=== PATIENT | male | born 1960 | race Caucasian/White ===

== ENCOUNTER 2020-01-05 07:21 | Outpatient (REF) | payer BC, SELFPAY | END 2020-01-05 07:22 | disposition home or self-care (01) | LOC: HO.LAB 07:21 | PROVIDERS: Visit Provider Internal Medicine Gastroenterology | DX: Z13.89 Encounter for screening for other disorder (principal) ==

== ENCOUNTER 2020-01-08 | Outpatient (REF) | payer BC, SELFPAY ==
[2020-01-09 12:36] LABS: FIT1 NEGATIVE (NEGATIVE); FIT2 NEGATIVE (NEGATIVE)
[2020-01-09 12:37] LABS: FIT Int Ctl YES
== END 2020-01-08 00:01 | disposition home or self-care (01) ==
LOC: HO.LNP
PROVIDERS: Visit Provider Internal Medicine Gastroenterology
DX: D64.9 Anemia, unspecified (principal)
CPT/HCPCS: 82274

== ENCOUNTER → 2020-01-10 08:18 | Outpatient (BNVA) | payer BC, SELFPAY | PROVIDERS: Visit Provider Dietitian, Registered | DX: Z76.89 Persons encountering health services in other specified circumstances (principal) ==

== ENCOUNTER → 2020-03-06 08:14 | Outpatient (BNVA) | payer BC, SELFPAY | PROVIDERS: Visit Provider Dietitian, Registered | DX: Z76.89 Persons encountering health services in other specified circumstances (principal) ==

== ENCOUNTER 2020-04-20 07:42 | Day surgery (SDC) | payer BC, SELFPAY ==
--- NOTE | 2020-03-22 08:23 | HO.ANESPROP2 ---
HPI - Anesthesia Eval Consult details Narrative: 60yo M for Colonoscopy [facility] Past Medical History Medical History (Updated 03/22/20 @ 14:02 by Sudha Sanchez, RN) Diabetes Elevated HDL Kidney stones Sleep apnea Surgical History Surgical History (Updated 03/22/20 @ 14:02 by Sudha Sanchez, RN) H/O ureter repair S/P gastric bypass S/P hip replacement Meds Allergies Allergy/AdvReac Type Severity Reaction Status Date / Time Iodinated Contrast Media Allergy Intermediate HIVES Unverified 11/10/19 16:44 [IV Dye, Iodine Containing] iodine Allergy Unknown Verified 07/23/18 00:00 Home Medications Medication Instructions Recorded Confirmed Type bupropion HCl 1 tab PO DAILY 03/22/20 03/22/20 History cholecalciferol (vitamin D3) 1 cap PO DAILY 03/22/20 03/22/20 History [Vitamin D3] iron,carbonyl-vitamin C [Vitron-C] 1 tab PO DAILY 03/22/20 03/22/20 History tamsulosin 1 cap PO DAILY 03/22/20 03/22/20 History Exam Exam Date and Time: March 22, 2020 0823 Pertinent Lab Results Pertinent Lab Results: Laboratory Tests 11/04/19 11/04/19 07:05 07:05 WBC 5.6 Hgb 13.0 L Hct 40.0 L Plt Count 244 Sodium 143 Potassium 4.5 Chloride 107 BUN 20 H Creatinine 1.17 Assessment and Plan Assessment Anesthesia Assessment: Chart Reviewed
[2020-03-22 13:59] VITALS: BMI 25.2
[2020-04-13 14:32] VITALS: BMI 25.7
--- NOTE | 2020-04-18 13:47 | P.CONAN_ITS ---
Documented by User: Jenifer Sherwood 04/18/20 13:49 HPI - Anesthesia Eval Consult details Narrative: 60yo M for Colonoscopy s/p gastric bypass 2017 [facility] Past Medical History Medical History ADD (attention deficit disorder) Anemia Diabetes Elevated HDL Kidney stones Sleep apnea Surgical History Surgical History H/O ureter repair Hx of colonoscopy S/P gastric bypass S/P hip replacement Social History Social History Are you a primary personal care home administrator to a significant other at home: No Do you presently have visiting nurse or other home services: No Smoking Status: Current some day smoker Use of substances other than those prescribed or required for medical reasons: No Have you been hit, kicked, punched, or otherwise hurt by someone within the past year? If so, by whom?: No Advance Directives: No Advance Directives Information Provided: No Advance Directives on File: No Recently lost weight without trying: No Meds Allergies Allergy/AdvReac Type Severity Reaction Status Date / Time Iodinated Contrast Media Allergy Intermediate HIVES Unverified 04/13/20 14:31 [IV Dye, Iodine Containing] Home Medications Medication Instructions Recorded Confirmed Last Taken Type bupropion HCl 1 tab PO DAILY 03/22/20 04/20/20 04/20/20 History 300 mg cholecalciferol (vitamin D3) 1 cap PO DAILY 03/22/20 03/22/20 Unknown History [Vitamin D3] iron,carbonyl-vitamin C [Vitron-C] 1 tab PO DAILY 03/22/20 03/22/20 Unknown History tamsulosin 1 cap PO DAILY 03/22/20 03/22/20 Unknown History Exam Exam Date and Time: April 18, 2020 1347 Height,Weight and Vital Signs: Height 5 ft 8 in Weight 76.657 kg Pertinent Lab Results Pertinent Lab Results: Laboratory Tests 11/04/19 11/04/19 07:05 07:05 WBC 5.6 Hgb 13.0 L Hct 40.0 L Plt Count 244 Sodium 143 Potassium 4.5 Chloride 107 BUN 20 H Creatinine 1.17 Assessment and Plan Assessment Anesthesia Assessment: Chart Reviewed Documented by User: Dilia Saldaña 04/20/20 08:46 [facility] Past Medical History Medical History ADD (attention deficit disorder) Anemia Diabetes Elevated HDL Kidney stones Sleep apnea Surgical History Surgical History H/O ureter repair Hx of colonoscopy S/P gastric bypass S/P hip replacement Social History Social History Are you a primary personal care home administrator to a significant other at home: No Do you presently have visiting nurse or other home services: No Smoking Status: Current some day smoker Use of substances other than those prescribed or required for medical reasons: No Have you been hit, kicked, punched, or otherwise hurt by someone within the past year? If so, by whom?: No Advance Directives: No Advance Directives Information Provided: No Advance Directives on File: No Recently lost weight without trying: No Meds Allergies Allergy/AdvReac Type Severity Reaction Status Date / Time Iodinated Contrast Media Allergy Intermediate HIVES Unverified 04/13/20 14:31 [IV Dye, Iodine Containing] Home Medications Medication Instructions Recorded Confirmed Last Taken Type bupropion HCl 1 tab PO DAILY 03/22/20 04/20/20 04/20/20 History 300 mg cholecalciferol (vitamin D3) 1 cap PO DAILY 03/22/20 03/22/20 Unknown History [Vitamin D3] iron,carbonyl-vitamin C [Vitron-C] 1 tab PO DAILY 03/22/20 03/22/20 Unknown History tamsulosin 1 cap PO DAILY 03/22/20 03/22/20 Unknown History Exam Airway Mallampati Class: II TM Dist: >3cm Neck ROM: Full Loose/Missing/Broken Teeth: No Heart: RRR Lungs: CTA Assessment and Plan Assessment Anesthesia Assessment: Anesthesia Plan Discussed and Chart Reviewed Final Anesthetic Review NPO: Yes ASA Class: II Final Preanesthetic Review: Meds/Allgs Chart Reviewed, Consent Obtained/Reviewed and Anes Risks/Benef Reviewed Patient Risk: Intermediate Procedure Risk: Low Anesthetic Plan Anesthetic Plan: MAC: Disposition: Standard PACU
[2020-04-20] MEDS: Lactated Ringers 1,000 ML 100 ML IVCONT (08:20)
[2020-04-20 08:21] VITALS: BP 133/71; PULSE 48; RESP 18; TEMP 36.4; O2SAT 97
[2020-04-20 08:38] LABS: Glucose, Whole Blood 86 mg/dL (60-115)
--- NOTE | 2020-04-20 08:44 | MHC.SHP ---
Pre-Procedural Eval Section B Chief Complaint: anemia Details of Present Illness: jin Relevant Family History (Specify if Yes): No Relevant Social History: None Present Medications: see Short Stay Collaborative assessment Medical History: No relevant PMH (had covid in feb) History of Previous Operations: No relevant previous surgery Allergies: Allergies Allergy/AdvReac Type Severity Reaction Status Date / Time Iodinated Contrast Media Allergy Intermediate HIVES Unverified 04/13/20 14:31 [IV Dye, Iodine Containing] Review of Systems Sugical H&P ROS: Negative: Constitution, Cardiovascular, Respiratory, Neurological, Psychiatric, Hem-Onc, Allergic/Immunologic, Gastrointestinal, Genitourinary, Musculoskeletal, Integumentary, Endocrine and Eyes/Ears/Nose/Throat Exam Surgical H&P Exam: Normal: HEENT, Normal: Heart, Normal: Lungs, Normal: Extremities, Normal: Abdomen, Normal: Skin and Normal: Neurological Plan Diagnosis/Plan: Unchanged I have reviewed the history and physical and performed a pertinent physical examination on my patient. No changes have occurred unless specified.
[2020-04-20 09:20] VITALS: BP 110/54; PULSE 51; RESP 18; TEMP 36.4; O2SAT 96
--- NOTE | 2020-04-20 09:21 | PM.OP ---
Brief Operative Note Date of Service: 04/20/20 Pre-op diagnosis: jin Post-op diagnosis: same Procedure: colonoscopy Surgeon: Berto Poe Anesthesia: MAC Estimated blood loss (mL): 0 Pathology: none sent Condition: stable Disposition: PACU
[2020-04-20 09:35] VITALS: BP 113/51; PULSE 48; RESP 17; TEMP 36.4; O2SAT 97
--- NOTE | 2020-04-20 18:59 | OP_ITS ---
SURGEON: Berto Poe MD INDICATIONS: Iron deficiency anemia. PREOPERATIVE DIAGNOSIS: POSTOPERATIVE DIAGNOSIS: PROCEDURE PERFORMED: Colonoscopy to the terminal ileum. ESTIMATED BLOOD LOSS: COMPLICATIONS: ANESTHESIA: ASSISTANTS: SPECIMENS: MEDICATIONS: Monitored anesthesia care. DESCRIPTION OF PROCEDURE: History and physical was performed. The risks and benefits of the procedure were explained to the patient and informed consent was obtained. The patient was placed in left lateral decubitus position. A digital rectal exam was performed and was found to be normal. The Olympus pediatric video colonoscope was introduced into the rectum and advanced to the cecum without difficulty. The cecum was identified by transillumination, palpation, and identification of ileocecal valve. Examination was performed. The scope was removed. He tolerated the procedure well and was taken to recovery area in stable condition. FINDINGS: The terminal ileum was normal. The visualized colonic mucosa was within normal limits without evidence of masses or ulcers. There was a moderate amount of liquid stool coating the mucosa. This limited the sensitivity examination for detection of small polyps. This was washed and suctioned as best possible. No polyps were identified. Retroflexed examination showed small internal hemorrhoids. IMPRESSION: Normal colonoscopy. RECOMMENDATIONS: 1. Follow up as needed. 2. Repeat colonoscopy is recommended in 10 years for average risk individuals. MD LANA Swan/ZACKL / [id number]
== END 2020-04-20 10:10 | disposition home or self-care (01) ==
PROVIDERS: Visit Provider Internal Medicine Gastroenterology
PROC: 0DJD8ZZ Inspection of Lower Intestinal Tract, Via Natural or Artificial Opening Endoscopic (ICD-10-PCS; CPT 45378; principal; 2020-04-20 08:50)
DX: D50.9 Iron deficiency anemia, unspecified (principal); Z86.010 Personal history of colon polyps; K64.8 Other hemorrhoids; E11.9 Type 2 diabetes mellitus without complications; G47.30 Sleep apnea, unspecified; F98.8 Other specified behavioral and emotional disorders with onset usually occurring in childhood and adolescence; Z98.84 Bariatric surgery status; Z79.899 Other long term (current) drug therapy; Z99.89 Dependence on other enabling machines and devices; Z91.041 Radiographic dye allergy status; Z87.891 Personal history of nicotine dependence
CPT/HCPCS: 45378; 82947

== ENCOUNTER 2020-05-29 08:26 | Outpatient (REF) | payer BC, SELFPAY ==
--- NOTE | 2020-05-29 11:24 | MHC.AU.ANO ---
Adult Audiological Evaluation Date of Visit: 05/29/20 Reason for Appointment: Audiological evaluation due to concern for decreased hearing and tinnitus. Mr. Stanley states that he has been experiencing constant tinnitus for as long as he can remember. He feels his hearing is gradually decreasing and he feels that his right ear is worse. Does patient feel they have a hearing loss?: Yes If Yes, Which Ear?: Both Ears When Was Hearing Difficulty First Noticed?: Over the past several years Has hearing been tested previously?: No Hearing Handicap Inventory: HHIE SCORE: 20 Based on HHIE score, patient has: Mild to moderate perceived hearing handicap Ear History: Family History of Hearing Loss?: Yes: Mother and father Bothersome Tinnitus/Ringing/Noises in Ears: Both Ears Blocked/Full Sensation in Ear(s): Both Ears Medical History: Medical History: Diabetes High Blood Pressure Medical History: Right kidney srugery in 1977, Left hip replacement 2010, Gastric bypass 2018 Medication List: Carafate 10 mL 2x daily, Pantoprazol 40 mg, Vitamin C, Tamsulosin, Wellbutrin 300 mg, Vitamin D, Bariatric multivitamin Otoscopy: Right Ear: Unremarkable Left Ear: Unremarkable Tympanometry: Tympanometry performed due to: Patient reports sensation that ears are blocked/plugged. Right Ear: Normal Middle Ear System (Type A) Left Ear: Normal Middle Ear System (Type A) Hearing Evaluation: Transducer(s) Used: Insert Earphones, Bone Conduction Method: Conventional Audiometry Stimuli Used: Pure Tones Right Ear: Description of Hearing: Normal hearing at 250 Hz, sloping to a mild to moderately severe sensorineural hearing loss from 500-8000 Hz. Left Ear: Description of Hearing: Normal hearing from 250-750 Hz, sloping to a mild to moderately severe sensorineural hearing loss from 5481-8227 Hz. Speech Recognition Threshold (SRT): Method Used: Monitored Live Voice Stimuli Used: Spondee Words Right Ear: 25 dBHL Left Ear: 20 dBHL Word Discrimination: Method: Recorded Lists Word Lists Used: NU-6 Right Ear: 76% at 65 dBHL, 88% at 75 dBHL Left Ear: 96% at 60 dBHL Recommendations: Audiological re-evaluation in one year. Trial with amplification is recommended. Discussed hearing aid options with patient. He will consider his options and contact us to schedule a hearing aid consultation if he decides he would like to pursue hearing aids through our clinic. Diagnosis: Primary Diagnosis: H90.3 Bilateral Sensorineural Hearing Loss Secondary Diagnosis: H93.13 Tinnitus, Bilateral Services Performed: Comprehensive Audiological Evaluation (CPT 99133) Tympanometry (CPT 57329) Signature: Provider: Esme Soto, CCC-A
== END 2020-05-29 08:27 | disposition home or self-care (01) ==
LOC: HO.SH 08:26
PROVIDERS: Visit Provider Internal Medicine
DX: H90.3 Sensorineural hearing loss, bilateral (principal); H93.13 Tinnitus, bilateral
CPT/HCPCS: 92557; 92567

== ENCOUNTER → 2020-06-05 15:40 | Outpatient (BNVA) | payer BC, SELFPAY | PROVIDERS: PCP Internal Medicine; Visit Provider Dietitian, Registered ==

== ENCOUNTER 2020-06-08 07:53 | Outpatient (REF) | payer BC, SELFPAY ==
--- NOTE | ~2020-06-08 | XR_ITS ---
EXAMINATION: XR BILATERAL HIPS AND PELVIS CLINICAL INFORMATION: Pain in the right and left hip. COMPARISON: X-ray of the pelvis and hips April 2017. TECHNIQUE: AP of the pelvis and AP and lateral views of the right and left hip respectively. FINDINGS: RIGHT HIP: There is marked joint space narrowing with marginal osteophytes and subchondral cystic change with a [id number] appearance superiorly. Findings indicative of severe osteoarthritis. This appears to have progressed slightly since the prior examination. LEFT HIP: Left total hip arthroplasty noted with components in usual position. No periprosthetic fracture or suspicious area of lucency. There is heterotopic ossification as seen previously. PELVIS: Hips as above. The remaining bone and joints in the pelvis are normal. Arterial calcification present. XR/XR hip LT min 2V IMPRESSION: Right hip: Severe osteoarthritis with degenerative changes slightly progressed compared to prior. Left hip: Left total hip arthroplasty without change or complication by x-ray. Pelvis: Hips as above. Calcific atherosclerotic disease.
--- NOTE | ~2020-06-08 | XR_ITS ---
EXAMINATION: XR BILATERAL HIPS AND PELVIS CLINICAL INFORMATION: Pain in the right and left hip. COMPARISON: X-ray of the pelvis and hips April 2017. TECHNIQUE: AP of the pelvis and AP and lateral views of the right and left hip respectively. FINDINGS: RIGHT HIP: There is marked joint space narrowing with marginal osteophytes and subchondral cystic change with a [id number] appearance superiorly. Findings indicative of severe osteoarthritis. This appears to have progressed slightly since the prior examination. LEFT HIP: Left total hip arthroplasty noted with components in usual position. No periprosthetic fracture or suspicious area of lucency. There is heterotopic ossification as seen previously. PELVIS: Hips as above. The remaining bone and joints in the pelvis are normal. Arterial calcification present. XR/XR hip RT w PEL1V IMPRESSION: Right hip: Severe osteoarthritis with degenerative changes slightly progressed compared to prior. Left hip: Left total hip arthroplasty without change or complication by x-ray. Pelvis: Hips as above. Calcific atherosclerotic disease.
== END 2020-06-08 07:54 | disposition home or self-care (01) ==
LOC: HO.HOSX 07:53
PROVIDERS: Visit Provider Orthopaedic Surgery
DX: M16.11 Unilateral primary osteoarthritis, right hip (principal); M25.552 Pain in left hip; E11.65 Type 2 diabetes mellitus with hyperglycemia
CPT/HCPCS: 73502

== ENCOUNTER 2020-06-11 14:14 | Outpatient (REF) | payer BC, SELFPAY ==
--- NOTE | ~2020-06-11 | XR_ITS ---
EXAMINATION: XR ANKLE, LEFT CLINICAL INFORMATION: Diabetes and hypercalcemia. COMPARISON: None. TECHNIQUE: AP, lateral, and mortise views of the left ankle. FINDINGS: No acute fracture or dislocation. Small tibiotalar marginal osteophytes. Degenerative spurring at the dorsal midfoot. No osseous erosion. The ankle mortise is maintained. Atherosclerotic calcifications. XR/XR ankle LT 2V IMPRESSION: Degenerative arthritis at the dorsal midfoot as well as minimal degenerative arthritis of the talonavicular joint.
== END 2020-06-11 14:15 | disposition home or self-care (01) ==
LOC: HO.XRAY 14:14
PROVIDERS: PCP Internal Medicine; Visit Provider Family Medicine
DX: E11.65 Type 2 diabetes mellitus with hyperglycemia (principal); E11.40 Type 2 diabetes mellitus with diabetic neuropathy, unspecified; L03.116 Cellulitis of left lower limb; L02.416 Cutaneous abscess of left lower limb
CPT/HCPCS: 73600; 87071; 87077; 87186; 87205

== ENCOUNTER 2020-06-14 06:17 | Outpatient (REF) | payer BC, SELFPAY ==
[2020-06-14 07:17] LABS: MANUAL DIFF FLAG NO
--- NOTE | 2020-06-14 07:20 | ECG_ITS ---
Test Reason : PREOP Blood Pressure : / mmHG Vent. Rate : 057 BPM Atrial Rate : 053 BPM P-R Int : 000 ms QRS Dur : 088 ms QT Int : 482 ms P-R-T Axes : 000 -31 039 degrees QTc Int : 469 ms sinus brdayvardia with Premature supraventricular complexes Left axis deviation Abnormal ECG When compared with ECG of 21-JUL-2017 12:08, QT has lengthened Referred By: Cornelius Abdul Electronically Signed By:Jett Faust
[2020-06-14 07:30] LABS: Basophils Percent Auto 0.6 % (0-2); Eosinophils Absolute Auto 0.2 X10*3/uL (0.0-0.4); Eosinophils Percent Auto 2.9 % (0-4); Hematocrit 39.2 % (42-52); Hemoglobin 12.8 g/dl (14.0-18.0); Imm Gran Abs Auto 0.01 X10*3/uL (0.00-0.03); Imm Gran Pct Auto 0.2 % (0.0-0.4); Immature Retic Fraction 13.3 % (2.3-13.4); Lymphocytes Absolute Auto 1.5 X10*3/uL (1.2-4.9); Lymphocytes Percent Auto 27.6 % (20-40); Mean Corpuscular HGB Conc 32.7 g/dl (31.0-36.0); Mean Corpuscular Hemoglobin 30.6 pg (27.0-33.0); Mean Corpuscular Volume 93.8 fL (80-98); Mean Platelet Volume 9.6 fL (9.4-12.4); Monocytes Absolute Auto 0.5 X10*3/uL (0.1-1.2); Monocytes Percent Auto 9.7 % (2-11); Neutrophils Absolute Auto 3.2 X10*3/uL (2.0-8.3); Platelet Count 261 X10*3/uL (160-400); Red Blood Count 4.18 X10*6/uL (4.60-5.80); Red Cell Distribution Width 12.8 % (11.0-16.0); Retic HGB Equivalent 34.5 pg (30.0-35.0); Reticulocyte Percent 1.3 % (0.5-1.8); Reticulocytes Absolute 0.054 X10*6/uL (0.026-0.095); White Blood Count 5.4 X10*3/uL (4.8-10.8)
[2020-06-14 07:44] LABS: Alanine Aminotransferase 18 U/L (0-40); Albumin Level 3.9 g/dL (3.5-5.0); Alkaline Phosphatase 98 U/L (39-117); Anion Gap 10 (12-20); Aspartate Amino Transferase 16 U/L (5-37); Bilirubin Total 0.8 mg/dL (0.0-1.0); Blood Urea Nitrogen 18 mg/dL (9-16); Carbon Dioxide 31 mmol/L (22-29); Chloride 107 mmol/L (96-108); Cholesterol 150 mg/dL; Estimated Glomerular Filt Rate > 60; Glucose Random 105 mg/dL (60-115); HDL Cholesterol 51 mg/dL; Iron 80 mcg/dL (45-160); LDL Cholesterol Calculated 85 mg/dl; Percent Iron Saturation 25 % (15-50); Potassium 4.3 mmol/L (3.3-5.1); Sodium 144 mmol/L (135-145); Total Iron Binding Capacity 317 mcg/dL (228-428); Total Protein 6.9 g/dL (6.5-8.0); Triglycerides 70 mg/dL; Unsaturated Iron Binding 237 ug/dL
[2020-06-14 08:08] LABS: Free T4 (Free Thyroxine) 0.93 ng/dL (0.71-1.85); Prostate Specific Antigen Scr 0.27 ng/mL (<0.05-4.0); Thyroid Stimulating Hormone 1.16 uIU/mL (0.32-4.0); Vitamin D 25-OH Total 38.5 ng/mL (>30)
[2020-06-14 08:25] LABS: Folate 17.6 ng/mL (> or = 4.0); Vitamin B12 1061 pg/mL (200-900)
[2020-06-14 08:32] LABS: Creatinine Urine 164.83 mg/dL; Microalbum/Creatinine Ratio Ur 3.6 ug/mg cr
[2020-06-14 08:55] LABS: Estimated Average Glucose 108 mg/dL; Hemoglobin A1c % 5.4 %
[2020-06-18 11:16] LABS: Testosterone, Total 369 ng/dL (250-1100)
== END 2020-06-14 06:18 | disposition home or self-care (01) ==
LOC: HO.LAB 06:17
PROVIDERS: PCP Internal Medicine; Visit Provider Orthopaedic Surgery
DX: Z01.810 Encounter for preprocedural cardiovascular examination (principal); Z12.5 Encounter for screening for malignant neoplasm of prostate; N40.0 Benign prostatic hyperplasia without lower urinary tract symptoms; E78.00 Pure hypercholesterolemia, unspecified; E11.65 Type 2 diabetes mellitus with hyperglycemia
CPT/HCPCS: 36415; 80053; 80061; 82043; 82306; 82607; 82746; 83036; 83540; 84153; 84403; 84439; 84443; 85025; 85045; 93005

== ENCOUNTER → 2020-07-11 13:01 | Outpatient (BNVA) | payer BC, SELFPAY | PROVIDERS: Visit Provider Physician Assistant ==

== ENCOUNTER 2020-07-16 06:04 | Inpatient (IN) | payer BC, SELFPAY ==
--- NOTE | 2020-07-12 10:41 | P.CONAN_ITS ---
Documented by User: Jenifer Sherwood 07/13/20 09:47 HPI - Anesthesia Eval Consult details Narrative: 60yo M for Right Hip Total Replacement PCP cleared s/p gastric bypass 2017 [facility] Active Problems Active Problems: All Active Problems (Updated 07/11/20 @ 13:30 by Mary Stratton PA-C) Osteoarthritis of right hip (Acute) Preoperative clearance (Acute) Primary osteoarthritis of right hip (Acute) Abscess (Acute) Abscess or cellulitis of ankle (Acute) Erectile dysfunction (Acute) Tremor (Acute) Tinnitus (Acute) BPH (benign prostatic hyperplasia) (Acute) Sleep apnea (Acute) Peripheral neuropathy (Acute) S/P gastric bypass (Acute) ADD (attention deficit disorder) (Acute) Obesity with body mass index (BMI) of 30.0 to 39.9 (Acute) Type 2 diabetes mellitus with hyperglycemia (Acute) Past Medical History Medical History ADD (attention deficit disorder) Anemia BPH (benign prostatic hyperplasia) COVID-19 vaccine series completed Elevated HDL History of COVID-19 Kidney stones Obesity with body mass index (BMI) of 30.0 to 39.9 Peripheral neuropathy Sleep apnea Type 2 diabetes mellitus with hyperglycemia Family History Family History Father Myocardial infarct Mother CVA (cerebral vascular accident) Family history of problems with anesthesia: No Surgical History Surgical History H/O ureter repair Hx of colonoscopy S/P gastric bypass S/P hip replacement History of Problems with Anesthesia: No Social History Social History Are you a primary healthcare consultant to a significant other at home: No Do you presently have visiting nurse or other home services: No Alcohol intake: never Smoking Status: Former smoker Smoking Quit Date: 1994 Have you been hit, kicked, punched, or otherwise hurt by someone within the past year? 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 Meds Allergies Allergy/AdvReac Type Severity Reaction Status Date / Time Iodinated Contrast Media Allergy Intermediate HIVES Verified 07/11/20 13:13 [IV Dye, Iodine Containing] iodine Allergy Hives Verified 07/12/20 12:30 NSAIDS (Non-Steroidal Allergy Hx Verified 07/12/20 12:30 Anti-Inflamma Bariatric surgery Home Medications Medication Instructions Recorded Confirmed Last Taken Type Vitron-C 1 tab PO DAILY 03/22/20 07/12/20 Unknown History CPAP #1 ea 05/18/20 07/10/20 Unknown History multivitamin 1 tab PO DAILY 05/18/20 07/12/20 Unknown History sildenafil [Viagra] 100 mg PO DAILY PRN 07/12/20 07/12/20 Unknown History Exam Exam Date and Time: July 12, 2020 1041 Pertinent Lab Results Pertinent Lab Results: Laboratory Tests 06/14/20 06/14/20 06:45 06:45 WBC 5.4 Hgb 12.8 L Hct 39.2 L Plt Count 261 Sodium 144 Potassium 4.3 Chloride 107 Carbon Dioxide 31 H BUN 18 H Creatinine 1.09 Laboratory Tests 06/14/20 06:45 Hemoglobin A1c % 5.4 Lab Results 07/12/20 07/12/20 Range/Units 12:30 13:15 Nasal Screen MRSA (PCR) NEGATIVE (Negative) Nasal S. aureus Screen NEGATIVE (Negative) Nasal MRSA/S.aureus Interp SEE NOTE Blood Type O Positive Antibody Screen NEGATIVE Narrative Narrative: EKG 05/2020 Vent. Rate : 057 BPM Atrial Rate : 053 BPM P-R Int : 000 ms QRS Dur : 088 ms QT Int : 482 ms P-R-T Axes : 000 -31 039 degrees QTc Int : 469 ms sinus bradycardia with Premature supraventricular complexes Left axis deviation Abnormal ECG When compared with ECG of 21-JUL-2017 12:08, QT has lengthened Airway Mallampati Class: I TM Dist: >3cm Neck ROM: Full Loose/Missing/Broken Teeth: Yes (Left upper molar crown, Right upper molar temporary crown) Heart: RRR Lungs: CTAB Assessment and Plan Assessment Anesthesia Assessment: Anesthesia Plan Discussed and PAT Visit Documented by User: Nayely Christian 07/16/20 08:56 PMFSH Past Medical History Medical History ADD (attention deficit disorder) Anemia BPH (benign prostatic hyperplasia) COVID-19 vaccine series completed Elevated HDL History of COVID-19 Kidney stones Obesity with body mass index (BMI) of 30.0 to 39.9 Peripheral neuropathy Sleep apnea Type 2 diabetes mellitus with hyperglycemia Family History Family History Father Myocardial infarct Mother CVA (cerebral vascular accident) Surgical History Surgical History H/O ureter repair Hx of colonoscopy S/P gastric bypass S/P hip replacement Social History Social History Are you a primary healthcare consultant to a significant other at home: No Do you presently have visiting nurse or other home services: No Alcohol intake: never Smoking Status: Former smoker Smoking Quit Date: 1994 Have you been hit, kicked, punched, or otherwise hurt by someone within the past year? 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 Meds Allergies Allergy/AdvReac Type Severity Reaction Status Date / Time Iodinated Contrast Media Allergy Intermediate HIVES Verified 07/11/20 13:13 [IV Dye, Iodine Containing] iodine Allergy Hives Verified 07/12/20 12:30 NSAIDS (Non-Steroidal Allergy Hx Verified 07/12/20 12:30 Anti-Inflamma Bariatric surgery Home Medications Medication Instructions Recorded Confirmed Last Taken Type Vitron-C 1 tab PO DAILY 03/22/20 07/12/20 Unknown History CPAP #1 ea 05/18/20 07/10/20 Unknown History multivitamin 1 tab PO DAILY 05/18/20 07/12/20 Unknown History sildenafil [Viagra] 100 mg PO DAILY PRN 07/12/20 07/12/20 Unknown History Exam Height,Weight and Vital Signs: Vital Signs Temp Pulse Resp BP Pulse Ox 07/16/20 06:48 97.2 F 38 L 16 128/59 L 99 Pertinent Lab Results Pertinent Lab Results: Laboratory Results - last 24 hr 07/16/20 06:00 COVID-19 ([facility]) Negative COVID-19 Clin Com See Note 12 lead EKG 07/16/2020: Marked SB 38 Airway Mallampati Class: II TM Dist: >3cm Neck ROM: Full Loose/Missing/Broken Teeth: Yes (Temporary crown was loose and patient removed before he came in) Heart: RRR Lungs: CTAB Assessment and Plan Assessment Anesthesia Assessment: Anesthesia Plan Discussed and Chart Reviewed Final Anesthetic Review NPO: Yes ASA Class: III Final Preanesthetic Review: No Changes in Pt Med Stat, Meds/Allgs Chart Reviewed, Consent Obtained/Reviewed and Anes Risks/Benef Reviewed Patient Risk: Intermediate Procedure Risk: Intermediate Assessment/Block/Sedation in SS: Assess/Block/Sedation-SS Anesthetic Plan Anesthetic Plan: GA Disposition: Standard PACU
[2020-07-12 12:01] VITALS: BP 136/65; PULSE 49; RESP 16; O2SAT 99; BMI 27.2
[2020-07-12 15:10] LABS: MRSA Nasal PCR NEGATIVE (Negative); SA Nasal PCR NEGATIVE (Negative)
[2020-07-16] VITALS (15 sets, daily range): BP systolic 118–179; BP diastolic 45–88; PULSE 38–56; RESP 13–19; TEMP 36.1–36.8; O2SAT 95–100
--- NOTE | 2020-07-16 | ECG_ITS ---
Test Reason : PRE OP Blood Pressure : / mmHG Vent. Rate : 038 BPM Atrial Rate : 038 BPM P-R Int : 128 ms QRS Dur : 086 ms QT Int : 514 ms P-R-T Axes : 000 -27 063 degrees QTc Int : 408 ms Marked sinus bradycardia Abnormal ECG When compared with ECG of 14-JUN-2020 06:28, Rate is slower Referred By: Nayely Christian Electronically Signed By:HIRAL ROMERO
--- NOTE | ~2020-07-16 | XR_ITS ---
EXAMINATION: XR HIP, RIGHT CLINICAL INFORMATION: Postop COMPARISON: Previous x-ray May 2010 TECHNIQUE: Two views of the right hip and one view of the pelvis. FINDINGS: There is a new right hip replacement in satisfactory position. No fracture or dislocation is seen. There are postoperative changes of the soft tissues. There is a left hip replacement that appears unchanged. XR/XR hip RT w PEL1V IMPRESSION: Satisfactory position of right hip replacement.
[2020-07-16] MEDS: oxyCODONE HCl ER 10 MG TAB.ER.12H PO (06:39)
[2020-07-16] MEDS: Gabapentin 600 MG TABLET PO (06:39)
[2020-07-16 06:40] LABS: COVID-19 Test Negative (Negative); IDNOW Serial# 9DD0AD1C
[2020-07-16] MEDS: Lactated Ringers 1,000 ML 100 ML IVCONT ×2 (06:50→17:11)
--- NOTE | 2020-07-16 07:17 | MHC.SHP ---
Pre-Procedural Eval Section A The patient is an INPATIENT: No Changes since office visit: No Cold of Flu in the past 2 weeks, No New Medical Problems, No Changes in Medication and No Patient answered all questions The History & Physical has been completed within 30 days and I have reviewed it.: Yes Section B Chief Complaint: Right Hip Osteoarthritis Allergies: Allergies Allergy/AdvReac Type Severity Reaction Status Date / Time Iodinated Contrast Media Allergy Intermediate HIVES Verified 07/11/20 13:13 [IV Dye, Iodine Containing] iodine Allergy Hives Verified 07/12/20 12:30 NSAIDS (Non-Steroidal Allergy Hx Verified 07/12/20 12:30 Anti-Inflamma Bariatric surgery Plan I have reviewed the history and physical and performed a pertinent physical examination on my patient. No changes have occurred unless specified.
[2020-07-16] MEDS: fentaNYL citrate/PF 100 MCG/2 ML VIAL 25 MCG IVPUSH ×4 (10:17→10:32)
[2020-07-16] MEDS: HYDROmorphone HCl 0.5 MG/0.5 ML SYRINGE 0.25 MG IVPUSH ×2 (10:37→10:42)
[2020-07-16] MEDS: oxyCODONE HCl Immed Release 5 MG TABLET 10 MG PO ×4 (11:05→22:57)
[2020-07-16] MEDS: ceFAZolin Sodium/Dextrose,Iso 2 GM/50 ML PIGGYBACK IV (14:04)
[2020-07-16] MEDS: Ketorolac Tromethamine 15 MG/ML VIAL IVPUSH ×2 (14:05→20:15)
[2020-07-16] MEDS: Acetaminophen 325 MG TABLET 650 MG PO ×2 (14:05→20:14)
[2020-07-16] MEDS: 0.9 % Sodium Chloride Flush 3 ML SYRINGE IVFLUSH (22:57)
[2020-07-17] MEDS: Lactated Ringers 1,000 ML 100 ML IVCONT (02:10)
[2020-07-17] MEDS: Ketorolac Tromethamine 15 MG/ML VIAL IVPUSH ×2 (02:16→07:21)
[2020-07-17] MEDS: Acetaminophen 325 MG TABLET 650 MG PO ×3 (02:17→13:41)
[2020-07-17] MEDS: oxyCODONE HCl Immed Release 5 MG TABLET 10 MG PO ×4 (02:17→13:41)
[2020-07-17 03:45] VITALS: BP 139/55; PULSE 46; RESP 18; TEMP 37.2; O2SAT 98
[2020-07-17 06:45] LABS: Hematocrit 27.3 % (42-52); Hemoglobin 9.2 g/dl (14.0-18.0)
[2020-07-17] MEDS: 0.9 % Sodium Chloride Flush 3 ML SYRINGE IVFLUSH (07:22)
--- NOTE | 2020-07-17 07:36 | P.PNOP_ITS ---
Subjective Subjective Date of Service: 07/17/20 Interval history: POD 1 s/p RT MALINA No overnight events Resting in bed, has been out of bed, no concerns. Denies cp, sob, palpitations Physical Exam Vital Signs: Vital Signs: Last Vital Signs Temp 99.0 F 07/17/20 03:45 Pulse 46 L 07/17/20 03:45 Resp 18 07/17/20 03:45 BP 139/55 L 07/17/20 03:45 Pulse Ox 98 07/17/20 03:45 Body Mass Index 27.2 Const: General: cooperative, healthy appearing and no acute distress Resp: Effort & Inspection: normal respiratory effort and able to speak in complete sentences Cardio: Rate: regular rate Peripheral pulses: Peripheral pulses 2+ throughout GI: Palpation (GI): Soft to palpation Skin: General skin exam: no rashes or lesions noted Extrem: Other: Right hip bandage clean, dry and intact. No erythema, mild edema, sensation intact Progress Note: A&P Assessment and plan (1) History of total right hip replacement: Status: Acute Assessment and Plan: * Continue pain mgmnt * Begin lovenox for dvt ppx * begin PT for RT MALINA * Dispo planning-Pending PT eval, pain mgmnt Fall Risk Details Current Medications: Current Medications Generic Name Dose Route Start Last Admin Trade Name Kevinq PRN Reason Stop Dose Admin Acetaminophen 650 mg 07/16/20 14:00 07/17/20 07:22 Acetaminophen 325 Mg Tablet PO 650 mg Q6H FAUSTO Administration Aspirin 325 mg 07/17/20 22:00 Aspirin 325 Mg Tablet PO BID FAUSTO Ketorolac Tromethamine 15 mg 07/16/20 14:00 07/17/20 07:21 Ketorolac Tromethamine 15 Mg/Ml Vial IVPUSH 15 mg Q6H FAUSTO Administration Morphine Sulfate 3 mg 07/16/20 11:20 Morphine Sulfate 4 Mg/Ml Cartridge IVPUSH Q2H PRN Pain, Severe (Pain Scale 7-10) Naloxone HCl 0.2 mg 07/16/20 11:20 Naloxone Hcl 0.4 Mg/Ml Vial IVPUSH Q2M PRN Excessive sedation or RR < 8 Ondansetron HCl 4 mg 07/16/20 11:20 Ondansetron Hcl 4 Mg/2 Ml Vial IVPUSH Q8H PRN Nausea and Vomiting Oxycodone HCl 10 mg 07/16/20 14:00 07/17/20 05:56 Oxycodone Hcl Immed Release 5 Mg Tablet PO 10 mg Q4H FAUSTO Administration Sodium Chloride 3 ml 07/16/20 16:00 07/17/20 07:22 0.9 % Sodium Chloride Flush 3 Ml Syringe IVFLUSH 3 ml QSHIFT FAUSTO Administration Sodium Chloride 3 ml 07/16/20 16:00 07/17/20 07:25 0.9 % Sodium Chloride Flush 3 Ml Syringe IVFLUSH Not Given QSHIFT FAUSTO Time Spent With Patient Time: Total time spent is greater than 50% in coordination of care (as documented) at patient's floor/unit and/or counseling patient: Time with patient: 15 - 24 minutes Procedures Date of Service Date of Service: 07/17/20
[2020-07-17 08:00] VITALS: BP 118/46; PULSE 48; RESP 16; TEMP 36.8; O2SAT 99
[2020-07-17 08:33] VITALS: BP 118/46; PULSE 48; O2SAT 99
--- NOTE | 2020-07-17 10:11 | MHC.CM.PN ---
Addendum entered by Farzana Flores 07/17/20 10:15: SC LOVENOX Q 24HRS Original Note: NURSE HISTOLOGY ASSISTANT NOTE ELECTRONIC MEDICAL RECORD REVIEWED ALONG WITH CASE DISCUSSED WITH STAFF NURSE , STAFF NURSE TO PROVIDE TEACHING FOR ADMINISTRATION OF SC LOVENOX STARTED TODAY Spoke to patient about this ,( he reported to me that before his bariatric surgery he use to give himself insulin , and now no longer needs it, he also had his l-jennifer and was on loveno sc, he would appreciate reinforcement teaching by the vna ) . 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 he lives with his and two daughters. discharge plan -anticipate discharge later today pending ortho surgical re-assessment. requested copy of hcp naming his as his hcp agent. new referral to the [facility] for nursing to start tomorrow before 10 am for sc lovenox reinforcement teaching and to also start home physical thearpy.iniated referral and recived confirmation of start date transpotation family
[2020-07-17] MEDS: Enoxaparin Sodium 40 MG/0.4 ML SYRINGE SUBCUT (10:19)
--- NOTE | 2020-07-17 10:29 | PC.NURSE ---
PT SELF ADMINISTERED LOVENOX WITHOUT DIFFICULTY. STATED HE HAS TAKEN INSULIN IN THE PAST SO COMFORTABLE WITH INJECTIONS.
[2020-07-17 11:55] VITALS: BP 118/46; PULSE 48; O2SAT 99
--- NOTE | 2020-07-17 12:02 | P.DS_ITS ---
DS: Providers Provider Date of Service: 07/18/20 Date of admission: 07/16/20 06:04 Primary care physician: Marichuy Pfeiffer MD DS: Diagnosis Discharge Diagnosis (1) History of total right hip replacement: Status: Acute Problem details: Mr. Stanley is a 60 yo male who presented to the office with ongoing right hip pain. He was found to have OA of the right hip and had failed all conservative treatment. He continued to have difficulty with ambulation and daily activities; therefore he consented to move forward with Right total hip arthroplasty. DS: Medications Discharge Medications Home Medications: Home Medications Medication Instructions Recorded Confirmed Vitron-C 1 tab PO DAILY 03/22/20 07/12/20 CPAP #1 ea 05/18/20 07/10/20 multivitamin 1 tab PO DAILY 05/18/20 07/12/20 sildenafil [Viagra] 100 mg PO DAILY PRN 07/12/20 07/12/20 Previous Rx's Medication Instructions Recorded sucralfate 100 mg/mL oral 10 ml PO BID 90 Days #1800 ml 12/20/19 suspension pantoprazole 40 mg tablet,delayed 40 mg PO DAILY #90 tab 02/13/20 release cholecalciferol (vitamin D3) 50 2,000 unit PO DAILY #30 cap 04/25/20 mcg (2,000 unit) capsule tamsulosin 0.4 mg capsule 0.4 mg PO DAILY #90 cap 06/04/20 docusate sodium [Colace] 100 mg PO BEDTIME 30 Days #30 cap 07/17/20 enoxaparin 40 mg SUBCUT Q24H 42 Days #16.8 ml 07/17/20 oxycodone 5 mg PO Q4H PRN 7 Days #42 tab 07/17/20 DS: Summary Hospital Course Hospital Course: The patient underwent a successful Right total hip arthroplasty, he was transferred to PACU and then to the floor to recover. During their stay, their vitals were stable, afebrile at 98.2. Labs were unremarkable, H/H 9.2/27.3. POD 1 he was started on Lovenox 40mg subq BID for DVT ppx, they also received Physical therapy services twice a day. Prior to discharge, their dressing was changed, incision clean dry and intact, new Aquacel dressing applied and the plan was to be discharged home with VNA services. Time Spent with Patient Time attestation: Total time spent providing and/or coordinating discharge services: Discharge coordination time: Less than 30 minutes Quality: Stroke Does the patient have a stroke diagnosis?: No Physical Exam Vital Signs: Vital Signs: Last Vital Signs Temp 98.2 F 07/17/20 08:00 Pulse 48 L 07/17/20 11:55 Resp 16 07/17/20 08:00 BP 118/46 L 07/17/20 11:55 Pulse Ox 99 07/17/20 11:55 Body Mass Index 27.2 Const: General: cooperative and no acute distress Orientation/consciousness: patient oriented x3 Resp: Effort & Inspection: normal respiratory effort and able to speak in complete sentences Cardio: Peripheral pulses: Peripheral pulses 2+ throughout Skin: General skin exam: no rashes or lesions noted Neuro: General: patient oriented x3 Extrem: Other: Right hip no ecchymosis, redness, drainage, or edema. Aquacell dressing was clean, dry, and intact. Abby intact. NVI. New Aquacel dressing applied. DS: Data Data Completed and Pending Pending studies at discharge: Pending at discharge 07/16/20 09:28 Surgical [PTH] Routine Labs on day of discharge: Laboratory Results - last 24 hr 07/17/20 06:05 Hgb 9.2 L D Hct 27.3 L D Discharge Plan Discharge Patient Disposition: Home Health Service Discharge Diagnosis: right total hip arthroplasty Referrals: JULIETTE MILLERA [Other] - 1 Day ([facility] TO START 07/18/20 REQUEST NURDING FOR HOME SC LOVENOX DUE AT 10 AM AND HOME PHYSICAL THEARPY CONFIRMED TO START ON 07/18/[address] FPEIFFER PATIENT INSTRUCTED TO CALL FOR POST HOSPITAL DISCHARGE FOLLOW UP ORTHOPEDIC SURGICAL FOLLOW UP PER DISCHARGE IONSTRUCTIONS SELF RESUMPTION OF HIS SERVICES JOLANTA KENNEDY FOR HOME CPAP MACHINE) Marichuy Pfeiffer MD [Primary Care Provider] - 1 Week Discharge Medications: New enoxaparin 40 mg/0.4 mL Syringe 40 mg subcut Q24H 42 Days Qty: 16.8 RF: 0 docusate sodium [Colace] 100 mg capsule 100 mg PO BEDTIME 30 Days Qty: 30 RF: 0 oxycodone 5 mg tablet 5 mg PO Q4H PRN (Reason: pain) 7 Days Qty: 42 RF: 0 Continued sucralfate [Carafate] 100 mg/mL suspension 10 ml PO BID 90 Days Qty: 1800 RF: 1 pantoprazole 40 mg tablet,delayed release (DR/EC) 40 mg PO DAILY Qty: 90 RF: 3 cholecalciferol (vitamin D3) [Vitamin D3] 50 mcg (2,000 unit) capsule 2,000 unit PO DAILY Qty: 30 RF: 11 tamsulosin 0.4 mg capsule 0.4 mg PO DAILY Qty: 90 RF: 2 Vitron-C 65 mg iron- 125 mg tablet,delayed release (DR/EC) 1 tab PO DAILY RF: 0 sildenafil [Viagra] 100 mg tablet 100 mg PO DAILY PRN (Reason: Erectile Dysfunction) RF: 0 Adacel(Tdap Adolesn/Adult)(PF) 2 Lf-(2.5-5-3-5 mcg)-5Lf/0.5 mL syringe 0.5 ml IM ONCE Qty: 0.5 RF: 0 multivitamin Tablet 1 tab PO DAILY RF: 0 (DME) CPAP 0 .Route .MEDSUPPLY Qty: 1 RF: 0 Discharge Orders: Discharge Order (Routine); Ordered 07/17/20 Ordered By: Khloe Salas Diet: regular diet Activity on Discharge: Use cane or walker Stand Alone Forms: Patient Portal Discharge page Care Plan Goals: restore fxn of right hip Health Concerns: none Plan of Treatment: Physical Therapy for total hip arthroplasty: no precautions, gait training, ROM, strength Limit stair climbing No showering, no tub bath-keep dressing clean, dry and intact No driving x6 weeks Continue Aspirin 325mg tabs twice a day x 4 weeks Follow up with [facility] in 2 weeks Assessment: s/p right total hip arthroplasty Discharge Date/Time: 07/17/20 15:09
--- NOTE | 2020-07-17 14:17 | P.OP_ITS ---
Operative Note Operative Note Date of Service: 07/16/20 Narrative: OPERATIVE PROCEDURE SURGEON: Dr Shields(Brandy) Instrum MATERIAL HANDLER LOADER: Khloe Salas PAC PREOP DIAGNOSIS: Osteoarthritis right hip POSTOP DIAGNOSIS: Same OPERATIVE PROCEDURE: Right Total hip arthroplasty- Bristow accolade II size 7 x 127 degree femoral component, 54 mm tritanium acetabulum, 0 degree by 36 mm acetabular liner, 36 mm x 0 mm Biolox head CLINICAL NOTE: This very pleasant individual comes in today in regards to their right hip. That evidence of osteoarthritis. This failed operative management. Therefore after explaining the risks benefits and alternatives and answering all the questions it was mutually agreed upon to carry following procedure. OPERATIVE DETAILS Under a general anesthetic the patient was placed in the left lateral decubitus position. The leg was then prepped and draped in standard fashion. Surgical time-out was then performed. Patient is identified. Procedure confirmed. Site confirmed. Medical and allergy history was reviewed. Preoperative antibiotics were given. Standard DVT prophylaxis in place. Trans E make acid was given as well. All was discussed and agreed upon. Standard anterolateral approach to the hip was carried out. Hemostasis was achieved along the way at all points with electrocautery. This brought us down to the level of the fascia robbi. This was divided along the length of the incision. The abductor musculature was identified. The anterior 2/3 were divided through tendon directly onto the greater trochanter. Muscle was then elevated off the capsule down to the level of the acetabulum. At this point a capsulectomy was then performed. The hip was then dislocated. Obvious evidence of osteoarthritis. The head and neck was then resected according to preoperative templating. We then turned our attention to the acetabulum. The remainder of the capsule and acetabular look labrum was removed. The soft tissue within the fovea was excised as well. There were loose bodies removed.. The be curette was used to remove any remaining cartilage. Starting with the 52 mm Reamer the acetabulum was sequentially reamed up to a size 54 mm. The trial acetabulum was placed at this point. It demonstrated appropriate fit fill and alignment. Therefore the 55 for acetabulum was selected and brought up the table. The acetabulum was then thoroughly irrigated. The permanent component was brought up on the table. It was then Press-Fit into place with excellent fit and alignment. A trial liner for the 36 mm head was selected. It was placed and we turned our attention to the femur. Box osteotome was used to lateralize the canal. T Reamer was then used to sound the canal. The canal was then sequentially broached from a 0 to a 7. It had excellent medial lateral fit and rotational stability. A trial reduction was then performed using the 127 degree collar and the 36 mm head. The hip was reduced. It was placed through range of motion. It demonstrated excellent leg lengths. Full range of motion. Stable in all positions. And therefore the A ccolade II, size 7 x 127 degree femoral component along with the 36 mm x 0 degree acetabular liner, and the 36 mm x 0 mm head were selected and brought up to the table. The hip was redislocated. The trial components were then all removed. The acetabular was thoroughly irrigated. The permanent liner was tapped into place. Turning our attention back to the femur, it was thoroughly irrigated. The permanent component was brought up to the table. It was then tapped into place with the same fit and fill as the broach had been. The head was brought up. The Santos taper was cleaned and dried. The head tapped into place. Final reduction was then performed which again demonstrated excellent leg length is. Full range of motion. And excellent stability. Therefore proceeded closure. The wound was thoroughly irrigated. The abductor musculature was repaired with 2. Dexon. The fascia robbi was closed with 2. Quill suture. The skin was approximated using interrupted 2-0 Dexon. The skin was then closed with sandie. Sterile dressing was then applied. The patient then had the anesthesia reversed. They were transferred supine to the room bed then taken to recovery room in good condition. Intraoperatively a 2nd unit trans of mac acid was given. There was approximately 125 cc of blood loss. No intraop transfusions or complications.
--- NOTE | 2020-07-17 14:18 | HO.POSTANES ---
Post Anesthesia Evaluation Post Anesthesia Evaluation Vital Signs: Vital Signs Temp Pulse Resp BP Pulse Ox 07/17/20 11:55 48 L 118/46 L 99 07/17/20 08:33 48 L 118/46 L 99 07/17/20 08:00 98.2 F 48 L 16 118/46 L 99 07/17/20 03:45 99.0 F 46 L 18 139/55 L 98 Anesthesia: General Mental Status: Awake Pain Control: Satisfactory Nausea/Vomiting: None Hydration: Adequate Anesthesia-Related Issues: No Anes. Related Issues
== END 2020-07-17 15:09 | disposition home health service (06) | DRG 301 ==
LOC: HO.SSSA 06:07 → HO.S3 11:06
PROVIDERS: Physician Assistant; Admitting Provider Orthopaedic Surgery; PCP Internal Medicine; Visit Provider Orthopaedic Surgery
PROC: 0SR90JA Replacement of Right Hip Joint with Synthetic Substitute, Uncemented, Open Approach (ICD-10-PCS; CPT 27130; principal; 2020-07-16 07:30)
DX: M16.11 Unilateral primary osteoarthritis, right hip (principal); Z96.642 Presence of left artificial hip joint; Z20.822 Contact with and (suspected) exposure to COVID-19; Z88.6 Allergy status to analgesic agent; Z98.84 Bariatric surgery status; Z79.899 Other long term (current) drug therapy
CPT/HCPCS: 36415; 73502; 85014; 85018; 86850; 86900; 86901; 87635; 87640; 87641; 88304; 88311; 93005; 97110; 97116; 97162; 97165; C1776; J0131; J0461; J0690; J1100; J1170; J1650; J1885; J2250; J2405; J3010

== ENCOUNTER → 2020-08-01 12:34 | Outpatient (BNVA) | payer BC, SELFPAY | PROVIDERS: PCP Internal Medicine; Visit Provider Physician Assistant ==

== ENCOUNTER → 2020-08-29 08:50 | Outpatient (BNVA) | payer BC, SELFPAY | PROVIDERS: Visit Provider Orthopaedic Surgery ==

== ENCOUNTER 2020-09-11 08:00 | Outpatient (RCR) | payer BC, SELFPAY ==
--- NOTE | 2020-08-15 10:12 | MHC.PT.EP ---
[facility] [place] Office [place] Office [place] Office [address] Vj [place] [address] [phone] F: [phone] F: [phone] F: [phone] F: [phone] Physical Therapy Plan of Care Date of Evaluation: Date of Surgery: 07/16/2020 Diagnosis: R MALINA Assessment: Maninder is a 60 year old male who is 4.5 weeks s/p R MALINA. On PT examination patient presents with significant R thigh muscle wasting observed as well as R iliopsoas and rectus femoris tightness, B Decreased hip strength, decreased R hip ROM, postural abnormalities, and gait deviations. He would benefit from skilled PT for the aforementioned impairments specifically: R hip flexor tightness, R quadriceps activation/control, and B hip abductor strengthening to improve his tolerance for ADLs such as dressing, bed mobility, and self care. Frequency and Duration: The patient will be seen 2x week for 5 weeks Short Term Goals: 1. In 2 weeks patient will demonstrate decreased hip flexor tightness to improve his ability for bed mobility and self care. 2. In 3 weeks patient will present with improved Hip ROM in all planes to improve his ability for dressing and putting his shoes on. [facility] Goals: 1. In 5 weeks patient will present with hip strength improvement by 1 MMT to help him perform alternate stair negotiation. 2. In 5 weeks pt will be independent with all HEPS and return to PLOF. Treatment Plan: Modalities to reduce pain, spasms and effusion. Manual therapy to restore motion and function. Therapeutic exercise to improve strength and flexibility. Neuromuscular re-education for posture and balance. Therapeutic activities to return to functional activities of daily living. Electronically signed by: Mahsa James PT DPT Please sign and return to therapist. Thank you for your referral.
--- NOTE | 2020-09-11 08:59 | MHC.PT.DC ---
[facility] [place] Office [place] Office [place] Office [address] Vj [place] [address] [phone] F: [phone] F: [phone] F: [phone] F: [phone] Physical Therapy Discharge Report Diagnosis: R MALINA Date of Surgery: 07/16/2020 Date of Evaluation: 08/15/20 Date of Discharge: 09/11/20 Treatments to Date: 9 Cancellations to Date: No Shows to Date: Discharge Status: Achieved Goals Improved Function Discharge Summary: Maninder has returned to all functional mobility. He is independent with bed mobility, ambulation, transfers, community ambulation, and negotiating community obstacles. Today's session focused on making Maninder independent with HEP. SL exercises cuff weight was trialed and tolerated well. I issued printed HEP. I reminded Maninder the importance of compliance extermination inspector, and the time line of his condition. I discussed a modified SLR done SL due to significant psoas weakness. Pt D/c today. Electronically signed by: Radha Sanchez PT DPT Please sign and return to therapist. Thank you for your referral.
== END 2020-09-14 14:45 | disposition home or self-care (01) ==
LOC: HO.PT 08:00
PROVIDERS: PCP Internal Medicine; Visit Provider Physician Assistant
DX: Z96.641 Presence of right artificial hip joint (principal)
CPT/HCPCS: 97110; 97140; 97161; 97530

== ENCOUNTER 2020-10-02 08:29 | Outpatient (REF) | payer BC, SELFPAY ==
[2020-10-02 09:50] LABS: MANUAL DIFF FLAG NO
[2020-10-02 09:55] LABS: Basophils Absolute Auto 0.1 X10*3/uL (0.0-0.2); Basophils Percent Auto 0.9 % (0-2); Eosinophils Absolute Auto 0.1 X10*3/uL (0.0-0.4); Eosinophils Percent Auto 1.4 % (0-4); Hematocrit 38.3 % (42-52); Hemoglobin 12.4 g/dl (14.0-18.0); Imm Gran Abs Auto 0.02 X10*3/uL (0.00-0.03); Imm Gran Pct Auto 0.3 % (0.0-0.4); Immature Retic Fraction 17.6 % (2.3-13.4); Lymphocytes Absolute Auto 2.1 X10*3/uL (1.2-4.9); Lymphocytes Percent Auto 31.3 % (20-40); Mean Corpuscular HGB Conc 32.4 g/dl (31.0-36.0); Mean Corpuscular Hemoglobin 29.3 pg (27.0-33.0); Mean Corpuscular Volume 90.5 fL (80-98); Mean Platelet Volume 9.4 fL (9.4-12.4); Monocytes Absolute Auto 0.6 X10*3/uL (0.1-1.2); Monocytes Percent Auto 9.3 % (2-11); Neutrophils Absolute Auto 3.8 X10*3/uL (2.0-8.3); Neutrophils Percent Auto 56.8 % (45-73); Platelet Count 266 X10*3/uL (160-400); Red Blood Count 4.23 X10*6/uL (4.60-5.80); Red Cell Distribution Width 13.2 % (11.0-16.0); Retic HGB Equivalent 31.1 pg (30.0-35.0); Reticulocytes Absolute 0.041 X10*6/uL (0.026-0.095); White Blood Count 6.7 X10*3/uL (4.8-10.8)
[2020-10-02 10:16] LABS: Iron 77 mcg/dL (45-160); Percent Iron Saturation 20 % (15-50); Total Iron Binding Capacity 392 mcg/dL (228-428); Unsaturated Iron Binding 315 ug/dL
[2020-10-02 10:37] LABS: Ferritin 22 ng/mL (20-250)
[2020-10-02 10:50] LABS: Folate > 20.0 ng/mL (> or = 4.0); Vitamin B12 971 pg/mL (200-900)
== END 2020-10-02 08:30 | disposition home or self-care (01) ==
LOC: HO.LAB 08:29
PROVIDERS: Absent Provider Internal Medicine; PCP Internal Medicine; Referring Provider Internal Medicine; Visit Provider Physician Assistant
DX: E66.3 Overweight (principal); Z68.27 Body mass index [BMI] 27.0-27.9, adult; D64.9 Anemia, unspecified; E11.65 Type 2 diabetes mellitus with hyperglycemia; Z98.84 Bariatric surgery status; Z71.3 Dietary counseling and surveillance
CPT/HCPCS: 36415; 82607; 82728; 82746; 83540; 85025; 85045

== ENCOUNTER 2020-11-08 08:07 | Outpatient (REF) | payer BC, SELFPAY ==
--- NOTE | ~2020-11-08 | XR_ITS ---
EXAMINATION: XR PELVIS XR HIP, RIGHT CLINICAL INFORMATION: Pain COMPARISON: Right hip radiograph from 07/17/2020 TECHNIQUE: 2 views of the pelvis and 2 views of the right hip FINDINGS: Status post bilateral hip arthroplasty. Orthopedic hardware is grossly intact. No acute visible fracture or dislocation. Heterotopic ossification versus enthesopathy along the left greater trochanter. Degenerative changes along the lumbosacral junction. Pelvic phleboliths are noted. Atherosclerotic calcifications are visualized. Soft tissues are unremarkable. XR/XR pelvis 1-2V IMPRESSION: 1. Status post bilateral hip arthroplasty, orthopedic hardware grossly intact. 2. No acute visible fracture or dislocation. 3. Heterotopic ossification versus enthesopathy along the left greater trochanter.
--- NOTE | ~2020-11-08 | XR_ITS ---
EXAMINATION: XR PELVIS XR HIP, RIGHT CLINICAL INFORMATION: Pain COMPARISON: Right hip radiograph from 07/17/2020 TECHNIQUE: 2 views of the pelvis and 2 views of the right hip FINDINGS: Status post bilateral hip arthroplasty. Orthopedic hardware is grossly intact. No acute visible fracture or dislocation. Heterotopic ossification versus enthesopathy along the left greater trochanter. Degenerative changes along the lumbosacral junction. Pelvic phleboliths are noted. Atherosclerotic calcifications are visualized. Soft tissues are unremarkable. XR/XR hip RT min 2V IMPRESSION: 1. Status post bilateral hip arthroplasty, orthopedic hardware grossly intact. 2. No acute visible fracture or dislocation. 3. Heterotopic ossification versus enthesopathy along the left greater trochanter.
== END 2020-11-08 08:08 | disposition home or self-care (01) ==
LOC: HO.HOSX 08:07
PROVIDERS: Visit Provider Physician Assistant
DX: Z96.641 Presence of right artificial hip joint (principal)
CPT/HCPCS: 72170; 73502

== ENCOUNTER → 2020-12-20 09:22 | Outpatient (BNVA) | payer BC, SELFPAY | PROVIDERS: Visit Provider Orthopaedic Surgery ==

== ENCOUNTER 2021-01-05 14:13 | Outpatient (REF) | payer BC, SELFPAY | END 2021-01-05 14:14 | disposition home or self-care (01) | LOC: HO.LNP 14:13 | PROVIDERS: Visit Provider Physician Assistant | DX: E11.621 Type 2 diabetes mellitus with foot ulcer (principal); L97.509 Non-pressure chronic ulcer of other part of unspecified foot with unspecified severity | CPT/HCPCS: 87071; 87077; 87186; 87205 ==

== ENCOUNTER → 2021-01-07 08:20 | Outpatient (BNVA) | payer BC, SELFPAY | PROVIDERS: PCP Internal Medicine; Referring Provider Internal Medicine; Visit Provider Dietitian, Registered | DX: E66.3 Overweight (principal); Z68.28 Body mass index [BMI] 28.0-28.9, adult | CPT/HCPCS: 97803 ==

== ENCOUNTER 2021-01-14 07:53 | Outpatient (RCR) | payer BC, SELFPAY | END 2021-03-27 15:06 | disposition home or self-care (01) | LOC: HO.WCC 07:53 | PROVIDERS: PCP Internal Medicine; Visit Provider Physician Assistant | DX: E11.621 Type 2 diabetes mellitus with foot ulcer (principal); L89.899 Pressure ulcer of other site, unspecified stage; E11.69 Type 2 diabetes mellitus with other specified complication; M86.272 Subacute osteomyelitis, left ankle and foot; R60.9 Edema, unspecified; E11.40 Type 2 diabetes mellitus with diabetic neuropathy, unspecified; I10 Essential (primary) hypertension; M20.42 Other hammer toe(s) (acquired), left foot; M20.41 Other hammer toe(s) (acquired), right foot; Z98.84 Bariatric surgery status; Z87.891 Personal history of nicotine dependence; Z79.2 Long term (current) use of antibiotics | CPT/HCPCS: 11042; 87071; 87077; 87186; 87205; 97597; 99212; 99214 ==

== ENCOUNTER 2021-02-04 09:13 | Outpatient (REF) | payer BC, SELFPAY ==
[2021-02-04 09:30] LABS: MANUAL DIFF FLAG NO
[2021-02-04 09:56] LABS: Basophils Absolute Auto 0.1 X10*3/uL (0.0-0.2); Basophils Percent Auto 0.8 % (0-2); Eosinophils Absolute Auto 0.1 X10*3/uL (0.0-0.4); Eosinophils Percent Auto 1.2 % (0-4); Hematocrit 37.7 % (42.0-52.0); Hemoglobin 12.2 g/dl (14.0-18.0); Imm Gran Abs Auto 0.01 X10*3/uL (0.00-0.03); Imm Gran Pct Auto 0.2 % (0.0-0.4); Lymphocytes Percent Auto 33.1 % (20-40); Mean Corpuscular HGB Conc 32.4 g/dl (31.0-36.0); Mean Corpuscular Hemoglobin 30.6 pg (27.0-33.0); Mean Corpuscular Volume 94.5 fL (80.0-98.0); Mean Platelet Volume 10.1 fL (9.4-12.4); Monocytes Absolute Auto 0.5 X10*3/uL (0.1-1.2); Monocytes Percent Auto 8.8 % (2-11); Neutrophils Absolute Auto 3.4 x10*3/uL (2.0-8.3); Neutrophils Percent Auto 55.9 % (45-73); Platelet Count 235 X10*3/uL (160-400); Red Blood Count 3.99 X10*6/uL (4.60-5.80); Red Cell Distribution Width 13.6 % (11.0-16.0)
[2021-02-04 10:19] LABS: Estimated Average Glucose 117 mg/dL; Hemoglobin A1c % 5.7 %
[2021-02-04 10:29] LABS: Anion Gap 11 (12-20); Blood Urea Nitrogen 17 mg/dL (9-16); C Reactive Protein 0.16 mg/dL (< or = 0.50); Calcium 9.6 mg/dL (8.4-10.2); Carbon Dioxide 30 mmol/L (22-29); Chloride 107 mmol/L (96-108); Estimated Glomerular Filt Rate > 60; Glucose Random 107 mg/dL (60-115); Potassium 5.1 mmol/L (3.3-5.1); Sodium 143 mmol/L (135-145)
[2021-02-04 10:37] LABS: Erythrocyte Sedimentation Rate 8 MM/HR (0-15)
== END 2021-02-04 09:14 | disposition home or self-care (01) ==
LOC: HO.LAB 09:13
PROVIDERS: PCP Internal Medicine; Visit Provider Physician Assistant
DX: L98.499 Non-pressure chronic ulcer of skin of other sites with unspecified severity (principal)
CPT/HCPCS: 36415; 80048; 83036; 84134; 85025; 85652; 86140

== ENCOUNTER 2021-02-14 08:59 | Outpatient (REF) | payer BC, SELFPAY ==
--- NOTE | ~2021-02-14 | XR_ITS ---
EXAMINATION: XR HIP, RIGHT XR PELVIS CLINICAL INFORMATION: Hip pain. COMPARISON: 11/08/2020 TECHNIQUE: AP view of the pelvis and a single view of the right hip were obtained. FINDINGS: Prosthetic components of the bilateral total hip arthroplasties appear appropriately aligned without periprosthetic fracture or malalignment. Femoral components are appropriately situated at the acetabular cups. There is marked enthesopathic spurring at the left greater trochanter. Degenerative spondylosis is noted in the lower lumbar spine. Pubic symphysis and SI joints are unremarkable. Calcific atherosclerosis is present in the iliac and femoral arteries. XR/XR pelvis 1-2V IMPRESSION: Appropriate alignment of the bilateral total hip prostheses without evidence of complications. No fractures. Degenerative spondylosis in the lower lumbar spine.
--- NOTE | ~2021-02-14 | XR_ITS ---
EXAMINATION: XR HIP, RIGHT XR PELVIS CLINICAL INFORMATION: Hip pain. COMPARISON: 11/08/2020 TECHNIQUE: AP view of the pelvis and a single view of the right hip were obtained. FINDINGS: Prosthetic components of the bilateral total hip arthroplasties appear appropriately aligned without periprosthetic fracture or malalignment. Femoral components are appropriately situated at the acetabular cups. There is marked enthesopathic spurring at the left greater trochanter. Degenerative spondylosis is noted in the lower lumbar spine. Pubic symphysis and SI joints are unremarkable. Calcific atherosclerosis is present in the iliac and femoral arteries. XR/XR hip RT 1V IMPRESSION: Appropriate alignment of the bilateral total hip prostheses without evidence of complications. No fractures. Degenerative spondylosis in the lower lumbar spine.
== END 2021-02-14 09:00 | disposition home or self-care (01) ==
LOC: HO.HOSX 08:59
PROVIDERS: Visit Provider Orthopaedic Surgery
DX: Z96.641 Presence of right artificial hip joint (principal)
CPT/HCPCS: 72170; 73501

== ENCOUNTER → 2021-02-20 10:30 | Outpatient (BNVA) | payer BC, SELFPAY | PROVIDERS: Referring Provider Physician Assistant; Visit Provider Dietitian, Registered | DX: E66.9 Obesity, unspecified (principal); Z68.28 Body mass index [BMI] 28.0-28.9, adult | CPT/HCPCS: 97803 ==

== ENCOUNTER 2021-03-06 07:58 | Outpatient (REF) | payer BC, SELFPAY ==
--- NOTE | ~2021-03-06 | MR_ITS ---
EXAMINATION: MRI FOOT WITHOUT AND WITH CONTRAST, LEFT CLINICAL INFORMATION: Nonhealing left 4th toe wound. COMPARISON: None. TECHNIQUE: MRI without and with intravenous administration of 8.5 mL of Gadavist is performed on the left foot. FINDINGS: There appears to be a shallow ulcer at the dorsolateral aspect of the 4th toe near the PIP joint. Surrounding edema/enhancement is compatible with cellulitis. No abscess. There is marrow edema and enhancement with moderate loss of T1 fatty marrow signal involving the distal aspect of the proximal phalanx suggesting osteomyelitis. Similar, more subtle marrow changes of the middle phalanx may be reactive or represent very mild or early osteomyelitis as well. Severe arthritic changes of the midfoot, most prominent at the junction of the navicular and lateral cuneiform which is partially imaged. Prominent marrow edema of the middle cuneiform and proximal 2nd metatarsal may be degenerative and/or stress related. Relatively mild marrow edema of the proximal 3rd and 4th metatarsals. Ganglion versus focal tenosynovitis of the anterior tibialis tendon over a length of 3.5 cm dorsal to the navicular and medial cuneiform. Diffuse edema and fatty atrophy of the intrinsic muscles of the foot, not uncommon in diabetic patients. MR/MR foot LT wo/w con IMPRESSION: Shallow ulcer and cellulitis of the 4th toe as described. Probable osteomyelitis involving the distal aspect of the 4th proximal phalanx. Mild osteomyelitis or reactive marrow changes of the 4th middle phalanx. Arthritic changes of the visualized midfoot with degenerative or stress-related marrow changes of the proximal 2nd metatarsal as detailed in the comments.
== END 2021-03-06 07:59 | disposition home or self-care (01) ==
LOC: HO.MRI 07:58
PROVIDERS: Visit Provider Physician Assistant
DX: S91.105A Unspecified open wound of left lesser toe(s) without damage to nail, initial encounter (principal); L03.032 Cellulitis of left toe
CPT/HCPCS: 73720; A9585

== ENCOUNTER → 2021-03-07 09:25 | Outpatient (BNVA) | payer BC, SELFPAY | PROVIDERS: Visit Provider Surgery Vascular Surgery ==

== ENCOUNTER → 2021-03-12 15:56 | Outpatient (BNVA) | payer BC, SELFPAY | PROVIDERS: Referring Provider Internal Medicine; Visit Provider Physician Assistant Surgical ==

== ENCOUNTER 2021-03-21 07:02 | Outpatient (REF) | payer BC, SELFPAY ==
[2021-03-21 07:19] LABS: MANUAL DIFF FLAG NO
[2021-03-21 07:26] LABS: Basophils Percent Auto 0.8 % (0-2); Eosinophils Absolute Auto 0.1 X10*3/uL (0.0-0.4); Eosinophils Percent Auto 1.8 % (0-4); Hematocrit 40.5 % (42.0-52.0); Hemoglobin 13.2 g/dl (14.0-18.0); Imm Gran Abs Auto 0.01 X10*3/uL (0.00-0.03); Imm Gran Pct Auto 0.2 % (0.0-0.4); Lymphocytes Percent Auto 19.4 % (20-40); Mean Corpuscular HGB Conc 32.6 g/dl (31.0-36.0); Mean Corpuscular Hemoglobin 30.5 pg (27.0-33.0); Mean Corpuscular Volume 93.5 fL (80.0-98.0); Mean Platelet Volume 9.3 fL (9.4-12.4); Monocytes Absolute Auto 0.5 X10*3/uL (0.1-1.2); Monocytes Percent Auto 9.4 % (2-11); Neutrophils Absolute Auto 3.5 x10*3/uL (2.0-8.3); Neutrophils Percent Auto 68.4 % (45-73); Platelet Count 235 X10*3/uL (160-400); Red Blood Count 4.33 X10*6/uL (4.60-5.80); Red Cell Distribution Width 12.7 % (11.0-16.0); White Blood Count 5.1 X10*3/uL (4.8-10.8)
[2021-03-21 08:02] LABS: Alanine Aminotransferase 21 U/L (0-40); Aspartate Amino Transferase 22 U/L (5-37); C Reactive Protein 0.31 mg/dL (< or = 0.50); Estimated Glomerular Filt Rate 43
[2021-03-21 08:09] LABS: Erythrocyte Sedimentation Rate 13 MM/HR (0-15)
== END 2021-03-21 07:03 | disposition home or self-care (01) ==
LOC: HO.LAB 07:02
PROVIDERS: PCP Internal Medicine; Visit Provider Internal Medicine Infectious Disease
DX: M86.9 Osteomyelitis, unspecified (principal)
CPT/HCPCS: 36415; 82565; 84450; 84460; 85025; 85652; 86140

== ENCOUNTER 2021-03-27 09:53 | Outpatient (REF) | payer BC, SELFPAY ==
--- NOTE | ~2021-03-27 | US_ITS ---
EXAMINATION: NONINVASIVE ASSESSMENT OF THE ARTERIES OF BOTH LOWER EXTREMITIES WITH ANKLE PRESSURE MEASUREMENTS, ANKLE BRACHIAL INDICES, PVR MEASUREMENTS AND BILATERAL LOWER EXTREMITY DUPLEX CLINICAL INFORMATION: Peripheral vascular disease. History of diabetes. TECHNIQUE: Ankle pressure measurements, ankle brachial indices and PVR tracings were obtained of the lower extremity arterial system bilaterally. In addition, duplex Doppler techniques with wave form analysis and measurement of velocities in the common femoral, profunda femoral, superficial femoral, popliteal and tibial arteries was performed. The study was performed only at rest. COMPARISON: None FINDINGS: NONINVASIVE ASSESSMENT OF THE ARTERIES OF BOTH LOWER EXTREMITIES WITH ABIs: RIGHT LEG: Right ankle-brachial index: 1.47 PVR (ankle): Normal LEFT LEG: Ankle-brachial index: 1.43 PVR (ankle): Normal BILATERAL LOWER EXTREMITY DUPLEX ULTRASOUND: RIGHT LEG: Common femoral artery: 128 cm/s, Diastolic flow reversal: Yes Profunda femoris artery: 133 cm/s, Diastolic flow reversal: Yes Superficial femoral artery (proximal): 105 cm/s, Diastolic flow reversal: Yes Superficial femoral artery (mid): 145 cm/s, Diastolic flow reversal: Yes Superficial femoral artery (distal): 131 cm/s, Diastolic flow reversal: Yes Popliteal artery: 84.4 cm/s, Diastolic flow reversal: Yes Posterior tibial artery: 134 cm/s, Diastolic flow reversal: Yes LEFT LEG: Common femoral artery: 124 cm/s, Diastolic flow reversal: Yes Profunda femoris artery: 123 cm/s, Diastolic flow reversal: Yes Superficial femoral artery (proximal): 122 cm/s, Diastolic flow reversal: Yes Superficial femoral artery (mid): 155 cm/s, Diastolic flow reversal: Yes Superficial femoral artery (distal): 104 cm/s, Diastolic flow reversal: Yes Popliteal artery: 78 cm/s, Diastolic flow reversal: Yes Posterior tibial artery: 146 cm/s, Diastolic flow reversal: Yes Bilateral arterial wall calcifications are present. US/US arterial duplex LE BI IMPRESSION: RIGHT LEG: RIVERA 1.47. RIVERA may be artificially elevated due to vessel wall calcification. No evidence of hemodynamically significant arterial disease by duplex criteria. LEFT LEG: RIVERA 1.43 RIVERA may be artificially elevated due to vessel wall calcification. No evidence of hemodynamically significant arterial disease by duplex criteria. RIVERA Reference: - >0.97-1.25 = normal - no significant arterial disease - 0.75-0.96 = mild peripheral arterial disease - 0.5-0.74 = moderate peripheral arterial disease - <0.50 = severe peripheral arterial disease
== END 2021-03-27 09:54 | disposition home or self-care (01) ==
LOC: HO.US 09:53
PROVIDERS: PCP Internal Medicine; Visit Provider Surgery Vascular Surgery
DX: I73.9 Peripheral vascular disease, unspecified (principal)
CPT/HCPCS: 93923; 93925

== ENCOUNTER 2021-03-28 11:00 | Day surgery (SDC) | payer BC, SELFPAY ==
[2021-03-22 14:57] VITALS: BMI 27.7
--- NOTE | 2021-03-26 14:31 | HP_ITS ---
DATE OF SERVICE: 03/28/2021 DATE OF PROPOSED SURGERY: March 28, 2021. PREOPERATIVE DIAGNOSES: 1. Chronic osteomyelitis of the left 4th toe involving both the proximal phalanx head and base of the middle phalanx. 2. Nonhealing skin ulcer, left 4th toe. PLANNED PROCEDURES: 1. Incision of bone cortex, left 4th toe to remove osteomyelitis. 2. Bone biopsy, left 4th toe. 3. Excision of skin ulcer, left 4th toe. PLANNED ANESTHESIA: Local anesthesia. CHIEF COMPLAINT AND HISTORY OF PRESENT ILLNESS: Maninder Stanley is a 61-year-old male who relates history of a nonhealing ulcer present over the past few months duration. The initial injury was wearing poorly fitting athletic shoes and complicated by diabetic neuropathy. The patient has undergone since December extensive wound care performed at [facility] as well as more recently x-rays, MRI, which have confirmed the diagnosis of osteomyelitis and he is now under the care of Infectious Disease specialist, Dr. Elizabeth, who has instituted intravenous vancomycin therapy to help treat the infection of his left foot. The patient is now requesting surgical treatment of his infected bone of his left fourth toe and excision of skin ulcer. PAST MEDICAL HISTORY: Remarkable for diabetes, arthritis, hypertension. CURRENT MEDICATIONS: Vancomycin IV daily, pantoprazole 40 mg, tamsulosin, vitamins. ALLERGIES: THE PATIENT HAS NEGATIVE REACTION TO IVP DYE. FAMILY HISTORY: Significant for hypertension, heart disease. SOCIAL HISTORY: The patient denies smoking, denies use of any recreational drugs and also denies use of alcohol. The patient typically does drink 1 to 2 cups of coffee per day. The patient is . PHYSICAL EXAMINATION: VASCULAR: The patient displays +1/4 pulses DP, +2/4 pulse of the PT arteries bilateral with normal capillary refill time noted bilateral feet. DERMATOLOGIC: Reveals a nonhealing ulcer on the dorsum of the left 4th toe proximal interphalangeal joint measuring most recently on March 21, 2021, 4 mm in diameter by 2 to 3 mm in depth with exposed necrotic tendon. ORTHOPEDIC: Reveals hammertoe contracture, 2nd through 5th toes bilateral feet. NEUROLOGIC: Reveals decreased light touch, decreased vibratory, sharp dull distinguishment and decreased monofilament testing bilateral forefoot and midfoot. The patient was seen most recently in my office on March 21, 2021. The patient has also been seen preoperatively by his primary care physician, Dr. Hager, as well as consultation with Dr. Hurtado and as stated earlier [facility]. Lastly, the patient has been instituted with intravenous antibiotic therapy with Dr. Elizabeth. The patient has given consent for his planned left foot surgery for March 28, 2021 and has been instructed of all potential risks and complications and is compliant with surgical treatment. ALFREDO Whitfield/KARAN / [id number]
[2021-03-28 11:15] VITALS: BP 141/60; PULSE 47; RESP 16; TEMP 36.6; O2SAT 97
[2021-03-28 12:53] VITALS: BP 143/58; PULSE 43; RESP 16; TEMP 36.1; O2SAT 97
--- NOTE | 2021-03-28 12:59 | PM.PROC ---
Brief Operative Note Date of procedure: 03/28/21 Pre-op diagnosis: osteomyelitis left 4th toe pipj, skin ulcer left 4th toe Post-op diagnosis: same Procedure: incision of bone cortex of infected bone left 4th toe, bone biopsy and excision of ulcer 4.2cm by 1.2cm left 4th toe Anesthesia: local Surgeon: Yong Cristobal Software Engineering Supervisor: Ksenia Espinoza Estimated blood loss (mL): 5.0 Condition: stable Disposition: PACU
--- NOTE | 2021-03-28 14:11 | OP_ITS ---
SURGEON: Yong Cristobal DPM PREOPERATIVE DIAGNOSIS: POSTOPERATIVE DIAGNOSIS: PROCEDURE PERFORMED: ESTIMATED BLOOD LOSS: COMPLICATIONS: ANESTHESIA: Consisted of local administration of total of 4.0 cc of an equal mix of 2% lidocaine with epinephrine 1:100,000 and 0.5% Marcaine plain. ASSISTANTS: SPECIMENS: PREOPERATIVE DIAGNOSES: 1. Osteomyelitis of the left fourth toe, possibly phalangeal joint. 2. Skin ulcer, left fourth toe. POSTOPERATIVE DIAGNOSES: 1. Osteomyelitis of the left fourth toe, possibly phalangeal joint. 2. Skin ulcer, left fourth toe. PROCEDURES PERFORMED: 1. Incision of bone cortex, left fourth toe. 2. Excision of skin ulcer, left fourth toe measuring 4.1 cm length by 1.2 cm width. 3. Bone biopsy, left fourth toe. INTRODUCTION: The patient was brought to the operating room, placed on the operating table in the supine position. After having been suitably anesthetized with local infiltrative anesthesia, the lower left lower extremity was then prepped and draped in the usual sterile manner. EXCISION OF SKIN ULCER, LEFT FOURTH TOE. Attention was directed to the left fourth toe where the width of the ulcer was measured to be 1 cm in width. The skin margins were measured to mixture that we had good healthy skin of the margins to close, so the excisional biopsy was planned to be 4.2 cm in length by 1.2-1.3 cm in width at the highest with excising the ulcer. The incisions were deepened in same plane and the ellipse of skin including the skin ulcers were excised in toto and sent to Pathology. The skin margins were underscored and retracted. A culture was taken overlying necrotic tendon and bone of the left fourth toe PIP joint and sent to Microbiology. The necrotic tendon was excised from the wound in toto. The hypertrophic head of the proximal phalanx was delivered from the wound and bone cut was made in good healthy bone proximal to the anatomic neck excised using the proximal phalanx in toto. Diseased bone and cartilage from the head of the proximal phalanx were removed utilizing bone cutting forceps and submitted in for microbiology evaluation in the 2nd biopsy culture. Attention was now directed to the base of the middle phalanx where again bone cut was made to remove all diseased bone from the base of the middle phalanx. The wound was irrigated with copious amounts of sterile saline using the power lavage. The healthy extensor tendon was then caught to maintain utilizing 3-0 Vicryl. Skin margins were closed with combination of 4-0 and 3-0 nylon. Sterile dressings were applied utilizing Xeroform, followed Betadine-soaked gauze, 2 inch Charly, Kerlix fluffs, 4 inch Conform. The patient tolerated the surgery and anesthesia well and left the operating room via cart to the recovery room with vital signs stable. FINAL DISPOSITION: The patient is discharged home with instructions for self-care to include the followin. To keep the dressings dry, clean, and intact. 2. To keep the left leg elevated. 3. Take all medications as prescribed. 4. Limit activity to minimum. 5. Always use surgical shoe when ambulating. 6. The patient will continue with the plan for intravenous antibiotics managed by the infectious disease specialist, Dr. Brittani Elizabeth. I will talk to Dr. Elizabeth regarding surgical treatment and perhaps this may shorten the planned course for the intravenous vancomycin based on his future signs of healing during a postoperative care. SCOUT SNIPER: Dr. Espinoza. ALFREDO Whitfield/KARAN / [id number]
== END 2021-03-28 13:06 | disposition home or self-care (01) ==
PROVIDERS: PCP Internal Medicine; Visit Provider Podiatrist
PROC: (CPT 20240; principal; 2021-03-28 12:00)
DX: M86.472 Chronic osteomyelitis with draining sinus, left ankle and foot (principal); L97.522 Non-pressure chronic ulcer of other part of left foot with fat layer exposed; D64.9 Anemia, unspecified; E11.65 Type 2 diabetes mellitus with hyperglycemia; G62.9 Polyneuropathy, unspecified; G47.33 Obstructive sleep apnea (adult) (pediatric); Z99.89 Dependence on other enabling machines and devices; Z79.899 Other long term (current) drug therapy; Z91.041 Radiographic dye allergy status; Z88.8 Allergy status to other drugs, medicaments and biological substances; Z98.84 Bariatric surgery status; Z96.643 Presence of artificial hip joint, bilateral; Z86.16 Personal history of COVID-19; F17.290 Nicotine dependence, other tobacco product, uncomplicated
CPT/HCPCS: 20240; 28005; 11426; 87071; 87073; 87205; 88304; 88305; 88311; J1100

== ENCOUNTER 2021-03-28 17:48 | Outpatient (REF) | payer BC, SELFPAY ==
[2021-03-28 18:14] LABS: Vancomycin Trough 11.1 mcg/mL (10.0-20.0)
== END 2021-03-28 17:49 | disposition home or self-care (01) ==
LOC: HO.HVNA 17:48
PROVIDERS: Visit Provider Internal Medicine Infectious Disease
DX: E11.69 Type 2 diabetes mellitus with other specified complication (principal); Z79.899 Other long term (current) drug therapy
CPT/HCPCS: 36415; 80202

== ENCOUNTER → 2021-04-02 11:28 | Outpatient (BNVA) | payer BC, SELFPAY | PROVIDERS: PCP Internal Medicine; Visit Provider Surgery Vascular Surgery ==

== ENCOUNTER 2021-04-03 14:41 | Outpatient (REF) | payer BC, SELFPAY ==
[2021-04-03 14:46] LABS: MANUAL DIFF FLAG NO
[2021-04-03 14:56] LABS: Basophils Absolute Auto 0.1 X10*3/uL (0.0-0.2); Basophils Percent Auto 0.8 % (0-2); Eosinophils Absolute Auto 0.2 X10*3/uL (0.0-0.4); Eosinophils Percent Auto 2.4 % (0-4); Hematocrit 38.4 % (42.0-52.0); Hemoglobin 12.9 g/dl (14.0-18.0); Imm Gran Abs Auto 0.02 X10*3/uL (0.00-0.03); Imm Gran Pct Auto 0.3 % (0.0-0.4); Lymphocytes Absolute Auto 2.2 X10*3/uL (1.2-4.9); Lymphocytes Percent Auto 31.5 % (20-40); Mean Corpuscular HGB Conc 33.6 g/dl (31.0-36.0); Mean Corpuscular Hemoglobin 31.2 pg (27.0-33.0); Mean Corpuscular Volume 92.8 fL (80.0-98.0); Mean Platelet Volume 9.6 fL (9.4-12.4); Monocytes Absolute Auto 0.8 X10*3/uL (0.1-1.2); Monocytes Percent Auto 11.4 % (2-11); Neutrophils Absolute Auto 3.8 x10*3/uL (2.0-8.3); Neutrophils Percent Auto 53.6 % (45-73); Platelet Count 289 X10*3/uL (160-400); Red Blood Count 4.14 X10*6/uL (4.60-5.80); Red Cell Distribution Width 12.6 % (11.0-16.0); White Blood Count 7.1 X10*3/uL (4.8-10.8)
[2021-04-03 15:17] LABS: Alanine Aminotransferase 26 U/L (0-40); Albumin Level 3.9 g/dL (3.5-5.0); Alkaline Phosphatase 94 U/L (39-117); Anion Gap 12 (12-20); Aspartate Amino Transferase 23 U/L (5-37); Bilirubin Direct < 0.2 mg/dL (0.0-0.5); Bilirubin Total 0.5 mg/dL (0.0-1.0); Blood Urea Nitrogen 19 mg/dL (9-16); C Reactive Protein 0.14 mg/dL (< or = 0.50); Calcium 9.2 mg/dL (8.4-10.2); Carbon Dioxide 29 mmol/L (22-29); Chloride 105 mmol/L (96-108); Estimated Glomerular Filt Rate > 60; Glucose Random 95 mg/dL (60-115); Potassium 4.2 mmol/L (3.3-5.1); Sodium 142 mmol/L (135-145); Total Protein 7.6 g/dL (6.5-8.0)
[2021-04-03 15:34] LABS: Erythrocyte Sedimentation Rate 12 MM/HR (0-15)
== END 2021-04-03 14:42 | disposition home or self-care (01) ==
LOC: HO.HVNA 14:41
PROVIDERS: Visit Provider Internal Medicine Infectious Disease
DX: E11.69 Type 2 diabetes mellitus with other specified complication (principal)
CPT/HCPCS: 36415; 80048; 80076; 85025; 85652; 86140

== ENCOUNTER → 2021-04-29 08:26 | Outpatient (BNVA) | payer BC, SELFPAY | PROVIDERS: PCP Internal Medicine; Visit Provider Orthopaedic Surgery ==

== ENCOUNTER → 2021-07-16 08:31 | Outpatient (BNVA) | payer BC, SELFPAY | PROVIDERS: PCP Internal Medicine; Referring Provider Internal Medicine; Visit Provider Physician Assistant Surgical | DX: Z98.84 Bariatric surgery status (principal) ==

== ENCOUNTER 2021-07-31 06:46 | Outpatient (REF) | payer BC, SELFPAY ==
[2021-07-31 07:05] LABS: MANUAL DIFF FLAG NO
[2021-07-31 07:27] LABS: Basophils Percent Auto 0.6 % (0-2); Eosinophils Absolute Auto 0.2 X10*3/uL (0.0-0.4); Eosinophils Percent Auto 2.8 % (0-4); Hematocrit 38.1 % (42.0-52.0); Hemoglobin 12.6 g/dl (14.0-18.0); Imm Gran Abs Auto 0.02 X10*3/uL (0.00-0.03); Imm Gran Pct Auto 0.3 % (0.0-0.4); Immature Retic Fraction 11.2 % (2.3-13.4); Lymphocytes Absolute Auto 1.8 X10*3/uL (1.2-4.9); Lymphocytes Percent Auto 27.9 % (20-40); Mean Corpuscular HGB Conc 33.1 g/dl (31.0-36.0); Mean Corpuscular Hemoglobin 30.8 pg (27.0-33.0); Mean Corpuscular Volume 93.2 fL (80.0-98.0); Mean Platelet Volume 9.4 fL (9.4-12.4); Monocytes Absolute Auto 0.6 X10*3/uL (0.1-1.2); Monocytes Percent Auto 8.9 % (2-11); Neutrophils Absolute Auto 3.8 x10*3/uL (2.0-8.3); Neutrophils Percent Auto 59.5 % (45-73); Platelet Count 240 X10*3/uL (160-400); Red Blood Count 4.09 X10*6/uL (4.60-5.80); Red Cell Distribution Width 13.1 % (11.0-16.0); Retic HGB Equivalent 35.1 pg (30.0-35.0); Reticulocyte Percent 1.3 % (0.5-1.8); Reticulocytes Absolute 0.052 X10*6/uL (0.026-0.095); White Blood Count 6.4 X10*3/uL (4.8-10.8)
[2021-07-31 07:57] LABS: Estimated Average Glucose 120 mg/dL; Hemoglobin A1c % 5.8 %
[2021-07-31 08:04] LABS: Alanine Aminotransferase 22 U/L (0-40); Albumin Level 3.8 g/dL (3.5-5.0); Alkaline Phosphatase 92 U/L (39-117); Anion Gap 12 (12-20); Aspartate Amino Transferase 18 U/L (5-37); Bilirubin Total 0.5 mg/dL (0.0-1.0); Blood Urea Nitrogen 18 mg/dL (9-16); Calcium 8.6 mg/dL (8.4-10.2); Carbon Dioxide 24 mmol/L (22-29); Chloride 110 mmol/L (96-108); Cholesterol 177 mg/dL; Estimated Glomerular Filt Rate > 60; Glucose Random 109 mg/dL (60-115); HDL Cholesterol 48 mg/dL; Iron 66 mcg/dL (45-160); LDL Cholesterol Calculated 109 mg/dl; Percent Iron Saturation 19 % (15-50); Potassium 4.3 mmol/L (3.3-5.1); Sodium 142 mmol/L (135-145); Total Iron Binding Capacity 348 mcg/dL (228-428); Total Protein 6.9 g/dL (6.5-8.0); Triglycerides 100 mg/dL; Unsaturated Iron Binding 282 ug/dL
[2021-07-31 08:07] LABS: C Reactive Protein 0.43 mg/dL (< or = 0.50); Erythrocyte Sedimentation Rate 8 MM/HR (0-15)
[2021-07-31 08:27] LABS: Thyroid Stimulating Hormone 1.67 uIU/mL (0.32-4.0); Vitamin D 25-OH Total 32.7 ng/mL (>30)
[2021-07-31 08:28] LABS: Folate 17.7 ng/mL (> or = 4.0); Vitamin B12 584 pg/mL (200-900)
[2021-07-31 08:29] LABS: Ferritin 18 ng/mL (20-250); Free T4 (Free Thyroxine) 0.85 ng/dL (0.71-1.85)
[2021-08-06 20:06] LABS: Vitamin A 53 mcg/dL (38-98)
[2021-08-07 16:17] LABS: Vitamin B1 15 nmol/L (8-30)
== END 2021-07-31 06:47 | disposition home or self-care (01) ==
LOC: HO.LAB 06:46
PROVIDERS: Orthopaedic Surgery Sports Medicine; Absent Provider Physician Assistant Surgical; PCP Internal Medicine; Visit Provider Internal Medicine
DX: D64.9 Anemia, unspecified (principal); K21.9 Gastro-esophageal reflux disease without esophagitis; I73.9 Peripheral vascular disease, unspecified; E78.00 Pure hypercholesterolemia, unspecified; Z98.84 Bariatric surgery status; Z12.5 Encounter for screening for malignant neoplasm of prostate; Z96.642 Presence of left artificial hip joint
CPT/HCPCS: 36415; 80053; 80061; 82306; 82607; 82728; 82746; 83036; 83540; 84153; 84425; 84439; 84443; 84590; 85025; 85045; 85652; 86140

== ENCOUNTER 2021-10-17 15:46 | Outpatient (REF) | payer BC, SELFPAY ==
--- NOTE | 2021-10-17 15:50 | ECG_ITS ---
Test Reason : PREOP Blood Pressure : / mmHG Vent. Rate : 042 BPM Atrial Rate : 000 BPM P-R Int : 000 ms QRS Dur : 086 ms QT Int : 504 ms P-R-T Axes : 000 -29 047 degrees QTc Int : 420 ms Marked sinus bradycardia Abnormal ECG When compared with ECG of 16-JUL-2020 07:21, No significant change was found Referred By: Marlene Mojica Electronically Signed By:GARRET PEDERSON
[2021-10-17 16:11] LABS: MANUAL DIFF FLAG NO
[2021-10-17 16:33] LABS: Basophils Absolute Auto 0.1 X10*3/uL (0.0-0.2); Basophils Percent Auto 0.8 % (0-2); Eosinophils Absolute Auto 0.2 X10*3/uL (0.0-0.4); Eosinophils Percent Auto 2.7 % (0-4); Hematocrit 39.2 % (42.0-52.0); Hemoglobin 13.2 g/dl (14.0-18.0); Imm Gran Abs Auto 0.02 X10*3/uL (0.00-0.03); Imm Gran Pct Auto 0.3 % (0.0-0.4); Lymphocytes Percent Auto 31.6 % (20-40); Mean Corpuscular HGB Conc 33.7 g/dl (31.0-36.0); Mean Corpuscular Hemoglobin 31.2 pg (27.0-33.0); Mean Corpuscular Volume 92.7 fL (80.0-98.0); Mean Platelet Volume 9.5 fL (9.4-12.4); Monocytes Absolute Auto 0.6 X10*3/uL (0.1-1.2); Monocytes Percent Auto 9.7 % (2-11); Neutrophils Absolute Auto 3.5 x10*3/uL (2.0-8.3); Neutrophils Percent Auto 54.9 % (45-73); Platelet Count 264 X10*3/uL (160-400); Red Blood Count 4.23 X10*6/uL (4.60-5.80); Red Cell Distribution Width 12.6 % (11.0-16.0); White Blood Count 6.3 X10*3/uL (4.8-10.8)
[2021-10-17 16:39] LABS: INTERNATIONAL NORM RATIO 1.1 (0.9-1.1); Prothrombin Time 12.7 SEC (10.0-13.1)
[2021-10-17 16:40] LABS: Estimated Average Glucose 120 mg/dL; Hemoglobin A1c % 5.8 %
[2021-10-17 16:45] LABS: Anion Gap 15 (12-20); Blood Urea Nitrogen 22 mg/dL (9-16); Calcium 9.1 mg/dL (8.4-10.2); Carbon Dioxide 27 mmol/L (22-29); Chloride 105 mmol/L (96-108); Estimated Glomerular Filt Rate > 60; Glucose Random 109 mg/dL (60-115); Potassium 4.7 mmol/L (3.3-5.1); Sodium 142 mmol/L (135-145)
== END 2021-10-17 15:47 | disposition home or self-care (01) ==
LOC: HO.LAB 15:46
PROVIDERS: PCP Internal Medicine; Visit Provider Nurse Practitioner Family
DX: Z01.818 Encounter for other preprocedural examination (principal)
CPT/HCPCS: 36415; 80048; 83036; 85025; 85610; 93005

== ENCOUNTER → 2022-01-02 16:26 | Outpatient (BNVA) | payer BC, SELFPAY | PROVIDERS: PCP Internal Medicine; Visit Provider Dietitian, Registered | DX: E66.3 Overweight (principal); E11.65 Type 2 diabetes mellitus with hyperglycemia | CPT/HCPCS: 97803 ==

== ENCOUNTER 2022-04-11 10:25 | Outpatient (RCR) | payer BC, SELFPAY | END 2022-05-13 16:00 | disposition home or self-care (01) | LOC: HO.WCC 10:25 | PROVIDERS: PCP Internal Medicine; Visit Provider Physician Assistant | DX: E11.621 Type 2 diabetes mellitus with foot ulcer (principal); L97.522 Non-pressure chronic ulcer of other part of left foot with fat layer exposed; E11.40 Type 2 diabetes mellitus with diabetic neuropathy, unspecified; E11.610 Type 2 diabetes mellitus with diabetic neuropathic arthropathy; R60.0 Localized edema; F17.290 Nicotine dependence, other tobacco product, uncomplicated; Z87.891 Personal history of nicotine dependence | CPT/HCPCS: 11042; 99212 ==

== ENCOUNTER 2022-07-16 10:25 | Outpatient (REF) | payer BC, SELFPAY ==
--- NOTE | ~2022-07-16 | XR_ITS ---
EXAMINATION: XR HIP, RIGHT CLINICAL INFORMATION: M25.551 - Pain in right hip COMPARISON: Right hip radiographs 02/14/2021 and 11/08/2020. TECHNIQUE: AP view of the pelvis is performed along with AP and frog-lateral projections of the right hip. FINDINGS: There has been prior bilateral hip replacements. Visualized hardware is intact and there is no dislocation. The frog-lateral projection right hip demonstrates a hairline radiolucency lateral side proximal femur suspicious for nondisplaced fracture. Finding is new from prior frog-lateral projection. Recommend orthopedic consult. There are no other fractures. The SI joints and pubis show no diastases. There are degenerative changes lumbosacral spine. Results results and recommendation are called to lead adult parole officer (Eugenio) for Dr. Hager at 1700 hours on 07/28/2022. It was ascertained that the content and urgency of the report was understood at the time of direct communication. XR/XR hip RT w PEL1V IMPRESSION: - Hairline radiolucency lateral side proximal right femur suspicious for nondisplaced fracture. Recommend orthopedic consult.
== END 2022-07-16 10:26 | disposition home or self-care (01) ==
LOC: HO.XRAY 10:25
PROVIDERS: PCP Internal Medicine; Visit Provider Internal Medicine
DX: M25.551 Pain in right hip (principal)
CPT/HCPCS: 73502

== ENCOUNTER 2022-09-01 06:49 | Outpatient (REF) | payer BC, SELFPAY ==
[2022-09-01 08:10] LABS: Alanine Aminotransferase 19 U/L (0-40); Albumin Level 3.9 g/dL (3.5-5.0); Alkaline Phosphatase 106 U/L (39-117); Anion Gap 11 (12-20); Aspartate Amino Transferase 16 U/L (5-37); Bilirubin Total 0.8 mg/dL (0.0-1.0); Blood Urea Nitrogen 17 mg/dL (9-16); Calcium 9.5 mg/dL (8.4-10.2); Carbon Dioxide 29 mmol/L (22-29); Chloride 107 mmol/L (96-108); Cholesterol 226 mg/dL; Estimated Glomerular Filt Rate > 60; Glucose Random 135 mg/dL (60-115); HDL Cholesterol 49 mg/dL; Iron 98 mcg/dL (45-160); LDL Cholesterol Calculated 147 mg/dl; Percent Iron Saturation 34 % (15-50); Potassium 4.8 mmol/L (3.3-5.1); Sodium 142 mmol/L (135-145); Total Iron Binding Capacity 287 mcg/dL (228-428); Total Protein 7.5 g/dL (6.5-8.0); Triglycerides 151 mg/dL; Unsaturated Iron Binding 189 ug/dL
[2022-09-01 08:29] LABS: Ferritin 42 ng/mL (20-250); Free T4 (Free Thyroxine) 0.86 ng/dL (0.71-1.85); Thyroid Stimulating Hormone 1.71 uIU/mL (0.32-4.0)
== END 2022-09-01 06:50 | disposition home or self-care (01) ==
LOC: HO.LAB 06:49
PROVIDERS: PCP Internal Medicine; Visit Provider Internal Medicine
DX: E11.65 Type 2 diabetes mellitus with hyperglycemia (principal); E78.00 Pure hypercholesterolemia, unspecified; Z12.5 Encounter for screening for malignant neoplasm of prostate
CPT/HCPCS: 36415; 80053; 80061; 82043; 82607; 82728; 82746; 83540; 84153; 84439; 84443; 85025; 85045

== ENCOUNTER 2022-11-21 10:24 | Outpatient (REF) | payer BC, SELFPAY ==
[2022-11-21 11:28] LABS: Estimated Average Glucose 131 mg/dL; Hemoglobin A1C 134.3972 umol/L; Hemoglobin A1c % 6.2 % (<6.0)
[2022-11-26 11:04] LABS: Testosterone, Total 355 ng/dL (250-1100)
== END 2022-11-21 10:25 | disposition home or self-care (01) ==
LOC: HO.LAB 10:24
PROVIDERS: PCP Internal Medicine; Visit Provider Internal Medicine
DX: K40.90 Unilateral inguinal hernia, without obstruction or gangrene, not specified as recurrent (principal); N52.9 Male erectile dysfunction, unspecified; E11.65 Type 2 diabetes mellitus with hyperglycemia
CPT/HCPCS: 36415; 83036; 84403

== ENCOUNTER 2022-11-21 10:49 | Outpatient (AMB) | payer BC, SELFPAY ==
--- NOTE | 2022-11-21 10:53 | MHC.OFFVIS ---
Intake Vital Signs 11/21/22 11:02 Height 5 ft 8.5 in Weight 2114 lb BMI 316.7 Respiration 18 Intake Visit Reasons: possible hernia Intake Note: Patient is seen in office for evaluation and treatment of hernia. Patient c/o: possible right inguinal hernia, pass hip surgery in 2010, discomfort with certain movements, denies nausea, vomit, diarrhea, constipation, had prior imaging done CT scan Small Boat Engineer Required: No Accompanied by: Self / Same As Patient Allergies Iodinated Contrast Media [IV Dye, Iodine Containing] Allergy (Intermediate, Verified 11/21/22 11:00) HIVES iodine Allergy (Verified 11/21/22 11:00) Hives NSAIDS (Non-Steroidal Anti-Inflamma Allergy (Verified 11/21/22 11:00) Hx Bariatric surgery Medication List - Last Reconciled 11/21/22 by Sebastien Guzman MD calcium carbonate 600 mg PO DAILY [Celebrate MVI PO] cetirizine (Zyrtec) 10 mg PO DAILY PRN cholecalciferol (vitamin D3) (Vitamin D3) 50 mcg PO DAILY [CPAP ] iron,carbonyl-vitamin C 65 mg iron- 125 mg (Vitron-C) 1 tab PO DAILY omeprazole 20 mg PO DAILY sildenafil (Viagra) 100 mg PO DAILY PRN tamsulosin 0.4 mg PO DAILY HPI HPI Comments History of Present Illness Details 62-year-old male patient presenting for evaluation of a right inguinal hernia. He reports persistent pain the past 2 to 3 years in the right groin extending down the right medial thigh. He has had a previous right hip surgery in 2020 as well as previous left hip surgery approximately 10 years prior. He reports more pain following the right hip repair than the left hip repair. The pain seems to increase when walking up stairs or while when raising his leg following the supine position. He denies any pain while riding a bike. He recently underwent evaluation with a CT of the hip. Review of this image does seemed indicate a fat containing right inguinal hernia on several of the images. He is unaware of any palpable mass in the right groin. He denies nausea, vomiting, fever, chills, diarrhea or constipation. He has previously undergone bariatric surgery. [facility] Medical History Toe pain Overweight (BMI 25.0-29.9) COVID-19 vaccine series completed History of COVID-19 BPH (benign prostatic hyperplasia) Peripheral neuropathy Type 2 diabetes mellitus with hyperglycemia Anemia ADD (attention deficit disorder) Kidney stones Sleep apnea Surgical History Hx of foot surgery Hx of colonoscopy H/O ureter repair S/P gastric bypass S/P hip replacement Family History Father Myocardial infarct Mother CVA (cerebral vascular accident) Brother Hx of CABG Social History Household Members: Family Housing: House Are you a primary dialysis patient care technician to a significant other at home: No Do you presently have visiting nurse or other home services: No Alcohol intake: never Patient Tobacco Use Status: Former Tobacco user Quit Date: 1995 Tobacco use type: Cigarette and Cigar Years Smoked: 1994 but does cigar 3 cigars last year e-Cigarette/Vaping Use: Never Used Second Hand Smoke Exposure: Yes service: No Current occupational status: employed Current occupation: [employer] Cognitive needs: No Hearing needs: No Vision needs: No Review of Systems Const All systems reviewed & are unremarkable except as noted in HPI and below GI Reports no additional complaints Musc Reports as per HPI Physical Exam Vital Signs: Last Vital Signs Resp 18 11/21/22 11:02 BMI result Body Mass Index 316.7 Const General: healthy appearing Nutritional Appearance: well nourished Orientation/consciousness: patient oriented x3 Limitations: no limitations HEENT Head: Yes normocephalic and Yes atraumatic Ears: hearing grossly normal bilaterally Resp Effort & Inspection: normal respiratory effort, no audible wheezes, no cough and no respiratory distress GI Other: Examination in the standing position with Valsalva maneuvers reveals a palpable right inguinal hernia which is tender to palpation. The hernia does reduce with light pressure. No hernias noted on the left side. Inspection: Yes normal to inspection Palpation (GI): Soft to palpation, nontender, no guarding and not rigid Neuro General: patient oriented x3 Extrem General: Yes no clubbing, cyanosis or edema Assessment & Plan Assessment & Plan (1) Reducible right inguinal hernia: Code(s): K40.90 - Unilateral inguinal hernia, without obstruction or gangrene, not specified as recurrent Plan 62-year-old male patient presenting for evaluation of right groin pain and possible right inguinal hernia. The pain extends down the right thigh especially with ascending stairs or performing leg raises. On examination the patient is indeed noted to have a reducible right inguinal hernia which is tender to palpation. It is difficult to say if repairing this right inguinal hernia will relieve his other leg symptoms but after discussion of the procedure, risks, and alternatives, he wishes to proceed with a repair of the right inguinal hernia with mesh. He gives his consent surgery and he will be scheduled at his earliest convenience. He understands that he will need to avoid lifting greater than 10 lb for approximately 1 month following the surgery. Coding Level of Care Code New Pt Level 4 (25889) Diagnoses Reducible right inguinal hernia K40.90
[2022-11-21 11:02] VITALS: RESP 18; BMI 316.7
== END 2022-11-21 11:26 | disposition home or self-care (01) ==
PROVIDERS: PCP Internal Medicine; Referring Provider Internal Medicine; Visit Provider Surgery
DX: K40.90 Unilateral inguinal hernia, without obstruction or gangrene, not specified as recurrent (principal)
CPT/HCPCS: 99204

== ENCOUNTER 2022-12-03 07:21 | Day surgery (SDC) | payer BC, SELFPAY ==
[2022-12-03] VITALS (7 sets, daily range): BP systolic 99–161; BP diastolic 48–55; PULSE 40–47; RESP 14–16; TEMP 36.2–36.6; O2SAT 94–99; BMI 31.2
--- NOTE | 2022-12-03 09:03 | MHC.SHP ---
Pre-Procedural Eval Section A Date of Service: 12/03/22 The patient is an INPATIENT: No Changes since office visit: Yes Patient answered all questions; No Cold of Flu in the past 2 weeks, No New Medical Problems and No Changes in Medication The History & Physical has been completed within 30 days and I have reviewed it.: Yes Section B Chief Complaint: Unilateral inguinal hernia, without obstruction or Allergies: Allergies Allergy/AdvReac Type Severity Reaction Status Date / Time Iodinated Contrast Media Allergy Intermediate HIVES Verified 11/21/22 11:00 [IV Dye, Iodine Containing] iodine Allergy Hives Verified 11/21/22 11:00 NSAIDS (Non-Steroidal Allergy Hx Verified 11/21/22 11:00 Anti-Inflamma Bariatric surgery Plan Diagnosis/Plan: Unchanged I have reviewed the history and physical and performed a pertinent physical examination on my patient. No changes have occurred unless specified. Time Spent With Patient Time: Total time managing care of this patient today ____ minutes.
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
--- NOTE | 2022-12-03 10:30 | W.PM.OPN ---
Operative Note Operative Note Date of Service: 12/03/22 Narrative: Preoperative diagnosis: Right inguinal hernia Postoperative diagnosis: Same Procedure: Repair of right inguinal hernia Surgeon: Sebastien Guzman MD Plumber Gasfitter: Aminata Rose PA-C Anesthesia: General LMA Indications for procedure: 62-year-old male patient presenting with complaints of right hip pain extending down the leg with a previous history of a right hip replacement approximately 2 years ago. Workup with a right hip CT revealed a right inguinal hernia and on examination the patient was found a palpable right inguinal hernia. Operative findings:. Large indirect right inguinal hernia containing fat, cyst in the right spermatic cord Specimen: lipoma of the cord, cyst in the right spermatic cord Estimated blood loss: 5 mL Complications: non Procedure details: Patient was brought to the OR and placed in a supine position. After administering general anesthesia the patient's abdomen was prepped with ChloraPrep and draped in a sterile fashion. A surgical time-out was called the consent confirmed. Patient received preoperative antibiotics and Venodyne boots were in place. Local anesthesia consisting of 0.5% Sensorcaine was infiltrated over the right inguinal ligament. Incision was then made in oblique fashion over the inguinal ligament. This carried out through subcutaneous tissue past Valentina's fashion up to the external oblique aponeurosis. Additional local was infiltrated below the external oblique aponeurosis. This was then incised with a scalpel wide with the Metzenbaum scissors. Spermatic cord was then dissected free from the surrounding inguinal canal and retracted using a [place] drain. The floor of the inguinal canal was examined and no direct hernia was identified. Fibers of the cremasteric muscle were then and an indirect sac was identified. This was dissected down to the internal ring. The sac was then opened and the contents reduced. The sac was [] The sac was then divided above this. This was sent to the specimen. The sac was then reduced into the abdominal cavity and plicated to the internal oblique aponeurosis using the same suture with a free needle. Attention was then directed to the direct space which was divided between Allis clamps. The preperitoneal space was then created. This was opened further using an open Ray-Ella sponge. A large PHS mesh was then obtained. The circular underlay was placed into the preperitoneal space and deployed. The overlay was then secured to the pubic tubercle conjoined tendon shelving edge of the inguinal ligament using interrupted 0 Polysorb sutures. A slit was made in the mesh and the mesh were wrapped around the spermatic cord at the internal ring. This was then secured to the shelving edge of the inguinal ligament using the 0 Polysorb suture. This was felt to be loose enough to allow the tip of an index finger to pass. Wounds were checked for hemostasis. Wounds were irrigated with saline solution and suctioned dry. External oblique aponeurosis was then closed using a running 2 0 Polysorb suture. Valentina's fascia and dermis reapproximated using interrupted 3-0 Polysorb sutures. Skin was then closed using a running subcuticular 4-0 Polysorb suture. Steri-Strips 2 x 2 gauze and Tegaderm were then applied. The patient tolerated the procedure well. Sponge, instrument, needle counts reported as correct. Patient was transferred to PACU in stable condition.
== END 2022-12-03 12:16 | disposition home or self-care (01) ==
PROVIDERS: PCP Internal Medicine; Visit Provider Surgery
PROC: (CPT 49505; principal; 2022-12-03 09:10)
DX: K40.90 Unilateral inguinal hernia, without obstruction or gangrene, not specified as recurrent (principal); N50.89 Other specified disorders of the male genital organs; D17.6 Benign lipomatous neoplasm of spermatic cord; M25.551 Pain in right hip; Z96.641 Presence of right artificial hip joint; N40.0 Benign prostatic hyperplasia without lower urinary tract symptoms; E11.65 Type 2 diabetes mellitus with hyperglycemia; G47.30 Sleep apnea, unspecified; D64.9 Anemia, unspecified; F98.8 Other specified behavioral and emotional disorders with onset usually occurring in childhood and adolescence; Z79.899 Other long term (current) drug therapy; Z99.89 Dependence on other enabling machines and devices; Z98.890 Other specified postprocedural states; Z91.041 Radiographic dye allergy status; Z88.8 Allergy status to other drugs, medicaments and biological substances; Z98.84 Bariatric surgery status; Z87.891 Personal history of nicotine dependence; Z87.442 Personal history of urinary calculi
CPT/HCPCS: 49505; 88304; C1781; C9088; J0131; J0461; J0690; J1100; J2405; J3010

== ENCOUNTER → 2022-12-03 07:21 | Outpatient (BNV) | payer BC, SELFPAY | PROVIDERS: PCP Internal Medicine; Visit Provider Surgery | DX: K40.90 Unilateral inguinal hernia, without obstruction or gangrene, not specified as recurrent (principal) | CPT/HCPCS: 49505 ==

== ENCOUNTER 2022-12-12 11:08 | Outpatient (AMB) | payer BC, SELFPAY ==
[2022-12-12 11:29] VITALS: BP 158/67; PULSE 56
--- NOTE | 2022-12-12 11:29 | MHC.OFFVIS ---
Intake Vital Signs 12/12/22 11:29 Weight 210 lb BP 158/67 H Blood Pressure Location Rt brachial Position Sitting Pulse 56 Intake Visit Reasons: post right inguinal hernia Intake Note: Patient here for s/p [facility] with Dr. Guzman. Patient reports incision healing well. Denies bleeding or oozing. Did not take rx pain meds. Direct Marketing Intern Required: No Accompanied by: Self / Same As Patient Allergies Iodinated Contrast Media [IV Dye, Iodine Containing] Allergy (Intermediate, Verified 12/12/22 11:31) HIVES iodine Allergy (Verified 12/12/22 11:31) Hives NSAIDS (Non-Steroidal Anti-Inflamma Allergy (Verified 12/12/22 11:31) Hx Bariatric surgery HPI HPI Comments History of Present Illness Details Patient status post right inguinal hernia repair. Aside from resolving incisional discomfort is doing well. He has time diet. Having normal bowel habits. He is increasing his activity level. [facility] Medical History Bradycardia Osteomyelitis Toe pain Overweight (BMI 25.0-29.9) COVID-19 vaccine series completed History of COVID-19 BPH (benign prostatic hyperplasia) Peripheral neuropathy Type 2 diabetes mellitus with hyperglycemia Anemia ADD (attention deficit disorder) Kidney stones Sleep apnea Surgical History History of right hip replacement Hx of foot surgery Hx of colonoscopy H/O ureter repair S/P gastric bypass S/P hip replacement Family History Father Myocardial infarct Mother CVA (cerebral vascular accident) Brother Hx of CABG Social History Household Members: Family Housing: House Are you a primary direct care provider to a significant other at home: No Do you presently have visiting nurse or other home services: No Alcohol intake: never Patient Tobacco Use Status: Former Tobacco user Quit Date: 1995 Tobacco use type: Cigar Years Smoked: 1994 but does cigar 3 cigars last year e-Cigarette/Vaping Use: Never Used Second Hand Smoke Exposure: Yes service: No Current occupational status: employed 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 Wound clean dry and intact healing very well. Assessment & Plan Assessment & Plan (1) H/O right inguinal hernia repair: Comment: 11/2022 Dr. Kapoor Code(s): Z98.890 - Other specified postprocedural states; Z87.19 - Personal history of other diseases of the digestive system Plan Patient has been given local wound instructions, and will follow-up p.r.n.. He works from home and does not do strenuous activities. I told him he should be semi sedentary for next 4-6 weeks but encouraged walking as much as possible. Coding Level of Care Code New Pt Level 3 (64787) Diagnoses H/O right inguinal hernia repair Z98.890; Z87.19
== END 2022-12-12 11:41 | disposition home or self-care (01) ==
PROVIDERS: PCP Internal Medicine; Visit Provider Surgery
DX: Z98.890 Other specified postprocedural states (principal); Z87.19 Personal history of other diseases of the digestive system
CPT/HCPCS: 99024

== ENCOUNTER → 2022-12-12 11:08 | Outpatient (BNVA) | payer BC, SELFPAY | PROVIDERS: PCP Internal Medicine; Visit Provider Surgery ==

== ENCOUNTER 2023-01-09 09:45 | Outpatient (AMB) | payer BC, SELFPAY ==
--- NOTE | 2023-01-09 09:46 | MHC.OFFVIS ---
Intake Vital Signs 01/09/23 09:47 Height 5 ft 8.5 in Weight 215 lb 2.738 oz BMI 32.2 BP 130/68 Blood Pressure Location Rt brachial Position Sitting Pulse 42 L Pulse Source Pulse Oximeter Pulse Oximetry (%) 97 Oxygen Delivery Method Room Air Intake Visit Reasons: one month, post RIH Intake Note: Pt presents to the office today for a one month post RIH. Pt states he is feeling better after the surgery but he is still having right leg pain like he was having before the surgery. Pt also states he does have some abdominal pain ocassionally. Allergies Iodinated Contrast Media [IV Dye, Iodine Containing] Allergy (Intermediate, Verified 01/09/23 09:49) HIVES iodine Allergy (Verified 01/09/23 09:49) Hives NSAIDS (Non-Steroidal Anti-Inflamma Allergy (Verified 01/09/23 09:49) Hx Bariatric surgery HPI HPI Comments History of Present Illness Details Patient returns 1 month following repair of a right inguinal hernia on 12/03/2022. Continues to feel muscular ache in the lateral muscles of the leg. He will be seeing Dr. Abdul. [facility] Medical History Bradycardia Osteomyelitis Toe pain Overweight (BMI 25.0-29.9) COVID-19 vaccine series completed History of COVID-19 BPH (benign prostatic hyperplasia) Peripheral neuropathy Type 2 diabetes mellitus with hyperglycemia Anemia ADD (attention deficit disorder) Kidney stones Sleep apnea Surgical History History of right hip replacement Hx of foot surgery Hx of colonoscopy H/O ureter repair S/P gastric bypass S/P hip replacement Family History Father Myocardial infarct Mother CVA (cerebral vascular accident) Brother Hx of CABG Social History Household Members: Family Housing: House Are you a primary transitions rn care coordinator to a significant other at home: No Do you presently have visiting nurse or other home services: No Alcohol intake: never Patient Tobacco Use Status: Former Tobacco user Quit Date: 1995 Tobacco use type: Cigar Years Smoked: 1994 but does cigar 3 cigars last year e-Cigarette/Vaping Use: Never Used Second Hand Smoke Exposure: Yes service: No Current occupational status: employed 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 Wound clean dry and intact healing very well. No hernia noted with Valsalva maneuvers. Neuro General: patient oriented x3 Extrem General: Yes no clubbing, cyanosis or edema Assessment & Plan Assessment & Plan (1) H/O right inguinal hernia repair: Comment: 11/2022 Dr. Kapoor Code(s): Z98.890 - Other specified postprocedural states; Z87.19 - Personal history of other diseases of the digestive system Plan Patient returns 1 month following repair of a right inguinal hernia with mesh. He may resume normal activity without restrictions. He should follow up p.r.n.. Coding Level of Care Code Global (43015) Diagnoses H/O right inguinal hernia repair Z98.890; Z87.19
[2023-01-09 09:47] VITALS: BP 130/68; PULSE 42; O2SAT 97; BMI 32.2
== END 2023-01-09 10:09 | disposition home or self-care (01) ==
PROVIDERS: PCP Internal Medicine; Visit Provider Surgery
DX: Z98.890 Other specified postprocedural states (principal); Z87.19 Personal history of other diseases of the digestive system
CPT/HCPCS: 99024

== ENCOUNTER → 2023-01-09 09:45 | Outpatient (BNVA) | payer BC, SELFPAY | PROVIDERS: PCP Internal Medicine; Visit Provider Surgery ==

== ENCOUNTER 2023-01-12 08:31 | Outpatient (AMB) | payer BC, SELFPAY ==
--- NOTE | 2023-01-12 08:33 | A.OFFVIS_ITS ---
Intake VS Expanded 01/12/23 08:38 BP 175/70 H Blood Pressure Location Rt brachial Blood Pressure Position Sitting Pulse 42 L Pulse Source Pulse Oximeter Temp 97.0 F Temperature Source Temporal Artery Scan Pulse Oximetry 97 Oxygen Delivery Method Room Air Height 5 ft 8.5 in Weight 209 lb 9.8 oz BMI 31.4 Body Fat % 24.3 Body Fat Mass 51.0 Fat Free Mass 158.8 Visceral Fat Rating 14.0 Body Water % 55.7 Body Water Mass 116.8 Muscle Mass/Score 150.8 Basal Metabolic Rate/Score 2,099 Intake Visit Reasons: (OV) PO GBP 07/21/17 Occupational Health Coordinator Required: No Allergies Iodinated Contrast Media [IV Dye, Iodine Containing] Allergy (Intermediate, Verified 01/12/23 08:36) HIVES iodine Allergy (Verified 01/12/23 08:36) Hives NSAIDS (Non-Steroidal Anti-Inflamma Allergy (Verified 01/12/23 08:36) Hx Bariatric surgery Medication List - Last Reconciled 01/12/23 by DEYSI Cardona calcium carbonate 600 mg PO DAILY [Celebrate MVI PO] cetirizine (Zyrtec) 10 mg PO DAILY PRN cholecalciferol (vitamin D3) (Vitamin D3) 50 mcg PO DAILY [CPAP ] iron,carbonyl-vitamin C 65 mg iron- 125 mg (Vitron-C) 1 tab PO DAILY omeprazole 20 mg PO DAILY sildenafil (Viagra) 100 mg PO DAILY PRN tamsulosin 0.4 mg PO DAILY HPI HPI Comments History of Present Illness Details This?a?61?yo male who is s/p GBP on?07/21/[address] Garza. Presents for 5 year, 6 month post op visit. Weight at last visit on 01/15/22 was 201.4 pounds with a BMI of 30.2. Weight today is 209.8 with a BMI of 31.4. He had right inguinal hernia surgery on 12/03/2022 due to complaints right anterior hip pain that was thought to possibly be from the hernia however after the surgery he continues with right anterior hip pain/weakness. He is able to use his bicycle both outdoor and stationary as well as elliptical machine without any pain or weakness however with any distance of walking he has discomfort. States goal is 175 pounds. meal plan: divehi yogurt w berries and granola grapes yi muffin toasted w butter or peanut butter leftovers or protein bar (ZP or built) ZP bar or built protein salad/veg (not measuring) drinking 60-80 oz water, no soda or juice exercise plan: none in 6 weeks due to recent surgery elliptical 30 min and weights, daily, 800 levi PFSH Medical History Bradycardia Osteomyelitis Toe pain Overweight (BMI 25.0-29.9) COVID-19 vaccine series completed History of COVID-19 BPH (benign prostatic hyperplasia) Peripheral neuropathy Type 2 diabetes mellitus with hyperglycemia Anemia ADD (attention deficit disorder) Kidney stones Sleep apnea Surgical History Hx of hernia repair History of right hip replacement Hx of foot surgery Hx of colonoscopy H/O ureter repair S/P gastric bypass S/P hip replacement Family History Father Myocardial infarct Mother CVA (cerebral vascular accident) Brother Hx of CABG Social History Household Members: Family Housing: House Are you a primary career technical supervisor to a significant other at home: No Do you presently have visiting nurse or other home services: No Alcohol intake: never Patient Tobacco Use Status: Former Tobacco user Quit Date: 1995 Tobacco use type: Cigar Years Smoked: 1994 but does cigar 3 cigars last year e-Cigarette/Vaping Use: Never Used Second Hand Smoke Exposure: Yes service: No Current occupational status: employed 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 Cognitive needs: No Hearing needs: No Vision needs: No Review of Systems Const All systems reviewed & are unremarkable except as noted in HPI and below Physical Exam Const General: healthy appearing and no acute distress Resp Effort & Inspection: normal respiratory effort Auscultation: clear to auscultation bilaterally Cardio Rate: regular rate Rhythm: regular rhythm GI Auscultation: normal bowel sounds Extrem General: Yes normal to inspection Assessment & Plan Assessment & Plan (1) Obesity: Code(s): E66.9 - Obesity, unspecified Plan: Discussed the need for a more structured meal plan: Estonian yogurt with berries Meal, 6 forks/6 forks Bar, either zone perfect or built/celebrate rebuild 1.5 scoops in 8 oz of almond milk Meal. Resume exercise, weight is than cardio, 20 minutes/40 minutes. Incorporate yoga 1-2 days per week. Return to clinic 6 weeks with expected 12 lb weight loss. Coding Level of Care Code Est Pt Level 3 (25494) Diagnoses Obesity E66.9
[2023-01-12 08:38] VITALS: BP 175/70; PULSE 42; TEMP 36.1; O2SAT 97; BMI 31.4
== END 2023-01-12 09:06 | disposition home or self-care (01) ==
PROVIDERS: PCP Internal Medicine; Visit Provider Physician Assistant Surgical
DX: E66.9 Obesity, unspecified (principal); Z68.31 Body mass index [BMI] 31.0-31.9, adult
CPT/HCPCS: 99213

== ENCOUNTER → 2023-01-12 08:31 | Outpatient (BNVA) | payer BC, SELFPAY | PROVIDERS: PCP Internal Medicine; Visit Provider Physician Assistant Surgical ==

== ENCOUNTER 2023-03-06 09:59 | Outpatient (AMB) | payer BC, SELFPAY ==
--- NOTE | 2023-03-06 10:04 | MHC.OFFVISWM ---
Intake VS Expanded 03/06/23 10:09 BP 157/72 H Blood Pressure Location Rt brachial Blood Pressure Position Sitting Pulse 48 L Pulse Source Pulse Oximeter Temp 97.1 F Temperature Source Temporal Artery Scan Pulse Oximetry 98 Oxygen Delivery Method Room Air Height 5 ft 8.5 in Weight 201 lb 9.6 oz BMI 30.2 Body Fat % 21.9 Body Fat Mass 44.0 Fat Free Mass 157.4 Visceral Fat Rating 6.0 Body Water % 55.4 Body Water Mass 111.6 Muscle Mass/Score 149.4 Basal Metabolic Rate/Score 2,068 Intake Visit Reasons: (OV) PO GBP 07/21/17 Allergies Iodinated Contrast Media [IV Dye, Iodine Containing] Allergy (Intermediate, Verified 03/06/23 10:06) HIVES iodine Allergy (Verified 03/06/23 10:06) Hives NSAIDS (Non-Steroidal Anti-Inflamma Allergy (Verified 03/06/23 10:06) Hx Bariatric surgery HPI HPI Comments History of Present Illness Details This?a?61?yo male who is s/p GBP on? 07/21/[address] Jaxson lisa. Presents for 5 year, 8 megan h post op visit. W eight at last visi t on 01/12/23 was 209.6 pounds with a BMI of 31.4. We ight today is 201. 6 with a BMI of 30 .2. He had right inguinal hernia yi rgery on 3 due to complaint s right anterior h ip pain that was t hought to possibly be from the herni a however after th e surgery he had d iscomfort that has now almost comple tely resolved. He has changed his r outine at the gym and using bands to assist with body weight exercises. Still some discom fort with going up stairs. He has started food jour naling and this chawla s significantly im proved his overall weight loss. S tates goal is [address] an: French yogurt w ith berries adding Kavita crunch, 1/4 c 5 gm protei n Meal, 6 forks/6 forks Bar, either zone perfect or b uilt/ or celebrate rebuild 1.5 scoop s in 8 oz of almon d milk Meal. drink ing 60-80 oz water , no soda or juice exercise plan: elliptical/treadmi ll and weights, da neo, 700-900 levi [facility] Medical History Bradycardia Osteomyelitis Toe pain Overweight (BMI 25.0-29.9) COVID-19 vaccine series completed History of COVID-19 BPH (benign prostatic hyperplasia) Peripheral neuropathy Type 2 diabetes mellitus with hyperglycemia Anemia ADD (attention deficit disorder) Kidney stones Sleep apnea Surgical History Hx of hernia repair History of right hip replacement Hx of foot surgery Hx of colonoscopy H/O ureter repair S/P gastric bypass S/P hip replacement Family History Father Myocardial infarct Mother CVA (cerebral vascular accident) Brother Hx of CABG Social History Household Members: Family Housing: House Are you a primary childcare center director to a significant other at home: No Do you presently have visiting nurse or other home services: No Alcohol intake: never Comment: medicated, see MAR Patient Tobacco Use Status: Former Tobacco user Quit Date: 1995 Tobacco use type: Cigar Years Smoked: 1994 but does cigar 3 cigars last year e-Cigarette/Vaping Use: Never Used Second Hand Smoke Exposure: Yes service: No Current occupational status: employed 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 Cognitive needs: No Hearing needs: No Vision needs: No Physical Exam Vital Signs: Last Vital Signs Temp 97.1 F 03/06/23 10:09 Pulse 48 L 03/06/23 10:09 BP 157/72 H 03/06/23 10:09 Pulse Ox 98 03/06/23 10:09 Oxygen Delivery Method Room Air 03/06/23 10:09 BMI result Body Mass Index 30.2 Const General: healthy appearing and no acute distress Resp Effort & Inspection: normal respiratory effort Auscultation: clear to auscultation bilaterally Cardio Rate: regular rate Rhythm: regular rhythm GI Auscultation: normal bowel sounds Extrem General: Yes normal to inspection Assessment & Plan Assessment & Plan (1) Obesity: Code(s): E66.9 - Obesity, unspecified Plan: Making good progress overall. Continue current meal plan with some slight changes: French yogurt with berries adding Kavita crunch, 02/26 c 5 gm protein Meal, 6 forks/6 forks Bar, either zone perfect or built/ or celebrate rebuild 1 scoops in 8 oz of almond milk Meal. +/- 1/2 bar Continue current exercise plan. Return to clinic after his upcoming vacation to [place]. Coding Level of Care Code Est Pt Level 3 (55132) Diagnoses Obesity E66.9 Time Spent (min) 25
[2023-03-06 10:09] VITALS: BP 157/72; PULSE 48; TEMP 36.2; O2SAT 98; BMI 30.2
== END 2023-03-06 10:56 | disposition home or self-care (01) ==
PROVIDERS: PCP Internal Medicine; Referring Provider Internal Medicine; Visit Provider Physician Assistant Surgical
DX: E66.9 Obesity, unspecified (principal); Z68.30 Body mass index [BMI] 30.0-30.9, adult; Z90.3 Acquired absence of stomach [part of]; Z98.84 Bariatric surgery status
CPT/HCPCS: 99212

== ENCOUNTER → 2023-03-06 09:59 | Outpatient (BNVA) | payer BC, SELFPAY | PROVIDERS: PCP Internal Medicine; Visit Provider Physician Assistant Surgical ==

== ENCOUNTER 2023-04-27 08:20 | Outpatient (AMB) | payer BC, SELFPAY ==
--- NOTE | 2023-04-27 08:25 | A.OFFVIS_ITS ---
Intake VS Expanded 04/27/23 08:30 BP 156/70 H Blood Pressure Location Rt brachial Blood Pressure Position Sitting Pulse 47 L Pulse Source Pulse Oximeter Temp 97.6 F Temperature Source Temporal Artery Scan Pulse Oximetry 97 Oxygen Delivery Method Room Air Height 5 ft 8.5 in Weight 202 lb 12.8 oz BMI 30.4 Body Fat % 21.3 Body Fat Mass 43.2 Fat Free Mass 159.4 Visceral Fat Rating 13.0 Body Water % 58.0 Body Water Mass 117.6 Muscle Mass/Score 151.4 Basal Metabolic Rate/Score 2,094 Intake Visit Reasons: (OV) PO GBP 07/21/17 Allergies Iodinated Contrast Media [IV Dye, Iodine Containing] Allergy (Intermediate, Verified 04/27/23 08:27) HIVES iodine Allergy (Verified 04/27/23 08:27) Hives NSAIDS (Non-Steroidal Anti-Inflamma Allergy (Verified 04/27/23 08:27) Hx Bariatric surgery HPI HPI Comments History of Present Illness Details This?a?61?yo male who is s/p GBP on?07/21/[address] Garza. Presents for 5 year, 9 month post op visit. Weight today is 202.8 with a BMI of 30.4. He had right inguinal hernia surgery on 12/03/2022 due to complaints right anterior hip pain that was thought to possibly be from the hernia however after the s urgery he continues with so right hip pain especially with ascendnig stairs. He is able to use his bicycle both outdoor and stationary as well as elliptical machine without any pain or weakness however with any distance of walking he has discomfort. States goal is 175 pounds. meal plan: Estonian yogurt with berries adding Kavita crunch, 1/4 c 5 gm protein Meal, 6 forks/6 forks Bar, either zone perfect or built/ or celebrate rebuild 1 scoops in 8 oz of almond milk Meal, 6 forks/6 forks +/- 1/2 bar drinking 60-80 oz water, no soda or juice exercise plan: elliptical 30 min and weights, daily, 800 levi [facility] Medical History Bradycardia Osteomyelitis Toe pain Overweight (BMI 25.0-29.9) COVID-19 vaccine series completed History of COVID-19 BPH (benign prostatic hyperplasia) Peripheral neuropathy Type 2 diabetes mellitus with hyperglycemia Anemia ADD (attention deficit disorder) Kidney stones Sleep apnea Surgical History Hx of hernia repair History of right hip replacement Hx of foot surgery Hx of colonoscopy H/O ureter repair S/P gastric bypass S/P hip replacement Family History Father Myocardial infarct Mother CVA (cerebral vascular accident) Brother Hx of CABG Social History Household Members: Family Housing: House Are you a primary career services director to a significant other at home: No Do you presently have visiting nurse or other home services: No Alcohol intake: never Comment: medicated, see MAR Patient Tobacco Use Status: Former Tobacco user Quit Date: 1995 Tobacco use type: Cigar Years Smoked: 1994 but does cigar 3 cigars last year e-Cigarette/Vaping Use: Never Used Second Hand Smoke Exposure: Yes service: No Current occupational status: employed Current occupation: [employer] Cognitive needs: No Hearing needs: No Vision needs: No Review of Systems Const All systems reviewed & are unremarkable except as noted in HPI and below Physical Exam Vital Signs: Last Vital Signs Temp 97.6 F 04/27/23 08:30 Pulse 47 L 04/27/23 08:30 BP 156/70 H 04/27/23 08:30 Pulse Ox 97 04/27/23 08:30 Oxygen Delivery Method Room Air 04/27/23 08:30 BMI result Body Mass Index 30.4 Const General: healthy appearing and no acute distress Resp Effort & Inspection: normal respiratory effort Auscultation: clear to auscultation bilaterally Cardio Rate: regular rate Rhythm: regular rhythm GI Auscultation: normal bowel sounds Extrem General: Yes normal to inspection Assessment & Plan Assessment & Plan (1) Obesity: Code(s): E66.9 - Obesity, unspecified Plan: He states that he has a pre workout smoothie with beats and other vegetables. He states that when he gets back from the gym he is starving. Recommend adding 1 scoop of rebuild to his morning smoothie before the gym. Will additionally change his workout routine to incorporate more cardio, stating that he goes to the gym for approximately 1-1/2 hours, suggesting weight training for 30-40 minutes or even 45 minutes and then cardio for 45 minutes. He will eliminate the snacking, follow-up in the office in 4-6 weeks. Coding Level of Care Code Est Pt Level 3 (92875) Diagnoses Obesity E66.9
[2023-04-27 08:30] VITALS: BP 156/70; PULSE 47; TEMP 36.4; O2SAT 97; BMI 30.4
== END 2023-04-27 09:03 | disposition home or self-care (01) ==
PROVIDERS: PCP Internal Medicine; Visit Provider Physician Assistant Surgical
DX: E66.9 Obesity, unspecified (principal); Z68.30 Body mass index [BMI] 30.0-30.9, adult; Z98.84 Bariatric surgery status
CPT/HCPCS: 99213

== ENCOUNTER → 2023-04-27 08:20 | Outpatient (BNVA) | payer BC, SELFPAY | PROVIDERS: PCP Internal Medicine; Visit Provider Physician Assistant Surgical ==

== ENCOUNTER 2023-04-29 14:52 | Outpatient (AMB) | payer BC, SELFPAY ==
--- NOTE | 2023-04-29 14:43 | A.OFFVIS_ITS ---
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 We discussed since he isn't getting enough protein or nutrition to support his exercise, this is likely causeing the snacking Exercise: is rather intense and very consistent. does about 1 hour of cardio and 45 minutes of weight training daily. Enjoys this, looking forward to getting outside to bike. Dietary counseling reduction Diagnosis Nutrition problem #1 overweight/obesity As related to (etiology) #1 excess energy intake and physical inactivity As evidenced by (sign/symptom) #1 high BMI Monitoring/Goals Nutrition problem monitoring total energy intake, level of knowledge/skill, total PRO intake, total CHO intake and weight Outcome progress progressing Learning/Education Readiness to learn excellent Stages of change action Most Recent Diabetes Results: No Data to Display [facility] Medical History Bradycardia Osteomyelitis Toe pain Overweight (BMI 25.0-29.9) COVID-19 vaccine series completed History of COVID-19 BPH (benign prostatic hyperplasia) Peripheral neuropathy Type 2 diabetes mellitus with hyperglycemia Anemia ADD (attention deficit disorder) Kidney stones Sleep apnea Surgical History Hx of hernia repair History of right hip replacement Hx of foot surgery Hx of colonoscopy H/O ureter repair S/P gastric bypass S/P hip replacement Family History Father Myocardial infarct Mother CVA (cerebral vascular accident) Brother Hx of CABG Social History Household Members: Family Housing: House Are you a primary residential child care counselor to a significant other at home: No Do you presently have visiting nurse or other home services: No Alcohol intake: never Comment: medicated, see MAR Patient Tobacco Use Status: Former Tobacco user Quit Date: 1995 Tobacco use type: Cigar Years Smoked: 1994 but does cigar 3 cigars last year e-Cigarette/Vaping Use: Never Used Second Hand Smoke Exposure: Yes service: No Current occupational status: employed 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 consider isopure infusions mid afternoon to help with protein intake. Coding Level of Care Code Nutr Indiv Subseq (49921) Diagnoses Obesity (BMI 30-39.9) E66.9 Time Spent (min) 30
== END 2023-04-29 16:12 | disposition home or self-care (01) ==
PROVIDERS: PCP Internal Medicine; Visit Provider Dietitian, Registered
DX: E66.9 Obesity, unspecified (principal)

== ENCOUNTER → 2023-04-29 14:52 | Outpatient (BNVA) | payer BC, SELFPAY | PROVIDERS: PCP Internal Medicine; Visit Provider Dietitian, Registered | DX: E66.9 Obesity, unspecified (principal); E11.9 Type 2 diabetes mellitus without complications; Z98.84 Bariatric surgery status; Z71.3 Dietary counseling and surveillance | CPT/HCPCS: 97803 ==

== ENCOUNTER 2023-06-09 08:19 | Outpatient (AMB) | payer BC, SELFPAY ==
--- NOTE | 2023-06-09 08:21 | A.OFFVIS_ITS ---
Intake VS Expanded 06/09/23 08:26 BP 143/63 H Blood Pressure Location Rt brachial Blood Pressure Position Sitting Pulse 65 Pulse Source Pulse Oximeter Temp 96.8 F Temperature Source Temporal Artery Scan Pulse Oximetry 97 Oxygen Delivery Method Room Air Height 5 ft 8.5 in Weight 207 lb 12.8 oz BMI 31.1 Body Fat % 21.0 Body Fat Mass 43.6 Fat Free Mass 164.0 Visceral Fat Rating 13.0 Body Water % 58.9 Body Water Mass 122.4 Muscle Mass/Score 155.8 Basal Metabolic Rate/Score 2,159 Intake Visit Reasons: (OV) PO GBP 07/21/17 Allergies Iodinated Contrast Media [IV Dye, Iodine Containing] Allergy (Intermediate, Verified 06/09/23 08:29) HIVES iodine Allergy (Verified 06/09/23 08:29) Hives NSAIDS (Non-Steroidal Anti-Inflamma Allergy (Verified 06/09/23 08:29) Hx Bariatric surgery HPI HPI Comments History of Present Illness Details This?a?61?yo male who is s/p GBP on?07/21/[address] Garza. Presents for 5 year, 9 month post op visit. Weight today is 207.8 with a BMI of 31.1. He had right inguinal hernia surgery on 12/03/2022 due to complaints right anterior hip pain that was thought to possibly be from the hernia however after the gómez [place]on he continues with so right hip pain especially with ascending stairs. He is able to use his bicycle both outdoor and stationary as well as elliptical machine without any pain or weakness however with any distance of walking he has discomfort. States he has had increased fatigue and is frustrated with his weight gain, but looking at the numbers has had an increase inmuscle mass. . meal plan: Samoan yogurt with berries adding Kavita crunch, 1/4 c 5 gm protein, 1 scoop rebuild. Meal, 6 forks/6 forks Bar, either zone perfect or built/ or celebrate rebuild 1 scoops in 8 oz of almond milk Meal, 6 forks/6 forks +/- 1/2 bar drinking 60-80 oz water, no soda or juice exercise plan: elliptical 30 min and weights, daily, 800 levi [facility] Medical History Bradycardia Osteomyelitis Toe pain Overweight (BMI 25.0-29.9) COVID-19 vaccine series completed History of COVID-19 BPH (benign prostatic hyperplasia) Peripheral neuropathy Type 2 diabetes mellitus with hyperglycemia Anemia ADD (attention deficit disorder) Kidney stones Sleep apnea Surgical History Hx of hernia repair History of right hip replacement Hx of foot surgery Hx of colonoscopy H/O ureter repair S/P gastric bypass S/P hip replacement Family History Father Myocardial infarct Mother CVA (cerebral vascular accident) Brother Hx of CABG Social History Household Members: Family Housing: House Are you a primary rn progressive care to a significant other at home: No Do you presently have visiting nurse or other home services: No Alcohol intake: never Comment: medicated, see MAR Patient Tobacco Use Status: Former Tobacco user Quit Date: 1995 Tobacco use type: Cigar Years Smoked: 1994 but does cigar 3 cigars last year e-Cigarette/Vaping Use: Never Used Second Hand Smoke Exposure: Yes service: No Current occupational status: employed Current occupation: [employer] Cognitive needs: No Hearing needs: No Vision needs: No Physical Exam Vital Signs: Last Vital Signs Temp 96.8 F 06/09/23 08:26 Pulse 65 06/09/23 08:26 BP 143/63 H 06/09/23 08:26 Pulse Ox 97 06/09/23 08:26 Oxygen Delivery Method Room Air 06/09/23 08:26 BMI result Body Mass Index 31.1 Const General: healthy appearing and no acute distress Resp Effort & Inspection: normal respiratory effort Auscultation: clear to auscultation bilaterally Cardio Rate: regular rate Rhythm: regular rhythm GI Auscultation: normal bowel sounds Extrem General: Yes normal to inspection Assessment & Plan Assessment & Plan (1) Obesity: Code(s): E66.9 - Obesity, unspecified Plan: Due to the fatigue and no recent lab data. Additionally, suggest starting yoga. Suggest follow-up with ortho regarding persistent limp and right hip pain. Suggested rule out leg length discrepancy, possible additional imaging. Return to clinic 6 weeks Orders: Orders Insulin Today D64.9 - Anemia, unspecified, E11.65 - Type 2 diabetes mellitus with hyperglycemia, E66.9 - Obesity, unspecified, Z98.84 - Bariatric surgery status Hemoglobin A1c Today D64.9 - Anemia, unspecified, E11.65 - Type 2 diabetes mellitus with hyperglycemia, E66.9 - Obesity, unspecified, Z98.84 - Bariatric surgery status Complete Blood Count Auto Diff Today D64.9 - Anemia, unspecified, E11.65 - Type 2 diabetes mellitus with hyperglycemia, E66.9 - Obesity, unspecified, Z98.84 - Bariatric surgery status IRON PROFILE Today D64.9 - Anemia, unspecified, E11.65 - Type 2 diabetes mellitus with hyperglycemia, E66.9 - Obesity, unspecified, Z98.84 - Bariatric surgery status Zinc Today D64.9 - Anemia, unspecified, E11.65 - Type 2 diabetes mellitus with hyperglycemia, E66.9 - Obesity, unspecified, Z98.84 - Bariatric surgery status Vitamin B1 Today D64.9 - Anemia, unspecified, E11.65 - Type 2 diabetes mellitus with hyperglycemia, E66.9 - Obesity, unspecified, Z98.84 - Bariatric surgery status Ferritin Today D64.9 - Anemia, unspecified, E11.65 - Type 2 diabetes mellitus with hyperglycemia, E66.9 - Obesity, unspecified, Z98.84 - Bariatric surgery status Vitamin D 25-OH Total Today D64.9 - Anemia, unspecified, E11.65 - Type 2 diabetes mellitus with hyperglycemia, E66.9 - Obesity, unspecified, Z98.84 - Bariatric surgery status Lipid Panel Today D64.9 - Anemia, unspecified, E11.65 - Type 2 diabetes mellitus with hyperglycemia, E66.9 - Obesity, unspecified, Z98.84 - Bariatric surgery status Vitamin B12 and Folate Today D64.9 - Anemia, unspecified, E11.65 - Type 2 diabetes mellitus with hyperglycemia, E66.9 - Obesity, unspecified, Z98.84 - Bariatric surgery status C Reactive Protein Today D64.9 - Anemia, unspecified, E11.65 - Type 2 diabetes mellitus with hyperglycemia, E66.9 - Obesity, unspecified, Z98.84 - Bariatric surgery status Vitamin A Today D64.9 - Anemia, unspecified, E11.65 - Type 2 diabetes mellitus with hyperglycemia, E66.9 - Obesity, unspecified, Z98.84 - Bariatric surgery status TSH reflex Free T4 Today D64.9 - Anemia, unspecified, E11.65 - Type 2 diabetes mellitus with hyperglycemia, E66.9 - Obesity, unspecified, Z98.84 - Bariatric surgery status Basic Metabolic Panel Today D64.9 - Anemia, unspecified, E11.65 - Type 2 diabetes mellitus with hyperglycemia, E66.9 - Obesity, unspecified, Z98.84 - Bariatric surgery status Coding Level of Care Code Est Pt Level 3 (63818) Diagnoses Obesity E66.9
[2023-06-09 08:26] VITALS: BP 143/63; PULSE 65; TEMP 36; O2SAT 97; BMI 31.1
== END 2023-06-09 09:08 | disposition home or self-care (01) ==
PROVIDERS: PCP Internal Medicine; Visit Provider Physician Assistant Surgical
DX: E66.9 Obesity, unspecified (principal); Z68.31 Body mass index [BMI] 31.0-31.9, adult
CPT/HCPCS: 99214

== ENCOUNTER → 2023-06-09 08:19 | Outpatient (BNVA) | payer BC, SELFPAY | PROVIDERS: PCP Internal Medicine; Visit Provider Physician Assistant Surgical ==

== ENCOUNTER 2023-06-17 06:22 | Outpatient (REF) | payer BC, SELFPAY ==
[2023-06-17 06:36] LABS: MANUAL DIFF FLAG NO
[2023-06-17 08:36] LABS: Basophils Absolute Auto 0.1 X10*3/uL (0.0-0.2); Basophils Percent Auto 0.9 % (0-2); Eosinophils Absolute Auto 0.2 X10*3/uL (0.0-0.4); Eosinophils Percent Auto 2.5 % (0-4); Hematocrit 41.3 % (42.0-52.0); Imm Gran Abs Auto 0.02 X10*3/uL (0.00-0.03); Imm Gran Pct Auto 0.3 % (0.0-0.4); Lymphocytes Absolute Auto 2.5 X10*3/uL (1.2-4.9); Lymphocytes Percent Auto 37.7 % (20-40); Mean Corpuscular HGB Conc 33.9 g/dl (31.0-36.0); Mean Corpuscular Hemoglobin 30.8 pg (27.0-33.0); Mean Corpuscular Volume 90.8 fL (80.0-98.0); Mean Platelet Volume 9.6 fL (9.4-12.4); Monocytes Absolute Auto 0.6 X10*3/uL (0.1-1.2); Monocytes Percent Auto 9.8 % (2-11); Neutrophils Absolute Auto 3.2 x10*3/uL (2.0-8.3); Neutrophils Percent Auto 48.8 % (45-73); Platelet Count 293 X10*3/uL (160-400); Red Blood Count 4.55 X10*6/uL (4.60-5.80); Red Cell Distribution Width 13.2 % (11.0-16.0); White Blood Count 6.5 X10*3/uL (4.8-10.8)
[2023-06-17 08:57] LABS: Estimated Average Glucose 134 mg/dL; Hemoglobin A1c % 6.3 % (<6.0)
[2023-06-17 09:13] LABS: Anion Gap 13 (12-20); Blood Urea Nitrogen 25 mg/dL (9-16); C Reactive Protein 0.26 mg/dL (< or = 0.50); Carbon Dioxide 29 mmol/L (22-29); Chloride 105 mmol/L (96-108); Cholesterol 213 mg/dL (<200); Estimated Glomerular Filt Rate 48; Glucose Random 109 mg/dL (60-115); HDL Cholesterol 54 mg/dL (>40); Iron 92 mcg/dL (45-160); LDL Cholesterol Calculated 133 mg/dL (<100); Percent Iron Saturation 30 % (15-50); Potassium 4.5 mmol/L (3.3-5.1); Sodium 142 mmol/L (135-145); Total Iron Binding Capacity 311 mcg/dL (228-428); Triglycerides 130 mg/dL (<150); Unsaturated Iron Binding 219 ug/dL
[2023-06-17 09:16] LABS: Ferritin 40 ng/mL (20-250); Insulin 8 uU/mL (2-29); TSH reflex Free T4 2.07 uIU/mL (0.32-4.0); Vitamin D 25-OH Total 39.6 ng/mL (>30)
[2023-06-17 11:45] LABS: Folate 12.3 ng/mL (> or = 4.0); Vitamin B12 698 pg/mL (200-900)
[2023-06-20 21:43] LABS: Vitamin A 59 mcg/dL (38-98)
[2023-06-21 01:39] LABS: Zinc 71 mcg/dL (60-130)
[2023-06-23 15:53] LABS: Vitamin B1 17 nmol/L (8-30)
== END 2023-06-17 06:23 | disposition home or self-care (01) ==
LOC: HO.LAB 06:22
PROVIDERS: PCP Internal Medicine; Visit Provider Physician Assistant Surgical
DX: E66.9 Obesity, unspecified (principal); D64.9 Anemia, unspecified; E11.65 Type 2 diabetes mellitus with hyperglycemia; Z98.84 Bariatric surgery status
CPT/HCPCS: 36415; 80048; 80061; 82306; 82607; 82728; 82746; 83036; 83525; 83540; 84425; 84443; 84590; 84630; 85025; 86140

== ENCOUNTER 2023-07-22 09:05 | Outpatient (AMB) | payer BC, SELFPAY ==
--- NOTE | 2023-07-22 09:07 | MHC.PC.OV ---
Vital Signs 07/22/23 09:08 07/22/23 09:57 Height 5 ft 8.5 in Weight 96.615 kg BMI 31.9 BP 160/58 H 150/70 H Blood Pressure Location Lt brachial Lt brachial Position Sitting Sitting Pulse 66 Pulse Source Pulse Oximeter Pulse Oximetry (%) 98 Oxygen Delivery Method Room Air Intake Visit Reasons: Annual Exam Intake Note: Patient is here today for a physical. [place] Operator Required: No Allergies Iodinated Contrast Media [IV Dye, Iodine Containing] Allergy (Intermediate, Verified 07/22/23 09:07) HIVES iodine Allergy (Verified 07/22/23 09:07) Hives NSAIDS (Non-Steroidal Anti-Inflamma Allergy (Verified 07/22/23 09:07) Hx Bariatric surgery Medication List - Last Reconciled 07/22/23 by Marichuy Hager MD calcium carbonate 600 mg PO DAILY [Celebrate MVI PO] cetirizine (Zyrtec) 10 mg PO DAILY PRN cholecalciferol (vitamin D3) (Vitamin D3) 50 mcg PO DAILY [CPAP ] iron,carbonyl-vitamin C 65 mg iron- 125 mg (Vitron-C) 1 tab PO DAILY omeprazole 20 mg PO DAILY sildenafil (Viagra) 100 mg PO DAILY PRN tamsulosin 0.4 mg PO DAILY Tobacco use date assessed: 07/22/23 Dental Screening Dental Screen Date: 07/22/23 Did you have a dental visit in the last 12 months?: Yes Did you have a dental problem in the last 6 months where you did not have access to dental care?: No Was dental information given to patient?: Patient has dentist HPI Annual Exam HPI Details 63-year-old obese male with diabetes mellitus history of gastric bypass attention deficit disorder obstructive sleep apnea GERD BPH coming in for follow-up. Last seen in 07/12/2022 for physical exam. Patient's colonoscopy was 04/14/2020. Patient continues to follow-up with bariatric surgeon workup was recommended. Received also note in 01/12/2023 seen the surgeon post right inguinal hernia repair received also a CT scan of the right hip status post right hip arthroplasty which was unremarkable. FORMERLY [facility], [facility] Medical History Bradycardia Osteomyelitis Toe pain Overweight (BMI 25.0-29.9) COVID-19 vaccine series completed History of COVID-19 BPH (benign prostatic hyperplasia) Peripheral neuropathy Type 2 diabetes mellitus with hyperglycemia Anemia ADD (attention deficit disorder) Kidney stones Sleep apnea Surgical History Hx of hernia repair History of right hip replacement Hx of foot surgery Hx of colonoscopy H/O ureter repair S/P gastric bypass S/P hip replacement Family History Father Myocardial infarct Mother CVA (cerebral vascular accident) Brother Hx of CABG Social History Household Members: Family Housing: House Are you a primary resident care manager rn to a significant other at home: No Do you presently have visiting nurse or other home services: No Alcohol intake: never Comment: medicated, see MAR Patient Tobacco Use Status: Former Tobacco user Quit Date: 1995 Tobacco use type: Cigar Years Smoked: 1994 but does cigar 3 cigars last year e-Cigarette/Vaping Use: Never Used Second Hand Smoke Exposure: Yes service: No Current occupational status: employed Current occupation: [employer] Cognitive needs: No Hearing needs: No Vision needs: No Questionnaire PHQ-9 Over the last 2 weeks, how often have you been bothered by any of the following problems? 1. Little interest or pleasure in doing things: not at all 2. Feeling down, depressed, or hopeless: not at all 3. Trouble falling or staying asleep, or sleeping too much: not at all 4. Feeling tired or having little energy: not at all 5. Poor appetite or overeating: not at all 6. Feeling bad about yourself - or that you are a failure or have let yourself or your family down: not at all 7. Trouble concentrating on things, such as reading the newspaper or watching television: not at all 8. Moving or speaking so slowly that other people could have noticed. Or the opposite - being so fidgety or restless that you have been moving around a lot more than usual: not at all 9. Thoughts that you would be better off or of hurting yourself in some way: not at all Total score: 0 Depression Screening Interpretation: Negative Depression Screening Done: Yes Source: Developed by Drs. Carlos Bergman, Bao Blanton and colleagues, with an educational letha from [employer]. Thrive Questionnaire Date Thrive assessed: 07/22/23 I am a: Patient What is your living situation today?: I have a steady place to live Within the past 12 months, did the food you bought not last and you didn't have the money to get more?: Never true Within the past 12 months, did you worry whether your food would run out before you got money to buy more?: Never true Do you have trouble paying for medicines?: No Do you have trouble getting transportation to medical appointments?: No Do you have trouble paying your heating and electricity bill?: No Do you have trouble taking care of your child, family member or friend?: No Do you have trouble with day-to-day activities such as bathing, preparing meals, shopping, managing finances, etc.?: No Are you currently unemployed and looking for a job?: No Are you interested in more education?: No Currently or been in a relationship where the following occur: no concerns reported THRIVE Score: 0 AUDIT C Alcohol Use Questionnaire (AUDIT-C) 1. How often do you have a drink containing alcohol?: Never 2. How many drinks containing alcohol do you have on a typical day when you are drinking?: 1 or 2 (0) 3. How often do you have six or more drinks on one occasion?: Never Total Score: 0 Score Reviewed/Action Taken: No JOE-7 AMB Questionnaire JOE-7 Date JOE - 7 assessed: 07/22/23 Feeling nervous, anxious, or on edge: 0 = Not at all Not being able to stop or control worryin = Not at all Worrying too much about different things: 0 = Not at all Trouble relaxin = Not at all Being so restless that it is hard to sit still: 0 = Not at all Becoming easily annoyed or irritable: 0 = Not at all Feeling afraid as if something awful might happen: 0 = Not at all Total JOE-7 score (0-4 normal; 5-9 mild; 10-14 moderate; 15-21 severe): 0 Source: Developed by Drs. Carlos Bergman, Bao Blanton and colleagues, with an educational letha from [employer]. JOE-7 Assessment Billing JOE-7 Assessment Tool: JOE-7 Assessment 68630 Review of Systems Const Denies poor appetite and Denies weakness Eyes Denies no additional complaints ENT Reports Normal hearing present, Denies dizziness, Denies nasal congestion, Denies tinnitus and Denies sore throat Card Denies chest pain, Denies syncope, Denies rapid heart rate and Denies dyspnea Resp Denies cough and Denies dyspnea GI Denies change in stool character, Reports constipation, Denies diarrhea, Denies nausea and Denies vomiting Denies dysuria and Denies urinary frequency Neuro Reports Normal hearing present, Denies confusion, Denies dizziness, Denies syncope and Denies weakness Psych Denies confusion Physical exam (Primary Care) Vital Signs: Last Vital Signs Pulse 66 07/22/23 09:08 BP 150/70 H 07/22/23 09:57 Pulse Ox 98 07/22/23 09:08 Oxygen Delivery Method Room Air 07/22/23 09:08 BMI result Body Mass Index 31.9 Tobacco/Smoking Status: Tobacco use Status Tobacco use date assessed 07/22/23 07/22/23 09:08 Patient Tobacco Use Status Former Tobacco user 07/22/23 09:08 Tobacco use type Cigar 07/22/23 09:08 e-Cigarette/Vaping Use Never Used 07/22/23 09:08 PHQ-9: PHQ-9 Score PHQ-9: Total score 0 07/22/23 09:55 Depression Screening Interpretation: Negative Thrive Assessment: Date of Thrive Assessment Date Thrive assessed 07/22/23 07/22/23 09:08 Currently or been in a relationship where the following occur: no concerns reported Const General: alert and awake; No confusion Orientation/consciousness: No confusion HENMT Head: Yes normocephalic Ears: external ears normal and TM's normal bilaterally Face and sinus: Yes normal facial exam Mouth: moist mucous membranes Throat: Yes tonsils normal Eyes Conjunctivae: conjunctivae normal Pupils: Equal, round and reactive pupils present and Pupil accommodation reflex normal Direct Ophthalmoscopy: normal light reflex Neck Neck: No lymphadenopathy Thyroid: Thyroid normal Chest Chest palpation & inspection: normal inspection of the chest Resp Effort & Inspection: normal respiratory effort and no audible wheezes Auscultation: clear to auscultation bilaterally, no crackles, no wheezes and lung sounds not diminished Cardio Rate: regular rate Rhythm: regular rhythm Peripheral pulses: radial pulses present and dorsalis pedis present GI Other: guaiac negative prostate enlarged Palpation (GI): no masses Auscultation: normal bowel sounds and normoactive bowel sounds Male General Exam: Yes normal external exam Skin General skin exam: no rashes or lesions noted Rashes: no rashes Neuro General: deep tendon reflexes 2+ bilaterally and No confusion Cranial nerves: Yes Equal, round and reactive pupils present, Yes Midline tongue present, Yes Normal hearing present and Yes Ability to bilaterally elevate shoulders present Cognition (Neuro): normal cognition Gait exam (Neuro): Normal gait present Motor exam (neuro): 5/5 motor strength present throughout Deep tendon reflexes (DTR's): Right brachioradialis reflex intensity grade: 2+, Left brachioradialis reflex intensity grade: 2+, Right patellar reflex intensity grade: 2+ and Left patellar reflex intensity grade: 2+ Extrem Other: R posterio ear birthmark papilar red growth. pedal pulses good , pin prick sensory deficit, L foot deformity of toes charcot- follow up with podiatry General: No edema Immunizations pneumoc 20-zbigniew conj-dip cr(PF) 0.5 mL IM syringe Performing Provider: Marichuy Hager MD Performing Location: [facility] Administered by: REGAN Cardona on 07/22/23 10:28 Dose Route Admin Location Dispensed Lot Number Expiration Date NDC [employer] 0.5 mL IM Left Deltoid 0.5 mL [id number] 06/23/24 [id number] [employer] VIS Given Date VIS Provided VIS Publication Date 07/22/23 Single Vaccine 21 Eligibility Eligibility Date Funding Source Not [facility] Eligible 07/22/23 Private Assessment and Plan Assessment & Plan (1) Annual physical exam: Code(s): Z00.00 - Encounter for general adult medical examination without abnormal findings (2) S/P gastric bypass: Comment: 06/2017, 110# wt loss Code(s): Z98.84 - Bariatric surgery status Plan: Patient continues to follow-up with bariatric (3) Sleep apnea: Comment: CPAP uses Q night > 4 hours and benefits patient Code(s): G47.30 - Sleep apnea, unspecified Plan: Continue to use the CPAP more than 4 hours a night and benefits from this. (4) Type 2 diabetes mellitus with hyperglycemia: Comment: No rx Code(s): E11.65 - Type 2 diabetes mellitus with hyperglycemia Plan: Decrease the amount of carbohydrate intake, pasta, bread, rice and potatoes are all sugar and that is aside from all the sweet stuff, remember that fruits are good but they are Sweet also. Hemoglobin A1c goal of less than 6.5. Patient on diet control (5) BPH (benign prostatic hyperplasia): Code(s): N40.0 - Benign prostatic hyperplasia without lower urinary tract symptoms Plan: Patient on tamsulosin (6) GERD (gastroesophageal reflux disease): Code(s): K21.9 - Gastro-esophageal reflux disease without esophagitis Plan: Avoid the foods that causes that usually spicy foods, tomato products, juices, coffee, soda and foods that your sensitive to. After eating do not lie down, allow 3-4 hours before in lie down. And keep the head of bed above 30 degrees to avoid the acid from going up. (7) Renal insufficiency: Code(s): N28.9 - Disorder of kidney and ureter, unspecified Plan: Discussed about renal insufficiency and will need to repeat. Keep well hydrated avoid NSAIDs (8) H/O right inguinal hernia repair: Comment: 11/2022 Dr. Kapoor Code(s): Z98.890 - Other specified postprocedural states; Z87.19 - Personal history of other diseases of the digestive system Plan: Patient follows up with the surgeon (9) Obesity: Code(s): E66.9 - Obesity, unspecified Plan: Diet and exercise (10) Charcot's joint of foot: Comment: Lft toes Code(s): M14.679 - Charcot's joint, unspecified ankle and foot Plan: seeing outsole paraffiner (11) Hypertension: Code(s): I10 - Essential (primary) hypertension (12) Hypercholesterolemia: Code(s): E78.00 - Pure hypercholesterolemia, unspecified (13) Hip pain, right: Code(s): M25.551 - Pain in right hip Orders: Orders Comprehensive Met. Panel Today N28.9 - Disorder of kidney and ureter, unspecified Lipid Panel 3 Months E78.00 - Pure hypercholesterolemia, unspecified Hemoglobin A1c 3 Months E78.00 - Pure hypercholesterolemia, unspecified Complete Blood Count Auto Diff 3 Months E78.00 - Pure hypercholesterolemia, unspecified Pneumococcal 20 Immunization Today Z23 - Encounter for immunization Referrals Physiatry Referral M25.551 - Pain in right hip, Z96.641 - Presence of right artificial hip joint Medications: New esomeprazole magnesium (Nexium) 20 mg PO DAILY 30 caps 0RF pneumoc 20-zbigniew conj-dip cr(PF) 0.5 mL IM ONCE 0.5 mL 0RF Z23 - Encounter for immunization lisinopril 5 mg PO DAILY 30 tabs 3RF I10 - Essential (primary) hypertension Discontinued omeprazole Discontinued Reason: Doctor's Order 20 mg PO DAILY 90 caps 3RF Coding Level of Care Code Est Pt Prev Care 40-64y(52139) Diagnoses Annual physical exam Z00.00 S/P gastric bypass Z98.84 Sleep apnea G47.30 Type 2 diabetes mellitus with hyperglycemia E11.65 BPH (benign prostatic hyperplasia) N40.0 GERD (gastroesophageal reflux disease) K21.9 Renal insufficiency N28.9 H/O right inguinal hernia repair Z98.890; Z87.19 Obesity E66.9 Charcot's joint of foot M14.679 Hypertension I10 Hypercholesterolemia E78.00 Hip pain, right M25.551 Additional Codes JOE-7 Assessment Billing - JOE-7 Assessment Tool: JOE-7 Assessment 90890 ([id number]) PHQ-9 - 49756 - PHQ-9 Billing: ([id number])
[2023-07-22 09:08] VITALS: BP 160/58; PULSE 66; O2SAT 98; BMI 31.9
[2023-07-22 09:57] VITALS: BP 150/70
== END 2023-07-22 10:27 | disposition home or self-care (01) ==
PROVIDERS: PCP Internal Medicine; Visit Provider Internal Medicine
DX: Z23 Encounter for immunization (principal)
CPT/HCPCS: 90471; 90677; 99396

== ENCOUNTER 2023-07-22 12:56 | Outpatient (AMB) | payer BC, SELFPAY ==
--- NOTE | 2023-07-22 13:02 | MHC.OFFVISWM ---
VS Expanded 07/22/23 13:11 BP 182/72 H Blood Pressure Location Rt brachial Blood Pressure Position Sitting Pulse 50 Pulse Source Pulse Oximeter Temp 97.0 F Temperature Source Temporal Artery Scan Pulse Oximetry 95 Oxygen Delivery Method Room Air Height 5 ft 8.5 in Weight 210 lb 9.6 oz BMI 31.6 Body Fat % 23.0 Body Fat Mass 48.6 Fat Free Mass 162.0 Visceral Fat Rating 14.0 Body Water % 57.1 Body Water Mass 120.2 Muscle Mass/Score 154.2 Basal Metabolic Rate/Score 2,139 Intake Visit Reasons: (OV) PO GBP 07/21/17 Allergies Iodinated Contrast Media [IV Dye, Iodine Containing] Allergy (Intermediate, Verified 07/22/23 13:04) HIVES iodine Allergy (Verified 07/22/23 13:04) Hives NSAIDS (Non-Steroidal Anti-Inflamma Allergy (Verified 07/22/23 13:04) Hx Bariatric surgery Medication List - Last Reconciled 07/22/23 by DEYSI Cardona calcium carbonate 600 mg PO DAILY [Celebrate MVI PO] cetirizine (Zyrtec) 10 mg PO DAILY PRN cholecalciferol (vitamin D3) (Vitamin D3) 50 mcg PO DAILY [CPAP ] esomeprazole magnesium (Nexium) 20 mg PO DAILY iron,carbonyl-vitamin C 65 mg iron- 125 mg (Vitron-C) 1 tab PO DAILY lisinopril 5 mg PO DAILY sildenafil (Viagra) 100 mg PO DAILY PRN tamsulosin 0.4 mg PO DAILY HPI Comments Details: This?a?61?yo male who is s/p GBP on?07/21/[address] Garza. Presents for 6 year post op visit. Weight today is 210.6 with a BMI of 31.6. He had right inguinal hernia surgery on 12/03/2022 due to complaints right anterior hip pain that was thought to possibly be from the hernia however after the surgery he continues with so right hip pain especially with ascending stairs. He is able to use his bicycle both outdoor and stationary as well as elliptical machine without any pain or weakness however with any distance of walking he has discomfort. States he has had inconsistency with his meal plan in addition to snacking due to boredom meal plan: essential elements w 1 scoop rebuild in water Chinese yogurt with berries adding Kavita crunch, 02/26 c 5 gm protein, Meal, 6 forks/6 forks Bar, either zone perfect or built Meal, 6 forks/6 forks +/- 1/2 bar drinking 60-80 oz water, no soda or juice exercise plan: elliptical 30 min and weights, 5-6, 800 [address]vi outdoor bike on sundays 25 miles Any post op complications: None TULIO: improved DM: resolved HTN: improved Hyperlipidemia: improved GERD:?0-5 scale ??0 = no symptoms ??1 = symptoms noticeable but not bothersome 2 =symptoms bothersome but not daily ? 3 = symptoms bothersome and daily 4 = symptoms affect daily activities 5 = symptoms are incapacitating, unable to do daily activities ? How bad is the heartburn: 0 ? Heartburn while lying down: 0 ? Heartburn when standing up: 0 ? Heartburn after meals: 0 ? Does heartburn change your diet: 0 ? Does heartburn wake you up from sleep: 0 ? Do you have difficulty swallowin ? Do you have pain with swallowin ? If you take medicine for your reflux, does this affect your daily life: 0 Satisfaction with present condition - satisfied or not satisfied: Not satisfied [facility] Medical History Bradycardia Osteomyelitis Toe pain Overweight (BMI 25.0-29.9) COVID-19 vaccine series completed History of COVID-19 BPH (benign prostatic hyperplasia) Peripheral neuropathy Type 2 diabetes mellitus with hyperglycemia Anemia ADD (attention deficit disorder) Kidney stones Sleep apnea Surgical History Hx of hernia repair History of right hip replacement Hx of foot surgery Hx of colonoscopy H/O ureter repair S/P gastric bypass S/P hip replacement Family History Father Myocardial infarct Mother CVA (cerebral vascular accident) Brother Hx of CABG Social History Household Members: Family Housing: House Are you a primary director of healthcare systems to a significant other at home: No Do you presently have visiting nurse or other home services: No Alcohol intake: never Comment: medicated, see MAR Patient Tobacco Use Status: Former Tobacco user Quit Date: 1995 Tobacco use type: Cigar Years Smoked: 1994 but does cigar 3 cigars last year e-Cigarette/Vaping Use: Never Used Second Hand Smoke Exposure: Yes service: No Current occupational status: employed 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 Cognitive needs: No Hearing needs: No Vision needs: No Physical Exam Const General: cooperative and no acute distress Orientation/consciousness: patient oriented x3 Resp Effort & Inspection: normal respiratory effort Auscultation: clear to auscultation bilaterally Cardio Rate: regular rate Rhythm: regular rhythm GI Inspection: Yes normal to inspection and Yes incision (well healed) Palpation (GI): Soft to palpation and no masses Neuro General: patient oriented x3 Assessment & Plan Assessment & Plan (1) Obesity: Code(s): E66.9 - Obesity, unspecified Category: Medical Plan: Patient will try to remain consistent with his meal plan for the next 4-5 weeks. Essential elements with 1 scoop of rebuild Chinese yogurt with berries Celebrate rebuild 2 scoop shake over 2 hours Bar Meal with 5 forks protein and 5 forks vegetables Fresh fruit (apple or pear or orange or 3/4 cut berries) if he wishes Continue exercise as he has been doing Return to clinic 4 weeks.
[2023-07-22 13:11] VITALS: BP 182/72; PULSE 50; TEMP 36.1; O2SAT 95; BMI 31.6
== END 2023-07-22 13:30 | disposition home or self-care (01) ==
PROVIDERS: PCP Internal Medicine; Visit Provider Physician Assistant Surgical
DX: E66.9 Obesity, unspecified (principal); Z68.31 Body mass index [BMI] 31.0-31.9, adult
CPT/HCPCS: 99213

== ENCOUNTER → 2023-07-22 12:56 | Outpatient (BNVA) | payer BC, SELFPAY | PROVIDERS: PCP Internal Medicine; Visit Provider Physician Assistant Surgical | DX: E66.9 Obesity, unspecified (principal); D64.9 Anemia, unspecified; E11.65 Type 2 diabetes mellitus with hyperglycemia; Z98.84 Bariatric surgery status ==

== ENCOUNTER 2023-09-09 08:09 | Outpatient (AMB) | payer BC, SELFPAY ==
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
== END 2023-09-09 09:06 | disposition home or self-care (01) ==
PROVIDERS: PCP Internal Medicine; Visit Provider Physical Medicine & Rehabilitation
DX: S76.111A Strain of right quadriceps muscle, fascia and tendon, initial encounter (principal); Z96.641 Presence of right artificial hip joint; Z98.890 Other specified postprocedural states; Z87.19 Personal history of other diseases of the digestive system
CPT/HCPCS: 99203

== ENCOUNTER → 2023-09-09 08:09 | Outpatient (BNVA) | payer BC, SELFPAY | PROVIDERS: PCP Internal Medicine; Visit Provider Physical Medicine & Rehabilitation ==

== ENCOUNTER 2023-09-23 07:43 | Outpatient (REF) | payer BC, SELFPAY ==
[2023-09-23 07:56] LABS: MANUAL DIFF FLAG NO
[2023-09-23 09:18] LABS: Basophils Absolute Auto 0.1 X10*3/uL (0.0-0.2); Eosinophils Absolute Auto 0.1 X10*3/uL (0.0-0.4); Eosinophils Percent Auto 2.2 % (0-4); Hematocrit 37.4 % (42.0-52.0); Hemoglobin 12.7 g/dl (14.0-18.0); Imm Gran Abs Auto 0.02 X10*3/uL (0.00-0.03); Imm Gran Pct Auto 0.3 % (0.0-0.4); Lymphocytes Absolute Auto 2.2 X10*3/uL (1.2-4.9); Mean Corpuscular Hemoglobin 31.8 pg (27.0-33.0); Mean Corpuscular Volume 93.5 fL (80.0-98.0); Mean Platelet Volume 9.9 fL (9.4-12.4); Monocytes Absolute Auto 0.6 X10*3/uL (0.1-1.2); Monocytes Percent Auto 9.2 % (2-11); Neutrophils Absolute Auto 3.1 x10*3/uL (2.0-8.3); Neutrophils Percent Auto 51.3 % (45-73); Platelet Count 252 X10*3/uL (160-400); Red Cell Distribution Width 12.7 % (11.0-16.0)
[2023-09-23 09:35] LABS: Estimated Average Glucose 134 mg/dL; Hemoglobin A1c % 6.3 % (<6.0)
[2023-09-23 09:45] LABS: Alanine Aminotransferase 16 U/L (0-40); Alkaline Phosphatase 93 U/L (39-117); Anion Gap 10 (12-20); Aspartate Amino Transferase 16 U/L (5-37); Bilirubin Total 0.5 mg/dL (0.0-1.0); Blood Urea Nitrogen 30 mg/dL (9-16); Calcium 9.1 mg/dL (8.4-10.2); Carbon Dioxide 26 mmol/L (22-29); Chloride 109 mmol/L (96-108); Cholesterol 197 mg/dL (<200); Estimated Glomerular Filt Rate 57; Glucose Random 126 mg/dL (60-115); HDL Cholesterol 50 mg/dL (>40); LDL Cholesterol Calculated 122 mg/dL (<100); Potassium 4.3 mmol/L (3.3-5.1); Sodium 141 mmol/L (135-145); Total Protein 7.3 g/dL (6.5-8.0); Triglycerides 127 mg/dL (<150)
== END 2023-09-23 07:44 | disposition home or self-care (01) ==
LOC: HO.LAB 07:43
PROVIDERS: PCP Internal Medicine; Visit Provider Internal Medicine
DX: N28.9 Disorder of kidney and ureter, unspecified (principal); E78.00 Pure hypercholesterolemia, unspecified; Z13.1 Encounter for screening for diabetes mellitus; M79.18 Myalgia, other site
CPT/HCPCS: 20552; 36415; 80053; 80061; 83036; 85025

== ENCOUNTER 2023-09-23 08:48 | Outpatient (AMB) | payer BC, SELFPAY ==
--- NOTE | 2023-09-23 08:54 | A.OFFVIS_ITS ---
Vital Signs 09/23/23 09:00 Height 5 ft 8.5 in Weight 210 lb BMI 31.5 Intake Visit Reasons: Inj- Right thigh trigger #1 Intake Note: Maninder is a 63 year old male who presents today for a Right quadriceps trigger point injection #1 Allergies Iodinated Contrast Media [IV Dye, Iodine Containing] Allergy (Intermediate, Verified 07/22/23 13:04) HIVES iodine Allergy (Verified 07/22/23 13:04) Hives NSAIDS (Non-Steroidal Anti-Inflamma Allergy (Verified 07/22/23 13:04) Hx Bariatric surgery PFSH Medical History (Updated 09/23/23 @ 09:51 by Jennifer Horn MD) Bradycardia Osteomyelitis Toe pain Overweight (BMI 25.0-29.9) COVID-19 vaccine series completed History of COVID-19 BPH (benign prostatic hyperplasia) Peripheral neuropathy Type 2 diabetes mellitus with hyperglycemia Anemia ADD (attention deficit disorder) Kidney stones Sleep apnea Surgical History (Updated 09/09/23 @ 09:10 by Jennifer Horn MD) Hx of hernia repair History of right hip replacement Hx of foot surgery Hx of colonoscopy H/O ureter repair S/P gastric bypass S/P hip replacement Family History Father Myocardial infarct Mother CVA (cerebral vascular accident) Brother Hx of CABG Social History Household Members: Family Housing: House Are you a primary elderly caregiver to a significant other at home: No Do you presently have visiting nurse or other home services: No Alcohol intake: never Comment: medicated, see MAR Patient Tobacco Use Status: Former Tobacco user Tobacco use type: Cigar Years Smoked: 1994 but does cigar 3 cigars last year e-Cigarette/Vaping Use: Never Used Second Hand Smoke Exposure: Yes service: No Current occupational status: employed 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 Conset obtained. Trigger points palpated on proximal right quadriceps. Using gauge 27 needle, 2 ml of 2% Lidocaine injected intramuscularly. Patient tolerated procedure well. Post-injection instructions given. 74815-Bwbzraf Point Injection 1 or 2 sites All charges added?: Procedure code (CPT) selection complete Assessment & Plan Assessment & Plan (1) Myofascial pain: Code(s): M79.18 - Myalgia, other site Category: Medical Plan Tolerated procedure well. Post injection instructions given. Assessment and plan discussed with patient, and patient was agreeable. All questions were answered thoroughly. Jennifer Horn MD, DINESH Board Certified, [place] Board [employer] and Rehabilitation (ABPMR) Board Certified, [place] Board [employer] Electrodiagnostic Medicine (ABEM) Orders: Orders AMB Trigger Point Injection Today M79.18 - Myalgia, other site Coding Level of Care Code Procedure Only Diagnoses Myofascial pain M79.18 CPT Codes Therapeutic Injection - Ther Injection 1: 64248-Xfzsvrf Point Injection 1 or 2 sites ([id number])
[2023-09-23 09:00] VITALS: BMI 31.5
== END 2023-09-23 09:11 | disposition home or self-care (01) ==
PROVIDERS: PCP Internal Medicine; Visit Provider Physical Medicine & Rehabilitation
DX: M25.551 Pain in right hip (principal); M79.18 Myalgia, other site
CPT/HCPCS: 20552

== ENCOUNTER 2023-09-29 09:31 | Outpatient (AMB) | payer BC, SELFPAY ==
--- NOTE | 2023-09-29 09:38 | MHC.OFFVIS ---
Intake Visit Reasons: Inj- Right thigh trigger #2 Intake Note: Maninder is a 63 year old male who presents to the office today for Right thigh trigger injection#2. Allergies Iodinated Contrast Media [IV Dye, Iodine Containing] Allergy (Intermediate, Verified 09/29/23 09:38) HIVES iodine Allergy (Verified 09/29/23 09:38) Hives NSAIDS (Non-Steroidal Anti-Inflamma Allergy (Verified 09/29/23 09:38) Hx Bariatric surgery HPI Comments Details: Maybe less than a day relief from 1st injection last week. No new problem. [facility] Medical History (Updated 09/23/23 @ 09:51 by Jennifer Horn MD) Bradycardia Osteomyelitis Toe pain Overweight (BMI 25.0-29.9) COVID-19 vaccine series completed History of COVID-19 BPH (benign prostatic hyperplasia) Peripheral neuropathy Type 2 diabetes mellitus with hyperglycemia Anemia ADD (attention deficit disorder) Kidney stones Sleep apnea Surgical History (Updated 09/09/23 @ 09:10 by Jennifer Horn MD) Hx of hernia repair History of right hip replacement Hx of foot surgery Hx of colonoscopy H/O ureter repair S/P gastric bypass S/P hip replacement Family History Father Myocardial infarct Mother CVA (cerebral vascular accident) Brother Hx of CABG Social History Household Members: Family Housing: House Are you a primary career based intervention coordinator to a significant other at home: No Do you presently have visiting nurse or other home services: No Alcohol intake: never Comment: medicated, see MAR Patient Tobacco Use Status: Former Tobacco user Tobacco use type: Cigar Years Smoked: 1994 but does cigar 3 cigars last year e-Cigarette/Vaping Use: Never Used Second Hand Smoke Exposure: Yes service: No Current occupational status: employed 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 Conset obtained. Three areas along right rectus, trigger points palpated. 1 ml of 2% Lidocaine injected in each site, total of 3 mL. Patient tolerated procedure well. Post-injection instructions given. 85154-Vnscxxe Point Injection 3 or more All charges added?: Procedure code (CPT) selection complete Assessment & Plan Assessment & Plan (1) Myofascial pain: Code(s): M79.18 - Myalgia, other site Category: Medical Plan Tolerated procedure well. Post injection instructions given. Assessment and plan discussed with patient, and patient was agreeable. All questions were answered thoroughly. Jennifer Horn MD, DINESH Board Certified, [place] Board [employer] and Rehabilitation (ABPMR) Board Certified, [place] Board [employer] Electrodiagnostic [employer] (ABEM) Orders: Orders AMB Trigger Point Injection Today M79.18 - Myalgia, other site Coding Level of Care Code Procedure Only Diagnoses Myofascial pain M79.18 CPT Codes Therapeutic Injection - Ther Injection 2: 68305-Bucjzaq Point Injection 3 or more ([id number])
== END 2023-09-29 09:52 | disposition home or self-care (01) ==
PROVIDERS: PCP Internal Medicine; Visit Provider Physical Medicine & Rehabilitation
DX: M25.551 Pain in right hip (principal); M79.18 Myalgia, other site
CPT/HCPCS: 20553

== ENCOUNTER → 2023-09-29 09:31 | Outpatient (BNVA) | payer BC, SELFPAY | PROVIDERS: PCP Internal Medicine; Visit Provider Physical Medicine & Rehabilitation | DX: M79.18 Myalgia, other site (principal) | CPT/HCPCS: 20553 ==

== ENCOUNTER 2023-10-27 09:15 | Outpatient (AMB) | payer BC, SELFPAY ==
--- NOTE | 2023-10-27 09:15 | A.OFFVIS_ITS ---
Intake Visit Reasons: Inj- Right thigh trigger #3 Intake Note: Maninder is a 63 year old male who presents to the office today for a Right thigh trigger injection #3. Allergies Iodinated Contrast Media [IV Dye, Iodine Containing] Allergy (Intermediate, Verified 10/27/23 09:16) HIVES iodine Allergy (Verified 10/27/23 09:16) Hives NSAIDS (Non-Steroidal Anti-Inflamma Allergy (Verified 10/27/23 09:16) Hx Bariatric surgery Medication List - Last Reconciled 10/27/23 by Jennifer Horn MD calcium carbonate 600 mg PO DAILY [Celebrate MVI PO] cetirizine (Zyrtec) 10 mg PO DAILY PRN cholecalciferol (vitamin D3) (Vitamin D3) 50 mcg PO DAILY [CPAP ] esomeprazole magnesium (Nexium) 20 mg PO DAILY iron,carbonyl-vitamin C 65 mg iron- 125 mg (Vitron-C) 1 tab PO DAILY lisinopril 5 mg PO DAILY sildenafil (Viagra) 100 mg PO DAILY PRN tamsulosin 0.4 mg PO DAILY HPI Comments Details: Still has the same right groin pain despite trigger point injections. [facility] Medical History (Updated 09/23/23 @ 09:51 by Jennifer Horn MD) Bradycardia Osteomyelitis Toe pain Overweight (BMI 25.0-29.9) COVID-19 vaccine series completed History of COVID-19 BPH (benign prostatic hyperplasia) Peripheral neuropathy Type 2 diabetes mellitus with hyperglycemia Anemia ADD (attention deficit disorder) Kidney stones Sleep apnea Surgical History (Updated 09/09/23 @ 09:10 by Jennifer Horn MD) Hx of hernia repair History of right hip replacement Hx of foot surgery Hx of colonoscopy H/O ureter repair S/P gastric bypass S/P hip replacement Family History Father Myocardial infarct Mother CVA (cerebral vascular accident) Brother Hx of CABG Social History Household Members: Family Housing: House Are you a primary health care / medical job titles to a significant other at home: No Do you presently have visiting nurse or other home services: No Alcohol intake: never Comment: medicated, see MAR Patient Tobacco Use Status: Former Tobacco user Tobacco use type: Cigar Years Smoked: 1994 but does cigar 3 cigars last year e-Cigarette/Vaping Use: Never Used Second Hand Smoke Exposure: Yes service: No Current occupational status: employed 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 Two areas injected. Conset obtained. Using gauge 27 needle, 1 ml of 2% Lidocaine injected in each site, total of 2 mL. Patient tolerated procedure well. Post-injection instructions given. 24868-Dmkhlvl Point Injection 1 or 2 sites All charges added?: Procedure code (CPT) selection complete Assessment & Plan Assessment & Plan (1) Myofascial pain: Code(s): M79.18 - Myalgia, other site Category: Medical (2) History of right hip replacement: Code(s): Z96.641 - Presence of right artificial hip joint Category: Surgical (3) Hx of hernia repair: Code(s): Z98.890 - Other specified postprocedural states; Z87.19 - Personal history of other diseases of the digestive system Category: Surgical (4) Quadriceps muscle strain: Code(s): S76.119A - Strain of unspecified quadriceps muscle, fascia and tendon, initial encounter Category: Medical Qualifiers: Encounter type: initial encounter Laterality: right Qualified Code(s): S76.111A - Strain of right quadriceps muscle, fascia and tendon, initial encounter Plan Chronic right groin pain. Etiology unknown. We have tried trigger point injections, knowing that it may or may not help as much. We will follow up in 4 weeks to re-evaluate if further imaging or workup is needed. Assessment and plan discussed with patient, and patient was agreeable. All questions were answered thoroughly. Jennifer Horn MD, DINESH Board Certified, [place] [employer] and Rehabilitation (ABPMR) Board Certified, [place] [employer] Electrodiagnostic Medicine (ABEM) Orders: Orders AMB Trigger Point Injection Today M79.18 - Myalgia, other site Coding Level of Care Code Procedure Only Diagnoses Myofascial pain M79.18 History of right hip replacement Z96.641 Hx of hernia repair Z98.890; Z87.19 Strain of right quadriceps muscle, initial encounter S76.111A Encounter type: initial encounter Laterality: right CPT Codes Therapeutic Injection - Ther Injection 1: 16406-Msbhgpw Point Injection 1 or 2 sites ([id number])
== END 2023-10-27 09:32 | disposition home or self-care (01) ==
PROVIDERS: PCP Internal Medicine; Visit Provider Physical Medicine & Rehabilitation
DX: M25.551 Pain in right hip (principal); M79.18 Myalgia, other site; Z96.641 Presence of right artificial hip joint; Z98.890 Other specified postprocedural states; Z87.19 Personal history of other diseases of the digestive system; S76.111A Strain of right quadriceps muscle, fascia and tendon, initial encounter
CPT/HCPCS: 20552

== ENCOUNTER → 2023-10-27 09:15 | Outpatient (BNVA) | payer BC, SELFPAY | PROVIDERS: PCP Internal Medicine; Visit Provider Physical Medicine & Rehabilitation | DX: M79.18 Myalgia, other site (principal); S76.111A Strain of right quadriceps muscle, fascia and tendon, initial encounter; Z96.641 Presence of right artificial hip joint | CPT/HCPCS: 20552 ==

== ENCOUNTER 2023-11-25 11:09 | Outpatient (AMB) | payer BC, SELFPAY ==
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
== END 2023-11-25 11:46 | disposition home or self-care (01) ==
PROVIDERS: PCP Internal Medicine; Visit Provider Physical Medicine & Rehabilitation
DX: S76.111A Strain of right quadriceps muscle, fascia and tendon, initial encounter (principal); Z96.641 Presence of right artificial hip joint; M79.18 Myalgia, other site; Z87.19 Personal history of other diseases of the digestive system
CPT/HCPCS: 99213

== ENCOUNTER → 2023-11-25 11:09 | Outpatient (BNVA) | payer BC, SELFPAY | PROVIDERS: PCP Internal Medicine; Visit Provider Physical Medicine & Rehabilitation ==

== ENCOUNTER 2023-12-07 13:21 | Outpatient (AMB) | payer BC, SELFPAY ==
--- NOTE | 2023-12-07 13:24 | A.OFFPC_ITS ---
Vital Signs 12/07/23 13:25 12/07/23 13:47 Height 5 ft 8.5 in Weight 215 lb BMI 32.2 BP 150/80 H 120/60 Blood Pressure Location Lt brachial Lt brachial Position Sitting Pulse 40 L Pulse Source Pulse Oximeter Pulse Oximetry (%) 97 Oxygen Delivery Method Room Air Intake Visit Reasons: DM , HTN Intake Note: Patient is here to follow up on DM, HTN. Tobacco Checkout Clerk Required: No Cable Repairer: Not Required per policy Accompanied by: Self / Same As Patient Allergies Iodinated Contrast Media [IV Dye, Iodine Containing] Allergy (Intermediate, Verified 12/07/23 13:25) HIVES iodine Allergy (Verified 12/07/23 13:25) Hives NSAIDS (Non-Steroidal Anti-Inflamma Allergy (Verified 12/07/23 13:25) Hx Bariatric surgery Tobacco use date assessed: 12/07/23 Dental Screening Dental Screen Date: 07/22/23 HPI DM , HTN HPI Details 63-year-old obese male with a history of gastric bypass having obstructive sleep apnea diabetes mellitus BPH GERD renal insufficiency hypertension hypercholesterolemia last seen in 07/13/2023. Patient's colonoscopy is up-to-date 2020. Review of the notes has been follow-up with orthopedics right thigh trigger point injections last injection October 2023. Had an x- ray done in 2020 there was a question of hairline lucency lateral side proximal right femur all suspicious for nondisplaced fracture. Chronic right groin pain patient was offered pain management. [facility] Medical History (Updated 12/07/23 @ 13:53 by Marichuy Hager MD) Bradycardia Osteomyelitis Toe pain Overweight (BMI 25.0-29.9) COVID-19 vaccine series completed History of COVID-19 BPH (benign prostatic hyperplasia) Peripheral neuropathy Type 2 diabetes mellitus with hyperglycemia Anemia ADD (attention deficit disorder) Kidney stones Sleep apnea Surgical History Hx of hernia repair History of right hip replacement Hx of foot surgery Hx of colonoscopy H/O ureter repair S/P gastric bypass S/P hip replacement Family History Father Myocardial infarct Mother CVA (cerebral vascular accident) Brother Hx of CABG Social History Household Members: Family Housing: House Are you a primary health care consultant to a significant other at home: No Do you presently have visiting nurse or other home services: No Alcohol intake: never Comment: medicated, see MAR Patient Tobacco Use Status: Former Tobacco user Tobacco use type: Cigar Years Smoked: 1994 but does cigar 3 cigars last year e-Cigarette/Vaping Use: Never Used Second Hand Smoke Exposure: Yes service: No Current occupational status: employed 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 How often do you have six or more drinks on one occasion?: Never Total Score: 0 JOE-7 AMB Questionnaire JOE-7 Date JOE - 7 assessed: 07/22/23 Source: Developed by Drs. Carlos Bergman, Yessenia Junior, Bao Domínguez and colleagues, with an educational letha from [employer] Physical exam (Primary Care) Vital Signs: Last Vital Signs Pulse 40 L 12/07/23 13:25 BP 150/80 H 12/07/23 13:25 Pulse Ox 97 12/07/23 13:25 Oxygen Delivery Method Room Air 12/07/23 13:25 BMI result Body Mass Index 32.2 Tobacco/Smoking Status: Tobacco use Status Tobacco use date assessed 12/07/23 12/07/23 13:33 Patient Tobacco Use Status Former Tobacco user 12/07/23 13:33 Tobacco use type Cigar 12/07/23 13:33 e-Cigarette/Vaping Use Never Used 12/07/23 13:33 Thrive Assessment: Date of Thrive Assessment Date Thrive assessed 07/22/23 12/07/23 13:33 Const General: alert; No acute distress Eyes Conjunctivae: conjunctivae normal Resp Auscultation: clear to auscultation bilaterally Cardio Rate: regular rate Rhythm: regular rhythm GI Inspection: Yes normal to inspection Extrem General: Yes normal to inspection and No edema Results AMB Hemoglobin A1c AMB Hemoglobin A1c 6.5 % Last Edit by REGAN Webster on 12/07/23 13:37 Results Reviewed Results Reviewed: Laboratory Last Values Hgb A1c (Clinic) 6.5 % (4.0-6.0) H 12/07/23 13:23 Coding Level of Care Code Est Pt Level 4 (26550) Complex EM visit Add On G2211 Diagnoses Type 2 diabetes mellitus with hyperglycemia E11.65 Sleep apnea G47.30 S/P gastric bypass Z98.84 GERD (gastroesophageal reflux disease) K21.9 Class 1 obesity due to excess calories with serious comorbidity and body mass index (BMI) of 32.0 to 32.9 in adult E66.811; E66.09; Z68.32 Obesity type: due to excess calories Obesity classification: adult class 1 (BMI 30 - 34.9) Serious obesity comorbidity presence: with serious comorbidity Body mass index: BMI 32.0-32.9 Primary hypertension I10 Hypertension type: primary hypertension Hypercholesterolemia E78.00 Hip pain, right M25.551 Assessment & Plan Assessment & Plan (1) Type 2 diabetes mellitus with hyperglycemia: Comment: No rx Eye - [facility] 2023 Code(s): E11.65 - Type 2 diabetes mellitus with hyperglycemia Category: Medical Plan: Decrease the amount of carbohydrate intake, pasta, bread, rice and potatoes are all sugar and that is aside from all the sweet stuff, remember that fruits are good but they are Sweet also. Hemoglobin A1c goal of less than 6.5 patient is presently diet controlled. (2) Sleep apnea: Comment: CPAP uses Q night > 4 hours and benefits patient Code(s): G47.30 - Sleep apnea, unspecified Category: Medical Plan: Continue to use the CPAP more than 4 hours a night and benefits from this. (3) S/P gastric bypass: Comment: 06/2017, 110# wt loss Code(s): Z98.84 - Bariatric surgery status Category: Surgical Plan: Continue to follow-up with bariatric surgeon. (4) GERD (gastroesophageal reflux disease): Code(s): K21.9 - Gastro-esophageal reflux disease without esophagitis Category: Medical Plan: Avoid the foods that causes that usually spicy foods, tomato products, juices, coffee, soda and foods that your sensitive to. After eating do not lie down, allow 3-4 hours before in lie down. And keep the head of bed above 30 degrees to avoid the acid from going up. (5) Obesity: Code(s): E66.9 - Obesity, unspecified Category: Medical Qualifiers: Obesity type: due to excess calories Obesity classification: adult class 1 (BMI 30 - 34.9) Serious obesity comorbidity presence: with serious comorbidity Body mass index: BMI 32.0-32.9 Qualified Code(s): E66.811 - Obesity, class 1; E66.09 - Other obesity due to excess calories; Z68.32 - Body mass index [BMI] 32.0-32.9, adult Plan: Diet and exercise (6) Hypertension: Code(s): I10 - Essential (primary) hypertension Category: Medical Qualifiers: Hypertension type: primary hypertension Qualified Code(s): I10 - Essential (primary) hypertension Plan: Continue with blood pressure medication. Decrease salt intake and exercise patient is on lisinopril 5 mg once a day (7) Hypercholesterolemia: Code(s): E78.00 - Pure hypercholesterolemia, unspecified Category: Medical Plan: Avoid fried foods, chicken skin, eggs, butter margarine, pastries and meat. Be it pork or beef they have a lot of cholesterol LDL goal of less than 100 and triglyceride of less than 150 will need repeat testing. (8) Hip pain, right: Code(s): M25.551 - Pain in right hip Category: Medical Plan: work up has been negative and has been treating with injections which has not been effective. Orders: Orders AMB Hemoglobin A1c Today E11.65 - Type 2 diabetes mellitus with hyperglycemia Comprehensive Met. Panel 3 Months E78.00 - Pure hypercholesterolemia, unspecified Lipid Panel 3 Months E78.00 - Pure hypercholesterolemia, unspecified Hemoglobin A1c 3 Months E78.00 - Pure hypercholesterolemia, unspecified Microalbumin, Random (w Creat) 3 Months E11.65 - Type 2 diabetes mellitus with hyperglycemia Creatinine Urine 3 Months E11.65 - Type 2 diabetes mellitus with hyperglycemia
[2023-12-07 13:25] VITALS: BP 150/80; PULSE 40; O2SAT 97; BMI 32.2
[2023-12-07 13:47] VITALS: BP 120/60
== END 2023-12-07 14:01 | disposition home or self-care (01) ==
PROVIDERS: PCP Internal Medicine; Visit Provider Internal Medicine
DX: E11.65 Type 2 diabetes mellitus with hyperglycemia (principal); G47.30 Sleep apnea, unspecified; Z98.84 Bariatric surgery status; K21.9 Gastro-esophageal reflux disease without esophagitis; E66.811 Obesity, class 1; E66.09 Other obesity due to excess calories; Z68.32 Body mass index [BMI] 32.0-32.9, adult; I10 Essential (primary) hypertension; E78.00 Pure hypercholesterolemia, unspecified; M25.551 Pain in right hip

== ENCOUNTER → 2023-12-07 13:21 | Outpatient (BNVA) | payer BC, SELFPAY | PROVIDERS: PCP Internal Medicine; Visit Provider Internal Medicine | DX: E11.65 Type 2 diabetes mellitus with hyperglycemia (principal); G47.30 Sleep apnea, unspecified; K21.9 Gastro-esophageal reflux disease without esophagitis; E66.811 Obesity, class 1; Z68.32 Body mass index [BMI] 32.0-32.9, adult; I10 Essential (primary) hypertension; E78.00 Pure hypercholesterolemia, unspecified; M25.551 Pain in right hip; Z98.84 Bariatric surgery status; Z99.89 Dependence on other enabling machines and devices | CPT/HCPCS: 83036 ==

== ENCOUNTER 2024-04-05 08:33 | Outpatient (AMB) | payer BC, SELFPAY ==
[2024-04-05 08:37] VITALS: BP 148/68; PULSE 52; O2SAT 97; BMI 31.8
--- NOTE | 2024-04-05 08:37 | MHC.PC.OV ---
Vital Signs 04/05/24 08:37 04/05/24 08:55 Height 5 ft 8.5 in Weight 212 lb BMI 31.8 BP 148/68 H 120/60 Blood Pressure Location Lt brachial Lt brachial Position Sitting Sitting Pulse 52 Pulse Source Pulse Oximeter Pulse Oximetry (%) 97 Oxygen Delivery Method Room Air Intake Visit Reasons: DM ,Cholesterol Allergies Iodinated Contrast Media [IV Dye, Iodine Containing] Allergy (Intermediate, Verified 04/05/24 08:38) HIVES iodine Allergy (Verified 04/05/24 08:38) Hives NSAIDS (Non-Steroidal Anti-Inflamma Allergy (Verified 04/05/24 08:38) Hx Bariatric surgery Tobacco use date assessed: 04/05/24 Dental Screening Dental Screen Date: 04/05/24 Did you have a dental visit in the last 12 months?: Yes Did you have a dental problem in the last 6 months where you did not have access to dental care?: No Was dental information given to patient?: Patient has dentist HPI DM ,Cholesterol HPI Details 64-year-old obese male with diabetes mellitus status post gastric bypass 2018 obstructive sleep apnea on the CPAP BPH hypertension hypercholesterolemia GERD coming in for follow-up. Last seen in November last year. Noted blood work last year to have an elevated cholesterol and was advised to get repeat blood work. This was not done and request has been updated. Patient was complaining about nasal congestion and wanted to be referred to ear nose and throat. Continues to use the CPAP more than 4 hours a night and benefits from this. Patient also complains of having some hand numbness does have neuropathy of the feet and discussed about certain patterns of carpal tunnel as well as peripheral neuropathy from diabetes. Patient was advised to use wrist splints/wrist brace to prevent carpal tunnel but discussed at progression will need to have testing done. [facility] Medical History (Updated 04/05/24 @ 09:11 by Marichuy Hager MD) Bradycardia Osteomyelitis Toe pain Overweight (BMI 25.0-29.9) COVID-19 vaccine series completed History of COVID-19 BPH (benign prostatic hyperplasia) Peripheral neuropathy Type 2 diabetes mellitus with hyperglycemia Anemia ADD (attention deficit disorder) Kidney stones Sleep apnea Surgical History Hx of hernia repair History of right hip replacement Hx of foot surgery Hx of colonoscopy H/O ureter repair S/P gastric bypass S/P hip replacement Family History Father Myocardial infarct Mother CVA (cerebral vascular accident) Brother Hx of CABG Social History Household Members: Family Housing: House Are you a primary neonatal intensive care nurse to a significant other at home: No Do you presently have visiting nurse or other home services: No Alcohol intake: never Comment: medicated, see MAR Patient Tobacco Use Status: Former Tobacco user Tobacco use type: Cigar Years Smoked: 1994 but does cigar 3 cigars last year e-Cigarette/Vaping Use: Never Used Second Hand Smoke Exposure: Yes service: No Current occupational status: employed 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 1. Little interest or pleasure in doing things: not at all 2. Feeling down, depressed, or hopeless: not at all 3. Trouble falling or staying asleep, or sleeping too much: not at all 4. Feeling tired or having little energy: not at all 5. Poor appetite or overeating: not at all 6. Feeling bad about yourself - or that you are a failure or have let yourself or your family down: not at all 7. Trouble concentrating on things, such as reading the newspaper or watching television: not at all 8. Moving or speaking so slowly that other people could have noticed. Or the opposite - being so fidgety or restless that you have been moving around a lot more than usual: not at all 9. Thoughts that you would be better off or of hurting yourself in some way: not at all Total score: 0 Depression Screening Interpretation: Negative Depression Screening Done: Yes Source: Developed by Drs. Carlos Bergman, Yessenia Junior, Bao Domínguez and colleagues, with an educational letha from [employer]. Thrive Questionnaire Date Thrive assessed: 04/05/24 I am a: Patient What is your living situation today?: I have a steady place to live Within the past 12 months, did the food you bought not last and you didn't have the money to get more?: Never true Within the past 12 months, did you worry whether your food would run out before you got money to buy more?: Never true Do you have trouble paying for medicines?: No Do you have trouble getting transportation to medical appointments?: No Do you have trouble paying your heating and electricity bill?: No Do you have trouble taking care of your child, family member or friend?: No Do you have trouble with day-to-day activities such as bathing, preparing meals, shopping, managing finances, etc.?: No Are you currently unemployed and looking for a job?: No Are you interested in more education?: No Currently or been in a relationship where the following occur: No concerns reported THRIVE Score: 0 AUDIT C Alcohol Use Questionnaire (AUDIT-C) 2. How many drinks containing alcohol do you have on a typical day when you are drinking?: 1 or 2 3. How often do you have six or more drinks on one occasion?: Never Total Score: 0 JOE-7 AMB Questionnaire JOE-7 Date JOE - 7 assessed: 04/05/24 Feeling nervous, anxious, or on edge: 0 = Not at all Not being able to stop or control worryin = Not at all Worrying too much about different things: 0 = Not at all Trouble relaxin = Not at all Being so restless that it is hard to sit still: 0 = Not at all Becoming easily annoyed or irritable: 0 = Not at all Feeling afraid as if something awful might happen: 0 = Not at all Total JOE-7 score (0-4 normal; 5-9 mild; 10-14 moderate; 15-21 severe): 0 Source: Developed by Drs. Carlos Bergman, Yessenia Junior, Bao Domínguez and colleagues, with an educational letha from [employer]. Physical exam (Primary Care) Vital Signs: Last Vital Signs Pulse 52 04/05/24 08:37 BP 120/60 04/05/24 08:55 Pulse Ox 97 04/05/24 08:37 Oxygen Delivery Method Room Air 04/05/24 08:37 BMI result Body Mass Index 31.8 Tobacco/Smoking Status: Tobacco use Status Tobacco use date assessed 04/05/24 04/05/24 08:39 Patient Tobacco Use Status Former Tobacco user 04/05/24 08:39 Tobacco use type Cigar 04/05/24 08:39 e-Cigarette/Vaping Use Never Used 04/05/24 08:39 PHQ-9: PHQ-9 Score PHQ-9: Total score 0 04/05/24 08:43 Depression Screening Interpretation: Negative Thrive Assessment: Date of Thrive Assessment Date Thrive assessed 04/05/24 04/05/24 08:39 Currently or been in a relationship where the following occur: No concerns reported Const General: alert; No acute distress Eyes Conjunctivae: conjunctivae normal Resp Auscultation: clear to auscultation bilaterally Cardio Rate: regular rate Rhythm: regular rhythm GI Inspection: Yes normal to inspection Extrem General: Yes normal to inspection and No edema Results AMB Hemoglobin A1c AMB Hemoglobin A1c 6.4 % Last Edit by Jina Augustine CMA on 04/05/24 09:04 Coding Level of Care Code Est Pt Level 4 (83626) Complex EM visit Add On G2211 Diagnoses Type 2 diabetes mellitus with hyperglycemia E11.65 S/P gastric bypass Z98.84 Primary hypertension I10 Hypertension type: primary hypertension Hypercholesterolemia E78.00 Obstructive sleep apnea syndrome G47.33 Sleep apnea type: obstructive Nasal congestion R09.81 Assessment & Plan Assessment & Plan (1) Type 2 diabetes mellitus with hyperglycemia: Comment: No rx Eye - [facility] 2023 Code(s): E11.65 - Type 2 diabetes mellitus with hyperglycemia Category: Medical Plan: Decrease the amount of carbohydrate intake, pasta, bread, rice and potatoes are all sugar and that is aside from all the sweet stuff, remember that fruits are good but they are Sweet also. Hemoglobin A1c goal of less than 6.5. Patient on diet control. (2) S/P gastric bypass: Comment: 06/2017, 110# wt loss Code(s): Z98.84 - Bariatric surgery status Category: Surgical Plan: Continue to be active and eat healthy. (3) Hypertension: Code(s): I10 - Essential (primary) hypertension Category: Medical Qualifiers: Hypertension type: primary hypertension Qualified Code(s): I10 - Essential (primary) hypertension Plan: Continue with blood pressure medication. Decrease salt intake and exercise on lisinopril 5 mg once a day (4) Hypercholesterolemia: Code(s): E78.00 - Pure hypercholesterolemia, unspecified Category: Medical Plan: Avoid fried foods, chicken skin, eggs, butter margarine, pastries and meat. Be it pork or beef they have a lot of cholesterol LDL goal of less than 100. (5) Sleep apnea: Comment: CPAP uses Q night > 4 hours and benefits patient Code(s): G47.30 - Sleep apnea, unspecified Category: Medical Qualifiers: Sleep apnea type: obstructive Qualified Code(s): G47.33 - Obstructive sleep apnea (adult) (pediatric) Plan: Continue to use the CPAP more than 4 hours a night and benefits from this. (6) Nasal congestion: Code(s): R09.81 - Nasal congestion Category: Medical Plan: Referral to ear nose and throat done Orders: Orders ECG 12 lead EKG Today E11.65 - Type 2 diabetes mellitus with hyperglycemia AMB Hemoglobin A1c Today Z13.9 - Encounter for screening, unspecified Referrals Ear/Nose/Throat Referral R09.81 - Nasal congestion Podiatry Referral E11.65 - Type 2 diabetes mellitus with hyperglycemia Medications: Refilled lisinopril 5 mg PO DAILY 90 tabs 1RF I10 - Essential (primary) hypertension tamsulosin 0.4 mg PO DAILY 90 caps 2RF N40.0 - Benign prostatic hyperplasia without lower urinary tract symptoms
[2024-04-05 08:55] VITALS: BP 120/60
== END 2024-04-05 09:08 | disposition home or self-care (01) ==
PROVIDERS: PCP Internal Medicine; Visit Provider Internal Medicine
DX: E11.65 Type 2 diabetes mellitus with hyperglycemia (principal); Z98.84 Bariatric surgery status; I10 Essential (primary) hypertension; E78.00 Pure hypercholesterolemia, unspecified; G47.33 Obstructive sleep apnea (adult) (pediatric); R09.81 Nasal congestion; Z13.9 Encounter for screening, unspecified

== ENCOUNTER → 2024-04-05 08:33 | Outpatient (BNVA) | payer BC, SELFPAY | PROVIDERS: PCP Internal Medicine; Visit Provider Internal Medicine | DX: E11.65 Type 2 diabetes mellitus with hyperglycemia (principal); I10 Essential (primary) hypertension; E78.00 Pure hypercholesterolemia, unspecified; G47.33 Obstructive sleep apnea (adult) (pediatric); R09.81 Nasal congestion; N40.0 Benign prostatic hyperplasia without lower urinary tract symptoms; Z79.899 Other long term (current) drug therapy; Z98.84 Bariatric surgery status | CPT/HCPCS: 83036; 96127 ==

== ENCOUNTER 2024-04-14 06:40 | Outpatient (REF) | payer BC, SELFPAY ==
--- OUTSIDE RECORDS SUMMARY | 2024-04-14 06:43 | XMS_ITS ---
Author Organization [facility] [place]ya [place] Address [address] [place] [address] Care Team Providers Care Fire Tower Keeper Name Role Phone Marichuy Hager Primary Care Provider Yong Cuenca [phone] Dowell Encounters Encounter Location Date Provider Diagnosis [address] [address] 04/07/2023 Yong Cristobal Plan Of Treatment No Information Progress Notes * Maninder DIGGSDOB:1960 (64 yo M)Acc No.[id number]:04/07/2023 Progress Notes Patient:Maninder ARRINGTON Provider:?Yong Cristobal DPM :1960???Age:63 Y???Sex:Male Sudhakar e:04/07/2023 Address:[address], [id number] Pcp:Marichuy Hager Subjective: * Chief Complaints: * ???1. Dr Dowell. * Medical History:? Objective: * Vitals:? Assessment: Plan: * Treatment: * Images: * The named appointment provid er may or may not be the originator of this progress note, and it is not deemed complete until electronically signed by the appointment provider. Sign off status: Pending * Provider:?Yong Cristobal DPM Date:? 024 Generated for Printi qamar/Elena/eTransmitting on:?04/14/2024 06:43 AM EST
--- OUTSIDE RECORDS SUMMARY | 2024-04-14 06:43 | XMS_ITS ---
Author Organization [facility] Address [address] [place] [address] Care Team Providers Care Director Pharmacology Name Role Phone Marichuy Hager Primary Care Provider Yong Cuenca [phone] REASON FOR VISIT Referral Needed Encounters Encounter Location Date Provider Diagnosis [facility] [address] [place] [address] 04/16/2023 Yong Cristobal Plan Of Treatment No Information Progress Notes * CATERINAErickalanDOB:1960 (63 yo M)Acc No.[id number]:04/16/2023 Patient:?Maninder Stanley :1960???Age:63 Y???Sex:Male Address:[address], [facility] [place], [address] * true * Date:? Generated for Printi ng/Fatessg/eTransmitting on:?04/14/2024 06:43 AM EST
--- OUTSIDE RECORDS SUMMARY | 2024-04-14 06:43 | XMS_ITS | Patient Health Record ---
Author Organization [facility] Address [address] [place] [address] Care Team Providers Care Fitness Sales Associate Name Role Phone Alexandra VARNER, Anatoly Primary Care Provider UnavailBerto Thompson Jr Unavailable ALLERGIES Allergen (clinical drug ingredient) Drug/Non Drug Allergy documented on EMR Reaction Allergy Type Onset Date Status IVP dye (uncoded) Unknown Allergy Ac tive REASON FOR REFERRAL No Information MEDICATIONS Medication SIG (Take, Route, Frequency, Duration) Notes Start Date End Date Status MiraLax (colon prep) 8.3 ounce ((238) grams mixed with Gatorade or Crystal Light orally begin at 5:00 p.m. the day before the procedure for 1 day 01/13/2020 Active Vitron-C 65-125 MG TAKE 1 TABLET BY JACK TH EVERY DAY Oral for 60 Active D3 Super Strength 50 MCG (1999 UT) TAKE 1 CAPSULE BY MOUTH EVERY DAY Oral for 90 Active Wellbutrin 300 1 tablet Orally as directed Active Multivitamin - 1 tablet Orally Once a day for 30 day(s) Active Carafate 1 GM/10ML 10 ml on an empty st omach Orally Twice a day Active Pantoprazole Sodium 40 MG 1 tablet Orall y Once a day Active Tamsulosin HCl Activ e IMMUNIZATIONS Vaccine Route Administration Date Status Comme nts Influenza Unknown 01/13/2020 Refused SOCIAL HISTORY Sex Assigned At : Social History Observation Description Sex Assigned At Unknown PROBLEMS Problem Type ICD Code Onset Dates Problem Status W/U Status Risk SNOMED Code Notes Problem Colon cancer screening (Z12.11) Active confirmed 761841022 Problem Encounter for other preprocedural examination (Z01.818) Active confirmed 74244417 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) Active confirmed 497258991 Problem Iron deficiency anemia, unspecified iron deficiency anemia type (D50.9) Active confirmed 07583987 PLAN OF TREATMENT Pending Test Test Name Order Date Hemoccult Cards (Non-Screening) 11/11/19 Future Test Test Name Order Date COLONOSCOPY 03/29/2012 COLONOSCOPY 11/23/2015 COLONOSCOPY 01/13/2020 Insurance Providers Payer Name Payer Address Payer Phone Subscriber Number Group Number Insured Name Patient Relationship to Insured Coverage Start Date Coverage End Date [facility] [address] [place] [address] [id number] RULA DIGGS Self - patient is the insured MEDICAL (GENERAL) HISTORY Medical History History ICD Code diabetes recent stress/nuclear test negative for cardiac disease sleep apnea, CPAP usage at night elevated cholesterol ADD Surgical History Surgery Date(Month/Year) hip replacement kidney/ureter repair due to stone diseas e GASTRIC BYPASS 06/2017
--- OUTSIDE RECORDS SUMMARY | 2024-04-14 06:43 | XMS_ITS | Clinical Summary ---
Author Organization [facility] Address [address] [place] [address] Care Team Providers Care Identity Management Consultant Name Role Phone Unavailable Primary Care Provider Unavailabl e Social History Tobacco Use Types Packs/Day Years Used Date Smoking Tobacco: Never Assessed Sex and Gender Information Value Date Recorded Sex Assigned at Not on file Gender Identity Not on file Sexual Orientation Not on file Plan of Treatment Health Maintenance Due Date Last Done Comments Hepatitis C Virus Screening 1960 HIV Screening 1974 DTaP/Tdap/Td Vaccines (1 - Tdap) 01/28/1980 Pneumococcal Vaccines 50+ (1 of 1 - PCV) 2011 Zoster (Shingles) Vaccine (1 of 2) 2011 COVID-19 Vaccine ( - 2023-2 5 season) 2023 RSV Vaccine 60 years and old er and Patients (1 - 1-dose 75+ series) 01/28/2036 Hepatitis B Vaccines Aged Out No long er eligible based on patient's age to complete this topic Pneumococcal Vaccine: Pediat fransisco (0-5 Years) and At-Risk Patients (6 to 49 Years) Aged Out No longer eligible b ased on patient's age to complete this topic
--- OUTSIDE RECORDS SUMMARY | 2024-04-14 06:44 | XMS_ITS ---
[facility] Address [address] [place] [address] Care Team Providers Care Court Monitor Name Role Phone Marichuy Hager Primary Care Provider Yong Cuenca Unavailable [phone] Allergies Allergen (clinical drug ingredient) Drug/Non Drug Allergy documented on EMR Reaction Allergy Type Onset Date Status Iodine ivp dye Drug Allergy Active REASON FOR VISIT Last Visit PCP 11/21/22, Foot pain Medications Medication SIG (Take, Route, Frequency, Duration) Notes Start Date End Date Status Vancomycin 100 mg 2x a day pick line Not-Taking AFO-fixed . 1 . Wear daily for . Active Bactrim 4 pills 10 days Not-Taking Amoxicillin 125 MG 1 tablet Orally Twic e a day Not-Taking Bactrim DS Not-Takin g Bactrim DS 800-160 MG 1 tablet Orally every 12 hrs for 10 day(s) 03/11/2022 Not-Taking Keflex 500 MG 1 capsule Orally every 6 hrs for 10 day(s) 10/22/2021 Not-Taking Cipro 750 MG 1 tablet Orally ever y 12 hrs for 10 day(s) 01/01/2022 Not-Taking Doxycycline Not-Taki ng Doxycycline Monohydrate 100 MG 1 capsule Orally Twice a day for 10 days 11/29/2021 Not-Taking Augmentin 500-125 MG 1 tablet Orally candis ry 12 hrs for 7 day(s) 12/05/2021 Not-Taking Amoxicillin-Pot Clavulanate 875 875-125 MG one tab Orally every 12 hrs for 10 day(s) Not-Taking Vitamin D3 50 MCG (2000 UT) 1 tablet Orally Once a day for 30 day(s) Active Extra Depth Diabetic Shoes with 3 Pair Custom heat-molded multi-density innersoles for 1 year Dx: Active Pantoprazole Sodium 40 MG 1 tablet Orally Once a day for 30 day(s) Not-Taking ZyrTEC Allergy Activ e Multivitamin - 1 tablet Orally Once a day for 30 day(s) Active Omeprazole Active Tamsulosin HCl 0.4 MG 1 capsule Orally Once a day for 30 day(s) Active Vitamin C - as directed Orally Active Calcium Active Extra Depth Orthopedic Shoes (1 Pair) with Customized Heat Molded Multidensity Innersoles (3 Pair) as directed Dx: IDDM/Polyneuropathy (E10.42), Hammertoe Foot Deformity (M20.41,M20.42), Preulcerative Skin Lesion(s) (L85.1) Active Procedures Procedure Date Ordered Date Performed Result Body Sit e 61611-CHZZ SKIN LESIONS, 2 TO 4 04/06/2023 N/A [id number] DYSTROPHIC NAILS ANY # 04/06/2023 N/A Encounters Encounter Location Date Provider Diagnosis [facility] [place] [address] [place] [address] 04/06/2023 Yong Cristobal Pain in left toe(s) M79.675 ; Type 1 diabetes mellitus with diabetic polyneuropathy E10.42 ; Hammer toe of left foot M20.42 ; 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 1 . Wear daily for . Pending Test Test Name Order Date 28413-YSVR SKIN LESIONS, 2 TO 4 04/06/19 24 [id number] DYSTROPHIC NAILS ANY # Next Appt Details Follow Up: 2 Months, Reason: Procedure Notes * Category Sub-Category Detail Notes Keratoma Treatment Parring or Cutting o f Benign Hyperkeratotic Lesion(s) 21502 ( 2-4 Lesions ) - The Benign hyperkeratotic lesions, as described above were pared, and/or cut utilizing a sterile 15 blade, tissue nippers, and/or dremel Nail Reduction Nail Reduction Trimming of dyst rophic nails performed to reduce/remove overall nail length and girth, by manual and electrical means with use of a nail nipper and/or dremel, to more viable healthy nail plate or bed tissue 6-10 (G0127) Progress Notes * ALEE ErickalanDOB:1960 (64 yo M)Acc No.[id number]:04/06/2023 Progress Notes Patient:?Erick DIGGSrey Provider:?Yong Cristobal DPM :1960???Age:63 Y???Sex:Male Sudhakar e:04/06/2023 Address: [address], [facility], [id number] Pcp:Marichuy Hager Subjective: * Chief Complaints: * ???Last Visit PCP 11/21/22Foo t pain * HPI: ???Foot Pain:?Nature:?swelling, aching, tenderness.?Location?Left , Midfoot, Rearfoot AND ANKLE.?Onset/Cause:?unknown, denies trauma.?Course:?improved.?Aggrevated:?any pressure, standing, walking.?Treatments:?pt is pursuing both afo and custom orthoses thru [facility]; pt has complied with avoidance of impact athletics to rest and protect left foot.?Toe pain:?Nature:?contracture.?Location:?Left foot, 3rd toe, 4th toe, 5th toe.?Duration:?several months.?Onset/Cause:?gradual due to amputation T1.?Severity/Quality:?moderate.? * ROS:?General/Constitutional:?Nausea?denies, denies.?Vomiting?denies, denies.?Hunger Thirst?denies, denies.?Loss appetite?denies, denies.?Chills?denies, denies.?Fatigue?denies, denies.?Fever?denies, denies.?Night Sweats denies, denies.?Unexplained weight loss?denies, denies.?Unexplained weight gain?denies.?Ophthalmologic:?Blurred vision?denies.?Red eye?denies.?HEENTM:?Dentures?denies, denies.?Dizziness?denies, denies.?Glasses/contacts?denies, denies.?Retinopathy?denies, denies.?Blurred/double vision?denies, denies.?TMJ?denies, denies.?Discharge/drainage?denies, denies.?Implants?denies, denies.?Sore throat?denies.?Dental implants?denies.?Hard of hearing ?denies, denies.?Difficulty chewing/swallowing/speaking?denies, denies.?Nose bleeds?denies, denies.?Sore mouth?denies, denies.?Swollen glands?denies.?Respiratory:?On Oxygen?denies, denies.?Pneumonia/pleurisy?denies, denies.?Bronchitis?denies, denies.?Emphysema?denies, denies.?Coughing?denies, denies.?Cough blood?denies, denies.?Shortness of breath?denies, denies.?Wheezing?denies, denies.?Cardiovascular:?Pacemaker?denies, denies.?MVP?denies, denies.?WPW?denies, denies.?CHF?denies, denies.?Heart attack?denies, denies.?Septal defect?denies, denies.?Rapid beat?denies, denies.?Chest pain ?denies, denies.?Atrial Fib.?denies, denies.?Murmur/Palpitations?denies, denies.?Gastrointestinal:?Hemorrhoids?denies, denies.?Stomach/Abdominal pain?denies, denies.?Dark blood stool?denies, denies.?Irritable bowel ?denies, denies.?Constipation?denies, denies.?Diarrhea?denies, denies.?Vomiting?denies.?Hematology:?Swelling?admits, denies.?Clots?denies.?Varicose Veins?denies.?Bruising?denies, denies.?Bleeding problem?denies, denies.?Genitourinary:?Blood urine?denies, denies.?Frequent/Painfu/urination/bladder control?denies, denies.?Kidney stones?denies, denies.?Infection (UTI)?denies, denies.?Nephropathy?denies, denies.?sex trans dis (STD)?denies.?Prostate?denies.?Musculoskeletal:?Hammertoes?admits, denies.?Bunions?denies, denies.?Scoliosis/kyphosis?denies.?Back Pain?denies.?Muscle Cramps/ Resting?denies.?Muscle cramps / walking?denies, denies.?Generalized aches and pains?denies, denies.?Weakness?denies, denies.?Integ.:?Ochoa?denies, denies.?Scars?denies, denies.?Corns/calluses?denies, denies.?Ingrown nails?denies, denies.?Painful nails?denies, denies.?Open Sores?denies.?Rashes?denies, denies.?Neurologic:?Difficulty sleeping?denies, denies.?Bipolar?denies.?Brain disorder?denies, denies.?Numbness?admits.?Balance trouble?denies, denies.?Confusion?denies, denies.?Fainting/blackouts?denies, denies.?Headache?denies.?Tingling?denies.?Tremors?denies, denies.? * Medical History:? * Surgical History:? * Hospitalization/Major Diagno stic Procedure:? * Medications:?TakingExtra Dep th Orthopedic Shoes (1 Pair) with Customized Heat Molded Multidensity Innersoles (3 Pair) as directed Dx: IDDM/Polyneuropathy (E10.42), Hammertoe Foot Deformity (M20.41,M20.42), Preulcerative Skin Lesion(s) (L85.1) Calcium ZyrTEC Allergy Multivitamin - Tablet 1 tablet Orally Once a day Omeprazole Tamsulosin HCl 0.4 MG Capsule 1 capsule Orally Once a day Vitamin C - Tablet Chewable as directed Orally Vitamin D3 50 MCG (2000 UT) Tablet 1 tablet Orally Once a day Extra Depth Diabetic Shoes with 3 Pair Custom heat-molded multi-density innersoles for 1 year Dx: AFO-fixed . Ankle-Foot Orthotic 1 . Wear daily Taking Extra Depth Orthopedic Shoes (1 Pair) with Customized Heat Molded Multidensity Innersoles (3 Pair) as directed Dx: IDDM/Polyneuropathy (E10.42), Hammertoe Foot Deformity (M20.41,M20.42), Preulcerative Skin Lesion(s) (L85.1) Taking Calcium Taking ZyrTEC Allergy Taking Multivitamin - Tablet 1 tablet Orally Once a day Taking Omeprazole Taking Tamsulosin HCl 0.4 MG Capsule 1 capsule Orally Once a day Taking Vitamin C - Tablet Chewable as directed Orally Taking Vitamin D3 50 MCG (2000 UT) Tablet 1 tablet Orally Once a day Taking Extra Depth Diabetic Shoes with 3 Pair Custom heat- molded multi-density innersoles for 1 year Dx: Taking AFO-fixed . Ankle-Foot Orthotic 1 . Wear daily Not-Taking/PRNPantoprazole Sodium 40 MG Tablet Delayed Release 1 tablet Orally Once a day Augmentin 500-125 MG Tablet 1 tablet Orally every 12 hrs Amoxicillin-Pot Clavulanate 875 875-125 MG Tablet one tab Orally every 12 hrs Bactrim DS 800-160 MG Tablet 1 tablet Orally every 12 hrs Keflex 500 MG Capsule 1 capsule Orally every 6 hrs Cipro 750 MG Tablet 1 tablet Orally every 12 hrs Doxycycline Doxycycline Monohydrate 100 MG Capsule 1 capsule Orally Twice a day Vancomycin , Notes to Pharmacist: 100 mg 2x a day pick lineBactrim , Notes to Pharmacist: 4 pills 10 daysAmoxicillin 125 MG Tablet Chewable 1 tablet Orally Twice a day Bactrim DS Medication List reviewed and reconciled with the patientNot-Taking/PRN Pantoprazole Sodium 40 MG Tablet Delayed Release 1 tablet Orally Once a day Not-Taking/PRN Augmentin 500-125 MG Tablet 1 tablet Orally every 12 hrs Not-Taking/PRN Amoxicillin-Pot Clavulanate 875 875-125 MG Tablet one tab Orally every 12 hrs Not-Taking/PRN Bactrim DS 800-160 MG Tablet 1 tablet Orally every 12 hrs Not-Taking/PRN Keflex 500 MG Capsule 1 capsule Orally every 6 hrs Not-Taking/PRN Cipro 750 MG Tablet 1 tablet Orally every 12 hrs Not-Taking/PRN Doxycycline Not-Taking/PRN Doxycycline Monohydrate 100 MG Capsule 1 capsule Orally Twice a day Not-Taking/PRN Vancomycin , Notes to Pharmacist: 100 mg 2x a day pick lineNot-Taking/PRN Bactrim , Notes to Pharmacist: 4 pills 10 daysNot-Taking/PRN Amoxicillin 125 MG Tablet Chewable 1 tablet Orally Twice a day Not-Taking/PRN Bactrim DS Medication List reviewed and reconciled with the patient * Allergies:?Iodine: ivp dye Objective: * Vitals:? * Examination: ???General Examination: ?GENERAL APPEARANCE:?pleasant, alert, well nourished, well developed, well hydrated, with good attention to hygene/body habitus, and in no acute distress.?ORIENTED:?person,place, and time.?Neurological: ?SENSORY:?Neurological exam is normal, pain sensation normal, vibration sensation intact, pinprick sensation is normal in the lower extremities, denies, tingling, burning, anesthesia, paresthesia, hyperesthesia, B/L.?TINEL'S COMPRESSION:?Negative tarsal tunnel, ashley pedis, and medial calcaneal nerves B/L.?BABINSKI REFLEX:?absent.?Neuroma Pain: ?PALPATION:?No interspace pain noted on palpation.?Vascular: ?DP PULSES (B):?2/4, B/L.?PT PULSES (B):?2/4, B/L.?CAPILLARY FILL TIME:?3 secs. per digit, B/L.?TROPHIC CONDITION-TEXTURE/ELASTICITY/TURGOR/HAIR GROWTH (B):?normal, B/L.?TEMPERTURE GRADIENT (C):?warm to cool, proximal to distal, B/L.?PIGMENTATION:?normal, B/L.?EDEMA (C):? 2/4, Left, Foot, Ankle(s).?TELANGECTASIA:?absent.?VARICOSITIES:?absent.?Dermatologic: ?SKIN FINDINGS:? Skin exam reveals Keratotic lesion(s) located at, Medial plantar, IPJ, TA, T5.?Orthopedic: ?MUSCLE STRENGTH:?5/5 all groups in a symmetrical fashion , B/L.?GAIT ABNORMALITY:?pronated, abducted, B/L.?DIGITAL DEFORMITIES:? Digital contracture, PIPJ, 3-5 L, semi-reducible with WB, or to push-up test, no over, nor underlapping; rigid hts t6, Amputation T1.?Nails: ?NAILS are:? Elongated, overgrown, dystrophic, TA with dried blood in nail plate, T5.? Assessment: * Assessment: 1.?Pain in left toe(s) - M79 .675 (Primary)???2.?Type 1 diabetes mellitus with diabetic polyneuropathy - E10.42???3.?Hammer toe of left foot - M20.42???4.?Arthritis of foot - M19.079???5.?Diabetic Charcot's joint disease - E11.610??? Plan: * Treatment: 2.?Diabetic Charcot's joint disease? Start AFO-fixed Ankle-Foot Orthotic, ., 1, ., Wear daily, ., 1, Refills 0.?? * Procedures:?Keratoma Treatment:?Parring or Cutting of Benign Hyperkeratotic Lesion(s)?79173 ( 2-4 Lesions ) - The Benign hyperkeratotic lesions, as described above were pared, and/or cut utilizing a sterile 15 blade, tissue nippers, and/or dremel.?Nail Reduction:?Nail Reduction?Trimming of dystrophic nails performed to reduce/remove overall nail length and girth, by manual and electrical means with use of a nail nipper and/or dremel, to more viable healthy nail plate or bed tissue 6-10 (G0127).? * Procedure Codes:?42267 TRIM SKIN LESIONS, 2 TO 4, Modifiers: XS G0127 TRIMMING DYSTROPHIC NAILS ANY #, Modifiers: XS * Preventive Medicine:? ??Counseling:?Discussion:?-13: Office or other outpatient visit for the evaluation and management of an established patient, which required a medically appropriate history and/or examination and LOW level of DECISION MAKING for: 1 STABLE ACUTE UNCOMPLICATED PROBLEM, 2 OR MORE MINOR PROBLEMS, OR 1 STABLE CHRONIC PROBLEM, THAT POSE(S) A LOW RISK FOR MORBIDITY/MORTALITY. The visit on the day of the encounter encompassed interpreting the data and educating the patient as to the nature of their condition, treatment options available according to their individual PMH, meds, allergies, and overall health/living conditions, as well as any potential risks or complications that may occur from a failure to adhere to, and participate in, the recommended course of therapy. The discussion included a complete verbal, and/or written explanation of the examination results, any x-rays taken, the proposed diagnosis, and outline of the treatment plan. A schedule for future care needs was also explained. The patient verbalized an understanding of the instructions at this time and agreed to be an active participant in their treatment. If the patient should think of any questions or concerns after the visit, I have encouraged the patient to call the office--pt to continue with guarded/protected activity level and plan for both afo yarelis brace left and pr of custom dm orthoses jeanie; pt to call and be seen once these have been dispensed to him from [facility] and then proceed with FT t2,t3,t4 after.? * Follow Up:?2 Months * Images: * Sign off status: Completed true * Provider:?oYng Cristobal DPM Date:? 024 Generated for Celeste foote/Elena/Leigh Ann on:?04/14/2024 06:43 AM EST History and Physical Notes * HPI (History of Present Illness) Category Sub-Category Detail Notes Category Not es Toe pain Nature: contracture Location: Left foot, 3rd toe, 4th toe, 5th toe Duration: several months Onset/Cause: gradual due to amput ation T1 Severity/Quality: moderate Foot Pain Aggrevated: any pressure, standing, walk ing Onset/Cause: unknown, denies trau ma Course: improved Nature: swelling, aching, te nderness Treatments: pt is pursuing both afo and custom orthoses thru [facility]; pt has complied with avoidance of impact athletics to rest and protect left foot Location Left , Midfoot, Rear foot AND ANKLE Examination Category Sub-Category Detail Notes Category Not es Neuroma Pain PALPATION: No interspace pain noted on palpation Neurological SENSORY: Neurological exa m is normal, pain sensation normal, vibration sensation intact, pinprick sensation is normal in the lower extremities, denies, tingling, burning, anesthesia, paresthesia, hyperesthesia, B/L BABINSKI REFLEX: absent TINEL'S COMPRESSION: Negative tarsal edward glenn, ashley pedis, and medial calcaneal nerves B/L Dermatologic SKIN FINDINGS: Skin exam reveal s Keratotic lesion(s) located at, Medial plantar, IPJ, TA, T5 Orthopedic GAIT ABNORMALITY: pronated, abducted, B/L DIGITAL DEFORMITIES: Digital contracture , PIPJ, 3-5 L, semi-reducible with WB, or to push-up test, no over, nor underlapping; rigid hts t6, Amputation T1 MUSCLE STRENGTH: 5/5 all groups in a symmetrical fashion , B/L General Examination GENERAL APPEARANCE: pleasant , alert, well nourished, well developed, well hydrated, with good attention to hygene/body habitus, and in no acute distress ORIENTED: person,place, and ti me Vascular DP PULSES (B): 2/4, B/L PT PULSES (B): 2/4, B/L CAPILLARY FILL TIME: 3 secs. per digit, B/L TEMPERTURE GRADIENT (C): warm to cool, p roximal to distal, B/L TROPHIC CONDITION-TEXTURE/ELASTICITY/TURGOR/HAIR GROWTH (B): normal, B/L EDEMA (C): 2/4, Left, Foot, Ank le(s) TELANGECTASIA: absent VARICOSITIES: absent PIGMENTATION: normal, B/L Nails NAILS are: Elongated, overg rown, dystrophic, TA with dried blood in nail plate, T5
--- NOTE | 2024-04-14 06:46 | ECG_ITS ---
Test Reason : e11.65 Blood Pressure : */* mmHG Vent. Rate : 32 BPM Atrial Rate : 32 BPM P-R Int : 228 ms QRS Dur : 90 ms QT Int : 494 ms P-R-T Axes : 65 -21 37 degrees QTcB Int : 360 ms Marked sinus bradycardia with sinus arrhythmia with 1st degree A-V block Nonspecific T wave abnormality Abnormal ECG When compared with ECG of 17-Oct-2021 15:48, decrease in ventricular rate Referred By: Marichuy Hager Electronically Signed By: HIRAL ROMERO
[2024-04-14 07:33] LABS: Estimated Average Glucose 137 mg/dL; Hemoglobin A1C 147.4243 umol/L; Hemoglobin A1c % 6.4 % (<6.0); Total Hemoglobin (HGBA1C) 3203.6012 umol/L
[2024-04-14 07:41] LABS: Alanine Aminotransferase 23 U/L (0-40); Albumin Level 3.8 g/dL (3.5-5.0); Alkaline Phosphatase 74 U/L (39-117); Anion Gap 12 (12-20); Aspartate Amino Transferase 22 U/L (5-37); Bilirubin Total 0.4 mg/dL (0.0-1.0); Blood Urea Nitrogen 28 mg/dL (9-16); Calcium 8.7 mg/dL (8.4-10.2); Carbon Dioxide 23 mmol/L (22-29); Chloride 112 mmol/L (96-108); Cholesterol 197 mg/dL (<200); Estimated Glomerular Filt Rate > 60; Glucose Random 103 mg/dL (60-115); HDL Cholesterol 53 mg/dL (>40); LDL Cholesterol Calculated 122 mg/dL (<100); Potassium 4.2 mmol/L (3.3-5.1); Sodium 143 mmol/L (135-145); Total Protein 7.4 g/dL (6.5-8.0); Triglycerides 112 mg/dL (<150)
[2024-04-14 07:43] LABS: Creatinine Urine 109.61 mg/dL; Microalbum/Creatinine Ratio Ur 17.3 ug/mg cr (<30)
== END 2024-04-14 06:41 | disposition home or self-care (01) ==
LOC: HO.LAB 06:40
PROVIDERS: PCP Internal Medicine; Visit Provider Internal Medicine
DX: E78.00 Pure hypercholesterolemia, unspecified (principal); E11.65 Type 2 diabetes mellitus with hyperglycemia
CPT/HCPCS: 36415; 80053; 80061; 82043; 82570; 83036; 93005

== ENCOUNTER → 2024-04-14 06:46 | Outpatient (BNV) | payer BC, SELFPAY | PROVIDERS: PCP Internal Medicine; Visit Provider Internal Medicine | DX: I44.0 Atrioventricular block, first degree (principal); I49.9 Cardiac arrhythmia, unspecified; R00.1 Bradycardia, unspecified | CPT/HCPCS: 93010 ==

== ENCOUNTER 2024-06-21 15:34 | Outpatient (AMB) | payer BC, SELFPAY ==
--- NOTE | 2024-06-21 15:36 | A.OFFPC_ITS ---
Vital Signs 06/21/24 15:37 Height 5 ft 8.5 in Weight 214 lb BMI 32.1 BP 142/70 H Blood Pressure Location Lt brachial Position Sitting Pulse 64 Pulse Source Pulse Oximeter Pulse Oximetry (%) 97 Oxygen Delivery Method Room Air Intake Visit Reasons: abdomen pain Picker Required: No Allergies Iodinated Contrast Media [IV Dye, Iodine Containing] Allergy (Intermediate, Verified 04/05/24 08:38) HIVES iodine Allergy (Verified 04/05/24 08:38) Hives NSAIDS (Non-Steroidal Anti-Inflamma Allergy (Verified 04/05/24 08:38) Hx Bariatric surgery Medication List - Last Reconciled 06/21/24 by Marichuy Hager MD calcium carbonate 600 mg PO DAILY [Celebrate MVI PO] cetirizine (Zyrtec) 10 mg PO DAILY PRN cholecalciferol (vitamin D3) (Vitamin D3) 50 mcg PO DAILY [CPAP ] esomeprazole magnesium (Nexium) 20 mg PO DAILY iron,carbonyl-vitamin C 65 mg iron- 125 mg (Vitron-C) 1 tab PO DAILY lisinopril 5 mg PO DAILY sildenafil (Viagra) 100 mg PO DAILY PRN tamsulosin 0.4 mg PO DAILY Tobacco use date assessed: 04/05/24 Dental Screening Dental Screen Date: 04/05/24 HPI abdomen pain HPI Details RUQ pain ingtermittent 2 months PFSH Medical History (Updated 06/21/24 @ 16:14 by Marichuy Hager MD) Bradycardia Osteomyelitis Toe pain Overweight (BMI 25.0-29.9) COVID-19 vaccine series completed History of COVID-19 BPH (benign prostatic hyperplasia) Peripheral neuropathy Type 2 diabetes mellitus with hyperglycemia Anemia ADD (attention deficit disorder) Kidney stones Sleep apnea Surgical History Hx of hernia repair History of right hip replacement Hx of foot surgery Hx of colonoscopy H/O ureter repair S/P gastric bypass S/P hip replacement Family History Father Myocardial infarct Mother CVA (cerebral vascular accident) Brother Hx of CABG Social History Household Members: Family Housing: House Are you a primary care management assistant to a significant other at home: No Do you presently have visiting nurse or other home services: No Alcohol intake: never Comment: medicated, see MAR Patient Tobacco Use Status: Former Tobacco user Tobacco use type: Cigar Years Smoked: 1994 but does cigar 3 cigars last year e-Cigarette/Vaping Use: Never Used Second Hand Smoke Exposure: Yes service: No Current occupational status: employed 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 1. Little interest or pleasure in doing things: not at all 2. Feeling down, depressed, or hopeless: not at all 3. Trouble falling or staying asleep, or sleeping too much: not at all 4. Feeling tired or having little energy: not at all 5. Poor appetite or overeating: not at all 6. Feeling bad about yourself - or that you are a failure or have let yourself or your family down: not at all 7. Trouble concentrating on things, such as reading the newspaper or watching television: not at all 8. Moving or speaking so slowly that other people could have noticed. Or the opposite - being so fidgety or restless that you have been moving around a lot more than usual: not at all 9. Thoughts that you would be better off or of hurting yourself in some way: not at all Total score: 0 Depression Screening Interpretation: Negative Depression Screening Done: Yes Source: Developed by Drs. Carlos Bergman, Yessenia Junior, Bao Domínguez and colleagues, with an educational letha from [employer]. Thrive Questionnaire Date Thrive assessed: 06/21/24 I am a: Patient What is your living situation today?: I have a steady place to live Within the past 12 months, did the food you bought not last and you didn't have the money to get more?: Never true Within the past 12 months, did you worry whether your food would run out before you got money to buy more?: Never true Do you have trouble paying for medicines?: No Do you have trouble getting transportation to medical appointments?: No Do you have trouble paying your heating and electricity bill?: No Do you have trouble taking care of your child, family member or friend?: No Do you have trouble with day-to-day activities such as bathing, preparing meals, shopping, managing finances, etc.?: No Are you currently unemployed and looking for a job?: No Are you interested in more education?: No Please select the resources that you would like help with: None Currently or been in a relationship where the following occur: No concerns reported THRIVE Score: 0 AUDIT C Alcohol Use Questionnaire (AUDIT-C) 1. How often do you have a drink containing alcohol?: Monthly or less Total Score: 1 JOE-7 AMB Questionnaire JOE-7 Date JOE - 7 assessed: 06/21/24 Feeling nervous, anxious, or on edge: 0 = Not at all Not being able to stop or control worryin = Not at all Worrying too much about different things: 0 = Not at all Trouble relaxin = Not at all Being so restless that it is hard to sit still: 0 = Not at all Becoming easily annoyed or irritable: 0 = Not at all Feeling afraid as if something awful might happen: 0 = Not at all Total JOE-7 score (0-4 normal; 5-9 mild; 10-14 moderate; 15-21 severe): 0 Source: Developed by Drs. Carlos Bergman, Yessenia Junior, Bao Domínguez and colleagues, with an educational letha from [employer]. Physical exam (Primary Care) Vital Signs: Last Vital Signs Pulse 64 06/21/24 15:37 BP 142/70 H 06/21/24 15:37 Pulse Ox 97 06/21/24 15:37 Oxygen Delivery Method Room Air 06/21/24 15:37 BMI result Body Mass Index 32.1 Tobacco/Smoking Status: Tobacco use Status Tobacco use date assessed 04/05/24 06/21/24 15:43 Patient Tobacco Use Status Former Tobacco user 06/21/24 15:43 Tobacco use type Cigar 06/21/24 15:43 e-Cigarette/Vaping Use Never Used 06/21/24 15:43 PHQ-9: PHQ-9 Score PHQ-9: Total score 0 06/21/24 16:10 Depression Screening Interpretation: Negative Thrive Assessment: Date of Thrive Assessment Date Thrive assessed 06/21/24 06/21/24 15:43 Currently or been in a relationship where the following occur: No concerns reported Const General: alert; No acute distress Eyes Conjunctivae: conjunctivae normal Resp Auscultation: clear to auscultation bilaterally Cardio Rate: regular rate Rhythm: regular rhythm GI Other: RUQ tender but no rebound and no guarding, soft Extrem General: Yes normal to inspection and No edema Coding Level of Care Code Est Pt Level 4 (75759) Diagnoses Type 2 diabetes mellitus with hyperglycemia E11.65 S/P gastric bypass Z98.84 Obstructive sleep apnea syndrome G47.33 Sleep apnea type: obstructive Primary hypertension I10 Hypertension type: primary hypertension Hypercholesterolemia E78.00 RUQ abdominal pain R10.11 Hip pain, right M25.551 Assessment & Plan Assessment & Plan (1) Type 2 diabetes mellitus with hyperglycemia: Comment: No rx Eye - [facility] 2023 Code(s): E11.65 - Type 2 diabetes mellitus with hyperglycemia Category: Medical Plan: Decrease the amount of carbohydrate intake, pasta, bread, rice and potatoes are all sugar and that is aside from all the sweet stuff, remember that fruits are good but they are Sweet also. Hemoglobin A1c goal of less than 6.5. Patient is diet controlled (2) S/P gastric bypass: Comment: 06/2017, 110# wt loss Code(s): Z98.84 - Bariatric surgery status Category: Surgical Plan: Continue with diet and exercise (3) Sleep apnea: Comment: CPAP uses Q night > 4 hours and benefits patient Code(s): G47.30 - Sleep apnea, unspecified Category: Medical Qualifiers: Sleep apnea type: obstructive Qualified Code(s): G47.33 - Obstructive sleep apnea (adult) (pediatric) Plan: Continue with CPAP more than 4 hours a night and benefits from this (4) Hypertension: Code(s): I10 - Essential (primary) hypertension Category: Medical Qualifiers: Hypertension type: primary hypertension Qualified Code(s): I10 - Essential (primary) hypertension Plan: Continue with blood pressure medication. Decrease salt intake and exercise on lisinopril 5 mg once a day (5) Hypercholesterolemia: Code(s): E78.00 - Pure hypercholesterolemia, unspecified Category: Medical Plan: Avoid fried foods, chicken skin, eggs, butter margarine, pastries and meat. Be it pork or beef they have a lot of cholesterol LDL goal of less than 100 and triglyceride of less than 150. Discussed with the patient. (6) RUQ abdominal pain: Code(s): R10.11 - Right upper quadrant pain Category: Medical (7) Hip pain, right: Code(s): M25.551 - Pain in right hip Category: Medical Plan: patient has seen ortho and no recommendation as per patient. discussed on getting [place] referral Plan History of Present Illness The patient is a 64-year-old male presenting with chronic abdominal pain. The symptoms are localized to the area beneath the right ribcage, occasionally radiating to the back, and have been ongoing for two to three months. He describes the pain emerging after prolonged sitting or standing, with no consistent link to food intake, although a correlation with gallbladder disease is suspected. Accompanying symptoms include intermittent nausea and diarrhea. Historical consultations regarding persistent right hip pain following replacement surgery have suggested possibilities of post-surgical bursitis or nerve entrapment. However, despite extensive evaluations, no conclusive diagnosis was made by previous specialists. The patient's diabetes is currently managed with a diet, maintaining an HbA1c level of 6.4%, and his sleep apnea is controlled with effective CPAP use. Cholesterol levels remain elevated above targeted levels, necessitating further intervention strategies. Health Maintenance - Last hemoglobin A1c recorded at 6.4% in March 2024; target level is < 6.5%. - LDL cholesterol measured at 122 mg/dL with a goal of <100 mg/dL. - Colonoscopy last performed in 2020. - Routine lab testing conducted in August 2024 showing chronic anemia (hemoglobin 12.7 g/dL). - CPAP adherence for obstructive sleep apnea with usage > 4 hours per night. - Engaged in regular physical activity at the gym. Social History - Engages in regular exercise, including cycling and weightlifting. - Reports a structured hydration routine with water intake aligned to workout schedule. - Diet previously focused on high protein and low carbohydrate intake, beneficial for weight management and post-bariatric operation outcomes. - Experiencing challenges related to muscle toning despite regular intense physical activity. Review of Systems - Gastrointestinal: Reports intermittent abdominal pain, nausea, and diarrhea. - Musculoskeletal: Reports chronic right hip pain and associated leg numbness and tingling. - General: Denies fever and chills. Physical Exam - Gastrointestinal- No tenderness or rigidity noted under ribcage area on palpation. - Musculoskeletal- No acute tenderness noted on examination around the right hip area. Results - Labs: BUN level at 28 (indicative of possible dehydration). - Previous labs show chronic anemia with hemoglobin 12.7 g/dL. - LDL cholesterol at 122 mg/dL requiring management for heart disease risk. - Stable renal function indicated by a creatinine level of 1.19. Plan An abdominal ultrasound is recommended to assess gallbladder health due to persistent pain. The patient should adopt a low-fat diet and continue regular exercise to help manage cholesterol levels and mitigate cardiovascular risks. Increase in water intake is advised to address elevated BUN potentially due to dehydration. Additional specialist consultation for the chronic hip pain may be needed post-imaging confirmation. Close monitoring of symptoms and emergency care readiness is advised for any acute exacerbations. Patient was informed and verbally consented to the use of an ambient scribe for clinic note documentation during this visit. Discussion Notes I discussed with the patient the symptoms suggestive of a gallbladder issue and recommended obtaining an ultrasound for detailed evaluation. I reiterated the importance of lifestyle changes, focusing on dietary modifications to manage cholesterol and potential gallbladder symptoms, including risk of gallstone formation. I reviewed his current regimen and encouraged continued CPAP usage for sleep apnea. The need for increased water intake was emphasized in light of possible dehydration reflected in lab results. A future orthopedic consultation could be pursued for unresolved hip pain post-immediate gallbladder assessment, recognizing broader difficulty in treating post-surgical complications. Patient Instructions - Schedule and undergo the abdominal ultrasound as recommended. - Follow a low-fat, high-protein diet to minimize gallbladder stress and lower cholesterol levels. - Continue regular physical activity and CPAP compliance. - Increase daily water intake to prevent dehydration. - Report to the hospital if there is a severe worsening of abdominal pain. - Await contact for imaging scheduling related to gallbladder assessment. - Consider further follow-ups for ongoing hip pain if unresolved following immediate evaluation. Orders: Orders US abdomen complete Today R10.11 - Right upper quadrant pain, R79.89 - Other specified abnormal findings of blood chemistry
[2024-06-21 15:37] VITALS: BP 142/70; PULSE 64; O2SAT 97; BMI 32.1
== END 2024-06-21 16:22 | disposition home or self-care (01) ==
LOC: HO.HMCH 15:35
PROVIDERS: PCP Internal Medicine; Visit Provider Internal Medicine
DX: E11.65 Type 2 diabetes mellitus with hyperglycemia (principal); Z98.84 Bariatric surgery status; G47.33 Obstructive sleep apnea (adult) (pediatric); I10 Essential (primary) hypertension; E78.00 Pure hypercholesterolemia, unspecified; R10.11 Right upper quadrant pain; M25.551 Pain in right hip

== ENCOUNTER → 2024-06-21 15:34 | Outpatient (BNVA) | payer BC, SELFPAY | PROVIDERS: PCP Internal Medicine; Visit Provider Internal Medicine ==

== ENCOUNTER 2024-06-29 10:17 | Outpatient (REF) | payer BC, SELFPAY ==
--- NOTE | ~2024-06-29 | US_ITS ---
EXAMINATION: US ABDOMEN HISTORY: R79.89 - Other specified abnormal findings of blood chemistry TECHNIQUE: Real-time grayscale ultrasound imaging of the abdomen was performed and images were reviewed. COMPARISON: Comparison is made with the prior examination dated 05/25/2017. FINDINGS: Liver: The right lobe of the liver measures 17.9 cm in size. The left lobe of the liver measures 8.7 cm in size. The liver demonstrates increased echotexture, consistent with steatosis. No focal mass or intrahepatic biliary ductal dilatation is identified. There is normal hepatopedal flow in the portal vein. Gallbladder and biliary tree: There is cholelithiasis. There is no wall thickening or pericholecystic fluid. There is no sonographic Fischer sign. The common bile duct is normal in caliber measuring 3 mm. Kidneys: The right kidney measures 9.9 cm in length and is partially duplicated with rotation of the lower pole moiety. The left kidney measures 11.9 cm in length. The kidneys are otherwise unremarkable, without evidence of masses, hydronephrosis, or calculi. Pancreas: The pancreas is obscured by bowel gas. Spleen: The spleen is normal in size and contour, measuring 10.5 cm in length. Abdominal aorta and inferior vena cava: The visualized portions of the abdominal aorta and inferior vena cava are normal in caliber. There is no free fluid in the abdomen. US/US abdomen complete IMPRESSION: 1. Hepatic steatosis. 2. Cholelithiasis without evidence of acute cholecystitis. Electronically signed by: Carlos Godwin MD 06/29/2024 11:34 AM EDT
--- OUTSIDE RECORDS SUMMARY | 2024-06-29 11:31 | XMS_ITS | Clinical Summary ---
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
== END 2024-06-29 10:18 | disposition home or self-care (01) ==
LOC: HO.US 10:17
PROVIDERS: PCP Internal Medicine; Visit Provider Internal Medicine
DX: R79.89 Other specified abnormal findings of blood chemistry (principal); R10.11 Right upper quadrant pain
CPT/HCPCS: 76700

== ENCOUNTER → 2024-06-29 10:19 | Outpatient (BNV) | payer BC, SELFPAY | PROVIDERS: PCP Internal Medicine; Visit Provider Radiology Diagnostic Radiology | DX: K80.20 Calculus of gallbladder without cholecystitis without obstruction (principal); K76.0 Fatty (change of) liver, not elsewhere classified | CPT/HCPCS: 76700 ==

== ENCOUNTER 2024-07-06 08:50 | Outpatient (AMB) | payer BC, SELFPAY ==
--- NOTE | 2024-07-06 08:58 | MHC.PC.OV ---
Vital Signs 07/06/24 08:59 Height 5 ft 8.5 in Weight 218 lb BMI 32.7 BP 130/62 Blood Pressure Location Lt brachial Position Sitting Pulse 49 L Pulse Source Pulse Oximeter Pulse Oximetry (%) 98 Oxygen Delivery Method Room Air Intake Visit Reasons: DM Allergies Iodinated Contrast Media [IV Dye, Iodine Containing] Allergy (Intermediate, Verified 07/06/24 08:59) HIVES iodine Allergy (Verified 07/06/24 08:59) Hives NSAIDS (Non-Steroidal Anti-Inflamma Allergy (Verified 07/06/24 08:59) Hx Bariatric surgery Tobacco use date assessed: 04/05/24 Dental Screening Dental Screen Date: 04/05/24 [facility] Medical History (Updated 06/29/24 @ 15:52 by Marichuy Hager MD) Bradycardia Osteomyelitis Toe pain Overweight (BMI 25.0-29.9) COVID-19 vaccine series completed History of COVID-19 BPH (benign prostatic hyperplasia) Peripheral neuropathy Type 2 diabetes mellitus with hyperglycemia Anemia ADD (attention deficit disorder) Kidney stones Sleep apnea Surgical History Hx of hernia repair History of right hip replacement Hx of foot surgery Hx of colonoscopy H/O ureter repair S/P gastric bypass S/P hip replacement Family History Father Myocardial infarct Mother CVA (cerebral vascular accident) Brother Hx of CABG Social History Household Members: Family Housing: House Are you a primary manager intensive care unit to a significant other at home: No Do you presently have visiting nurse or other home services: No Alcohol intake: never Comment: medicated, see MAR Patient Tobacco Use Status: Former Tobacco user Tobacco use type: Cigar Years Smoked: 1994 but does cigar 3 cigars last year e-Cigarette/Vaping Use: Never Used Second Hand Smoke Exposure: Yes service: No Current occupational status: employed 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 1. Little interest or pleasure in doing things: not at all 2. Feeling down, depressed, or hopeless: not at all 3. Trouble falling or staying asleep, or sleeping too much: not at all 4. Feeling tired or having little energy: not at all 5. Poor appetite or overeating: not at all 6. Feeling bad about yourself - or that you are a failure or have let yourself or your family down: not at all 7. Trouble concentrating on things, such as reading the newspaper or watching television: not at all 8. Moving or speaking so slowly that other people could have noticed. Or the opposite - being so fidgety or restless that you have been moving around a lot more than usual: not at all 9. Thoughts that you would be better off or of hurting yourself in some way: not at all Total score: 0 Depression Screening Interpretation: Negative Depression Screening Done: Yes Source: Developed by Drs. Carlos Bergman, Yessenia Junior, Bao Domínguez and colleagues, with an educational letha from [employer]. Thrive Questionnaire Date Thrive assessed: 06/21/24 I am a: Patient What is your living situation today?: I have a steady place to live Within the past 12 months, did the food you bought not last and you didn't have the money to get more?: Never true Within the past 12 months, did you worry whether your food would run out before you got money to buy more?: Never true Do you have trouble paying for medicines?: No Do you have trouble getting transportation to medical appointments?: No Do you have trouble paying your heating and electricity bill?: No Do you have trouble taking care of your child, family member or friend?: No Do you have trouble with day-to-day activities such as bathing, preparing meals, shopping, managing finances, etc.?: No Are you currently unemployed and looking for a job?: No Are you interested in more education?: No Please select the resources that you would like help with: None Currently or been in a relationship where the following occur: No concerns reported THRIVE Score: 0 JOE-7 AMB Questionnaire JOE-7 Date JOE - 7 assessed: 06/21/24 Source: Developed by Drs. Carlos Bergman, Bao Blanton and colleagues, with an educational letha from [employer]. Physical exam (Primary Care) Vital Signs: Last Vital Signs Pulse 49 L 07/06/24 08:59 BP 130/62 07/06/24 08:59 Pulse Ox 98 07/06/24 08:59 Oxygen Delivery Method Room Air 07/06/24 08:59 BMI result Body Mass Index 32.7 Tobacco/Smoking Status: Tobacco use Status Tobacco use date assessed 04/05/24 07/06/24 09:00 Patient Tobacco Use Status Former Tobacco user 07/06/24 09:00 Tobacco use type Cigar 07/06/24 09:00 e-Cigarette/Vaping Use Never Used 07/06/24 09:00 PHQ-9: PHQ-9 Score PHQ-9: Total score 0 07/06/24 09:33 Depression Screening Interpretation: Negative Thrive Assessment: Date of Thrive Assessment Date Thrive assessed 06/21/24 07/06/24 09:00 Currently or been in a relationship where the following occur: No concerns reported Const General: alert; No acute distress Eyes Conjunctivae: conjunctivae normal Resp Auscultation: clear to auscultation bilaterally Cardio Rate: regular rate Rhythm: regular rhythm GI Inspection: Yes normal to inspection Extrem General: Yes normal to inspection and No edema Results AMB Hemoglobin A1c AMB Hemoglobin A1c 6.3 % Last Edit by Jina Augustine CMA on 07/06/24 09:14 Results Reviewed Results Reviewed: Laboratory Last Values Hgb A1c (Clinic) 6.3 % (4.0-6.0) H 07/06/24 09:00 Coding Level of Care Code Est Pt Level 4 (64803) Complex EM visit Add On G2211 Diagnoses Type 2 diabetes mellitus with hyperglycemia E11.65 Obstructive sleep apnea syndrome G47.33 Sleep apnea type: obstructive S/P gastric bypass Z98.84 GERD (gastroesophageal reflux disease) K21.9 Class 1 obesity due to excess calories with serious comorbidity and body mass index (BMI) of 32.0 to 32.9 in adult E66.811; E66.09; Z68.32 Body mass index: BMI 32.0-32.9 Obesity classification: adult class 1 (BMI 30 - 34.9) Obesity type: due to excess calories Serious obesity comorbidity presence: with serious comorbidity Primary hypertension I10 Hypertension type: primary hypertension Hypercholesterolemia E78.00 Cholelithiasis K80.20 Hepatic steatosis K76.0 Assessment & Plan Assessment & Plan (1) Type 2 diabetes mellitus with hyperglycemia: Comment: No rx Eye - [facility] 2023 Code(s): E11.65 - Type 2 diabetes mellitus with hyperglycemia Category: Medical Plan: Decrease the amount of carbohydrate intake, pasta, bread, rice and potatoes are all sugar and that is aside from all the sweet stuff, remember that fruits are good but they are Sweet also. Hemoglobin A1c goal of less than 6.5. Patient in diet control (2) Sleep apnea: Comment: CPAP uses Q night > 4 hours and benefits patient Code(s): G47.30 - Sleep apnea, unspecified Category: Medical Qualifiers: Sleep apnea type: obstructive Qualified Code(s): G47.33 - Obstructive sleep apnea (adult) (pediatric) Plan: Continue to use the CPAP more than 4 hours a night and benefits from this. (3) S/P gastric bypass: Comment: 06/2017, 110# wt loss Code(s): Z98.84 - Bariatric surgery status Category: Surgical Plan: Continue to be active to lose the weight (4) GERD (gastroesophageal reflux disease): Code(s): K21.9 - Gastro-esophageal reflux disease without esophagitis Category: Medical Plan: Avoid the foods that causes that usually spicy foods, tomato products, juices, coffee, soda and foods that your sensitive to. After eating do not lie down, allow 3-4 hours before in lie down. And keep the head of bed above 30 degrees to avoid the acid from going up. (5) Obesity: Code(s): E66.9 - Obesity, unspecified Category: Medical Qualifiers: Body mass index: BMI 32.0-32.9 Obesity classification: adult class 1 (BMI 30 - 34.9) Obesity type: due to excess calories Serious obesity comorbidity presence: with serious comorbidity Qualified Code(s): E66.811 - Obesity, class 1; E66.09 - Other obesity due to excess calories; Z68.32 - Body mass index [BMI] 32.0-32.9, adult Plan: Diet and exercise (6) Hypertension: Code(s): I10 - Essential (primary) hypertension Category: Medical Qualifiers: Hypertension type: primary hypertension Qualified Code(s): I10 - Essential (primary) hypertension Plan: Continue with blood pressure medication. Decrease salt intake and exercise on lisinopril 5 mg once (7) Hypercholesterolemia: Code(s): E78.00 - Pure hypercholesterolemia, unspecified Category: Medical Plan: Avoid fried foods, chicken skin, eggs, butter margarine, pastries and meat. Be it pork or beef they have a lot of cholesterol LDL goal of less than 100 and triglyceride of less than 150. Patient declines any medication to lower down cholesterol . Discussed concerns about risk for cardiac problem (8) Cholelithiasis: Comment: June 2024Hepatic steatosis. 2. Cholelithiasis without evidence of acute cholecystitis. Code(s): K80.20 - Calculus of gallbladder without cholecystitis without obstruction Category: Medical Plan: Low-fat diet and patient has a schedule with the surgeon (9) Hepatic steatosis: Comment: June 2024Hepatic steatosis. 2. Cholelithiasis without evidence of acute cholecystitis. Code(s): K76.0 - Fatty (change of) liver, not elsewhere classified Category: Medical Plan: Low-fat diet and exercise Plan History of Present Illness The patient is a 64-year-old male presenting for a routine follow-up to manage his chronic health conditions and discuss recent lab results. He has a medical history significant for obesity, ADD, post-gastric bypass status since 2017, obstructive sleep apnea managed with CPAP, BPH managed on tamsulosin, diabetes mellitus well-controlled with a hemoglobin A1c of 6.3%, GERD, hypertension, hypercholesterolemia with an LDL of 122 mg/dL, cholelithiasis, and hepatic steatosis. He experienced right upper quadrant pain, prompting an ultrasound to evaluate hepatic and gallbladder conditions. Anemia was noted in his labs from August 2023, with serum creatinine at 1.19 mg/dL and BUN at 28 mg/dL. Dietary measures are attempted for cholesterol management, despite the patient?s reluctance towards statin therapy. Risk reduction discussions were focused on diet and exercise for improving his lipid profile. Health Maintenance - Diet and exercise discussed for cholesterol and weight control; emphasis on low-fat and low-carb dietary intake. - CPAP adherence for obstructive sleep apnea; achieving more than 4 hours of use nightly noted as beneficial. - Anemia monitoring; previous lab work showed persistent anemia. - Blood pressure control with lisinopril 5 mg daily. - Diabetes management with a goal of maintaining hemoglobin A1c under 6.5%. - Upcoming lab reassessment planned in 3 months to evaluate glucose and cholesterol levels. - Cholesterol goal of LDL below 100 mg/dL with non-pharmacological interventions discussed. - Tetanus vaccination status current as of 2022. Social History - The patient acknowledges dietary non-compliance, specifically high intake of carbohydrates and fats. - He drinks approximately 80 ounces of water daily. - Actively engaging in weight management efforts through increased physical activity. Review of Systems - Cardiovascular: Denies chest pain. - Respiratory: No reports of issues discussed. - Gastrointestinal: Reports right upper quadrant pain; denies issues with bowel movement. - Sleep: Uses CPAP more than 4 hours nightly with reported benefit. - Neurological: Reports tremors, managed without medication. - Allergy/Immunologic: Reports allergy symptoms. Physical Exam - Respiratory- Auscultation findings were not discussed. - Cardiovascular- No explicit examination findings documented. - Neurological- No specific physical examination findings were mentioned. Results - Labs: - Hemoglobin A1c of 6.3% - LDL cholesterol of 122 mg/dL - BUN of 28 mg/dL - Creatinine of 1.19 mg/dL - Anemia noted but specifics unavailable - Imaging: - Recent ultrasound on June 21, 2024, for right upper quadrant pain evaluation. Plan 1. 5%. Anemia will be routinely monitored as the patient's case appears stable. Obstructive sleep apnea management with consistent CPAP use was reported beneficial. Scheduled re-evaluation in three months for cholesterol and glucose levels is planned.: Patient was informed and verbally consented to the use of an ambient scribe for clinic note documentation during this visit. Discussion Notes During this visit, we discussed the importance of managing hypercholesterolemia through dietary adjustments and regular physical activity, aiming for an LDL target below 100 mg/dL. While the patient opts against statin therapy, I underlined the need to consider medication to mitigate cardiovascular risks due to elevated LDL and diabetes mellitus. The patient was informed about potentially needing blood lipid monitoring in three months. Blood pressure management with lisinopril remains effective, while diabetes management strategies successfully maintain hemoglobin A1c under target values. We addressed anemia with planned routine monitoring. For obstructive sleep apnea, the patient reports CPAP adherence, significantly contributing to improved symptoms and sleep quality. In summary, recommendations were provided regarding diet, exercise, and future lab assessments, with consent obtained for non-pharmacological methods. Follow-up in three months was organized for laboratory evaluation. Patient Instructions - Follow a low-fat, reduced carbohydrate diet to help manage cholesterol levels. - Engage in regular physical activity to aid in weight management and overall health. - Continue using CPAP for at least 4 hours each night. - Take lisinopril as prescribed for blood pressure management. - Monitor blood sugar levels and adhere to dietary recommendations to maintain an A1c target of <6.5%. - Return for follow-up lab tests in three months to re-evaluate cholesterol and glucose levels. - Maintain hydration with about 80 ounces of water daily. - Keep up to date with routine health maintenance, including vaccines when necessary. Orders: Orders AMB Hemoglobin A1c Today Z13.9 - Encounter for screening, unspecified Lipid Panel 3 Months E78.00 - Pure hypercholesterolemia, unspecified Comprehensive Met. Panel 3 Months E78.00 - Pure hypercholesterolemia, unspecified Hemoglobin A1c 3 Months E78.00 - Pure hypercholesterolemia, unspecified
[2024-07-06 08:59] VITALS: BP 130/62; PULSE 49; O2SAT 98; BMI 32.7
== END 2024-07-06 09:41 | disposition home or self-care (01) ==
LOC: HO.HMCH 08:51
PROVIDERS: PCP Internal Medicine; Visit Provider Internal Medicine
DX: E11.65 Type 2 diabetes mellitus with hyperglycemia (principal); G47.33 Obstructive sleep apnea (adult) (pediatric); Z98.84 Bariatric surgery status; K21.9 Gastro-esophageal reflux disease without esophagitis; E66.811 Obesity, class 1; E66.09 Other obesity due to excess calories; Z68.32 Body mass index [BMI] 32.0-32.9, adult; I10 Essential (primary) hypertension; E78.00 Pure hypercholesterolemia, unspecified; K80.20 Calculus of gallbladder without cholecystitis without obstruction; K76.0 Fatty (change of) liver, not elsewhere classified; Z13.9 Encounter for screening, unspecified

== ENCOUNTER → 2024-07-06 08:50 | Outpatient (BNVA) | payer BC, SELFPAY | PROVIDERS: PCP Internal Medicine; Visit Provider Internal Medicine | DX: E11.65 Type 2 diabetes mellitus with hyperglycemia (principal); G47.33 Obstructive sleep apnea (adult) (pediatric); K21.9 Gastro-esophageal reflux disease without esophagitis; E66.811 Obesity, class 1; E66.09 Other obesity due to excess calories; I10 Essential (primary) hypertension; E78.00 Pure hypercholesterolemia, unspecified; K80.20 Calculus of gallbladder without cholecystitis without obstruction; K76.0 Fatty (change of) liver, not elsewhere classified; F98.8 Other specified behavioral and emotional disorders with onset usually occurring in childhood and adolescence; N40.0 Benign prostatic hyperplasia without lower urinary tract symptoms; Z68.32 Body mass index [BMI] 32.0-32.9, adult; Z98.84 Bariatric surgery status; Z99.89 Dependence on other enabling machines and devices; Z79.899 Other long term (current) drug therapy | CPT/HCPCS: 83036; 96127 ==

== ENCOUNTER 2024-08-04 09:30 | Outpatient (AMB) | payer BC, SELFPAY ==
--- NOTE | 2024-08-04 09:31 | MHC.OFFVIS ---
Vital Signs 08/04/24 09:38 Height 5 ft 8.5 in Weight 220 lb BMI 33.0 BP 142/68 H Blood Pressure Location Lt radial Position Sitting Pulse 41 L Intake Visit Reasons: calculus of gallbladder Intake Note: Patient referred by PCP Dr. Hager for Calculus of Gallbladder. Patient c/o: on and off RUQ pain that spreads to back. Abd US done on 06/29/24 Food Porter Required: No Accompanied by: Self / Same As Patient Allergies Iodinated Contrast Media [IV Dye, Iodine Containing] Allergy (Intermediate, Verified 08/04/24 09:37) HIVES iodine Allergy (Verified 08/04/24 09:37) Hives NSAIDS (Non-Steroidal Anti-Inflamma Allergy (Verified 08/04/24 09:37) Hx Bariatric surgery HPI HPI calculus of gallbladder: Details: 64-year-old male referred for gallstones. He apparently had described having pain on the area under the rib on the right side and was sent for an ultrasound but his primary care physician. This showed gallstones without cholecystitis. He says that he has had this pain on and off for few months. He does not think that this associated with food intake. He says sometimes the pain radiates to the back. He was therefore referred to me He also has a known history of sleep apnea as well as diabetes. He says his blood sugars have been well controlled. He uses a CPAP machine at night. He has a history of gastric bypass done about 6 years ago. He said he lost about 100 lb the bypass but had gained some of this back. [facility] Medical History Gallstones Bradycardia Osteomyelitis Toe pain Overweight (BMI 25.0-29.9) COVID-19 vaccine series completed History of COVID-19 BPH (benign prostatic hyperplasia) Peripheral neuropathy Type 2 diabetes mellitus with hyperglycemia Anemia ADD (attention deficit disorder) Kidney stones Sleep apnea Surgical History Hx of hernia repair History of right hip replacement Hx of foot surgery Hx of colonoscopy H/O ureter repair S/P gastric bypass S/P hip replacement Family History Father Myocardial infarct Mother CVA (cerebral vascular accident) Brother Hx of CABG Social History Household Members: Family Housing: House Are you a primary child care development specialist to a significant other at home: No Do you presently have visiting nurse or other home services: No Alcohol intake: never Comment: medicated, see MAR Patient Tobacco Use Status: Former Tobacco user Tobacco use type: Cigar Years Smoked: 1994 but does cigar 3 cigars last year e-Cigarette/Vaping Use: Never Used Second Hand Smoke Exposure: Yes service: No Current occupational status: employed Current occupation: [employer] Cognitive needs: No Hearing needs: No Vision needs: No Physical Exam Vital Signs: Last Vital Signs Pulse 41 L 08/04/24 09:38 BP 142/68 H 08/04/24 09:38 BMI result Body Mass Index 33.0 Const Nutritional Appearance: obese Assessment & Plan Assessment & Plan (1) Gallstones: Code(s): K80.20 - Calculus of gallbladder without cholecystitis without obstruction Category: Medical Plan: His ultrasound shows gallstones, and he states that he has this periodic pain under the ribcage on the right side. I explained to him the option of proceeding with cholecystectomy. I explained the technique of laparoscopic cholecystectomy possible open cholecystectomy. I reviewed the risks including but not limited to bleeding, infections, injury to other organs including bowel, the liver, and the bile ducts, bile leak, retained stones, as well as the benefits and alternatives. I explained to him what to expect postoperatively. He says he wants to think about it. He will call the office once she decides to proceed. I told him as well that we will order for a CAT scan of the abdomen and pelvis if he decides to go ahead with the surgery to have a better definition of his anatomy in the area of the gallbladder as he has had a previous gastric bypass in the past. Coding Level of Care Code New Pt Level 3 (40655) Diagnoses Gallstones K80.20
[2024-08-04 09:38] VITALS: BP 142/68; PULSE 41; BMI 33.0
--- OUTSIDE RECORDS SUMMARY | 2024-08-04 10:25 | XMS_ITS | Clinical Summary ---
Author Organization [facility] Address [address] [place] [address] Care Team Providers Care Bounty Hunter Name Role Phone Unavailable Primary Care Provider [...]
== END 2024-08-04 09:56 | disposition home or self-care (01) ==
LOC: HO.HGS 09:31
PROVIDERS: PCP Internal Medicine; Visit Provider Surgery
DX: K80.20 Calculus of gallbladder without cholecystitis without obstruction (principal)
CPT/HCPCS: 99203

== ENCOUNTER → 2024-08-04 09:30 | Outpatient (BNVA) | payer BC, SELFPAY | PROVIDERS: PCP Internal Medicine; Visit Provider Surgery ==

== ENCOUNTER 2024-10-31 06:56 | Outpatient (REF) | payer BC, SELFPAY ==
--- OUTSIDE RECORDS SUMMARY | 2024-10-31 06:58 | XMS_ITS | Clinical Summary ---
Author Organization [facility] Address [address] [place] [address] [place] [id number] Phone Care Team Providers Care Line Supervisor Name Role Phone Marichuy Hager MD Primary Care Provider [phone] Allergies Active Allergy Reactions Criticality Noted Date Comments Iodinated Contrast Media 10/01/2023 Social History Tobacco Use Types Packs/Day Years Used Date Smoking Tobacco: Never Assessed Education Answer Date Recorded Are you interested in more education? Not on isaiah e 10/01/2023 Are you concerned about learning? Not on file 10/01/2023 No 10/01/2023 No 10/01/2023 Digital Access Answer Date Recorded No 10/01/2023 No 10/01/2023 Reliable internet access at home? Not on file 10/01/2023 Device with a working camera? Not on file Intimate Partner Violence Answer Date R ecorded Are you denied basic needs s uch as food, clothing, or medical care? No 10/01/2023 In the past 12 months have y ou been in a relationship with a person who hurts, threatens, or tries to control you? No 10/01/2023 Are you denied basic needs s uch as food, clothing, or medical care? No 10/01/2023 In the past 12 months have y ou been in a relationship with a person who hurts, threatens, or tries to control you? No 10/01/2023 Sex and Gender Information Value Date Recorded Sex Assigned at Not on file Legal Sex Male 5:49 PM EST Gender Identity Not on file Sexual Orientation Not on file Last Filed Vital Signs Vital Sign Reading Time Taken Comments Blood Pressure 151/65 10/01/2023 11:43 AM EDT Pulse 46 10/01/2023 11:43 AM EDT Temperature 36.7 C (98 F) 10/01/2023 11:43 AM EDT Respiratory Rate 18 10/01/2023 11:43 AM EDT Oxygen Saturation 97% 10/01/2023 11:43 AM EDT Inhaled Oxygen Concentration - - Weight 90.7 kg (200 lb) 10/01/2023 11:43 AM EDT Height 172.7 cm (5' 8 ) 10/01/2023 11:43 AM EDT Body Mass Index 30.41 10/01/2023 11:43 AM EDT Plan of Treatment Health Maintenance Due Date Last Done Comments LIPID PANEL 1961 DEPRESSION SCREENING 1973 SMOKING Hx and SMOKELESS TOBACCO SCREENING 1974 HEPATITIS C SCREENING 1979 HIV ONE-TIME SCREENING (18-65 YEARS) 1979 SCREENING FOR DIABETES 01/28/1996 COLOGUARD 2006 COLONOSCOPY 2006 COLORECTAL CANCER SCREENING 2006 FIT TEST 2006 FOBT 2006 SIGMOIDOSCOPY 2006 VIRTUAL COLONOSCOPY 2006 ZOSTER VACCINES (1 of 2) 2011 COVID-19 VACCINE ( season) 2023 02/09/2022, 04/19/2021, 06/05/2020, Additional history exists Adult Td,Tdap Booster 07/13/2031 07/12/2021 RSV VACCINE (1 - 1-dose 75+ series) 01/28/2036 PNEUMOCOCCAL VACCINES (50+ years) Completed 07/22/2023 HEPATITIS A VACCINES Aged Out No long er eligible based on patient's age to complete this topic HIB VACCINES Aged Out No longer eligi ble based on patient's age to complete this topic MENINGOCOCCAL VACCINES (ACWY) Aged Out No longer eligible based on patient's age to complete this topic MENINGOCOCCAL VACCINES (B) Aged Out N o longer eligible based on patient's age to complete this topic Medical Devices Not on file Insurance [facility] Care Teams Line Supervisor Relationship Specialty Start Date End Date Marichuy Hager MD [address] [place] [address] PCP - General Internal Medicine 10/01/23 Additional Source Comments The information contained in this document represents components of the legal health record. It is not the complete legal health record.[facility]
--- OUTSIDE RECORDS SUMMARY | 2024-10-31 06:58 | XMS_ITS | Clinical Summary ---
Author Organization [facility] Address [address] [place] [address] Care Team Providers Care Crayon Sawyer Name Role Phone Unavailable Primary Care Provider [...] COVID-19 Vaccine ( - 2023-2 5 season) 2024 RSV Vaccine 60 years and old er and Patients (1 - 1-dose 75+ series) 01/28/2036 Hepatitis B Vaccines Aged Out No long er eligible based on patient's age to complete this topic
[2024-10-31 07:43] LABS: Hemoglobin A1C 159.1960 umol/L; Total Hemoglobin (HGBA1C) 3274.6014 umol/L
[2024-10-31 08:08] LABS: Alanine Aminotransferase 25 U/L (0-40); Albumin Level 4.2 g/dL (3.5-5.0); Alkaline Phosphatase 75 U/L (39-117); Anion Gap 13 (12-20); Aspartate Amino Transferase 25 U/L (5-37); Blood Urea Nitrogen 24 mg/dL (9-16); Calcium 8.7 mg/dL (8.4-10.2); Carbon Dioxide 24 mmol/L (22-29); Chloride 112 mmol/L (96-108); Cholesterol 228 mg/dL (<200); Estimated Glomerular Filt Rate 54; HDL Cholesterol 51 mg/dL (>40); Potassium 4.3 mmol/L (3.3-5.1); Sodium 145 mmol/L (135-145); Total Protein 7.3 g/dL (6.5-8.0); Triglycerides 147 mg/dL (<150)
== END 2024-10-31 06:57 | disposition home or self-care (01) ==
LOC: HO.LAB 06:56
PROVIDERS: PCP Internal Medicine; Visit Provider Internal Medicine
DX: E11.65 Type 2 diabetes mellitus with hyperglycemia (principal); E78.00 Pure hypercholesterolemia, unspecified
CPT/HCPCS: 36415; 80053; 80061; 82570; 83036

== ENCOUNTER 2024-11-03 09:22 | Outpatient (AMB) | payer BC, SELFPAY ==
[2024-11-03 09:24] VITALS: BP 144/66; PULSE 52; TEMP 36.2; O2SAT 97; BMI 32.6
--- NOTE | 2024-11-03 09:24 | A.OFFPC_ITS ---
Vital Signs 11/03/24 09:24 11/03/24 09:54 Height 5 ft 8.5 in Weight 217 lb 6 oz BMI 32.6 BP 144/66 H 138/70 Blood Pressure Location Lt brachial Lt brachial Position Sitting Sitting Pulse 52 Pulse Source Pulse Oximeter Temp 97.1 F Temp Source Temporal Artery Scan Pulse Oximetry (%) 97 Oxygen Delivery Method Room Air Intake Visit Reasons: 3 month f/u Allergies Iodinated Contrast Media (IV Dye, Iodine Containing) Allergy (Intermediate, Verified 11/03/24 09:27) HIVES iodine Allergy (Verified 11/03/24 09:27) Hives NSAIDS (Non-Steroidal Anti-Inflamma Allergy (Verified 11/03/24 09:27) Hx Bariatric surgery Medication List - Last Reconciled 11/03/24 by Marichuy Hager MD calcium carbonate 600 mg PO DAILY [Celebrate MVI PO] cholecalciferol (vitamin D3) (Vitamin D3) 50 mcg PO DAILY [CPAP ] esomeprazole magnesium (Nexium) 20 mg PO DAILY fexofenadine (Donna Allergy) 60 mg PO BID iron,carbonyl-vitamin C 65 mg iron- 125 mg (Vitron-C) 1 tab PO DAILY lisinopril 5 mg PO DAILY tamsulosin 0.4 mg PO DAILY Tobacco use date assessed: 11/03/24 Dental Screening Dental Screen Date: 11/03/24 Did you have a dental visit in the last 12 months?: Yes Did you have a dental problem in the last 6 months where you did not have access to dental care?: No Was dental information given to patient?: Patient has dentist [facility] Medical History Gallstones Bradycardia Osteomyelitis Toe pain Overweight (BMI 25.0-29.9) COVID-19 vaccine series completed History of COVID-19 BPH (benign prostatic hyperplasia) Peripheral neuropathy Type 2 diabetes mellitus with hyperglycemia Anemia ADD (attention deficit disorder) Kidney stones Sleep apnea Surgical History Hx of hernia repair History of right hip replacement Hx of foot surgery Hx of colonoscopy H/O ureter repair S/P gastric bypass S/P hip replacement Family History Father Myocardial infarct Mother CVA (cerebral vascular accident) Brother Hx of CABG Social History Household Members: Family Housing: House Are you a primary career development director to a significant other at home: No Do you presently have visiting nurse or other home services: No Alcohol intake: never Comment: medicated, see MAR Patient Tobacco Use Status: Former Tobacco user Tobacco use type: Cigar Years Smoked: 1994 but does cigar 3 cigars last year e-Cigarette/Vaping Use: Never Used Second Hand Smoke Exposure: Yes service: No Current occupational status: employed Current occupation: [employer] Cognitive needs: No Hearing needs: No Vision needs: No Questionnaire PHQ-9 Over the last 2 weeks, how often have you been bothered by any of the following problems? 1. Little interest or pleasure in doing things: not at all 2. Feeling down, depressed, or hopeless: not at all 3. Trouble falling or staying asleep, or sleeping too much: not at all 4. Feeling tired or having little energy: not at all 5. Poor appetite or overeating: not at all 6. Feeling bad about yourself - or that you are a failure or have let yourself or your family down: not at all 7. Trouble concentrating on things, such as reading the newspaper or watching television: not at all 8. Moving or speaking so slowly that other people could have noticed. Or the opposite - being so fidgety or restless that you have been moving around a lot more than usual: not at all 9. Thoughts that you would be better off or of hurting yourself in some way: not at all Total score: 0 Depression Screening Interpretation: Negative Depression Screening Done: Yes Source: Developed by Drs. Carlos Bergman, Yessenia Junior, Bao Domínguez and colleagues, with an educational letha from [employer]. Thrive Questionnaire Date Thrive assessed: 06/21/24 I am a: Patient What is your living situation today?: I have a steady place to live Within the past 12 months, did the food you bought not last and you didn't have the money to get more?: Never true Within the past 12 months, did you worry whether your food would run out before you got money to buy more?: Never true Do you have trouble paying for medicines?: No Do you have trouble getting transportation to medical appointments?: No Do you have trouble paying your heating and electricity bill?: No Do you have trouble taking care of your child, family member or friend?: No Do you have trouble with day-to-day activities such as bathing, preparing meals, shopping, managing finances, etc.?: No Are you currently unemployed and looking for a job?: No Are you interested in more education?: No Please select the resources that you would like help with: None Currently or been in a relationship where the following occur: No concerns reported THRIVE Score: 0 AUDIT C Alcohol Use Questionnaire (AUDIT-C) 1. How often do you have a drink containing alcohol?: Monthly or less 2. How many drinks containing alcohol do you have on a typical day when you are drinking?: 1 or 2 3. How often do you have six or more drinks on one occasion?: Never Total Score: 1 JOE-7 AMB Questionnaire JOE-7 Date JOE - 7 assessed: 06/21/24 Feeling nervous, anxious, or on edge: 0 = Not at all Not being able to stop or control worryin = Not at all Worrying too much about different things: 0 = Not at all Trouble relaxin = Not at all Being so restless that it is hard to sit still: 0 = Not at all Becoming easily annoyed or irritable: 0 = Not at all Feeling afraid as if something awful might happen: 0 = Not at all Total JOE-7 score (0-4 normal; 5-9 mild; 10-14 moderate; 15-21 severe): 0 Source: Developed by Drs. Carlos Bergman, Yessenia Junior, Bao Domínguez and colleagues, with an educational letha from [employer]. Physical exam (Primary Care) Vital Signs: Last Vital Signs Temp 97.1 F 11/03/24 09:24 Pulse 52 11/03/24 09:24 BP 138/70 11/03/24 09:54 Pulse Ox 97 11/03/24 09:24 Oxygen Delivery Method Room Air 11/03/24 09:24 BMI result Body Mass Index 32.6 Tobacco/Smoking Status: Tobacco use Status Tobacco use date assessed 11/03/24 11/03/24 09:29 Patient Tobacco Use Status Former Tobacco user 11/03/24 09:24 Tobacco use type Cigar 11/03/24 09:24 e-Cigarette/Vaping Use Never Used 11/03/24 09:24 PHQ-9: PHQ-9 Score PHQ-9: Total score 0 11/03/24 09:54 Depression Screening Interpretation: Negative Thrive Assessment: Date of Thrive Assessment Date Thrive assessed 06/21/24 11/03/24 09:24 Currently or been in a relationship where the following occur: No concerns reported Const General: alert; No acute distress Eyes Conjunctivae: conjunctivae normal Resp Auscultation: clear to auscultation bilaterally Cardio Rate: regular rate Rhythm: regular rhythm GI Inspection: Yes normal to inspection Extrem General: Yes normal to inspection and No edema Coding Level of Care Code Est Pt Level 4 (30192) Complex EM visit Add On G2211 Diagnoses Type 2 diabetes mellitus with hyperglycemia E11.65 Primary hypertension I10 Hypertension type: primary hypertension Hypercholesterolemia E78.00 ADD (attention deficit disorder) F98.8 S/P gastric bypass Z98.84 Class 1 obesity due to excess calories with serious comorbidity and body mass index (BMI) of 32.0 to 32.9 in adult E66.811; E66.09; Z68.32 Body mass index: BMI 32.0-32.9 Obesity classification: adult class 1 (BMI 30 - 34.9) Obesity type: due to excess calories Serious obesity comorbidity presence: with serious comorbidity GERD (gastroesophageal reflux disease) K21.9 Cholelithiasis K80.20 Hepatic steatosis K76.0 Chronic right hip pain M25.551; G89.29 Assessment & Plan Assessment & Plan (1) Type 2 diabetes mellitus with hyperglycemia: Comment: No rx Eye - [facility] 2023 Code(s): E11.65 - Type 2 diabetes mellitus with hyperglycemia Category: Medical Plan: Decrease the amount of carbohydrate intake, pasta, bread, rice and potatoes are all sugar and that is aside from all the sweet stuff, remember that fruits are good but they are Sweet also. Hemoglobin A1c goal of less than 6.5. Patient is on no medication right now (2) Hypertension: Code(s): I10 - Essential (primary) hypertension Category: Medical Qualifiers: Hypertension type: primary hypertension Qualified Code(s): I10 - Essential (primary) hypertension Plan: Continue with blood pressure medication. Decrease salt intake and exercise takes lisinopril 5 mg once a day (3) Hypercholesterolemia: Code(s): E78.00 - Pure hypercholesterolemia, unspecified Category: Medical Plan: Avoid fried foods, chicken skin, eggs, butter margarine, pastries and meat. Be it pork or beef they have a lot of cholesterol LDL goal of less than 100 and triglyceride of less than 150. (4) ADD (attention deficit disorder): Comment: Dr. Tiffanie Pappas Code(s): F98.8 - Other specified behavioral and emotional disorders with onset usually occurring in childhood and adolescence Category: Medical Plan: Continuing to monitor (5) S/P gastric bypass: Comment: 06/2017, 110# wt loss Code(s): Z98.84 - Bariatric surgery status Category: Surgical Plan: Continue to follow-up with bariatric (6) Obesity: Code(s): E66.9 - Obesity, unspecified Category: Medical Qualifiers: Body mass index: BMI 32.0-32.9 Obesity classification: adult class 1 (BMI 30 - 34.9) Obesity type: due to excess calories Serious obesity comorbidity presence: with serious comorbidity Qualified Code(s): E66.811 - Obesity, class 1; E66.09 - Other obesity due to excess calories; Z68.32 - Body mass index [BMI] 32.0-32.9, adult Plan: Diet and exercise (7) GERD (gastroesophageal reflux disease): Code(s): K21.9 - Gastro-esophageal reflux disease without esophagitis Category: Medical Plan: Avoid the foods that causes that usually spicy foods, tomato products, juices, coffee, soda and foods that your sensitive to. After eating do not lie down, allow 3-4 hours before in lie down. And keep the head of bed above 30 degrees to avoid the acid from going up. (8) Cholelithiasis: Comment: June 2024Hepatic steatosis. 2. Cholelithiasis without evidence of acute cholecystitis. Code(s): K80.20 - Calculus of gallbladder without cholecystitis without obstruction Category: Medical Plan: Low-fat diet . Patient has met with surgeon and discussed about cholecystectomy (9) Hepatic steatosis: Comment: June 2024Hepatic steatosis. 2. Cholelithiasis without evidence of acute cholecystitis. Code(s): K76.0 - Fatty (change of) liver, not elsewhere classified Category: Medical Plan: Low-fat diet and exercise (10) Chronic right hip pain: Code(s): M25.551 - Pain in right hip; G89.29 - Other chronic pain Category: Medical Plan History of Present Illness The patient is a 64-year-old male presenting for a follow-up visit to manage multiple chronic conditions, including diabetes mellitus, hypertension, and hypercholesterolemia. The patient has a history of obesity, with a recent weight loss of 3 pounds noted. He underwent gastric bypass surgery in 2018, which has been a significant intervention in his weight management journey. Despite the surgery, he continues to struggle with weight management and plans to revisit weight management strategies and consult with a instructional design specialist. The patient has a history of Attention Deficit Disorder (ADD) and benign prostatic hyperplasia (BPH). He is currently managing his BPH with tamsulosin. The patient has diabetes mellitus with a hemoglobin A1c of 6.6, indicating suboptimal control. He is not currently on medication for diabetes and prefers to manage his condition through lifestyle modifications over the next three to six months. He acknowledges the importance of controlling his blood sugar levels to prevent further complications. The patient has hypertension, which is currently managed with lisinopril 5 mg daily. His blood pressure readings are generally within the target range, although he does not monitor his blood pressure at home. He experiences elevated readings during clinic visits, likely due to situational factors such as rushing to appointments. The patient has hypercholesterolemia, with an LDL cholesterol level of 148 mg/dL, which is above the target of less than 100 mg/dL. He is considering lifestyle changes to improve his cholesterol levels before starting medication. The patient has a history of hip osteoarthritis and underwent a right hip replacement. He continues to experience pain, particularly when standing for long periods, and has consulted multiple orthopedic specialists. The pain is suspected to be related to tendon or nerve issues rather than the prosthetic joint itself. The patient has peripheral vascular disease and hepatic steatosis, which are being monitored. He also has a history of cholelithiasis and has consulted with a surgeon regarding potential cholecystectomy, although he is not ready for surgery at this time. The patient has anemia, with a recent blood count showing mild anemia. He is also managing vitamin D deficiency and reflux through dietary modifications and follow-up care. Health Maintenance - Vaccinations: Up to date with tetanus and pneumonia vaccines; flu vaccine recommended in November - Screening: Last colonoscopy in 2020; prostate-specific antigen (PSA) levels monitored annually - Lifestyle: Emphasis on diet and exercise for weight management and control of diabetes and hypercholesterolemia Social History - Exercise: Engages in physical activity, though experiences difficulty with stairs due to hip pain - Weight Management: Plans to consult with a instructional design specialist and revisit weight management strategies Review of Systems - Cardiovascular: Denies chest pain, orthopnea, or syncope - Musculoskeletal: Reports hip pain, particularly when standing for long periods; denies joint swelling - Gastrointestinal: Reports intermittent gallbladder pain, particularly when standing for long periods Physical Exam - Cardiovascular: Blood pressure measured at 130-136 mmHg, indicating controlled hypertension with lisinopril 5 mg daily Results - Labs: Hemoglobin A1c at 6.6; LDL cholesterol at 148 mg/dL; creatinine at 1.33 mg/dL with GFR of 54; mild anemia noted Plan Patient was informed and verbally consented to the use of an ambient scribe for clinic note documentation during this visit. 1. Diabetes Mellitus The patient has diabetes mellitus with a hemoglobin A1c of 6.6, indicating suboptimal control. He prefers to manage his condition through lifestyle modifications over the next three to six months, focusing on diet and exercise. Follow-up blood work is planned to reassess his glycemic control. 2. Hypertension The patient's hypertension is managed with lisinopril 5 mg daily, with blood pressure readings generally within the target range. He is advised to monitor his blood pressure at home to ensure consistent control. 3. Hypercholesterolemia The patient has hypercholesterolemia with an LDL cholesterol level of 148 mg/dL. He is considering lifestyle changes to improve his cholesterol levels before starting medication. The goal is to reduce LDL to less than 100 mg/dL. 4. Cholelithiasis The patient has a history of cholelithiasis and has consulted with a surgeon regarding potential cholecystectomy. He is not ready for surgery at this time and will continue to monitor symptoms and follow up with gastroenterology. 5. Hip Osteoarthritis The patient experiences hip pain post-right hip replacement, likely due to tendon or nerve issues. He has consulted multiple orthopedic specialists and is advised to continue with physical therapy and pain management strategies. Discussion Notes During the visit, we discussed the management of the patient's diabetes mellitus, hypertension, and hypercholesterolemia. The patient prefers to focus on lifestyle modifications for diabetes and cholesterol management before considering medication. We reviewed the importance of monitoring blood pressure at home and maintaining a healthy diet and exercise regimen. The patient is not ready for cholecystectomy and will continue to monitor symptoms. We also discussed the ongoing management of hip pain and the role of physical therapy. Patient Instructions - Monitor blood pressure at home regularly. - Focus on diet and exercise to manage diabetes and cholesterol levels. - Follow up with gastroenterology and bariatrics as scheduled. - Continue with physical therapy for hip pain management. - Schedule follow-up blood work in three months. Orders: Orders Comprehensive Met. Panel 3 Months E11.65 - Type 2 diabetes mellitus with hyperglycemia Lipid Panel 3 Months E11.65 - Type 2 diabetes mellitus with hyperglycemia, E78.00 - Pure hypercholesterolemia, unspecified Prostate Specific Antigen Scr 3 Months E11.65 - Type 2 diabetes mellitus with hyperglycemia Creatinine Urine 3 Months E11.65 - Type 2 diabetes mellitus with hyperglycemia Complete Blood Count Auto Diff 3 Months E11.65 - Type 2 diabetes mellitus with hyperglycemia Hemoglobin A1c 3 Months E11.65 - Type 2 diabetes mellitus with hyperglycemia Ferritin 3 Months E11.65 - Type 2 diabetes mellitus with hyperglycemia Thyroid Stimulating Hormone 3 Months E11.65 - Type 2 diabetes mellitus with hyperglycemia IRON PROFILE 3 Months E11.65 - Type 2 diabetes mellitus with hyperglycemia Reticulocyte Count 3 Months E11.65 - Type 2 diabetes mellitus with hyperglycemia Vitamin B12 and Folate 3 Months E11.65 - Type 2 diabetes mellitus with hyperglycemia Microalbumin, Random (w Creat) 3 Months E11.65 - Type 2 diabetes mellitus with hyperglycemia UA CC w/rflx Micro + Cult 3 Months E11.65 - Type 2 diabetes mellitus with hyperglycemia, R30.0 - Dysuria PT Evaluation and Treatment Today G89.29 - Other chronic pain, M25.551 - Pain in right hip
[2024-11-03 09:54] VITALS: BP 138/70
--- OUTSIDE RECORDS SUMMARY | 2024-11-03 10:53 | XMS_ITS | Clinical Summary ---
Author Organization [facility] Address [address] [place] [address] Care Team Providers Care Gas Adjuster Name Role Phone Unavailable Primary Care Provider [...]
--- OUTSIDE RECORDS SUMMARY | 2024-11-03 10:53 | XMS_ITS | Clinical Summary ---
Author Organization [facility] Address [address] [place] [address] [place] [id number] Phone Care Team Providers Care Tower Observer Name Role Phone Marichuy Hager MD Primary Care Provider [phone] Allergies Active Allergy Reactions Criticality Noted Date [...] topic Medical Devices Not on file Insurance [facility] Care Teams Tower Observer Relationship Specialty Start Date End Date Marichuy Hager MD [address] [place] [address] PCP - General Internal Medicine 10/01/23 Additional Source Comments The information contained in this document represents components of the legal health record. It is not the complete legal health record.[facility]
== END 2024-11-03 10:21 | disposition home or self-care (01) ==
LOC: HO.HMCH 09:23
PROVIDERS: PCP Internal Medicine; Visit Provider Internal Medicine
DX: E11.65 Type 2 diabetes mellitus with hyperglycemia (principal); I10 Essential (primary) hypertension; E78.00 Pure hypercholesterolemia, unspecified; F98.8 Other specified behavioral and emotional disorders with onset usually occurring in childhood and adolescence; Z98.84 Bariatric surgery status; E66.811 Obesity, class 1; E66.09 Other obesity due to excess calories; Z68.32 Body mass index [BMI] 32.0-32.9, adult; K21.9 Gastro-esophageal reflux disease without esophagitis; K80.20 Calculus of gallbladder without cholecystitis without obstruction; K76.0 Fatty (change of) liver, not elsewhere classified; M25.551 Pain in right hip; G89.29 Other chronic pain

== ENCOUNTER 2024-12-19 11:29 | Outpatient (AMB) | payer BC, SELFPAY ==
[2024-12-19 12:55] VITALS: BP 126/60; PULSE 55; TEMP 36.7; O2SAT 96; BMI 32.1
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
--- OUTSIDE RECORDS SUMMARY | 2024-12-19 14:52 | XMS_ITS | Clinical Summary ---
Author Organization [facility] Address [address] [place] [address] Care Team Providers Care Radiation Oncology Therapist Name Role Phone Unavailable Primary Care Provider [...] - 2023-2 5 season) 2024 RSV Vaccine 50 years and old er and Patients (1 - 1-dose 75+ series) 01/28/2036 Hepatitis B Vaccines Aged Out No long er eligible based on patient's age to complete this topic
--- OUTSIDE RECORDS SUMMARY | 2024-12-19 14:52 | XMS_ITS | Clinical Summary ---
Author Organization [facility] Address [address] [place] [address] [place] [phone] Phone Care Team Providers Care Medical Staff Services Manager Name Role Phone Marichuy Hager MD Primary Care Provider [phone] Allergies Active Allergy Reactions Criticality Noted Date [...] 2006 ZOSTER VACCINES (1 of 2) 2011 INFLUENZA VACCINE (#1) 2024 02/09/2022, 2020 COVID-19 VACCINE ( season) 2024 02/09/2022, 04/19/2021, 06/05/2020, Additional history exists Adult [...] topic Medical Devices Not on file Insurance [facility] Care Teams Medical Staff Services Manager Relationship Specialty Start Date End Date Marichuy Hager MD [address] [place] [id number] PCP - General Internal Medicine 10/01/23 Additional Source Comments The information contained in this document represents components of the legal health record. It is not the complete legal health record.[facility]
== END 2024-12-19 14:12 | disposition home or self-care (01) ==
PROVIDERS: PCP Internal Medicine; Visit Provider Nurse Practitioner Family
DX: T25.122A Burn of first degree of left foot, initial encounter (principal)

== ENCOUNTER 2025-01-25 13:42 | Outpatient (REF) | payer BC, SELFPAY ==
--- OUTSIDE RECORDS SUMMARY | 2025-01-05 09:37 | XMS_ITS | Encounter Summary ---
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 5:35 AM EST MAGNESIUM Routine 01/19/2025 5:35 AM EST VANCOMYCIN, TROUGH Timed 01/19/2025 5:35 AM EST BASIC METABOLIC PANEL (BMP) Routine 01/19/2025 5:35 AM EST POCT GLUCOSE Routine 01/18/2025 4:46 PM EST ANTIMICROBIAL SUSCEPTIBILITY ADD ON Routine 01/18/2025 3:16 PM EST POCT GLUCOSE Routine 01/18/2025 11:42 AM EST POCT GLUCOSE Routine 01/18/2025 7:30 AM EST CBC AND DIFFERENTIAL Routine 01/18/2025 5:59 AM EST LFTS (HEPATIC PANEL) Routine 01/18/2025 5:59 AM EST CBC AND DIFFERENTIAL Routine 01/18/2025 5:59 AM EST PHOSPHORUS Routine 01/18/2025 5:59 AM EST MAGNESIUM Routine 01/18/2025 5:59 AM EST VANCOMYCIN, TROUGH Timed 01/18/2025 5:59 AM EST BASIC METABOLIC PANEL (BMP) Routine 01/18/2025 5:59 AM EST POCT GLUCOSE Routine 01/17/2025 10:59 PM EST POCT GLUCOSE Routine 01/17/2025 6:09 PM EST DEBRIDEMENT FOOT 01/17/2025 5:00 PM EST Burn Special Needs PLACED PER ISAURA DAMIAN PGR POCT GLUCOSE Routine 01/17/2025 10:57 AM EST TYPE AND SCREEN (ABO, RH, ANTIBODY SCREEN) Routine 01/17/2025 6:03 AM EST CBC Routine 01/17/2025 6:03 AM EST TYPE AND SCREEN (ABO,RH,ANTIBODY SCREEN) Routine 01/17/2025 6:03 AM EST PHOSPHORUS Routine 01/17/2025 6:03 AM EST MAGNESIUM Routine 01/17/2025 6:03 AM EST VANCOMYCIN, TROUGH Timed 01/17/2025 6:03 AM EST BASIC METABOLIC PANEL (BMP) Routine 01/17/2025 6:03 AM EST POCT GLUCOSE Routine 01/16/2025 9:10 PM EST POCT GLUCOSE Routine 01/16/2025 5:06 PM EST XR CHEST PORTABLE Routine 01/16/2025 12:37 PM EST INSERT PICC LINE Routine 01/16/2025 12:03 PM EST POCT GLUCOSE Routine 01/16/2025 11:22 AM EST POCT GLUCOSE Routine 01/16/2025 7:01 AM EST CBC AND DIFFERENTIAL Routine 01/16/2025 6:04 AM EST LFTS (HEPATIC PANEL) Routine 01/16/2025 6:04 AM EST CBC AND DIFFERENTIAL Routine 01/16/2025 6:04 AM EST PHOSPHORUS Routine 01/16/2025 6:04 AM EST MAGNESIUM Routine 01/16/2025 6:04 AM EST VANCOMYCIN, TROUGH Timed 01/16/2025 6:04 AM EST BASIC METABOLIC PANEL (BMP) Routine 01/16/2025 6:04 AM EST POCT GLUCOSE Routine 01/15/2025 9:19 PM EST POCT GLUCOSE Routine 01/15/2025 5:02 PM EST POCT GLUCOSE Routine 01/15/2025 11:22 AM EST POCT GLUCOSE Routine 01/15/2025 7:36 AM EST CBC Routine 01/15/2025 5:28 AM EST PHOSPHORUS Routine 01/15/2025 5:28 AM EST MAGNESIUM Routine 01/15/2025 5:28 AM EST VANCOMYCIN, TROUGH Timed 01/15/2025 5:28 AM EST BASIC METABOLIC PANEL (BMP) Routine 01/15/2025 5:28 AM EST POCT GLUCOSE Routine 01/14/2025 9:01 PM EST POCT GLUCOSE Routine 01/14/2025 5:05 PM EST POCT GLUCOSE Routine 01/14/2025 12:21 PM EST CYSTATIN C WITH ESTIMATED GLOMERULAR FILTRATION RATE (EGFR) Routine 01/14/2025 11:50 AM EST URINALYSIS Routine 01/14/2025 11:21 AM EST POCT GLUCOSE Routine 01/14/2025 7:23 AM EST CBC Routine 01/14/2025 5:05 AM EST PHOSPHORUS Routine 01/14/2025 5:05 AM EST OSMOLALITY, SERUM Routine 01/14/2025 5:05 AM EST MAGNESIUM Routine 01/14/2025 5:05 AM EST BASIC METABOLIC PANEL (BMP) Routine 01/14/2025 5:05 AM EST POCT GLUCOSE Routine 01/13/2025 8:05 PM EST POCT GLUCOSE Routine 01/13/2025 5:15 PM EST SODIUM, RANDOM URINE Routine 01/13/2025 4:15 PM EST OSMOLALITY (URINE, RANDOM) Routine 01/13/2025 4:15 PM EST CREATININE (RANDOM URINE) Routine 01/13/2025 4:15 PM EST POCT GLUCOSE Routine 01/13/2025 11:08 AM EST POCT GLUCOSE Routine 01/13/2025 7:13 AM EST CBC AND DIFFERENTIAL Routine 01/13/2025 4:20 AM EST LFTS (HEPATIC PANEL) Routine 01/13/2025 4:20 AM EST CBC AND DIFFERENTIAL Routine 01/13/2025 4:20 AM EST PHOSPHORUS Routine 01/13/2025 4:20 AM EST MAGNESIUM Routine 01/13/2025 4:20 AM EST BASIC METABOLIC PANEL (BMP) Routine 01/13/2025 4:20 AM EST POCT GLUCOSE Routine 01/12/2025 8:41 PM EST POCT GLUCOSE Routine 01/12/2025 4:42 PM EST POCT GLUCOSE Routine 01/12/2025 11:33 AM EST POCT GLUCOSE Routine 01/12/2025 7:39 AM EST CBC Routine 01/12/2025 3:34 AM EST PHOSPHORUS Routine 01/12/2025 3:34 AM EST MAGNESIUM Routine 01/12/2025 3:34 AM EST BASIC METABOLIC PANEL (BMP) Routine 01/12/2025 3:34 AM EST POCT GLUCOSE Routine 01/11/2025 11:02 PM EST POCT GLUCOSE Routine 01/11/2025 9:40 PM EST POCT GLUCOSE Routine 01/11/2025 6:17 PM EST POCT GLUCOSE Routine 01/11/2025 4:33 PM EST TISSUE CULTURE/SMEAR Routine 01/11/2025 3:30 PM EST MYCOBACTERIAL CULTURE/SMEAR Routine 01/11/2025 3:30 PM EST FUNGAL CULTURE Routine 01/11/2025 3:30 PM EST ANAEROBIC CULTURE Routine 01/11/2025 3:30 PM EST TISSUE EXAM Routine 01/11/2025 3:23 PM EST TISSUE CULTURE/SMEAR Routine 01/11/2025 3:17 PM EST MYCOBACTERIAL CULTURE/SMEAR Routine 01/11/2025 3:17 PM EST POCT GLUCOSE Routine 01/11/2025 3:17 PM EST FUNGAL CULTURE Routine 01/11/2025 3:17 PM EST ANAEROBIC CULTURE Routine 01/11/2025 3:17 PM EST TISSUE CULTURE/SMEAR Routine 01/11/2025 3:14 PM EST MYCOBACTERIAL CULTURE/SMEAR Routine 01/11/2025 3:14 PM EST FUNGAL CULTURE Routine 01/11/2025 3:14 PM EST ANAEROBIC CULTURE Routine 01/11/2025 3:14 PM EST POCT GLUCOSE Routine 01/11/2025 11:17 AM EST POCT GLUCOSE Routine 01/11/2025 7:17 AM EST TYPE AND SCREEN (ABO, RH, ANTIBODY SCREEN) STAT 01/11/2025 4:46 AM EST PREPARE PLASMA STAT 01/11/2025 4:46 AM EST PREPARE PLASMA STAT 01/11/2025 4:46 AM EST CBC Routine 01/11/2025 4:46 AM EST PREPARE RBC STAT 01/11/2025 4:46 AM EST PREPARE RBC STAT 01/11/2025 4:46 AM EST TYPE AND SCREEN (ABO,RH,ANTIBODY SCREEN) STAT 01/11/2025 4:46 AM EST PHOSPHORUS Routine 01/11/2025 4:46 AM EST MAGNESIUM Routine 01/11/2025 4:46 AM EST BASIC METABOLIC PANEL (BMP) Routine 01/11/2025 4:46 AM EST POCT GLUCOSE Routine 01/10/2025 8:55 PM EST POCT GLUCOSE Routine 01/10/2025 4:26 PM EST POCT GLUCOSE Routine 01/10/2025 11:42 AM EST POCT GLUCOSE Routine 01/10/2025 11:03 AM EST POCT GLUCOSE Routine 01/10/2025 7:43 AM EST CBC AND DIFFERENTIAL Routine 01/10/2025 3:06 AM EST LFTS (HEPATIC PANEL) Routine 01/10/2025 3:06 AM EST CBC AND DIFFERENTIAL Routine 01/10/2025 3:06 AM EST BASIC METABOLIC PANEL (BMP) Routine 01/10/2025 3:06 AM EST POCT GLUCOSE Routine 01/09/2025 8:25 PM EST POCT GLUCOSE Routine 01/09/2025 4:21 PM EST TTE COMPREHENSIVE W/ LVO CONTRAST Routine 01/09/2025 11:40 AM EST Abnormal electrocardiogram (ECG) (EKG) POCT GLUCOSE Routine 01/09/2025 7:22 AM EST BASIC METABOLIC PANEL (BMP) Routine 01/09/2025 5:32 AM EST POCT GLUCOSE Routine 01/08/2025 8:41 PM EST POCT GLUCOSE Routine 01/08/2025 4:46 PM EST POCT GLUCOSE Routine 01/08/2025 11:12 AM EST POCT GLUCOSE Routine 01/08/2025 7:13 AM EST CBC Routine 01/08/2025 5:30 AM EST BASIC METABOLIC PANEL (BMP) Routine 01/08/2025 5:30 AM EST POCT GLUCOSE Routine 01/07/2025 8:31 PM EST POCT GLUCOSE Routine 01/07/2025 5:18 PM EST CBC Routine 01/07/2025 12:51 PM EST BASIC METABOLIC PANEL (BMP) Routine 01/07/2025 12:51 PM EST POCT GLUCOSE Routine 01/07/2025 11:53 AM EST POCT GLUCOSE Routine 01/07/2025 7:11 AM EST LFTS (HEPATIC PANEL) Routine 01/07/2025 5:07 AM EST SEDIMENTATION RATE (ESR) Routine 01/07/2025 5:07 AM EST C-REACTIVE PROTEIN (CRP) Routine 01/07/2025 5:07 AM EST POCT GLUCOSE Routine 01/06/2025 8:55 PM EST POCT GLUCOSE Routine 01/06/2025 6:07 PM EST XR FOOT 3 OR MORE VIEWS (LEFT) Routine 01/06/2025 12:17 PM EST POCT GLUCOSE Routine 01/06/2025 12:00 PM EST POCT GLUCOSE Routine 01/06/2025 7:55 AM EST CBC AND DIFFERENTIAL Routine 01/06/2025 6:12 AM EST PTT Timed 01/06/2025 6:12 AM EST PT-INR Routine 01/06/2025 6:12 AM EST CBC AND DIFFERENTIAL Routine 01/06/2025 6:12 AM EST PHOSPHORUS Routine 01/06/2025 6:12 AM EST MAGNESIUM Routine 01/06/2025 6:12 AM EST HEMOGLOBIN A1C Routine 01/06/2025 6:12 AM EST BASIC METABOLIC PANEL (BMP) Routine 01/06/2025 6:12 AM EST ECG 12-LEAD Routine 01/05/2025 11:33 PM EST MICROBIOLOGY ADD ON Routine 01/05/2025 3:49 PM EST MICROBIOLOGY ADD ON Routine 01/05/2025 3:40 PM EST TYPE AND SCREEN (ABO, RH, ANTIBODY SCREEN) Routine 01/05/2025 3:04 PM EST TYPE AND SCREEN (ABO,RH,ANTIBODY SCREEN) Routine 01/05/2025 3:04 PM EST documented in this encounter Results * (ABNORMAL) Vancomycin Level, Trough (01/21/2025 12:59 PM EST) Vancomycin, Trough 9.7(L) 10.0 - 20.0 ug/mL 01/21/2025 2:22 PM EST [facility] Blood (Blood) Catheter/Line / Unknown 01/21/2025 12:59 PM EST 01/21/2025 1:29 PM EST us Ranjan Newton MD LAB BLOOD BKR ORDERABLES Eulalia l Result [address] [address] * Vancomycin Level, Unspecified (01/20/2025 9:06 AM EST) Vancomycin, Unspecified 11.0 No reference range defined. ug/mL 01/20/2025 9:58 AM EST [facility] Comment: Peak: 20.0-40.0 Trough: 10.0-20.0 Blood (Blood) Catheter/Line / Unknown 01/20/2025 9:06 AM EST 01/20/2025 9:27 AM EST Ranjan Newton MD LAB BLOOD BKR ORDERABLES Eulalia l Result Performing Organization Address City/[facility]/ZIP Co de Phone Number [address] [address] * (ABNORMAL) POCT Glucose (01/20/2025 7:44 AM EST) Glucose 110(H) 70 - 99 mg/dL 01/20/2025 7:48 AM EST [facility] POCT SPECIAL FUNCTION LAB GROUPS 1 & 2 Blood (Blood) 01/20/2025 7:4 4 AM EST 01/20/2025 7:48 AM EST Ranjan Newton MD LAB POCT DOCKED DEVICE UNSOLI CTED RESULTS Final Result Performing Organization Address City/[facility] Co de Phone Number [facility] POCT SPECIAL FUNCTION LAB GROUPS 1 & [address] [place] [phone] * (ABNORMAL) CBC and Differential (01/20/2025 5:47 AM EST) WBC 6.00 4.00 - 11.00 K/uL 01/20/2025 6:10 AM [facility] RBC 3.63(L) 4.50 - 5.90 M/uL 01/20/2025 6:10 AM [facility] Hemoglobin 11.3(L) 13.5 - 17.5 g/dL 01/20/2025 6:10 AM [facility] Hematocrit 33.8(L) 41.0 - 53.0 % 01/20/2025 6:10 AM [facility] MCV 93.1 80.0 - 100.0 fL 01/20/2025 6:10 AM [facility] MCH 31.1(H) 27.0 - 31.0 pg 01/20/2025 6:10 AM [facility] MCHC 33.4 32.0 - 36.0 g/dL 01/20/2025 6:10 AM [facility] MPV 9.6 8.4 - 12.0 fL 01/20/2025 6:10 AM [facility] RDW-CV 13.1 11.5 - 14.5 % 01/20/2025 6:10 AM [facility] PLT 238 150 - 450 K/uL 01/20/2025 6:10 AM [facility] Neutrophils 49.4 % 01/20/2025 6:10 AM [facility] Lymphocytes 34.7 % 01/20/2025 6:10 AM [facility] Monocytes 10.0 % 01/20/2025 6:10 AM [facility] Eosinophils 4.3 % 01/20/2025 6:10 AM [facility] Basophils 1.3 % 01/20/2025 6:10 AM [facility] Imm Grans 0.3 % 01/20/2025 6:10 AM [facility] NRBC 0.0 <=0.0 /100 WBCs 01/20/2025 6:10 AM [facility] Absolute Neutrophils 2.96 1.92 - 7.60 K/uL 01/20/2025 6:10 AM [facility] Absolute Lymphocytes 2.08 0.72 - 4.10 K/uL 01/20/2025 6:10 AM [facility] Absolute Monocytes 0.60 0.16 - 1.10 K/uL 01/20/2025 6:10 AM [facility] Absolute Eosinophils 0.26 0.00 - 0.50 K/uL 01/20/2025 6:10 AM [facility] Absolute Basophils 0.08 0.00 - 0.15 K/uL 01/20/2025 6:10 AM [facility] Absolute Imm Grans 0.02 0.00 - 0.09 K/uL 01/20/2025 6:10 AM [facility] Absolute NRBC 0.00 <=0.00 K cells/uL 01/20/2025 6:10 AM [facility] Absolute Neutrophils 2.96 1.92 - 7.60 K/uL 01/20/2025 6:10 AM [facility] Comment:Automated cell count . Manual ANC may differ if performed. Diff Type Auto 01/20/2025 6:10 AM [facility] Blood (Blood) Catheter/Line / Unknown 01/20/2025 5:47 AM EST 01/20/2025 5:57 AM EST Ranjan Newton MD LAB BLOOD BKR ORDERABLES Eulalia l Result Performing Organization Address City/[facility]/ZIP Co de Phone Number [address] [address] * Phosphorus (01/20/2025 5:47 AM EST) Phosphorus 3.2 2.5 - 4.5 mg/dL 01/20/2025 6:23 AM EST [facility] Blood (Blood) Catheter/Line / Unknown 01/20/2025 5:47 AM EST 01/20/2025 5:57 AM EST Ranjan Newton MD LAB BLOOD BKR ORDERABLES Eulalia l Result Performing Organization Address [facility]/ZIP Co de Phone Number [address] [address] * Magnesium (01/20/2025 5:47 AM EST) Magnesium 2.0 1.7 - 2.6 mg/dL 01/20/2025 6:23 AM EST [facility] Blood (Blood) Catheter/Line / Unknown 01/20/2025 5:47 AM EST 01/20/2025 5:57 AM EST Ranjan Newton MD LAB BLOOD BKR ORDERABLES Eulalia l Result [address] [address] * (ABNORMAL) Basic Metabolic Panel (BMP) (01/20/2025 5:47 AM EST) Sodium 143 136 - 145 mmol/L 01/20/2025 6:23 AM EST [facility] Potassium 4.2 3.4 - 5.1 mmol/L 01/20/2025 6:23 AM EST [facility] Chloride 109(H) 98 - 107 mmol/L 01/20/2025 6:23 AM EST [facility] CO2 23 20 - 31 mmol/L 01/20/2025 6:23 AM [facility] Anion Gap 11 3 - 17 mmol/L 01/20/2025 6:23 AM [facility] BUN 24(H) 6 - 23 mg/dL 01/20/2025 6:23 AM [facility] Creatinine 1.40(H) 0.60 - 1.30 mg/dL 01/20/2025 6:23 AM [facility] eGFR 56(L) >59 mL/min/1. 73m2 01/20/2025 6:23 AM [facility] Comment:Estimated glomerular filtration rate calculated using the CKD-EPI refit equation. Glucose 110(H) 70 - 99 mg/dL 01/20/2025 6:23 AM [facility] Calcium 8.6 8.5 - 10.5 mg/dL 01/20/2025 6:23 AM [facility] Blood (Blood) Catheter/Line / Unknown 01/20/2025 5:47 AM EST 01/20/2025 5:57 AM EST us Ranjan Newton MD LAB BLOOD BKR ORDERABLES Eulalia l Result [address] [address] * Hepatic Panel (LFTs) (01/20/2025 5:47 AM EST) AST 20 10 - 40 U/L 01/20/2025 6:23 AM [facility] ALT 30 10 - 55 U/L 01/20/2025 6:23 AM [facility] Alkaline Phosphatase 73 40 - 130 U/L 01/20/2025 6:23 AM [facility] Bilirubin, Total 0.3 0.0 - 1.2 mg/dL 01/20/2025 6:23 AM [facility] Bilirubin, Direct 0.1 0.0 - 0.3 mg/dL 01/20/2025 6:23 AM [facility] Total Protein 6.5 6.4 - 8.3 g/dL 01/20/2025 6:23 AM [facility] Albumin 3.6 3.5 - 5.2 g/dL 01/20/2025 6:23 AM [facility] Globulin 2.9 1.9 - 4.1 g/dL 01/20/2025 6:23 AM EST [facility] Blood (Blood) Catheter/Line / Unknown 01/20/2025 5:47 AM EST 01/20/2025 5:57 AM EST us Ranjan Newton MD LAB BLOOD BKR ORDERABLES Eulalia walsh Result [address] [address] * (ABNORMAL) Basic Metabolic Panel (BMP) (01/19/2025 5:35 AM EST) Sodium 141 136 - 145 mmol/L 01/19/2025 6:12 AM [facility] Potassium 4.3 3.4 - 5.1 mmol/L 01/19/2025 6:12 AM [facility] Chloride 105 98 - 107 mmol/L 01/19/2025 6:12 AM [facility] CO2 24 20 - 31 mmol/L 01/19/2025 6:12 AM [facility] Anion Gap 12 3 - 17 mmol/L 01/19/2025 6:12 AM [facility] BUN 21 6 - 23 mg/dL 01/19/2025 6:12 AM [facility] Creatinine 1.53(H) 0.60 - 1.30 mg/dL 01/19/2025 6:12 AM [facility] eGFR 51(L) >59 mL/min/1. 73m2 01/19/2025 6:12 AM [facility] Comment:Estimated glomerular filtration rate calculated using the CKD-EPI refit equation. Glucose 106(H) 70 - 99 mg/dL 01/19/2025 6:12 AM [facility] Calcium 8.8 8.5 - 10.5 mg/dL 01/19/2025 6:12 AM [facility] Blood (Blood) Catheter/Line / Unknown 01/19/2025 5:35 AM EST 01/19/2025 5:49 AM EST Ranjan Newton MD LAB BLOOD BKR ORDERABLES Eulalia l Result [address] [address] * (ABNORMAL) CBC (01/19/2025 5:35 AM EST) WBC 6.99 4.00 - 11.00 K/uL 01/19/2025 5:57 AM [facility] RBC 3.61(L) 4.50 - 5.90 M/uL 01/19/2025 5:57 AM [facility] Hemoglobin 11.1(L) 13.5 - 17.5 g/dL 01/19/2025 5:57 AM [facility] Hematocrit 34.0(L) 41.0 - 53.0 % 01/19/2025 5:57 AM [facility] MCV 94.2 80.0 - 100.0 fL 01/19/2025 5:57 AM [facility] MCH 30.7 27.0 - 31.0 pg 01/19/2025 5:57 AM [facility] MCHC 32.6 32.0 - 36.0 g/dL 01/19/2025 5:57 AM [facility] PLT 247 150 - 450 K/uL 01/19/2025 5:57 AM [facility] MPV 9.6 8.4 - 12.0 fL 01/19/2025 5:57 AM [facility] RDW-CV 13.0 11.5 - 14.5 % 01/19/2025 5:57 AM [facility] Absolute NRBC 0.00 <=0.00 K cells/uL 01/19/2025 5:57 AM [facility] NRBC 0.0 <=0.0 /100 WBCs 01/19/2025 5:57 AM [facility] Blood (Blood) Catheter/Line / Unknown 01/19/2025 5:35 AM EST 01/19/2025 5:49 AM EST Ranjan Newton MD LAB BLOOD BKR ORDERABLES Eulalia l Result [address] [address] * Magnesium (01/19/2025 5:35 AM EST) Magnesium 2.1 1.7 - 2.6 mg/dL 01/19/2025 6:12 AM EST [facility] Blood (Blood) Catheter/Line / Unknown 01/19/2025 5:35 AM EST 01/19/2025 5:49 AM EST Ranjan Newton MD LAB BLOOD BKR ORDERABLES Eulalia l Result [address] [address] * Phosphorus (01/19/2025 5:35 AM EST) Pathologist [facility] Phosphorus 3.2 2.5 - 4.5 mg/dL 01/19/2025 6:12 AM EST [facility] Blood (Blood) Catheter/Line / Unknown 01/19/2025 5:35 AM EST 01/19/2025 5:49 AM EST Ranjan Newton MD LAB BLOOD BKR ORDERABLES Eulalia l Result Performing Organization Address City/[facility]/ZIP Co de Phone Number [address] [address] * Vancomycin Level, Trough (01/19/2025 5:35 AM EST) Pathologist [facility] Vancomycin, Trough 13.1 10.0 - 20.0 ug/mL 01/19/2025 6:32 AM EST [facility] Blood (Blood) Catheter/Line / Unknown 01/19/2025 5:35 AM EST 01/19/2025 5:49 AM EST Ranjan Newton MD LAB BLOOD BKR ORDERABLES Eulalia l Result Performing Organization Address City/[facility]/ZIP Co de Phone Number [address] [address] * (ABNORMAL) POCT Glucose (01/18/2025 4:46 PM EST) Pathologist [facility] Glucose 116(H) 70 - 99 mg/dL 01/18/2025 4:52 PM EST [facility] POCT SPECIAL FUNCTION LAB GROUPS 1 & 2 Blood (Blood) 01/18/2025 4:4 6 PM EST 01/18/2025 4:52 PM EST us Ranjan Newton MD LAB POCT DOCKED DEVICE UNSOLI CTED RESULTS Final Result Performing Organization Address [facility]/ZIP Co de Phone Number [facility] POCT SPECIAL FUNCTION LAB GROUPS 1 & [address] [place] [phone] * Antimicrobial Susceptibility Add On (01/18/2025 3:16 PM EST) Specimen Date/Time 01/11 3:32 PM EST [facility] Organism(s) Reema parapsilosis 01/18/2025 3:32 PM EST [facility] Susceptibilities fluconazole, micafungin susceptibility 01/18/2025 3:32 PM EST [facility] Specimen Description tissue culture 01/18/2025 3:32 PM EST [facility] Was this request processed? Yes 01/18/2025 3:32 PM EST [facility] Other (Toe, Left) 01/18/2025 3:16 PM EST 01/18/2025 3:16 PM EST us Ranjan Newton MD LAB MICROBIOLOGY CULTURE ORDE RABLES Final Result Performing Organization Address [facility] Co de Phone Number [address] [address] * (ABNORMAL) POCT Glucose (01/18/2025 11:42 AM EST) Glucose 106(H) 70 - 99 mg/dL 01/18/2025 11:51 AM EST [facility] POCT SPECIAL FUNCTION LAB GROUPS 1 & 2 Blood (Blood) 01/18/2025 11: 42 AM EST 01/18/2025 11:51 AM EST us Ranjan Newton MD LAB POCT DOCKED DEVICE UNSOLI CTED RESULTS Final Result Performing Organization Address City/[facility]/ZIP Co de Phone Number [facility] POCT SPECIAL FUNCTION LAB GROUPS 1 & [address] [place] [address] * (ABNORMAL) POCT Glucose (01/18/2025 7:30 AM EST) Glucose 129(H) 70 - 99 mg/dL 01/18/2025 7:34 AM EST [facility] POCT SPECIAL FUNCTION LAB GROUPS 1 & 2 Blood (Blood) 01/18/2025 7:3 0 AM EST 01/18/2025 7:34 AM EST us Ranjan Newton MD LAB POCT DOCKED DEVICE UNSOLI CTED RESULTS Final Result [facility] POCT SPECIAL FUNCTION LAB GROUPS 1 & 2 [address] [place] [address] * (ABNORMAL) CBC and Differential (01/18/2025 5:59 AM EST) WBC 8.40 4.00 - 11.00 K/uL 01/18/2025 6:26 AM [facility] RBC 3.67(L) 4.50 - 5.90 M/uL 01/18/2025 6:26 AM [facility] Hemoglobin 11.7(L) 13.5 - 17.5 g/dL 01/18/2025 6:26 AM [facility] Hematocrit 34.4(L) 41.0 - 53.0 % 01/18/2025 6:26 AM [facility] MCV 93.7 80.0 - 100.0 fL 01/18/2025 6:26 AM [facility] MCH 31.9(H) 27.0 - 31.0 pg 01/18/2025 6:26 AM [facility] MCHC 34.0 32.0 - 36.0 g/dL 01/18/2025 6:26 AM [facility] MPV 9.5 8.4 - 12.0 fL 01/18/2025 6:26 AM [facility] RDW-CV 12.7 11.5 - 14.5 % 01/18/2025 6:26 AM [facility] PLT 278 150 - 450 K/uL 01/18/2025 6:26 AM [facility] Neutrophils 72.9 % 01/18/2025 6:26 AM [facility] Lymphocytes 18.5 % 01/18/2025 6:26 AM [facility] Monocytes 7.6 % 01/18/2025 6:26 AM EST [facility] Eosinophils 0.1 % 01/18/2025 6:26 AM EST [facility] Basophils 0.4 % 01/18/2025 6:26 AM [facility] Imm Grans 0.5 % 01/18/2025 6:26 AM EST [facility] NRBC 0.0 <=0.0 /100 WBCs 01/18/2025 6:26 AM EST [facility] Absolute Neutrophils 6.13 1.92 - 7.60 K/uL 01/18/2025 6:26 AM [facility] Absolute Lymphocytes 1.55 0.72 - 4.10 K/uL 01/18/2025 6:26 AM [facility] Absolute Monocytes 0.64 0.16 - 1.10 K/uL 01/18/2025 6:26 AM [facility] Absolute Eosinophils 0.01 0.00 - 0.50 K/uL 01/18/2025 6:26 AM EST [facility] Absolute Basophils 0.03 0.00 - 0.15 K/uL 01/18/2025 6:26 AM [facility] Absolute Imm Grans 0.04 0.00 - 0.09 K/uL 01/18/2025 6:26 AM [facility] Absolute NRBC 0.00 <=0.00 K cells/uL 01/18/2025 6:26 AM [facility] Absolute Neutrophils 6.13 1.92 - 7.60 K/uL 01/18/2025 6:26 AM [facility] Comment:Automated cell count . Manual ANC may differ if performed. Diff Type Auto 01/18/2025 6:26 AM EST [facility] Blood (Blood) Catheter/Line / Unknown 01/18/2025 5:59 AM EST 01/18/2025 6:06 AM EST us Ranjan Newton MD LAB BLOOD BKR ORDERABLES Eulalia nico Result [address] [id number] * (ABNORMAL) Basic Metabolic Panel (BMP) (01/18/2025 5:59 AM EST) Sodium 136 136 - 145 mmol/L 01/18/2025 6:39 AM EST [facility] Potassium 4.4 3.4 - 5.1 mmol/L 01/18/2025 6:39 AM EST [facility] Chloride 102 98 - 107 mmol/L 01/18/2025 6:39 AM EST [facility] CO2 22 20 - 31 mmol/L 01/18/2025 6:39 AM EST [facility] Anion Gap 12 3 - 17 mmol/L 01/18/2025 6:39 AM EST [facility] BUN 19 6 - 23 mg/dL 01/18/2025 6:39 AM EST [facility] Creatinine 1.53(H) 0.60 - 1.30 mg/dL 01/18/2025 6:39 AM EST [facility] eGFR 51(L) >59 mL/min/1. 73m2 01/18/2025 6:39 AM EST [facility] [facility] Comment:Estimated glomerular filtration rate calculated using the CKD-EPI refit equation. Glucose 141(H) 70 - 99 mg/dL 01/18/2025 6:39 AM EST [facility] Calcium 8.7 8.5 - 10.5 mg/dL 01/18/2025 6:39 AM [facility] Blood (Blood) Catheter/Line / Unknown 01/18/2025 5:59 AM EST 01/18/2025 6:06 AM EST us Ranjan Newton MD LAB BLOOD BKR ORDERABLES Eulalia l Result [address] [address] * Hepatic Panel (LFTs) (01/18/2025 5:59 AM EST) AST 25 10 - 40 U/L 01/18/2025 6:39 AM EST [facility] ALT 35 10 - 55 U/L 01/18/2025 6:39 AM EST [facility] Alkaline Phosphatase 81 40 - 130 U/L 01/18/2025 6:39 AM EST [facility] Bilirubin, Total 0.4 0.0 - 1.2 mg/dL 01/18/2025 6:39 AM EST [facility] Bilirubin, Direct 0.1 0.0 - 0.3 mg/dL 01/18/2025 6:39 AM EST [facility] Comment:NOTE: Specimen hemol yzed. Results may be falsely decreased. Total Protein 6.8 6.4 - 8.3 g/dL 01/18/2025 6:39 AM EST [facility] Albumin 3.5 3.5 - 5.2 g/dL 01/18/2025 6:39 AM EST [facility] Globulin 3.3 1.9 - 4.1 g/dL 01/18/2025 6:39 AM EST [facility] Blood (Blood) Catheter/Line / Unknown 01/18/2025 5:59 AM EST 01/18/2025 6:06 AM EST Ranjan Newton MD LAB BLOOD BKR ORDERABLES Eulalia l Result Performing Organization Address City/[facility]/ZIP Co de Phone Number [address] [address] * Magnesium (01/18/2025 5:59 AM EST) Magnesium 2.1 1.7 - 2.6 mg/dL 01/18/2025 6:39 AM EST [facility] Blood (Blood) Catheter/Line / Unknown 01/18/2025 5:59 AM EST 01/18/2025 6:06 AM EST Ranjan Newton MD LAB BLOOD BKR ORDERABLES Eulalia l Result [address] [address] * Phosphorus (01/18/2025 5:59 AM EST) Phosphorus 3.6 2.5 - 4.5 mg/dL 01/18/2025 6:39 AM EST [facility] Blood (Blood) Catheter/Line / Unknown 01/18/2025 5:59 AM EST 01/18/2025 6:06 AM EST Ranjan Newton MD LAB BLOOD BKR ORDERABLES Eulalia l Result Performing Organization Address City/[facility]/ZIP Co de Phone Number [address] [address] * Vancomycin Level, Trough (01/18/2025 5:59 AM EST) Vancomycin, Trough 14.6 10.0 - 20.0 ug/mL 01/18/2025 6:48 AM EST [facility] Blood (Blood) Catheter/Line / Unknown 01/18/2025 5:59 AM EST 01/18/2025 6:06 AM EST Ranjan Newton MD LAB BLOOD BKR ORDERABLES Eulalia l Result Performing Organization Address [facility] Co de Phone Number [address] [address] * (ABNORMAL) POCT Glucose (01/17/2025 10:59 PM EST) Glucose 328(H) 70 - 99 mg/dL 01/17/2025 11:03 PM EST [facility] POCT SPECIAL FUNCTION LAB GROUPS 1 & 2 Blood (Blood) 01/17/2025 10: 59 PM EST 01/17/2025 11:03 PM EST Ranjan Newton MD LAB POCT DOCKED DEVICE UNSOLI CTED RESULTS Final Result Performing Organization Address [facility] de Phone Number [facility] POCT SPECIAL FUNCTION LAB GROUPS 1 & [address] [place] [phone] * (ABNORMAL) POCT Glucose (01/17/2025 6:09 PM EST) Glucose 108(H) 70 - 99 mg/dL 01/17/2025 6:12 PM EST [facility] POCT SPECIAL FUNCTION LAB GROUPS 1 & 2 Blood (Blood) 01/17/2025 6:0 9 PM EST 01/17/2025 6:12 PM EST us Ranjan Newton MD LAB POCT DOCKED DEVICE UNSOLI CTED RESULTS Final Result Performing Organization Address City/[facility] Co de Phone Number [facility] POCT SPECIAL FUNCTION LAB GROUPS 1 & [address] [place] [address] * (ABNORMAL) POCT Glucose (01/17/2025 10:57 AM EST) Glucose 116(H) 70 - 99 mg/dL 01/17/2025 11:00 AM EST [facility] POCT SPECIAL FUNCTION LAB GROUPS 1 & 2 Blood (Blood) 01/17/2025 10: 57 AM EST 01/17/2025 11:00 AM EST us Ranjan Newton MD LAB POCT DOCKED DEVICE UNSOLI CTED RESULTS Final Result Performing Organization Address [facility]/ZIP Co de Phone Number [facility] POCT SPECIAL FUNCTION LAB GROUPS 1 & [address] [place] [phone] * Type and Screen (ABO, Rh, Antibody Screen) (01/17/2025 6:03 AM EST) ABO/Rh O POS 01/17/2025 7:43 AM EST [facility] DEPARTMENT OF PATHOLOGY Antibody Screen NEG 7:43 AM EST [facility] DEPARTMENT OF PATHOLOGY Sample Expiration 01/20/2025 23:59 01/17/2025 7:43 AM EST [facility] DEPARTMENT OF PATHOLOGY Blood (Blood) Catheter/Line / Unknown 01/17/2025 6:03 AM EST 01/17/2025 6:14 AM EST us Corina Francois [facility] LAB BLOOD BANK TEST ORD ERABLES Final Result [facility] DEPARTMENT OF PATHOLOGY [address] [place] [phone] * (ABNORMAL) Basic Metabolic Panel (BMP) (01/17/2025 6:03 AM EST) Sodium 142 136 - 145 mmol/L 01/17/2025 6:57 AM EST [facility] Potassium 4.3 3.4 - 5.1 mmol/L 01/17/2025 6:57 AM EST [facility] Chloride 106 98 - 107 mmol/L 01/17/2025 6:57 AM [facility] CO2 25 20 - 31 mmol/L 01/17/2025 6:57 AM [facility] Anion Gap 11 3 - 17 mmol/L 01/17/2025 6:57 AM [facility] BUN 20 6 - 23 mg/dL 01/17/2025 6:57 AM [facility] Creatinine 1.33(H) 0.60 - 1.30 mg/dL 01/17/2025 6:57 AM [facility] eGFR 60 >59 mL/min/1. 73m2 01/17/2025 6:57 AM [facility] Comment:Estimated glomerular filtration rate calculated using the CKD-EPI refit equation. Glucose 111(H) 70 - 99 mg/dL 01/17/2025 6:57 AM [facility] Calcium 8.7 8.5 - 10.5 mg/dL 01/17/2025 6:57 AM [facility] Blood (Blood) Catheter/Line / Unknown 01/17/2025 6:03 AM [facility] 01/17/2025 6:09 AM [facility] MD LAB BLOOD BKR ORDERABLES Eulalia l Result [address] [address] * (ABNORMAL) CBC (01/17/2025 6:03 AM [facility] WBC 6.36 4.00 - 11.00 K/uL 01/17/2025 6:41 AM [facility] RBC 3.63(L) 4.50 - 5.90 M/uL 01/17/2025 6:41 AM [facility] Hemoglobin 11.2(L) 13.5 - 17.5 g/dL 01/17/2025 6:41 AM [facility] Hematocrit 34.7(L) 41.0 - 53.0 % 01/17/2025 6:41 AM [facility] MCV 95.6 80.0 - 100.0 fL 01/17/2025 6:41 AM [facility] MCH 30.9 27.0 - 31.0 pg 01/17/2025 6:41 AM [facility] MCHC 32.3 32.0 - 36.0 g/dL 01/17/2025 6:41 AM [facility] PLT 281 150 - 450 K/uL 01/17/2025 6:41 AM [facility] MPV 9.7 8.4 - 12.0 fL 01/17/2025 6:41 AM [facility] RDW-CV 12.9 11.5 - 14.5 % 01/17/2025 6:41 AM [facility] Absolute NRBC 0.00 <=0.00 K cells/uL 01/17/2025 6:41 AM [facility] NRBC 0.0 <=0.0 /100 WBCs 01/17/2025 6:41 AM [facility] Blood (Blood) Catheter/Line / Unknown 01/17/2025 6:03 AM EST 01/17/2025 6:09 AM EST Ranjan Newton MD LAB BLOOD BKR ORDERABLES Eulalia l Result Performing Organization Address City/[facility]/ZIP Co de Phone Number [address] [address] * Magnesium (01/17/2025 6:03 AM EST) Magnesium 2.2 1.7 - 2.6 mg/dL 01/17/2025 6:57 AM [facility] Blood (Blood) Catheter/Line / Unknown 01/17/2025 6:03 AM EST 01/17/2025 6:09 AM EST Ranjan Newton MD LAB BLOOD BKR ORDERABLES Eulalia l Result [address] [address] * Phosphorus (01/17/2025 6:03 AM EST) Phosphorus 3.2 2.5 - 4.5 mg/dL 01/17/2025 6:57 AM [facility] Blood (Blood) Catheter/Line / Unknown 01/17/2025 6:03 AM EST 01/17/2025 6:09 AM EST us Ranjan Newton MD LAB BLOOD BKR ORDERABLES Eulalia l Result Performing Organization Address City/[facility]/ZIP Co de Phone Number [address] [address] * Vancomycin Level, Trough (01/17/2025 6:03 AM EST) Vancomycin, Trough 12.6 10.0 - 20.0 ug/mL 01/17/2025 6:55 AM EST [facility] Blood (Blood) Catheter/Line / Unknown 01/17/2025 6:03 AM EST 01/17/2025 6:09 AM EST Ranjan Newton MD LAB BLOOD BKR ORDERABLES Eulalia l Result Performing Organization Address [facility] Co de Phone Number [address] [address] * (ABNORMAL) POCT Glucose (01/16/2025 9:10 PM EST) Glucose 103(H) 70 - 99 mg/dL 01/16/2025 9:12 PM EST [facility] POCT SPECIAL FUNCTION LAB GROUPS 1 & 2 Blood (Blood) 01/16/2025 9:1 0 PM EST 01/16/2025 9:12 PM EST us Ranjan Newton MD LAB POCT DOCKED DEVICE UNSOLI CTED RESULTS Final Result Performing Organization Address City/[facility] Co de Phone Number [facility] POCT SPECIAL FUNCTION LAB GROUPS 1 & [address] [place] [phone] * (ABNORMAL) POCT Glucose (01/16/2025 5:06 PM EST) Glucose 105(H) 70 - 99 mg/dL 01/16/2025 5:12 PM EST [facility] POCT SPECIAL FUNCTION LAB GROUPS 1 & 2 Blood (Blood) 01/16/2025 5:0 6 PM EST 01/16/2025 5:12 PM EST us Ranjan Newton MD LAB POCT DOCKED DEVICE UNSOLI CTED RESULTS Final Result [facility] POCT SPECIAL FUNCTION LAB GROUPS 1 & [address] [place] [address] * XR Chest Portable (01/16/2025 12:37 PM EST) Anatomical Region Laterality Modality Chest Computed Radiogr aphy 01/16/2025 1:13 PM EST Impressions 01/16/2025 1:26 PM EST PICC distal tip overlies lower SVC. There is a 9 x 16 mm nodule in the right midlung. Possibilities may include a pulmonary nodule, focus of infection/inflammation, or nodular focus of atelectasis. Further characterization with chest CT is recommended and to exclude pulmonary nodule. There is a 6 mm nodule in the left upper lung zone which may represent a pulmonary nodule. Further characterization of this finding with chest CT is also recommended. Patchy areas of opacity in the left base may represent subsegmental atelectasis. Indeterminate 9 mm sclerotic focus in the proximal left humeral head. RECOMMENDATION: Further assessment with chest CT, please see above. Findings and recommendation for chest CT discussed with CORINA FRANCOIS for clinical follow up 01/16/2025 at 1:25 PM. Narrative 01/16/2025 1:26 PM EST XR CHEST PORTABLE Referring clinician's provided indication for this examination in Epic: Central Line; right PICC COMPARISON: No prior examinations available for comparison. FINDINGS: Devices/Tubes/Lines: A right upper extremity PICC is demonstrated with distal tip overlying the lower SVC. Lungs: In the left upper lung zone, there is a 6 mm pulmonary nodule. In the right midlung is a 9 x 16 mm opacity which is asymmetric compared to the left lung. There are mild areas of patchy opacity present in the left retrocardiac region and left base. No prior examinations are available to compare. Pleura: No pleural effusion or pneumothorax. Heart/Mediastinum: The cardiac silhouette is within normal limits in size. Mild vascular calcification seen within the aortic arch. There is mild elevation of the left hemidiaphragm when compared to the right. Bones/Soft Tissues: There is an indeterminate 9 mm sclerotic focus in the proximal left humeral head. There are degenerative changes of the thoracic spine. Procedure Note Chaz Nye MD - 01/16/2025 XR CHEST PORTABLE Referring clinician's provided indication for this examination in Epic:Central Line; right PICC COMPARISON: No prior examinations available for comparison. FINDINGS: Devices/Tubes/Lines: A right upper extremity PICC is demonstrated withdistal tip overlying the lower SVC. Lungs: In the left upper lung zone, there is a 6 mm pulmonary nodule. Inthe right midlung is a 9 x 16 mm opacity which is asymmetric compared tothe left lung. There are mild areas of patchy opacity present in the leftretrocardiac region and left base. No prior examinations are available tocompare. Pleura: No pleural effusion or pneumothorax. Heart/Mediastinum: The cardiac silhouette is within normal limits in size.Mild vascular calcification seen within the aortic arch. There is mildelevation of the left hemidiaphragm when compared to the right. Bones/Soft Tissues: There is an indeterminate 9 mm sclerotic focus in theproximal left humeral head. There are degenerative changes of the thoracicspine. IMPRESSION: PICC distal tip overlies lower SVC. There is a 9 x 16 mm nodule in the right midlung. Possibilities mayinclude a pulmonary nodule, focus of infection/inflammation, or nodularfocus of atelectasis. Further characterization with chest CT isrecommended and to exclude pulmonary nodule. There is a 6 mm nodule in the left upper lung zone which may represent apulmonary nodule. Further characterization of this finding with chest CTis also recommended. Patchy areas of opacity in the left base may represent subsegmentalatelectasis. Indeterminate 9 mm sclerotic focus in the proximal left humeral head. RECOMMENDATION: Further assessment with chest CT, please see above. Findings and recommendation for chest CT discussed with EZEKIEL FRANCOIS for clinical follow up 01/16/2025 at 1:25 PM. us Ranjan Newton MD IMG XR CHEST Final Result * Insert PICC line (01/16/2025 12:03 PM EST) Narrative Katia Pappas RN - 01/16/2025 12:03 PM EST Katia Pappas RN 01/16/2025 12:51 PM Insert PICC line Date/Time: 01/16/2025 12:03 PM Performed by: Katia Pappas RN Authorized by: Ranjan Newton MD [place] Protocol: Consent obtained: Yes Time out: Immediately prior to the procedure a time-out was called A time out verifies correct patient, procedure, equipment and site/side marked as required: Indications: Indications: Vascular access Post-procedure: *Successful Insertion of peripherally inserted central catheter (PICC)* *Patient is 64 y.o.* COOKER SULFATE: Willa NEWELL PICC RN PRECEPTOR (If Applicable): ULTRASOUND SERIAL NUMBER: [[id number] Procedure Specifics: LOCAL ANESTHESIA: 1% Lidocaine, 3 mls given intradermally. ARM: Right Upper Arm SELECTED VEIN: Brachial BASELINE ARM CIRCUMFERENCE: 33 cm (at or near intended insertion site) [id number] RATIO: 26% DEVICE (PICC): BD 5Fr DL PowerPICC 3 PRE-MEASURED LENGTH: 42 cm EXTERNAL LENGTH: 0 cm renee Procedure Summary (Narrative): The Patient was informed of the nature of the proposed procedure. The purposes, alternatives, risks, and benefits were explained and discussed. All questions were answered, Written consent was obtained, and the patient's room was prepped. The patient's ARM was prepped and draped using standard sterile technique. All elements of maximal sterile barrier technique were followed including cap and mask, sterile gown, sterile gloves, large sterile sheet, hand hygiene and alcohol-based 2% chlorhexidine solution for cutaneous antisepsis allowed to dry for at least 30 seconds.The 0.018 in. nitinol guidewire measures 50 cm pre-insertion. LOCAL ANESTHESIA given intradermally. The SELECTED VEIN was confirmed by ultrasound to be patent and compressible, and then was accessed with a 21 gauge x 7 cm echogenic needle under sonographic guidance. The guidewire was easily introduced. A scalpel was used to perform a small dermatotomy at the insertion site.The echogenic needle was exchanged for a peel away sheath microintroducer and the guidewire was removed from the patient's body. The guidewire was inspected upon removal and was fully intact, measuring the same as the pre-insertion length. The DEVICE was trimmed to the PRE-MEASURED LENGTH and introduced through the sheath without resistance.The DEVICE was then fully advanced and the tip was positioned via BD [place] TPS. The DEVICE'S internal stylet was removed and visualized as intact by both the ARMORED CAR GUARD AND DRIVER and COOKER SULFATE. The lumen(s) aspirated blood briskly and flushed easily with 10 ml 0.9% sterile sodium chloride. The DEVICE was secured with Statlock and the catheter-skin junction was covered with a sterile dressing that included a chlorhexidine-impregnated foam disk and transparent semipermeable membrane (Tegaderm). The patient tolerated the procedure well and no immediate complication(s) identified. All sharps were accounted for and disposed of per hospital policy. Findings: The [id number] RATIO with inserted DEVICE IS within the optimal range of < 45%. The SELECTED VEIN was fully compressible, did not demonstrate pulsation, and was successfully accessed under sonographic guidance. Successful placement of selected DEVICE. PICC tip location to be determined by post-procedure AP chest film. PICC confirmation pending results of CXR report and will require an OK TO USE order. Red DO NOT USE UNCONFIRMED CATHETER Label applied. Please remove the red DO NOT USE - UNCONFIRMED CATHETER label after post-procedure AP chest film confirms PICC tip location and an OK TO USE LINE order has been placed. Pertinent Information: When a chest film is taken on an ECG-confirmed PICC that reports the tip in the right atrium and there are no signs/symptoms of cardiac ectopy, the recommendation from the vascular access/ IV team is, in the absence of ectopy, no further intervention is warranted. Depending on multiple factors (e.g., patient positioning, lung volumes, angle of film, arm abduction/ adduction, clavicle position, etc.), terminal PICC tip location can vary + or - 2cm on chest films. Indication(s): Skilled Nursing Anti-Infective(s) Clinician's Notes: Had some difficulty dropping catheter into SVC. Unable to obtain adequate 3CG waveform. CXR for confirmation. Imaging: Ranjan Newton MD PROCEDURE/MINOR SURGICAL ORDE RASHEEDA Final Result * (ABNORMAL) POCT Glucose (01/16/2025 11:22 AM EST) [facility] Glucose 113(H) 70 - 99 mg/dL 01/16/2025 11:28 AM EST [facility] POCT SPECIAL FUNCTION LAB GROUPS 1 & 2 Blood (Blood) 01/16/2025 11: 22 AM EST 01/16/2025 11:28 AM EST us Ranjan Newton MD LAB POCT DOCKED DEVICE UNSOLI CTED RESULTS Final Result Performing Organization Address [facility] Co de Phone Number [facility] POCT SPECIAL FUNCTION LAB GROUPS 1 & [address] [place] [phone] * (ABNORMAL) POCT Glucose (01/16/2025 7:01 AM EST) Glucose 110(H) 70 - 99 mg/dL 01/16/2025 7:07 AM EST [facility] POCT SPECIAL FUNCTION LAB GROUPS 1 & 2 Blood (Blood) 01/16/2025 7:0 1 AM EST 01/16/2025 7:07 AM EST us Ranjan Newton MD LAB POCT DOCKED DEVICE UNSOLI CTED RESULTS Final Result Performing Organization Address [facility] de Phone Number [facility] POCT SPECIAL FUNCTION LAB GROUPS 1 & [address] [place] [phone] * (ABNORMAL) CBC and Differential (01/16/2025 6:04 AM EST) WBC 6.09 4.00 - 11.00 K/uL 01/16/2025 6:21 AM [facility] RBC 3.80(L) 4.50 - 5.90 M/uL 01/16/2025 6:21 AM [facility] Hemoglobin 11.7(L) 13.5 - 17.5 g/dL 01/16/2025 6:21 AM [facility] Hematocrit 35.0(L) 41.0 - 53.0 % 01/16/2025 6:21 AM [facility] MCV 92.1 80.0 - 100.0 fL 01/16/2025 6:21 AM [facility] MCH 30.8 27.0 - 31.0 pg 01/16/2025 6:21 AM [facility] MCHC 33.4 32.0 - 36.0 g/dL 01/16/2025 6:21 AM [facility] MPV 9.2 8.4 - 12.0 fL 01/16/2025 6:21 AM [facility] RDW-CV 12.8 11.5 - 14.5 % 01/16/2025 6:21 AM [facility] PLT 280 150 - 450 K/uL 01/16/2025 6:21 AM [facility] Neutrophils 49.3 % 01/16/2025 6:21 AM [facility] Lymphocytes 33.5 % 01/16/2025 6:21 AM [facility] Monocytes 10.3 % 01/16/2025 6:21 AM [facility] Eosinophils 5.1 % 01/16/2025 6:21 AM [facility] Basophils 1.1 % 01/16/2025 6:21 AM [facility] Imm Grans 0.7 % 01/16/2025 6:21 AM [facility] NRBC 0.0 <=0.0 /100 WBCs 01/16/2025 6:21 AM [facility] Absolute Neutrophils 3.00 1.92 - 7.60 K/uL 01/16/2025 6:21 AM [facility] Absolute Lymphocytes 2.04 0.72 - 4.10 K/uL 01/16/2025 6:21 AM [facility] Absolute Monocytes 0.63 0.16 - 1.10 K/uL 01/16/2025 6:21 AM [facility] Absolute Eosinophils 0.31 0.00 - 0.50 K/uL 01/16/2025 6:21 AM [facility] Absolute Basophils 0.07 0.00 - 0.15 K/uL 01/16/2025 6:21 AM [facility] Absolute Imm Grans 0.04 0.00 - 0.09 K/uL 01/16/2025 6:21 AM [facility] Absolute NRBC 0.00 <=0.00 K cells/uL 01/16/2025 6:21 AM [facility] Absolute Neutrophils 3.00 1.92 - 7.60 K/uL 01/16/2025 6:21 AM [facility] Comment:Automated cell count . Manual ANC may differ if performed. Diff Type Auto 01/16/2025 6:21 AM [facility] Blood (Blood) Catheter/Line / Unknown 01/16/2025 6:04 AM EST 01/16/2025 6:10 AM EST us Ranjan Newton MD LAB BLOOD BKR ORDERABLES Eulalia l Result [address] [address] * (ABNORMAL) Basic Metabolic Panel (BMP) (01/16/2025 6:04 AM EST) Sodium 138 136 - 145 mmol/L 01/16/2025 7:28 AM EST [facility] Potassium 4.2 3.4 - 5.1 mmol/L 01/16/2025 7:28 AM EST [facility] Chloride 104 98 - 107 mmol/L 01/16/2025 7:28 AM EST [facility] CO2 25 20 - 31 mmol/L 01/16/2025 7:28 AM [facility] Anion Gap 9 3 - 17 mmol/L 01/16/2025 7:28 AM [facility] BUN 21 6 - 23 mg/dL 01/16/2025 7:28 AM [facility] Creatinine 1.39(H) 0.60 - 1.30 mg/dL 01/16/2025 7:28 AM [facility] eGFR 57(L) >59 mL/min/1. 73m2 01/16/2025 7:28 AM [facility] Comment:Estimated glomerular filtration rate calculated using the CKD-EPI refit equation. Glucose 118(H) 70 - 99 mg/dL 01/16/2025 7:28 AM [facility] Calcium 9.0 8.5 - 10.5 mg/dL 01/16/2025 7:28 AM [facility] Blood (Blood) Catheter/Line / Unknown 01/16/2025 6:04 AM EST 01/16/2025 6:10 AM EST us Ranjan Newton MD LAB BLOOD BKR ORDERABLES Eulalia l Result [address] [address] * Hepatic Panel (LFTs) (01/16/2025 6:04 AM EST) AST 26 10 - 40 U/L 01/16/2025 7:28 AM EST [facility] ALT 28 10 - 55 U/L 01/16/2025 7:28 AM EST [facility] Alkaline Phosphatase 78 40 - 130 U/L 01/16/2025 7:28 AM EST [facility] Bilirubin, Total 0.3 0.0 - 1.2 mg/dL 01/16/2025 7:28 AM EST [facility] Bilirubin, Direct 0.1 0.0 - 0.3 mg/dL 01/16/2025 7:28 AM EST [facility] Total Protein 7.0 6.4 - 8.3 g/dL 01/16/2025 7:28 AM EST [facility] Albumin 3.7 3.5 - 5.2 g/dL 01/16/2025 7:28 AM EST [facility] Globulin 3.3 1.9 - 4.1 g/dL 01/16/2025 7:28 AM EST [facility] Blood (Blood) Catheter/Line / Unknown 01/16/2025 6:04 AM EST 01/16/2025 6:10 AM EST Ranjan Newton MD LAB BLOOD BKR ORDERABLES Eulalia l Result [address] [address] * Magnesium (01/16/2025 6:04 AM EST) Magnesium 2.2 1.7 - 2.6 mg/dL 01/16/2025 7:28 AM EST [facility] Blood (Blood) Catheter/Line / Unknown 01/16/2025 6:04 AM EST 01/16/2025 6:10 AM EST Ranjan Newton MD LAB BLOOD BKR ORDERABLES Eulalia l Result [address] [address] * Phosphorus (01/16/2025 6:04 AM EST) Phosphorus 3.2 2.5 - 4.5 mg/dL 01/16/2025 7:28 AM EST [facility] Blood (Blood) Catheter/Line / Unknown 01/16/2025 6:04 AM EST 01/16/2025 6:10 AM EST Ranjan Newton MD LAB BLOOD BKR ORDERABLES Eulalia l Result Performing Organization Address City/[facility]/ZIP Co de Phone Number [address] [address] * Vancomycin Level, Trough (01/16/2025 6:04 AM EST) Vancomycin, Trough 12.9 10.0 - 20.0 ug/mL 01/16/2025 7:08 AM EST [facility] Blood (Blood) Catheter/Line / Unknown 01/16/2025 6:04 AM EST 01/16/2025 6:10 AM EST Ranjan Newton MD LAB BLOOD BKR ORDERABLES Eulalia l Result Performing Organization Address [facility]/ZIP Co de Phone Number [address] [address] * (ABNORMAL) POCT Glucose (01/15/2025 9:19 PM EST) Glucose 136(H) 70 - 99 mg/dL 01/15/2025 9:21 PM EST [facility] POCT SPECIAL FUNCTION LAB GROUPS 1 & 2 Blood (Blood) 01/15/2025 9:1 9 PM EST 01/15/2025 9:21 PM EST Ranjan Newton MD LAB POCT DOCKED DEVICE UNSOLI CTED RESULTS Final Result Performing Organization Address [facility] Co de Phone Number [facility] POCT SPECIAL FUNCTION LAB GROUPS 1 & [address] [place] [address] * (ABNORMAL) POCT Glucose (01/15/2025 5:02 PM EST) Glucose 163(H) 70 - 99 mg/dL 01/15/2025 5:05 PM EST [facility] POCT SPECIAL FUNCTION LAB GROUPS 1 & 2 Blood (Blood) 01/15/2025 5:0 2 PM EST 01/15/2025 5:05 PM EST us Ranjan Newton MD LAB POCT DOCKED DEVICE UNSOLI CTED RESULTS Final Result Performing Organization Address [facility] de Phone Number [facility] POCT SPECIAL FUNCTION LAB GROUPS 1 & [address] [place] [address] * (ABNORMAL) POCT Glucose (01/15/2025 11:22 AM EST) Glucose 107(H) 70 - 99 mg/dL 01/15/2025 11:28 AM EST [facility] POCT SPECIAL FUNCTION LAB GROUPS 1 & 2 Blood (Blood) 01/15/2025 11: 22 AM EST 01/15/2025 11:28 AM EST us Ranjan Newton MD LAB POCT DOCKED DEVICE UNSOLI CTED RESULTS Final Result Performing Organization Address [facility] de Phone Number [facility] POCT SPECIAL FUNCTION LAB GROUPS 1 & [address] [place] [address] * (ABNORMAL) POCT Glucose (01/15/2025 7:36 AM EST) Glucose 118(H) 70 - 99 mg/dL 01/15/2025 7:42 AM EST [facility] POCT SPECIAL FUNCTION LAB GROUPS 1 & 2 Blood (Blood) 01/15/2025 7:3 6 AM EST 01/15/2025 7:42 AM EST us Ranjan Newton MD LAB POCT DOCKED DEVICE UNSOLI CTED RESULTS Final Result Performing Organization Address [facility] de Phone Number [facility] POCT SPECIAL FUNCTION LAB GROUPS 1 & [address] [place] [phone] * (ABNORMAL) Basic Metabolic Panel (BMP) (01/15/2025 5:28 AM EST) Sodium 143 136 - 145 mmol/L 01/15/2025 6:13 AM EST [facility] Potassium 4.3 3.4 - 5.1 mmol/L 01/15/2025 6:13 AM [facility] Chloride 107 98 - 107 mmol/L 01/15/2025 6:13 AM [facility] CO2 22 20 - 31 mmol/L 01/15/2025 6:13 AM [facility] Anion Gap 14 3 - 17 mmol/L 01/15/2025 6:13 AM [facility] BUN 25(H) 6 - 23 mg/dL 01/15/2025 6:13 AM [facility] Creatinine 1.34(H) 0.60 - 1.30 mg/dL 01/15/2025 6:13 AM [facility] eGFR 60 >59 mL/min/1. 73m2 01/15/2025 6:13 AM [facility] Comment:Estimated glomerular filtration rate calculated using the CKD-EPI refit equation. Glucose 121(H) 70 - 99 mg/dL 01/15/2025 6:13 AM [facility] Calcium 8.7 8.5 - 10.5 mg/dL 01/15/2025 6:13 AM [facility] Blood (Blood) Venipuncture / Unknown 01/15/2025 5:28 AM EST 01/15/2025 5:35 AM EST us Ranjan Newton MD LAB BLOOD BKR ORDERABLES Eulalia walsh Result Performing Organization Address City/State/[facility] Co de Phone Number [address] [address] * (ABNORMAL) CBC (01/15/2025 5:28 AM EST) WBC 6.66 4.00 - 11.00 K/uL 01/15/2025 5:50 AM [facility] RBC 3.56(L) 4.50 - 5.90 M/uL 01/15/2025 5:50 AM [facility] Hemoglobin 11.2(L) 13.5 - 17.5 g/dL 01/15/2025 5:50 AM [facility] Hematocrit 32.9(L) 41.0 - 53.0 % 01/15/2025 5:50 AM [facility] MCV 92.4 80.0 - 100.0 fL 01/15/2025 5:50 AM [facility] MCH 31.5(H) 27.0 - 31.0 pg 01/15/2025 5:50 AM [facility] MCHC 34.0 32.0 - 36.0 g/dL 01/15/2025 5:50 AM [facility] PLT 287 150 - 450 K/uL 01/15/2025 5:50 AM [facility] MPV 9.4 8.4 - 12.0 fL 01/15/2025 5:50 AM [facility] RDW-CV 12.4 11.5 - 14.5 % 01/15/2025 5:50 AM [facility] Absolute NRBC 0.00 <=0.00 K cells/uL 01/15/2025 5:50 AM [facility] NRBC 0.0 <=0.0 /100 WBCs 01/15/2025 5:50 AM [facility] Blood (Blood) Venipuncture / Unknown 01/15/2025 5:28 AM EST 01/15/2025 5:35 AM EST Ranjan Newton MD LAB BLOOD BKR ORDERABLES Eulalia l Result [address] [address] * Magnesium (01/15/2025 5:28 AM EST) Magnesium 2.2 1.7 - 2.6 mg/dL 01/15/2025 6:13 AM [facility] Blood (Blood) Venipuncture / Unknown 01/15/2025 5:28 AM EST 01/15/2025 5:35 AM EST Ranjan Newton MD LAB BLOOD BKR ORDERABLES Eulalia l Result [address] [address] * Phosphorus (01/15/2025 5:28 AM EST) Phosphorus 3.4 2.5 - 4.5 mg/dL 01/15/2025 6:13 AM [facility] Blood (Blood) Venipuncture / Unknown 01/15/2025 5:28 AM EST 01/15/2025 5:35 AM EST Ranjan Newton MD LAB BLOOD BKR ORDERABLES Eulalia l Result Performing Organization Address City/[facility]/ZIP Co de Phone Number [address] [address] * Vancomycin Level, Trough (01/15/2025 5:28 AM EST) Vancomycin, Trough 10.0 10.0 - 20.0 ug/mL 01/15/2025 6:25 AM EST [facility] Blood (Blood) Venipuncture / Unknown 01/15/2025 5:28 AM EST 01/15/2025 5:40 AM EST Ranjan Newton MD LAB BLOOD BKR ORDERABLES Eulalia l Result Performing Organization Address [facility]/ZIP Co de Phone Number [address] [address] * (ABNORMAL) POCT Glucose (01/14/2025 9:01 PM EST) Glucose 128(H) 70 - 99 mg/dL 01/14/2025 9:03 PM EST [facility] POCT SPECIAL FUNCTION LAB GROUPS 1 & 2 Blood (Blood) 01/14/2025 9:0 1 PM EST 01/14/2025 9:03 PM EST Ranjan Newton MD LAB POCT DOCKED DEVICE UNSOLI CTED RESULTS Final Result Performing Organization Address City/[facility] Co de Phone Number [facility] POCT SPECIAL FUNCTION LAB GROUPS 1 & [address] [place] [address] * (ABNORMAL) POCT Glucose (01/14/2025 5:05 PM EST) Glucose 152(H) 70 - 99 mg/dL 01/14/2025 5:11 PM EST [facility] POCT SPECIAL FUNCTION LAB GROUPS 1 & 2 Blood (Blood) 01/14/2025 5:0 5 PM EST 01/14/2025 5:11 PM EST us Ranjan Newton MD LAB POCT DOCKED DEVICE UNSOLI CTED RESULTS Final Result Performing Organization Address [facility]/ZIP Co de Phone Number [facility] POCT SPECIAL FUNCTION LAB GROUPS 1 & [address] [place] [phone] * (ABNORMAL) POCT Glucose (01/14/2025 12:21 PM EST) Glucose 109(H) 70 - 99 mg/dL 01/14/2025 12:27 PM EST [facility] POCT SPECIAL FUNCTION LAB GROUPS 1 & 2 Blood (Blood) 01/14/2025 12: 21 PM EST 01/14/2025 12:27 PM EST us Ranjan Newton MD LAB POCT DOCKED DEVICE UNSOLI CTED RESULTS Final Result Performing Organization Address [facility] de Phone Number [facility] POCT SPECIAL FUNCTION LAB GROUPS 1 & [address] [place] [address] * (ABNORMAL) Cystatin C with Estimated Glomerular Filtration Rate (eGFR) (01/14/2025 11:50 AM EST) Cystatin C 1.50(H) 0.61 - 0.95 mg/L 01/14/2025 12:56 PM EST [facility] Cystatin C eGFR 45(L) >59 mL/min/1. 73m2 01/14/2025 12:56 PM EST [facility] Comment:Cystatin C-based eGF R may differ substantially from creatinine-based eGFR in patients with abnormal muscle mass or acutely changing renal function. Please interpret together with relevant clinical features. Blood (Blood) Venipuncture / Unknown 01/14/2025 11:50 AM EST 01/14/2025 11:53 AM EST us Ranjan Newton MD LAB BLOOD BKR ORDERABLES Eulalia l Result Performing Organization Address [facility]/ZIP Co de Phone Number [address] [address] * Urinalysis (01/14/2025 11:21 AM EST) Color Light Yellow Yellow 01/14/2025 4:07 PM [facility] Clarity Clear Clear 01/14/2025 4:07 PM [facility] Glucose Negative Negative 01/14/2025 4:07 PM [facility]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 (WILLIAM) <=10: Susceptible Staphylococcus haemolyticus Oxacillin(methicillin ) RAPID SUSCEPTIBILITY TESTING (WILLIAM) >=4: Resistant Staphylococcus haemolyticus Gentamicin RAPID SUSCEPTIBILITY TESTING (WILLIAM) >=16: Resistant Staphylococcus haemolyticus Ciprofloxacin RAPID SUSCEPTIBILITY TESTING (WILLIAM) >=8: Resistant Staphylococcus haemolyticus Levofloxacin RAPID SUSCEPTIBILITY TESTING (WILLIAM) >=8: Resistant Staphylococcus haemolyticus Erythromycin RAPID SUSCEPTIBILITY TESTING (WILLIAM) >=8: Resistant Staphylococcus haemolyticus Clindamycin RAPID SUSCEPTIBILITY TESTING (WILLIAM) 0.25: Susceptible Staphylococcus haemolyticus Vancomycin RAPID SUSCEPTIBILITY TESTING (WILLIAM) 1: Susceptible Staphylococcus haemolyticus Doxycycline RAPID SUSCEPTIBILITY TESTING (WILLIAM) >=16: Resistant Staphylococcus haemolyticus Tetracycline RAPID SUSCEPTIBILITY TESTING (WILLIAM) >=16: Resistant Staphylococcus haemolyticus Trimethoprim/sulfamet hoxazole RAPID SUSCEPTIBILITY TESTING (WILLIAM) >=320: Resistant Staphylococcus aureus Oxacillin(methicil magi ) RAPID SUSCEPTIBILITY TESTING (WILLIAM) <=0.25: Susceptible Staphylococcus aureus Ciprofloxacin RAPID SUSC EPTIBILITY TESTING (WILLIAM) 2: Intermediate Staphylococcus aureus Erythromycin RAPID SUSC EPTIBILITY TESTING (WILLIAM) <=0.25: Susceptible Staphylococcus aureus Clindamycin RAPID SUSC EPTIBILITY TESTING (WILLIAM) 0.25: Susceptible Staphylococcus aureus Vancomycin RAPID SUSC EPTIBILITY TESTING (WILLIAM) 1: Susceptible Staphylococcus aureus Doxycycline RAPID SUSC EPTIBILITY TESTING (WILLIAM) <=0.5: Susceptible Staphylococcus aureus Trimethoprim/sulfa met hoxazole RAPID SUSCEPTIBILITY TESTING (WILLIAM) <=10: Susceptible Staphylococcus epidermidis Oxacillin(methicillin ) RAPID SUSCEPTIBILITY TESTING (WILLIAM) <=0.25: Susceptible Staphylococcus epidermidis Erythromycin RAPID SUSCEPTIBILITY TESTING (WILLIAM) >=8: Resistant Staphylococcus epidermidis Clindamycin RAPID SUSCEPTIBILITY TESTING (WILLIAM) 0.25: Susceptible Staphylococcus epidermidis Vancomycin RAPID SUSCEPTIBILITY TESTING (WILLIAM) 1: Susceptible Staphylococcus epidermidis Doxycycline RAPID SUSCEPTIBILITY TESTING (WILLIAM) 1: Susceptible Staphylococcus epidermidis Trimethoprim/sulfamet hoxazole RAPID SUSCEPTIBILITY TESTING (WILLIAM) <=10: Susceptible Martín Berkowitz MD LAB MICROBIOLOGY CULTURE ORDERABLES Edited Result - Final Performing Organization Address City/[facility]/ZIP Co de Phone Number [address] [address] * Anaerobic Culture (01/11/2025 3:14 PM EST) Anaerobic Culture/Test No anaerobes isolated 01/18/2025 8:42 AM EST [facility] Tissue - General (Toe, Left) Non-Blood Collection / Unknown 01/11/2025 3:14 PM EST 01/11/2025 5:11 PM EST Martín Berkowitz MD LAB MICROBIOLOGY CULTURE ORDERABLES Final Result Performing Organization Address City/[facility]/ZIP Co de Phone Number [address] [address] * (ABNORMAL) TISSUE CULTURE/GRAM STAIN (01/11/2025 3:14 PM EST) Tissue Culture/Afua t Few (2+) Staphylococcus aureus(A) RAPID SUSCEPTIBILITY TESTING (WILLIAM) 9:44 AM EST [facility] Tissue Culture/Afua t Rare (1+) Staphylococcus haemolyticus(A) RAPID SUSCEPTIBILITY TESTING (WILLIAM) 5 9:44 AM EST [facility] Gram Stain Moderate (3+) Polymorphonuclear leukocytes 5 9:44 AM EST [facility] Gram Stain Moderate (3+) Mononuclear cells 5 9:44 AM EST [facility] Gram Stain Rare (1+) Squamous epithelial cells 9:44 AM EST [facility] Gram Stain No organisms seen 02 5 9:44 AM [facility] Tissue - General (Toe, Left) Non-Blood Collection / Unknown 01/11/2025 3:14 PM EST 01/11/2025 5:11 PM EST Narrative Organism Antibiotic Method Susceptibility Staphylococcus aureus Oxacillin(methicil magi ) RAPID SUSCEPTIBILITY TESTING (WILLIAM) >=4: Resistant Staphylococcus aureus Ciprofloxacin RAPID SUSC EPTIBILITY TESTING (WILLIAM) >=8: Resistant Staphylococcus aureus Levofloxacin RAPID SUSC EPTIBILITY TESTING (WILLIAM) >=8: Resistant Staphylococcus aureus Erythromycin RAPID SUSC EPTIBILITY TESTING (WILLIAM) >=8: Resistant Staphylococcus aureus Clindamycin RAPID SUSC EPTIBILITY TESTING (WILLIAM) 0.25: Resistant Staphylococcus aureus Vancomycin RAPID SUSC EPTIBILITY TESTING (WILLIAM) 1: Susceptible Staphylococcus aureus Doxycycline RAPID SUSC EPTIBILITY TESTING (WILLIAM) <=0.5: Susceptible Staphylococcus aureus Trimethoprim/sulfa met hoxazole RAPID SUSCEPTIBILITY TESTING (WILLIAM) <=10: Susceptible Staphylococcus haemolyticus Oxacillin(methicillin ) RAPID SUSCEPTIBILITY TESTING (WILLIAM) >=4: Resistant Staphylococcus haemolyticus Gentamicin RAPID SUSCEPTIBILITY TESTING (WILLIAM) >=16: Resistant Staphylococcus haemolyticus Ciprofloxacin RAPID SUSCEPTIBILITY TESTING (WILLIAM) >=8: Resistant Staphylococcus haemolyticus Levofloxacin RAPID SUSCEPTIBILITY TESTING (WILLIAM) >=8: Resistant Staphylococcus haemolyticus Erythromycin RAPID SUSCEPTIBILITY TESTING (WILLIAM) >=8: Resistant Staphylococcus haemolyticus Clindamycin RAPID SUSCEPTIBILITY TESTING (WILLIAM) 0.25: Susceptible Staphylococcus haemolyticus Vancomycin RAPID SUSCEPTIBILITY TESTING (WILLIAM) 1: Susceptible Staphylococcus haemolyticus Doxycycline RAPID SUSCEPTIBILITY TESTING (WILLIAM) >=16: Resistant Staphylococcus haemolyticus Tetracycline RAPID SUSCEPTIBILITY TESTING (WILLIAM) >=16: Resistant Staphylococcus haemolyticus Trimethoprim/sulfamet hoxazole RAPID SUSCEPTIBILITY TESTING (WILLIAM) >=320: Resistant Martín Berkowitz MD LAB MICROBIOLOGY CULTURE ORDERABLES Final Result Performing Organization Address [facility] Co de Phone Number [address] [address] * (ABNORMAL) POCT Glucose (01/11/2025 11:17 AM EST) Glucose 112(H) 70 - 99 mg/dL 01/11/2025 11:23 AM EST [facility] POCT SPECIAL FUNCTION LAB GROUPS 1 & 2 Blood (Blood) 01/11/2025 11: 17 AM EST 01/11/2025 11:23 AM EST Ranjan Newton MD LAB POCT DOCKED DEVICE UNSOLI CTED RESULTS Final Result Performing Organization Address [facility] de Phone Number [facility] POCT SPECIAL FUNCTION LAB GROUPS 1 & [address] [place] [address] * (ABNORMAL) POCT Glucose (01/11/2025 7:17 AM EST) Glucose 123(H) 70 - 99 mg/dL 01/11/2025 7:19 AM EST [facility] POCT SPECIAL FUNCTION LAB GROUPS 1 & 2 Blood (Blood) 01/11/2025 7:1 7 AM EST 01/11/2025 7:19 AM EST Ranjan Newton MD LAB POCT DOCKED DEVICE UNSOLI CTED RESULTS Final Result Performing Organization Address [facility] de Phone Number [facility] POCT SPECIAL FUNCTION LAB GROUPS 1 & [address] [place] [phone] * Prepare Plasma, 1 Units (01/11/2025 4:46 AM EST) Product Order Status Product Order 01/15/2025 12:50 AM EST [facility] 01/11/2025 4:46 AM EST 01/11/2025 4:51 AM EST Ranjan Newton MD BLOOD BANK PRODUCT ORDERABLES Final Result [facility] * Prepare RBC, 1 Units (01/11/2025 4:46 AM EST) Product Order Status Product Order 01/15/2025 12:50 AM EST [facility] 01/11/2025 4:46 AM EST 01/11/2025 4:51 AM EST Ranjan Newton MD BLOOD BANK PRODUCT ORDERABLES Final Result Performing Organization Address City/[facility]/ZIP Co de Phone Number [facility] * (ABNORMAL) Basic Metabolic Panel (BMP) (01/11/2025 4:46 AM EST) Sodium 140 136 - 145 mmol/L 01/11/2025 5:18 AM [facility] Potassium 4.1 3.4 - 5.1 mmol/L 01/11/2025 5:18 AM [facility] Chloride 106 98 - 107 mmol/L 01/11/2025 5:18 AM [facility] CO2 24 20 - 31 mmol/L 01/11/2025 5:18 AM [facility] Anion Gap 10 3 - 17 mmol/L 01/11/2025 5:18 AM [facility] BUN 28(H) 6 - 23 mg/dL 01/11/2025 5:18 AM [facility] Creatinine 1.09 0.60 - 1.30 mg/dL 01/11/2025 5:18 AM [facility] eGFR 76 >59 mL/min/1. 73m2 01/11/2025 5:18 AM [facility] Comment:Estimated glomerular filtration rate calculated using the CKD-EPI refit equation. Glucose 123(H) 70 - 99 mg/dL 01/11/2025 5:18 AM [facility] Calcium 9.0 8.5 - 10.5 mg/dL 01/11/2025 5:18 AM [facility] Blood (Blood) Catheter/Line / Unknown 01/11/2025 4:46 AM EST 01/11/2025 4:54 AM EST Ranjan Newton MD LAB BLOOD BKR ORDERABLES Eulalia l Result [address] [address] * Type and Screen (ABO, Rh, Antibody Screen) (01/11/2025 4:46 AM EST) ABO/Rh O POS 01/11/2025 5:49 AM EST [facility] DEPARTMENT OF PATHOLOGY Antibody Screen NEG 5:49 AM EST [facility] DEPARTMENT OF PATHOLOGY Sample Expiration 01/14/2025 23:59 01/11/2025 5:49 AM EST [facility] DEPARTMENT OF PATHOLOGY Blood (Blood) Catheter/Line / Unknown 01/11/2025 4:46 AM EST 01/11/2025 4:51 AM EST Ranjan Newton MD LAB BLOOD BANK TEST ORDERABLE S Final Result Performing Organization Address City/[facility]/ZIP Co de Phone Number [facility] DEPARTMENT OF PATHOLOGY [address] [place] [phone] * Magnesium (01/11/2025 4:46 AM EST) Magnesium 2.3 1.7 - 2.6 mg/dL 01/11/2025 5:18 AM EST [facility] Blood (Blood) Catheter/Line / Unknown 01/11/2025 4:46 AM EST 01/11/2025 4:54 AM EST Ranjan Newton MD LAB BLOOD BKR ORDERABLES Eulalia l Result [address] [address] [address] * Phosphorus (01/11/2025 4:46 AM EST) Phosphorus 3.0 2.5 - 4.5 mg/dL 01/11/2025 5:18 AM EST [facility] Blood (Blood) Catheter/Line / Unknown 01/11/2025 4:46 AM EST 01/11/2025 4:54 AM EST Ranjan Newton MD LAB BLOOD BKR ORDERABLES Eulalia nico Result [address] [address] * (ABNORMAL) CBC (01/11/2025 4:46 AM EST) WBC 6.74 4.00 - 11.00 K/uL 01/11/2025 5:07 AM [facility] RBC 3.70(L) 4.50 - 5.90 M/uL 01/11/2025 5:07 AM [facility] Hemoglobin 11.5(L) 13.5 - 17.5 g/dL 01/11/2025 5:07 AM [facility] Hematocrit 33.6(L) 41.0 - 53.0 % 01/11/2025 5:07 AM [facility] MCV 90.8 80.0 - 100.0 fL 01/11/2025 5:07 AM [facility] MCH 31.1(H) 27.0 - 31.0 pg 01/11/2025 5:07 AM [facility] MCHC 34.2 32.0 - 36.0 g/dL 01/11/2025 5:07 AM [facility] PLT 349 150 - 450 K/uL 01/11/2025 5:07 AM [facility] MPV 9.0 8.4 - 12.0 fL 01/11/2025 5:07 AM [facility] RDW-CV 12.2 11.5 - 14.5 % 01/11/2025 5:07 AM [facility] Absolute NRBC 0.00 <=0.00 K cells/uL 01/11/2025 5:07 AM [facility] NRBC 0.0 <=0.0 /100 WBCs 01/11/2025 5:07 AM [facility] Blood (Blood) Catheter/Line / Unknown 01/11/2025 4:46 AM EST 01/11/2025 4:55 AM EST Ranjan Newton MD LAB BLOOD BKR ORDERABLES Eulalia l Result [address] [address] * Prepare Plasma, 1 Units (01/11/2025 4:46 AM EST) Pathologist [facility] Product Order Status Product Order 01/15/2025 12:50 AM EST [facility] 01/11/2025 4:46 AM EST 01/11/2025 4:51 AM EST Ranjan Newton MD BLOOD BANK PRODUCT ORDERABLES Final Result Performing Organization Address City/[facility] Co de Phone Number [facility] * Prepare RBC, 1 Units (01/11/2025 4:46 AM EST) Pathologist [facility] Donation Number [id number] 2024 11:21 AM EST [facility] DEPARTMENT OF PATHOLOGY Product Code [id number] 01/12/2025 11:21 AM EST [facility] DEPARTMENT OF PATHOLOGY Unit ABO/Rh O POS 01/12/2025 11:21 AM EST [facility] DEPARTMENT OF PATHOLOGY Unit Status Released 01/12/2025 11:21 AM EST [facility] DEPARTMENT OF PATHOLOGY Unit Expiration [id number] 025 11:21 AM EST [facility] DEPARTMENT OF PATHOLOGY Barcoded Product Code [id number] 01/12/2025 11:21 AM EST [facility] DEPARTMENT OF PATHOLOGY Barcoded ABO/Rh 5100 11:21 AM EST [facility] DEPARTMENT OF PATHOLOGY Crossmatch Interpretation Compatible 01/12/2025 11:21 AM EST [facility] DEPARTMENT OF PATHOLOGY 01/11/2025 4:46 AM EST 01/11/2025 4:51 AM EST Ranjan Newton MD BLOOD BANK PRODUCT ORDERABLES Final Result [facility] DEPARTMENT OF PATHOLOGY [address] [place] [address] * (ABNORMAL) POCT Glucose (01/10/2025 8:55 PM EST) Pathologist [facility] Glucose 125(H) 70 - 99 mg/dL 01/10/2025 8:57 PM EST [facility] POCT SPECIAL FUNCTION LAB GROUPS 1 & 2 Blood (Blood) 01/10/2025 8:5 5 PM EST 01/10/2025 8:57 PM EST us Ranjan Newton MD LAB POCT DOCKED DEVICE UNSOLI CTED RESULTS Final Result Performing Organization Address [facility] Co de Phone Number [facility] POCT SPECIAL FUNCTION LAB GROUPS 1 & [address] [place] [address] * (ABNORMAL) POCT Glucose (01/10/2025 4:26 PM EST) Glucose 114(H) 70 - 99 mg/dL 01/10/2025 4:28 PM EST [facility] POCT SPECIAL FUNCTION LAB GROUPS 1 & 2 Blood (Blood) 01/10/2025 4:2 6 PM EST 01/10/2025 4:28 PM EST us Ranjan Newton MD LAB POCT DOCKED DEVICE UNSOLI CTED RESULTS Final Result Performing Organization Address [facility] de Phone Number [facility] POCT SPECIAL FUNCTION LAB GROUPS 1 & [address] [place] [address] * (ABNORMAL) POCT Glucose (01/10/2025 11:42 AM EST) Glucose 106(H) 70 - 99 mg/dL 01/11/2025 6:50 AM EST [facility] POCT SPECIAL FUNCTION LAB GROUPS 1 & 2 Blood (Blood) 01/10/2025 11: 42 AM EST 01/11/2025 6:50 AM EST us Ranjan Newton MD LAB POCT DOCKED DEVICE UNSOLI CTED RESULTS Final Result Performing Organization Address [facility] Co de Phone Number [facility] POCT SPECIAL FUNCTION LAB GROUPS 1 & [address] [place] [address] * POCT Glucose (01/10/2025 11:03 AM EST) Glucose 96 70 - 99 mg/dL 01/10/2025 11:09 AM EST [facility] POCT SPECIAL FUNCTION LAB GROUPS 1 & 2 Blood (Blood) 01/10/2025 11: 03 AM EST 01/10/2025 11:09 AM EST Ranjan Newton MD LAB POCT DOCKED DEVICE UNSOLI CTED RESULTS Final Result Performing Organization Address [facility] Co de Phone Number [facility] POCT SPECIAL FUNCTION LAB GROUPS 1 & [address] [place] [address] * (ABNORMAL) POCT Glucose (01/10/2025 7:43 AM EST) Glucose 134(H) 70 - 99 mg/dL 01/10/2025 7:48 AM EST [facility] POCT SPECIAL FUNCTION LAB GROUPS 1 & 2 Blood (Blood) 01/10/2025 7:4 3 AM EST 01/10/2025 7:48 AM EST Ranjan Newton MD LAB POCT DOCKED DEVICE UNSOLI CTED RESULTS Final Result Performing Organization Address City/[facility] de Phone Number [facility] POCT SPECIAL FUNCTION LAB GROUPS 1 & [address] [place] [address] * (ABNORMAL) CBC and Differential (01/10/2025 3:06 AM EST) WBC 7.16 4.00 - 11.00 K/uL 01/10/2025 3:20 AM [facility] RBC 3.97(L) 4.50 - 5.90 M/uL 01/10/2025 3:20 AM [facility] Hemoglobin 12.3(L) 13.5 - 17.5 g/dL 01/10/2025 3:20 AM [facility] Hematocrit 36.4(L) 41.0 - 53.0 % 01/10/2025 3:20 AM [facility] MCV 91.7 80.0 - 100.0 fL 01/10/2025 3:20 AM [facility] MCH 31.0 27.0 - 31.0 pg 01/10/2025 3:20 AM [facility] MCHC 33.8 32.0 - 36.0 g/dL 01/10/2025 3:20 AM [facility] MPV 9.0 8.4 - 12.0 fL 01/10/2025 3:20 AM [facility] RDW-CV 11.9 11.5 - 14.5 % 01/10/2025 3:20 AM [facility] PLT 379 150 - 450 K/uL 01/10/2025 3:20 AM [facility] Neutrophils 49.8 % 01/10/2025 3:20 AM [facility] Lymphocytes 34.6 % 01/10/2025 3:20 AM [facility] Monocytes 9.4 % 01/10/2025 3:20 AM [facility] Eosinophils 4.2 % 01/10/2025 3:20 AM [facility] Basophils 1.3 % 01/10/2025 3:20 AM [facility] Imm Grans 0.7 % 01/10/2025 3:20 AM [facility] NRBC 0.0 <=0.0 /100 WBCs 01/10/2025 3:20 AM [facility] Absolute Neutrophils 3.57 1.92 - 7.60 K/uL 01/10/2025 3:20 AM [facility] Absolute Lymphocytes 2.48 0.72 - 4.10 K/uL 01/10/2025 3:20 AM [facility] Absolute Monocytes 0.67 0.16 - 1.10 K/uL 01/10/2025 3:20 AM [facility] Absolute Eosinophils 0.30 0.00 - 0.50 K/uL 01/10/2025 3:20 AM [facility] Absolute Basophils 0.09 0.00 - 0.15 K/uL 01/10/2025 3:20 AM [facility] Absolute Imm Grans 0.05 0.00 - 0.09 K/uL 01/10/2025 3:20 AM [facility] Absolute NRBC 0.00 <=0.00 K cells/uL 01/10/2025 3:20 AM [facility] Absolute Neutrophils 3.57 1.92 - 7.60 K/uL 01/10/2025 3:20 AM [facility] Comment:Automated cell count . Manual ANC may differ if performed. Diff Type Auto 01/10/2025 3:20 AM [facility] Blood (Blood) Catheter/Line / Unknown 01/10/2025 3:06 AM EST 01/10/2025 3:11 AM EST Corina Francois LOG [facility]OPER LAB BLOOD BKR ORDERABLE S Final Result Performing Organization Address [facility]/ZIP Co de Phone Number [address] [address] * (ABNORMAL) Basic Metabolic Panel (BMP) (01/10/2025 3:06 AM EST) Sodium 141 136 - 145 mmol/L 01/10/2025 3:36 AM [facility] Potassium 4.2 3.4 - 5.1 mmol/L 01/10/2025 3:36 AM [facility] Chloride 103 98 - 107 mmol/L 01/10/2025 3:36 AM [facility] CO2 25 20 - 31 mmol/L 01/10/2025 3:36 AM [facility] Anion Gap 13 3 - 17 mmol/L 01/10/2025 3:36 AM [facility] BUN 25(H) 6 - 23 mg/dL 01/10/2025 3:36 AM [facility] Creatinine 1.25 0.60 - 1.30 mg/dL 01/10/2025 3:36 AM [facility] eGFR 65 >59 mL/min/1. 73m2 01/10/2025 3:36 AM [facility] Comment:Estimated glomerular filtration rate calculated using the CKD-EPI refit equation. Glucose 123(H) 70 - 99 mg/dL 01/10/2025 3:36 AM [facility] Calcium 9.2 8.5 - 10.5 mg/dL 01/10/2025 3:36 AM [facility] Blood (Blood) Catheter/Line / Unknown 01/10/2025 3:06 AM EST 01/10/2025 3:11 AM EST us Ranjan Newton MD LAB BLOOD BKR ORDERABLES Eulalia l Result Performing Organization Address [facility]/ZIP Co de Phone Number [address] [address] * Hepatic Panel (LFTs) (01/10/2025 3:06 AM EST) AST 28 10 - 40 U/L 01/10/2025 3:36 AM EST [facility] ALT 24 10 - 55 U/L 01/10/2025 3:36 AM EST [facility] Alkaline Phosphatase 84 40 - 130 U/L 01/10/2025 3:36 AM EST [facility] Bilirubin, Total 0.3 0.0 - 1.2 mg/dL 01/10/2025 3:36 AM EST [facility] Bilirubin, Direct 0.1 0.0 - 0.3 mg/dL 01/10/2025 3:36 AM EST [facility] Total Protein 7.6 6.4 - 8.3 g/dL 01/10/2025 3:36 AM EST [facility] Albumin 3.8 3.5 - 5.2 g/dL 01/10/2025 3:36 AM EST [facility] Globulin 3.8 1.9 - 4.1 g/dL 01/10/2025 3:36 AM EST [facility] Blood (Blood) Catheter/Line / Unknown 01/10/2025 3:06 AM EST 01/10/2025 3:11 AM EST us Corina Francois LOG [facility]OPER LAB BLOOD BKR ORDERABLE S Final Result Performing Organization Address City/[facility]/ZIP Co de Phone Number [address] [address] * (ABNORMAL) POCT Glucose (01/09/2025 8:25 PM EST) Glucose 174(H) 70 - 99 mg/dL 01/09/2025 8:27 PM EST [facility] POCT SPECIAL FUNCTION LAB GROUPS 1 & 2 Blood (Blood) 01/09/2025 8:2 5 PM EST 01/09/2025 8:27 PM EST us Ranjan Newton MD LAB POCT DOCKED DEVICE UNSOLI CTED RESULTS Final Result Performing Organization Address City/[facility]/ZIP Co de Phone Number [facility] POCT SPECIAL FUNCTION LAB GROUPS 1 & [address] [place] [phone] * (ABNORMAL) POCT Glucose (01/09/2025 4:21 PM EST) Glucose 195(H) 70 - 99 mg/dL 01/09/2025 4:24 PM EST [facility] POCT SPECIAL FUNCTION LAB GROUPS 1 & 2 Blood (Blood) 01/09/2025 4:2 1 PM EST 01/09/2025 4:24 PM EST us Ranjan Newton MD LAB POCT DOCKED DEVICE UNSOLI CTED RESULTS Final Result [facility] POCT SPECIAL FUNCTION LAB GROUPS 1 & [address] [place] [address] * TTE COMPREHENSIVE W/ LVO CONTRAST (01/09/2025 11:40 AM EST) Body Surface Area 2.08 m2 Left Ventricle Internal Diameter End Diastole 55 42 - 58 mm Interventricular Septum Thickness 11 6 - 11 mm Aortic Sinus Diameter 37 <40 mm Height 174 cm Left Ventricle Internal Diameter End Systole 37 <40 mm Left Ventricular Posterior Wall Thickness 10 6 - 11 mm Ascending Aorta Diameter 32 <36 mm Weight 93.00 kg Raw LV EF% 55 % Left Atrium Dimension Anterior-Posterior 42 15 - 40 mm Left Ventricular Apical Contribution 10 Ejection Fraction 65 50 - 75 % Relative Wall Thickness 0.36 0.22 - 0.42 Left Ventricle indexed to BSA 109.3 g/m2 Aortic Valve Sinus Index by BSA 18 mm/m2 Aorta Sinus Index by Height 2.13 cm/m Aorta Sinus CSA index by Height 6.18 cm2/m Ascending Aorta Index 15 mm/m2 Asc Aorta CSA Index by Height 4.62 cm2/m Ascending Aorta Index 15 mm Aortic Sinus Index 18 mm Ascending Aorta Diameter 15 mm Aortic Valve Sinus Index 1 18 20 - 32 mm AO ASC DIAM BSA INDEX 15.38 Left Atrial Volume Index 54 16 - 34 mL/m2 Right Ventricle Basal Diameter 45 25 - 41 mm Left Atrial Volume 113 mL Left Atrial Volume Index by Height 65 mL/m Right Atrium Dimension Superior-Inferior 63 mm Right Atrium Index Superior-Inferior 30 19 - 30 mm/m2 Right Atrium Dimension Medial-Lateral 40 mm Right Atrium Dimension Medial-Lateral 19 13 - 25 mm/m2 Inferior Vena Cava Diameter 14 <21 mm Tricuspid Valve Peak Velocity 2.3 m/s Right Ventricle to Right Atrium Pressure Gradient 21 mmHg Right Ventricle Peak Systolic Pressure (Assuming RAP 10) 31 mmHg MGB CV ECHO TV RVSP (ASSUMING RAP OF 5) 26 mmHg RVSP (Exclusive of RAP) 21 mmHg Right Atrium Dimension Medial-Lateral 19 mm/m2 Right Atrium Index Superior-Inferior 30 mm/m2 Anatomical Region Laterality Modality Heart Ultrasound Narrative 01/09/2025 1:47 PM EST Normal biventricular systolic function. Mildly dilated right ventricle. Left atrial dilation. No hemodynamically significant valvular disease. Normal estimated RV systolic pressure (31 mmHg). Left Ventricle The left ventricle is normal in size. There is normal wall thickness. There is normal left ventricular systolic function. The LV ejection fraction is 65% (calculated via the single dimension method). There are no wall motion abnormalities. There is no evidence of thrombus. Right Ventricle The right ventricle is mildly dilated. The RV basal dimension is 45 mm (normal: 25-41 mm). There is normal right ventricular systolic function. Left Atrium The left atrium is dilated. The left atrial volume is 113 mL. The left atrial volume index by BSA is 54 mL/m2 (normal: 16-34 mL/m2). Right Atrium The right atrium is normal in size. The IVC is normal in size with normal inspiratory collapse. This is consistent with normal RA pressure. Mitral Valve There is no evidence of mitral valve prolapse. There is trace mitral regurgitation. Tricuspid Valve There is trace tricuspid regurgitation. The RV systolic pressure was calculated at 31 mmHg (using TR peak velocity of 2.3 m/s and assuming an RA pressure of 10 mmHg). Aortic Valve The aortic valve is tricuspid. Multiple leaflets are thickened at the bases. There is no aortic stenosis. There is no aortic regurgitation. The visualized portions of the thoracic aorta appear normal in size. Pulmonic Valve There is trace pulmonic regurgitation. Pericardium There is no pericardial effusion. General Findings The image quality was fair (3). An ultrasound enhancing agent was administered IV, per ASE guidelines. Comparison Findings There are no prior studies for comparison. us Ranjan Newton MD CV ECHO ORDERABLES Final Resu lt * (ABNORMAL) POCT Glucose (01/09/2025 7:22 AM EST) Glucose 124(H) 70 - 99 mg/dL 01/09/2025 7:28 AM EST [facility] POCT SPECIAL FUNCTION LAB GROUPS 1 & 2 Blood (Blood) 01/09/2025 7:2 2 AM EST 01/09/2025 7:28 AM EST us Ranjan Newton MD LAB POCT DOCKED DEVICE UNSOLI CTED RESULTS Final Result [facility] POCT SPECIAL FUNCTION LAB GROUPS 1 & [address] [place] [address] * (ABNORMAL) Basic Metabolic Panel (BMP) (01/09/2025 5:32 AM EST) Pathologist [facility] Sodium 137 136 - 145 mmol/L 01/09/2025 6:16 AM [facility] Potassium 3.8 3.4 - 5.1 mmol/L 01/09/2025 6:16 AM [facility] Chloride 104 98 - 107 mmol/L 01/09/2025 6:16 AM [facility] CO2 23 20 - 31 mmol/L 01/09/2025 6:16 AM [facility] Anion Gap 10 3 - 17 mmol/L 01/09/2025 6:16 AM [facility] BUN 22 6 - 23 mg/dL 01/09/2025 6:16 AM [facility] Creatinine 1.28 0.60 - 1.30 mg/dL 01/09/2025 6:16 AM [facility] eGFR 63 >59 mL/min/1. 73m2 01/09/2025 6:16 AM [facility] Comment:Estimated glomerular filtration rate calculated using the CKD-EPI refit equation. Glucose 123(H) 70 - 99 mg/dL 01/09/2025 6:16 AM EST [facility] Calcium 8.6 8.5 - 10.5 mg/dL 01/09/2025 6:16 AM [facility] Blood (Blood) Catheter/Line / Unknown 01/09/2025 5:32 AM EST 01/09/2025 5:39 AM EST us Ranjan Newton MD LAB BLOOD BKR ORDERABLES Eulalia l Result Performing Organization Address [facility]/ZIP Co de Phone Number [address] [address] * POCT Glucose (01/08/2025 8:41 PM EST) Glucose 90 70 - 99 mg/dL 01/08/2025 8:43 PM EST [facility] POCT SPECIAL FUNCTION LAB GROUPS 1 & 2 Blood (Blood) 01/08/2025 8:4 1 PM EST 01/08/2025 8:43 PM EST us Ranjan Newton MD LAB POCT DOCKED DEVICE UNSOLI CTED RESULTS Final Result Performing Organization Address [facility] de Phone Number [facility] POCT SPECIAL FUNCTION LAB GROUPS 1 & [address] [place] [address] * (ABNORMAL) POCT Glucose (01/08/2025 4:46 PM EST) Glucose 145(H) 70 - 99 mg/dL 01/08/2025 4:48 PM EST [facility] POCT SPECIAL FUNCTION LAB GROUPS 1 & 2 Blood (Blood) 01/08/2025 4:4 6 PM EST 01/08/2025 4:48 PM EST us Ranjan Newton MD LAB POCT DOCKED DEVICE UNSOLI CTED RESULTS Final Result Performing Organization Address [facility] de Phone Number [facility] POCT SPECIAL FUNCTION LAB GROUPS 1 & [address] [place] [address] * (ABNORMAL) POCT Glucose (01/08/2025 11:12 AM EST) Glucose 106(H) 70 - 99 mg/dL 01/08/2025 11:17 AM EST [facility] POCT SPECIAL FUNCTION LAB GROUPS 1 & 2 Blood (Blood) 01/08/2025 11: 12 AM EST 01/08/2025 11:17 AM EST us Ranjan Newton MD LAB POCT DOCKED DEVICE UNSOLI CTED RESULTS Final Result Performing Organization Address City/[facility]/ZIP Co de Phone Number [facility] POCT SPECIAL FUNCTION LAB GROUPS 1 & [address] [place] [phone] * (ABNORMAL) POCT Glucose (01/08/2025 7:13 AM EST) Glucose 125(H) 70 - 99 mg/dL 01/08/2025 7:16 AM EST [facility] POCT SPECIAL FUNCTION LAB GROUPS 1 & 2 Blood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 times daily, First dose on Thu01/13/25 at 1215, Apply to foot For TOPICAL Use Only Given 01/17/2025 9:20 AM EST Given 01/16/2025 8:39 AM EST Given 01/15/2025 8:20 AM EST 1 Application omeprazole (PriLOSEC) capsule 20 mg 20 mg, Oral, Daily, First dose on Alisha 01/05/25 at 1400, Capsule may be opened and contents added to 1 tablespoon of applesauce (use immediately after adding to applesauce); mixture should not be chewed or warmed. Do NOT crush or chew. Given 01/22/2025 8:15 AM EST 20 mg Given 01/21/2025 8:50 AM EST 20 mg Given 01/20/2025 8:36 AM EST 20 mg oxyCODONE tablet 5 mg 5 mg, Oral, Once as needed, moderate pain or 4-6 (on a general 0-10 scale), Starting on 01/17/25 at 1810, For 1 dose, Recovery Room (only), When tolerating PO's Given 01/17/2025 6:20 PM EST 5 mg perflutren lipid microspheres (DEFINITY) injection 1-2 mL 1-2 mL, Intravenous, Once as needed, imaging, To be administered as needed during echo study to opacify the left ventricular chamber and to improve delineation of the left ventricular endocardial border., Starting on 01/09/25 at 1130, For 1 dose, Cardiology Procedural Contrast , Dilute one 2 mL vial of activated Definity with 8 mL of normal saline prior to administration. May repeat with a second vial if indicated (must be ordered separately) for a maximum of 20 mL of diluted solution (maximum 2 vials of Definity) per imaging study. Given 01/09/2025 11:39 AM EST 2 mL piperacillin-tazobactam (ZOSYN) 3.375 g in sodium chloride 0.9% 50 mL IVPB-MBP 3.375 g, Intravenous, Administer over 1 Hours, at 50 mL/hr, Every 6 hours, First dose on Thu01/05/25 at 1645, MINIBAG PLUS PREPARATION Use Piperacillin-Tazobactam 3.375 g vial for MBP reconstitution (equivalent to 3,000 mg piperacillin), Indication: Infection WITHOUT sepsis, Infection Source: Skin & Soft Tissue Infection New Bag 01/08/2025 10:08 AM EST 3.375 g 50 mL/hr New Bag 01/08/2025 5:32 AM EST 3.375 g 50 mL/hr New Bag 01/07/2025 10:40 PM EST 3.375 g 50 mL/hr polyethylene glycol packet 17 g, Oral, Daily, First dose on Thu01/12/25 at 0900, Dissolve and stir one packet of powder (17 g) in 4-8 oz of water or juice. Given 01/20/2025 8:36 AM EST 17 g Given 01/19/2025 8:42 AM EST 17 g Given 01/18/2025 9:21 AM EST 17 g senna (SENOKOT) tablet 1 tablet 1 tablet, Oral, 2 times daily, First dose on Thu01/12/25 at 0900 Given 01/15/2025 9:20 PM EST 1 tablet Given 01/15/2025 8:20 AM EST 1 tablet Given 01/14/2025 9:05 PM EST 1 tablet senna (SENOKOT) tablet 2 tablet 2 tablet, Oral, 2 times daily, First dose (after last modification) on Thu01/16/25 at 0900 Given 01/20/2025 8:36 AM EST 2 tablets Given 01/19/2025 9:02 PM EST 2 tablets Given 01/19/2025 8:42 AM EST 2 tablets sodium chloride (NS) 0.9 % syringe flush 10 mL 10 mL, Intravenous, Every 8 hours, First dose on Thu01/16/25 at 0830 Given 01/22/2025 8:23 AM EST 10 mL Given 01/22/2025 12:03 AM EST 10 mL Given 01/21/2025 4:30 PM EST 10 mL sodium hypochlorite (DAKIN'S (HALF-STRENGTH)) 0.25 % external solution Topical, Every 6 hours, First dose on Thu01/18/25 at 1000, Left foot Given 01/18/2025 9:21 AM EST sodium hypochlorite (DAKIN'S (HALF-STRENGTH)) 0.25 % external solution Topical, Every 8 hours, First dose (after last modification) on Thu01/18/25 at 1430, Left foot Given 01/22/2025 8:16 AM EST Given 01/22/2025 1:35 AM EST Given 01/21/2025 6:14 PM EST tamsulosin (FLOMAX) 24 hr capsule 0.4 mg 0.4 mg, Oral, Nightly, First dose on Thu01/06/25 at 0730, Administer 30 minutes after the same meal each day. Capsule may be opened, and the contents taken without crushing or chewing; soft food such as applesauce or pudding may facilitate administration. Contents may generally be administered via large bore (14- to 18- Fr) nasogastric tube using an appropriate fluid provided entire contents are washed down the tube. Given 01/22/2025 8:15 AM EST 0.4 mg Given 01/21/2025 8:50 AM EST 0.4 mg Given 01/20/2025 8:37 AM EST 0.4 mg vancomycin (VANCOCIN) 1,500 mg in sodium chloride 0.9% 150 mL IVPB (Central Line) 1,500 mg, Intravenous, Administer over 90 Minutes, Every 24 hours, First dose on Thu01/20/25 at 1330, For CENTRAL LINE Use Only, Indication: Infection WITH SEPSIS, Infection Source: Bone & Joint Infection, Skin & Soft Tissue Infection New Bag 01/21/2025 1:41 PM EST 1,500 mg 100 mL/hr New Bag 01/20/2025 2:33 PM EST 1,500 mg 100 mL/hr vancomycin (VANCOCIN) 1.5 gram/500 mL in NS IVPB premix 1,500 mg, Intravenous, Administer over 90 Minutes, at 333.3 mL/hr, Once, On Thu01/18/25 at 0815, For 1 dose, Indication: Infection WITHOUT sepsis, Infection Source: Bone & Joint Infection, Skin & Soft Tissue Infection [facility] 01/18/2025 9:21 AM EST 1,500 mg 333.3 mL/hr vancomycin (VANCOCIN) 1.5 gram/500 mL in NS IVPB premix 1,500 mg, Intravenous, Administer over 90 Minutes, at 333.3 mL/hr, Once, On Thu01/19/25 at 1000, For 1 dose, Indication: Infection WITHOUT sepsis, Infection Source: Bone & Joint Infection, Skin & Soft Tissue Infection [facility] 01/19/2025 11:26 AM EST 1,500 mg 333.3 mL/hr vancomycin (VANCOCIN) 1.75 gram/500 mL in NS IVPB premix 1,750 mg, Intravenous, Administer over 120 Minutes, at 250 mL/hr, Once, On Thu01/15/25 at 0930, For 1 dose, Indication: Infection WITHOUT sepsis, Infection Source: Skin & Soft Tissue Infection [facility] 01/15/2025 9:45 AM EST 1,750 mg 250 mL/ hr vancomycin (VANCOCIN) 1.75 gram/500 mL in NS IVPB premix 1,750 mg, Intravenous, Administer over 120 Minutes, at 250 mL/hr, Once, On Thu01/16/25 at 0900, For 1 dose, Indication: Infection WITHOUT sepsis, Infection Source: Skin & Soft Tissue Infection, Bone & Joint Infection [facility] 01/16/2025 9:17 AM EST 1,750 mg 250 mL/hr vancomycin (VANCOCIN) 1.75 gram/500 mL in NS IVPB premix 1,750 mg, Intravenous, Administer over 120 Minutes, at 250 mL/hr, Once, On Thu01/17/25 at 0815, For 1 dose, Indication: Infection WITHOUT sepsis, Infection Source: Skin & Soft Tissue Infection, Bone & Joint Infection [facility] 01/17/2025 10:32 AM EST 1,750 mg 250 mL/hr vancomycin (VANCOCIN) 1.75 gram/500 mL in NS IVPB premix 1,750 mg, Intravenous, Administer over 120 Minutes, Every 24 hours, First dose on Thu01/22/25 at 1300, Indication: Infection WITH SEPSIS, Infection Source: Bone & Joint Infection, Skin & Soft Tissue Infection [facility] 01/22/2025 2:05 PM EST 1,750 mg 250 mL/hr vancomycin (VANCOCIN) 2 gram/500 mL in NS IVPB premix 2,000 mg (rounded from 1,878 mg = 20 mg/kg 93.9 kg), Intravenous, Administer over 120 Minutes, at 250 mL/hr, Once, On 01/14/25 at 1345, For 1 dose, Indication: Infection WITHOUT sepsis, Infection Source: Skin & Soft Tissue Infection New Bag 01/14/2025 1:53 PM EST 2,000 mg 250 mL/ hr vancomycin (VANCOCIN) 250 mg in sodium chloride 0.9% 50 mL IVPB (Central Line) 250 mg, Intravenous, Administer over 60 Minutes, Once, On 01/21/25 at 1530, For 1 dose, For CENTRAL LINE Use Only, Indication: Infection WITH SEPSIS, Infection Source: Bone & Joint Infection, Skin & Soft Tissue Infection New Bag 01/21/2025 4:30 PM EST 250 mg 50 mL/hr vancomycin (VANCOCIN) PHARMACIST-managed 1 each 1 each, Intravenous, See admin instructions, Starting on 01/14/25 at 1245, This is a reminder that patient is receiving vancomycin managed by pharmacy. Please discontinue placeholder when no longer receiving vanco., Indication: Infection WITHOUT sepsis, Infection Source: Skin & Soft Tissue Infection documented in this encounter Active and Recently Administered Medications Times are shown in EST. Scheduled Medication Order 01/20/2025 01/21/2025 01/22/2025 ampicillin-sulbactam (UNASYN) 3,000 mg in sodium chloride 0.9% 100 mL IVPB-MBP 3,000 mg, Intravenous, Administer over 30 Minutes, Every 6 hours, First dose on 01/08/25 at 1700, MINIBAG PLUS PREPARATION Use Ampicillin-Sulbactam 3 g vial for MBP reconstitution (equivalent to 2,000 mg ampicillin), Indication: Infection WITHOUT sepsis, Infection Source: Skin & Soft Tissue Infection 0536 (New Bag - Provider: Jhonny Breaux RN)1105 (New Bag - Provider: Susan Garber, RN)1702 (New Bag - Provider: Susan Garber, RN)2313 (New Bag - Provider: Jhonny Breaux, RN) 0528 (New Bag - Provider: Jhonny Breaux RN)1215 (New Bag - Provider: Deidre Crooks RN)1813 (New Bag - Provider: Deidre Crooks RN)2306 (New Bag - Provider: Akin Yap, DAVE) 0628 (New Bag - Provider: Akin Yap, DAVE)1309 (New Bag - Provider: Cheyanne Dale, DAVE) chlorhexidine gluconate 2 % wipe 1 each 1 each (1 Application), Topical, Daily, First dose on Thu01/16/25 at 0830, Apply to body. Use each wipe only once. Do not use wipes on face or any mucous membranes. Cleanse tubes and lines, avoid dressings. For TOPICAL Use Only 0604 (Given - Provider: Jhonny Breaux RN) 0605 (Given - Provider: Jhonny Breaux RN) 0814 (Given - Provider: Cheyanne Dale, RN) cholecalciferol (VITAMIN D3) tablet 400 Units 400 Units, Oral, Daily, First dose on Thu01/05/25 at 1400, 10 mcg = 400 units 0837 (Given - Provider: Susan Garber RN) 0853 (Given - Provider: Deidre Crooks RN) 0815 (Given - Provider: Cheyanne Dale, RN) fexofenadine (GRANT) tablet 180 mg 180 mg, Oral, Daily, First dose on Thu01/16/25 at 0915 0837 (Given - Provider: Susan Garber RN) 0853 (Given - Provider: Deidre Crooks RN) 0815 (Given - Provider: Cheyanne Dale, DAVE) fluconazole (DIFLUCAN) tablet 400 mg 400 mg, Oral, Daily, First dose on Thu01/19/25 at 2000, THIS IS A LOW RISK HAZARDOUS AGENT. Must use appropriate precautions when handling and disposing of this agent., Indication: Infection WITHOUT sepsis, Infection Source: Skin & Soft Tissue Infection 2047 (Given - Provider: Jhonny Breaux RN) 2026 (Given - Provider: Akin Yap, DAVE) heparin 5,000 unit/mL injection 5,000 Units 5,000 Units, Subcutaneous, Every 8 hours, First dose on Thu01/12/25 at 0900 0837 (Given - Provider: Susan Garber RN)1702 (Given - Provider: Susan Garber RN)2313 (Given - Provider: Jhonny Breaux, DAVE) 0850 (Given - Provider: Deidre Crooks, DAVE)1630 (Given - Provider: Deidre Crooks, DAVE)2306 (Given - Provider: Akin Yap, RN) 0815 (Given - Provider: Cheyanne Dale, RN)1600 (Due) lisinopril (PRINIVIL,ZESTRIL) tablet 5 mg 5 mg, Oral, Every morning, First dose (after last modification) on Thu01/18/25 at 1330 0536 (Given - Provider: Jhonny Breaux RN) 0527 (Given - Provider: Jhonny Breaux RN) 0628 (Given - Provider: Akin Yap, DAVE) nydmutnohgkm-fhf-ypvv-FA- vit K 45 mg iron- 800 mcg-120 mcg (CELEBRATE) Cap 1 tablet, Oral, Daily, First dose on Thu01/07/25 at 1330, Drug Name: Celebrate bariatric multivitamin, Form: Capsule, Length of Therapy: Indefinite, How soon needed? (normally 72 hrs needed to procure): 24-48 hrs, Rationale for non-formulary use including previous trials of formulary agents: No therapeutic alternative available, Can the patient supply their home medication? Yes 0842 (Given - Provider: Susan Garber RN) 0856 (Given - Provider: Deidre Crooks, DAVE) 0815 (Given - Provider: Cheyanne Dale RN) omeprazole (PriLOSEC) capsule 20 mg 20 mg, Oral, Daily, First dose on Thu01/05/25 at 1400, Capsule may be opened and contents added to 1 tablespoon of applesauce (use immediately after adding to applesauce); mixture should not be chewed or warmed. Do NOT crush or chew. 0836 (Given - Provider: Susan Garber RN) 0850 (Given - Provider: Deidre Crooks, DAVE) 0815 (Given - Provider: Cheyanne Dale, DAVE) polyethylene glycol packet 17 g, Oral, Daily, First dose on Thu01/12/25 at 0900, Dissolve and stir one packet of powder (17 g) in 4-8 oz of water or juice. 0836 (Given - Provider: Susan Garber RN) 0851 (Not Given - Provider: Deidre Crooks RN - Reason: Patient/family refused) 0807 (Not Given - Provider: Cheyanne Dale RN - Reason: Patient/family refused) senna (SENOKOT) tablet 2 tablet 2 tablet, Oral, 2 times daily, First dose (after last modification) on Thu01/16/25 at 0900 0836 (Given - Provider: Susan Garber RN)2047 (Not Given - Provider: Jhonny Breaux RN - Reason: Patient/family refused) 0852 (Not Given - Provider: Deidre Crooks RN - Reason: Patient/family refused)2026 (Not Given - Provider: Akin Yap RN - Reason: Patient/family refused) 0807 (Not Given - Provider: Cheyanne Dale RN - Reason: Patient/family refused) sodium chloride (NS) 0.9 % syringe flush 10 mL 10 mL, Intravenous, Every 8 hours, First dose on Thu01/16/25 at 0830 0743 (Given - Provider: Susan Garber, DAVE)1658 (Given - Provider: Susan Garber RN)2347 (Given - Provider: Jhonny Breaux, DAVE) 0851 (Given - Provider: Deidre Crooks, DAVE)1630 (Given - Provider: Deidre Crooks, DAVE) 0003 (Given - Provider: Akin Yap, DAVE)0823 (Given - Provider: Cheyanne Dale, RN)1630 (Due) sodium hypochlorite (DAKIN'S (HALF-STRENGTH)) 0.25 % external solution Topical, Every 8 hours, First dose (after last modification) on Thu01/18/25 at 1430, Left foot 0540 (Given - Provider: Jhonny Breaux RN)1715 (Given - Provider: Susan Garber RN) 0001 (Given - Provider: Jhonny Breaux RN)0854 (Given - Provider: Deidre Crooks, DAVE)1814 (Given - Provider: Deidre Crooks RN) 0135 (Given - Provider: Akin Yap RN)0816 (Given - Provider: Cheyanne Dale, DAVE) tamsulosin (FLOMAX) 24 hr capsule 0.4 mg 0.4 mg, Oral, Nightly, First dose on Thu01/06/25 at 0730, Administer 30 minutes after the same meal each day. Capsule may be opened, and the contents taken without crushing or chewing; soft food such as applesauce or pudding may facilitate administration. Contents may generally be administered via large bore (14- to 18- Fr) nasogastric tube using an appropriate fluid provided entire contents are washed down the tube. 0837 (Given - Provider: Susan Garber RN) 0850 (Given - Provider: Deidre Crooks, DAVE) 0815 (Given - Provider: Cheyanne Dale, DAVE) vancomycin (VANCOCIN) 1,500 mg in sodium chloride 0.9% 150 mL IVPB (Central Line) (CANCELED) 1,500 mg, Intravenous, Administer over 90 Minutes, Every 24 hours, First dose on Thu01/20/25 at 1330, For CENTRAL LINE Use Only, Indication: Infection WITH SEPSIS, Infection Source: Bone & Joint Infection, Skin & Soft Tissue Infection 1433 (New Bag - Provider: Susan Garber RN) 1341 (New Bag - Provider: Deidre Crooks, DAVE) vancomycin (VANCOCIN) 1.75 gram/500 mL in NS IVPB premix 1,750 mg, Intravenous, Administer over 120 Minutes, Every 24 hours, First dose on Thu01/22/25 at 1300, Indication: Infection WITH SEPSIS, Infection Source: Bone & Joint Infection, Skin & Soft Tissue Infection 1405 (New Bag - Provider: Cheyanne Dlae RN) vancomycin (VANCOCIN) 250 mg in sodium chloride 0.9% 50 mL IVPB (Central Line) (COMPLETED) 250 mg, Intravenous, Administer over 60 Minutes, Once, On 01/21/25 at 1530, For 1 dose, For CENTRAL LINE Use Only, Indication: Infection WITH SEPSIS, Infection Source: Bone & Joint Infection, Skin & Soft Tissue Infection 1630 (New Bag - Provider: Deidre Crooks RN) vancomycin (VANCOCIN) PHARMACIST-managed 1 each 1 each, Intravenous, See admin instructions, Starting on 01/14/25 at 1245, This is a reminder that patient is receiving vancomycin managed by pharmacy. Please discontinue placeholder when no longer receiving vanco., Indication: Infection WITHOUT sepsis, Infection Source: Skin & Soft Tissue Infection PRN Medication Order 01/20/2025 01/21/2025 01/22/2025 acetaminophen (TYLENOL) tablet 650 mg 650 mg, Oral, Every 6 hours PRN, mild pain or 1-3 (on a general 0-10 scale), Starting on Tu01/10/25 at 0400, Patient may opt to receive a pain med that is ordered for a lower level of pain. bisacodyl (DULCOLAX) EC tablet 5 mg 5 mg, Oral, Daily as needed, moderate constipation, Starting on 01/16/25 at 0551, Do NOT crush or chew. sodium chloride (NS) 0.9 % syringe flush 3 mL 3 mL, Intravenous, As needed, line care, Starting on Alisha 01/05/25 at 1310, Per Institutional IV Line Care Policy. documented in this encounter Additional Health Concerns Infection Onset 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 Resolved Time MRSA 01/11/2025 01/11/2025 documented as of this encounter Care Teams Expressive Art Therapist Relationship Specialty Start Date End Date Po, Marichuy Pereira MD [address] [place] [phone] PCP - General Internal Medicine 10/01/23 documented as of this encounter Additional Source Comments The information contained in this document represents components of the legal health record. It is not the complete legal health record.[facility]
--- OUTSIDE RECORDS SUMMARY | 2025-01-20 12:00 | XMS_ITS | Encounter Summary ---
Author Organization [facility] Address [address] [place] [address] [address] [place] [address] Phone Care Team Providers Care Sales Account Specialist Name Role Phone Marichuy Hager MD Primary Care Provider [phone] Reason for Referral * - New Request Specialty Diagnoses / Procedures Referred By Contac t Referred To Contact Diagnoses Bradycardia by electrocardiography Procedures Patch Monitor up to 15 days Patch Monitor up to 15 days Samaria Colunga CNP [address] [place] [address] Phone: tel: fax: mailto:[email or web address] Referral ID Status Reason Start Date Expiration Date V isits Requested Visits Authorized [id number] New Request 01/20/2025 1 1 Reason for Visit * Auth/Cert (Routine) Specialty Diagnoses / Procedures Referred By Contac t Referred To Contact Diagnoses Burn BURN Procedures MEDICAL MANAGEMENT Referral ID Status Reason Start Date Expiration Date Visits Re quested Visits Authorized [id number] 1 1 Encounter Details Date Type Department Care Team (Late st Contact Info) Description 01/20/2025 12:00 PM EST - 01/20/2025 11:59 PM EST Hospital Encounter [facility] [address] [facility], 5th Floor, [address] [place] [address] Samaria Colunga CNP [address] [place] [address] [email or web address] Ishan Chacon MD [address] [place] [address] [email or web address] Arrived Discharge Disposition: Home or Self Care Social History Tobacco Use Types Packs/Day Years [...] your housing situation today? I have roxanne sing 01/07/2025 How many times have you move [...] on file documented as of this encounter Medications at Time of Discharge [...] mg total) into the vein daily. 01/22/2025 fluconazole (DIFLUCAN) 200 MG tablet Take 2 tablets (400 mg total) by mouth daily. 2 tablet 01/22/2025 01/22/2025 documented as of this encounter Plan of Treatment Upcoming Encounters Date Type Department Care Team (Late st Contact Info) Description 01/26/2025 8:30 AM EST Office Visit [address], [address] [place] [address] Macy Francois FNP [address] [place] [address] [email or web address] 02/14/2025 10:30 AM EST Office Visit [facility] [address] [facility], 5t Floor, [address] [place] [address] Sylvia Mueller [address] [place] [address] [email or web address] 03/28/2025 3:20 PM EST Office Visit [facility] [address] [facility] 3rd Floor, [address] [place] [address] Anant Owens MD [address] [place] [address] [email or web address] Pending Results Name Type Priority Associated Diagnoses Date /Time Patch Monitor up to 15 days Cardiac Monitors Routine Bradycardia by electrocardiography 01/20/2025 1:20 PM EST Scheduled Orders Name Type Priority Associated Diagnoses Orde r Schedule Patch Monitor up to 15 days Cardiac Monitors Routine Bradycardia by electrocardiography As Needed for 1 Occurrences starting 01/20/2025 until 01/20/2025 documented as of this encounter Goals Goal Patient Goal Type Associated Problems Recent Progress Patient-Stated? Author Autogenera alan Goal Care Plan Autogenerated Problem Addie Barrett documented as of this encounter Visit Diagnoses Diagnosis Bradycardia by electrocardiography documented in this encounter Additional Health Concerns Active Problems Noted Date Diagnosed Date Autogenerated Problem 01/16/2025 Infection Onset 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 Resolved Time MRSA 01/11/2025 01/11/2025 documented as of this encounter Care Teams Sales Account Specialist Relationship Specialty Start Date End Date Marichuy Hager MD [address] [place] [phone] PCP - General Internal Medicine 10/01/23 documented as of this encounter Additional Source Comments The information contained in this document represents components of the legal health record. It is not the complete legal health record.[facility]
[2025-01-25 14:12] LABS: MANUAL DIFF FLAG NO
[2025-01-25 14:19] LABS: Hematocrit 39.0 % (42.0-52.0); Hemoglobin 12.8 g/dl (14.0-18.0); Imm Gran Abs Auto 0.03 X10*3/uL (0.00-0.03); Imm Gran Pct Auto 0.4 % (0.0-0.4); Lymphocytes Absolute Auto 2.0 X10*3/uL (1.2-4.9); Mean Corpuscular HGB Conc 32.8 g/dl (31.0-36.0); Mean Corpuscular Hemoglobin 30.9 pg (27.0-33.0); Mean Corpuscular Volume 94.2 fL (80.0-98.0); NRBC Abs Auto 0.000 X10*3/uL (0.0-0.012); NRBC Pct Auto 0.0 /100WBC (0.0-0.2); Platelet Count 248 X10*3/uL (160-400); Red Blood Count 4.14 X10*6/uL (4.60-5.80); White Blood Count 7.4 X10*3/uL (4.8-10.8)
[2025-01-25 15:07] LABS: Alanine Aminotransferase 38 U/L (0-40); Albumin Level 4.4 g/dL (3.5-5.0); Alkaline Phosphatase 96 U/L (39-117); Aspartate Amino Transferase 32 U/L (5-37); Blood Urea Nitrogen 26 mg/dL (9-16); Estimated Glomerular Filt Rate 53; Total Protein 7.8 g/dL (6.5-8.0)
--- OUTSIDE RECORDS SUMMARY | 2025-01-25 16:58 | XMS_ITS | Encounter Summary ---
Author Organization [facility] Address [address] [facility] [address] [place] [address] Phone Care Team Providers Care Brine Tank Operator Name Role Phone Marichuy Hager MD Primary Care Provider [phone] Encounter Details Date Type Department Care Team ([facility] Contact Info) Description 01/17/2025 Procedure Pass [facility] [address] [place] [address] Social History Tobacco Use Types Packs/Day Years [...] on file documented as of this encounter Plan of Treatment Upcoming Encounters Date Type Department Care Team (Late st Contact Info) Description 01/26/2025 8:30 AM EST Office [facility] [address] [facility], [address] [place] [address] Macy Francois FNP [address] [facility] [address] [place] [phone] 02/14/2025 10:30 AM EST Office Visit [facility] [address] [facility] 5t Floor, [address] [place] [address] Sylvia Mueller [address] [facility] [address] [place] [address] [email or web address] 03/28/2025 3:20 PM EST Office Visit [facility] [address] [facility] 3rd Floor, [address] [place] [address] Anant Owens MD [address] [place], [place] [address] [place] [address] [email or web address] documented as of this encounter Goals Goal Patient Goal Type Associated Problems Recent Progress Patient-Stated? Author Autogenera alan Goal Care Plan Autogenerated Problem No Addie Ayoub documented as of this encounter Visit Diagnoses Not on filedocumented in this encounter Additional Health Concerns Active Problems Noted Date Diagnosed Date Autogenerated Problem 01/16/2025 Infection Onset 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 Resolved Time MRSA 01/11/2025 01/11/2025 documented as of this encounter Care Teams Brine Tank Operator Relationship Specialty Start Date End Date Madan, Marichuy Pereira MD [address] [place] [address] [address] [place] [address] PCP - General Internal Medicine 10/01/23 documented as of this encounter Additional Source Comments The information contained in this document represents components of the legal health record. It is not the complete legal health record.[facility]
--- OUTSIDE RECORDS SUMMARY | 2025-01-25 16:58 | XMS_ITS | Encounter Summary ---
Author Organization [facility] Address [address] [facility] [address] [place] [address] Phone Care Team Providers Care Appraiser Oil And Water Name Role Phone Marichuy Hager MD Primary Care Provider [phone] Encounter Details Date Type Department Care Team ([facility] st Contact Info) Description 01/11/2025 Procedure Pass [facility] [address] [place] [address] Social History Tobacco Use Types [...] AM EST Office Visit [facility] [address] [facility], [address] [place] [address] Macy Francois FNP [address] [facility] [address] [place] [phone] 02/14/2025 10:30 AM EST Office Visit [facility] [address] [facility], 5t Floor, [address] [place] [address] Sylvia Mueller [address] [facility] [address] [place] [address] [email or web address] 03/28/2025 3:20 PM EST Office Visit [facility] [address] [facility] 3rd Floor, [address] [place] [address] Anant Owens MD [address] [place], [place] [address] [address] [place] [address] [email or web address] documented as of this encounter Visit Diagnoses Not on filedocumented in this encounter Additional Health Concerns Infection Onset 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 Resolved Time MRSA 01/11/2025 01/11/2025 documented as of this encounter Care Teams Appraiser Oil [employer] Relationship Specialty Start Date End Date Marichuy Hager MD [address] [place] [address] Drive [address] [place] [address] PCP - General Internal Medicine 10/01/23 documented as of this encounter Additional Source Comments The information contained in this document represents components of the legal health record. It is not the complete legal health record.[facility]
--- OUTSIDE RECORDS SUMMARY | 2025-01-25 16:58 | XMS_ITS | Encounter Summary ---
Author Organization [facility] Address [address] [place] [address] Phone Care Team Providers Care Hot Dog Vender Name Role Phone Marichuy Hager MD Primary Care Provider [phone] Reason for Visit * Auth/Cert (Routine) Specialty Diagnoses / Procedures Referred By Contleandro t Referred To Contact Diagnoses Burn BURN Procedures MEDICAL MANAGEMENT Referral ID Status Reason Start Date Expiration Date Visits Re quested Visits Authorized [id number] 1 1 Encounter Details Date Type Department Care Team (Late st Contact Info) Description 01/05/2025 Lab Requisition [facility] [address] [place] [address] Porsha Gilliam MD, MPH [address] [address] [email or web address] Social History Tobacco Use Types Packs/Day Years [...] on file documented as of this encounter Functional Status * Calculated C-SSRS Risk Score (Lifetime/Recent) Answer Date of Assessment Author No Risk Indicated 01/05/2025 3:18 PM Lyly Matthew, DAVE * [place] Suicide Severity Rating Scale (Screener/Recent Self-Report) Question Answer Date of Assessment Author 1. Wish to be (Past 1 Month) No 025 3:18 PM Lyly Matthew, RN 2. Non-Specific Active Suici boris Thoughts (Past 1 Month) No 01/05/2025 3:18 PM Lyly Matthew, RN 6. Suicidal Behavior (Lifetime) No 3:18 PM EST Lyly Perez, DAVE documented as of this encounter Plan of Treatment Upcoming Encounters Date Type Department Care Team (Late st Contact Info) Description 01/26/2025 8:30 AM EST Office [facility] [address] [facility], [address] [place] [address] Macy Francois FNP [address] [facility] [address] [place] [address] [email or web address] 02/14/2025 10:30 AM EST Office Visit [facility] [address] [facility], 5t Floor, [address] [place] [address] Sylvia Mueller 55 [facility] [address] [place] [address] [email or web address] 03/28/2025 3:20 PM EST Office Visit [facility] [address] [facility] 3rd Floor, [address] [place] [address] Anant Owens MD 55 [facility] [address] [place] [address] [email or web address] Pending Results Name Type Priority Associated Diagnoses Date /Time Fungal Culture Microbiology Today 01/06/20 9:19 AM EST documented as of this encounter Procedures Procedure Name Priority Date/Time Associated Diagnosis Comments FUNGAL CULTURE Today 01/05/2025 9:19 AM EST documented in this encounter Visit Diagnoses Not on filedocumented in this encounter Additional Health Concerns Infection Onset 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 Resolved Time MRSA 01/11/2025 01/11/2025 documented as of this encounter Care Teams Hot Dog Vender Relationship Specialty Start Date End Date Marichuy Hager MD [address] [place] [address] PCP - General Internal Medicine 10/01/23 documented as of this encounter Additional Source Comments The information contained in this document represents components of the legal health record. It is not the complete legal health record.[facility]
--- OUTSIDE RECORDS SUMMARY | 2025-01-25 16:58 | XMS_ITS | Encounter Summary ---
Author Organization [facility] Address [address] [facility] [address] [place] [address] Phone Care Team Providers Care Netsuite Developer Name Role Phone Marichuy Hager MD Primary Care Provider [phone] Encounter Details Date Type Department Care Team (Late st Contact Info) Description 01/06/2025 Procedure Pass [facility] [address] [place] [address] Social History Tobacco Use Types Packs/Day Years [...] 01/26/2025 8:30 AM EST Office Visit Burn [facility] [address] [facility], [address] [place] [address] Macy Francois FNP 55 [facility] [address] [place] [phone] 02/14/2025 10:30 AM EST Office Visit [facility] [address] [facility], 5t Floor, [address] [place] [address] Sylvia Mueller 55 [facility] [address] [place] [address] [email or web address] 03/28/2025 3:20 PM EST Office Visit [facility] [address] [facility] 3rd Floor, [address] [place] [address] Anant Owens MD [address] [place] [address] [address] [place] [address] [email or web address] documented as of this encounter Visit Diagnoses Not on filedocumented in this encounter Additional Health Concerns Infection Onset 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 Resolved Time MRSA 01/11/2025 01/11/2025 documented as of this encounter Care Teams Netsuite Developer Relationship Specialty Start Date End Date Madan, Marichuy Pereira MD [address] [place] [address] Drive [address] [place] [address] PCP - General Internal Medicine 10/01/23 documented as of this encounter Additional Source Comments The information contained in this document represents components of the legal health record. It is not the complete legal health record.[facility]
--- OUTSIDE RECORDS SUMMARY | 2025-01-25 16:58 | XMS_ITS | Encounter Summary ---
Author Organization [facility] Address [address] [place] [address] Phone Care Team Providers Care Electronic Publisher Name Role Phone Marichuy Hager MD Primary Care Provider [phone] Encounter Details Date Type Department Care Team ([facility] st Contact Info) Description 01/20/2025 Procedure Pass [facility] [address], 5th Floor, [address] [place] [address] Social History Tobacco Use Types Packs/Day Years [...] 01/26/2025 8:30 AM EST Office Visit [facility] [address] [facility], [address] [place] [address] Macy Francois FNP [address] [facility] [address] [place] [phone] 02/14/2025 10:30 AM EST Office Visit [facility] [address] [facility], 5t Floor, [address] [place] [address] Sylvia Mueller [address] [facility] [address] [place] [address] [email or web address] 03/28/2025 3:20 PM EST Office Visit [facility] [address] [facility] 3rd Floor, [address] [place] [address] Anant Owens MD [address] [facility] [address] [place] [address] [email or web address] documented as of this encounter Goals Goal [...] documented as of this encounter Care Teams Electronic Publisher Relationship Specialty Start Date End Date Marichuy Hager MD [address] [place] [address] PCP - General Internal Medicine 10/01/23 documented as of this encounter Additional Source Comments The information contained in this document represents components of the legal health record. It is not the complete legal health record.[facility]
--- OUTSIDE RECORDS SUMMARY | 2025-01-25 16:59 | XMS_ITS | Encounter Summary ---
Author Organization [facility] Address [address] [place] [address] Phone Care Team Providers Care Wrapper Sorter Name Role Phone Marichuy Hager MD Primary Care Provider Reason for Visit * Reason Onset Date Comments COPAT follow-up 01/23/2025 COPAT Start Encounter Details Date Type Department Care Team (Late st Contact Info) Description 01/23/2025 Telephone [facility] [address] [facility], 5t Floor, [address] [place], [place] [phone] Alice Mills, RN [address] [place] [address] [email or web address] COPAT follow-up (COPAT Start) Social History Tobacco Use Types Packs/Day Years [...] on file documented as of this encounter Progress Notes * Alice Mills, DAVE - 01/23/2025 2:46 PM EST Infectious Disease COPAT Start Note Patient to be monitored by the COPAT program, followed as an outpatient by Dr. Sylvia Mueller andDr. Dawson Vera. Contacted the patient to confirm the antibiotic therapy plan, VNA and infusion services as outlined below. The Patient reports no issues with the antibiotics or the PICC line at this time. Reminded patient of the follow up ID appointment and provided with my contact information should any questions, issues or concerns arise. Baseline lab results have been reviewed in EPIC and documented below. Diagnosis: L foot osteomyelitis Medication(s): IV vancomycin, trough target 10-20 IV ampicillin-sulbactam 3g iv q6h Antibiotic Start Date: 01/14/25 Planned COPAT Stop Date: 02/24/25 Frequency of safety lab monitoring: weekly Labs ordered: CBC/diff, LFTs, BUN/Cr, Vanco trough (goal trough 10-20) Discharge includes IV antimicrobial therapy: Yes If yes, is there a plan to transition to oral therapy: Yes If yes, approximate date of transition to oral therapy: TBD at f/u ID visit Venous Access: Right DL PICC 42 cm in length/ 0 cm exposed Follow-Up Appt: 02/14/25 at 10:[address] Sylvia Mueller VNA: [phone] Infusion Company: [facility] Date 01/20-01/21 [place] BUN 24 Scr 1.40 01/20/25 ALT 30 AST 20 Alk Phos 73 Total Bili 0.3 Direct Bili 0.1 01/20/25 WBC 6.00 Hgb 11.3 HCT 33.8 PLT 238 % Neut 49.4 ANC 2.96 % Eos 4.3 AEC 0.26 01/21/25 Vanco dose 1.5g q24h Vanco trough 9.7 Comments Increased to 1.75g q24h Labs are entered manually. Please reference scanned lab results for original documentation documented in this encounter Plan of Treatment Upcoming Encounters Date Type Department Care Team (Late st Contact Info) Description 01/26/2025 8:30 AM EST Office [facility] [address] [facility], [address] [place] [address] Macy Francois FNP [address] [facility] [address] [place] [phone] [email or web address] 02/14/2025 10:30 AM EST Office Visit [facility] [address] [facility], 5t Floor, [address] [place] [address] Sylvia Mueller [address] [facility] [address] [place] [address] [email or web address] 03/28/2025 3:20 PM EST Office Visit [facility] [address] [facility] 3rd Floor, [address] [place] [address] Anant Owens MD [address] [facility] [address] [place] [address] [email or web address] documented as of this encounter Goals [...] documented as of this encounter Care Teams Wrapper Sorter Relationship Specialty Start Date End Date Marichuy Hager MD [address] [place] [address] Drive [address] [place] [address] PCP - General Internal Medicine 10/01/23 documented as of this encounter Additional Source Comments The information contained in this document represents components of the legal health record. It is not the complete legal health record.[facility]
--- OUTSIDE RECORDS SUMMARY | 2025-01-25 16:59 | XMS_ITS | Encounter Summary ---
Author Organization [facility] Address [address] [facility] [address] [place] [address] Phone Care Team Providers Care Toggler Name Role Phone Marichuy Hager MD Primary Care Provider Encounter Details Date Type Department Care Team ([facility] st Contact Info) Description 01/16/2025 Procedure Pass [facility] PERIOPERATIVE DEPT [address] [place] [address] Social History Tobacco Use Types [...] AM EST Office [facility] [address] [facility], [address] [place] [address] Macy Francois FNP [address] [facility] [address] [place] [phone] 02/14/2025 10:30 AM EST Office Visit [facility] [address] [facility], 5t Floor, [address] [place] [address] [address] [facility] [address] [place] [address] [email or web address] 03/28/2025 3:20 PM EST Office Visit [facility] [address] [facility] 3rd Floor, [address] [place] [address] Anant Owens MD [address] [place], [place] [id number] [address] [place] [address] [email or web address] documented as of this encounter Goals [...] documented as of this encounter Care Teams Toggler Relationship Specialty Start Date End Date Madan, Marichuy Pereira MD [address] [place] [address] [address] [place] [address] PCP - General Internal Medicine 10/01/23 documented as of this encounter Additional Source Comments The information contained in this document represents components of the legal health record. It is not the complete legal health record.[facility]
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
== END 2025-01-25 13:43 | disposition home or self-care (01) ==
LOC: HO.HVNA 13:42
PROVIDERS: Visit Provider Internal Medicine
DX: T20.27XD Burn of second degree of neck, subsequent encounter (principal)
CPT/HCPCS: 36415; 80076; 80202; 82565; 84520; 85025

== ENCOUNTER 2025-01-31 14:01 | Outpatient (REF) | payer BC, SELFPAY ==
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
[2025-01-31 14:06] LABS: MANUAL DIFF FLAG NO
[2025-01-31 14:15] LABS: Hematocrit 40.1 % (42.0-52.0); Hemoglobin 13.1 g/dl (14.0-18.0); Imm Gran Abs Auto 0.04 X10*3/uL (0.00-0.03); Imm Gran Pct Auto 0.5 % (0.0-0.4); Lymphocytes Absolute Auto 2.6 X10*3/uL (1.2-4.9); Mean Corpuscular HGB Conc 32.7 g/dl (31.0-36.0); Mean Corpuscular Hemoglobin 31.0 pg (27.0-33.0); Mean Corpuscular Volume 94.8 fL (80.0-98.0); NRBC Abs Auto 0.000 X10*3/uL (0.0-0.012); NRBC Pct Auto 0.0 /100WBC (0.0-0.2); Platelet Count 265 X10*3/uL (160-400); Red Blood Count 4.23 X10*6/uL (4.60-5.80); White Blood Count 7.3 X10*3/uL (4.8-10.8)
[2025-01-31 14:59] LABS: Alanine Aminotransferase 27 U/L (0-40); Albumin Level 4.3 g/dL (3.5-5.0); Alkaline Phosphatase 98 U/L (39-117); Aspartate Amino Transferase 21 U/L (5-37); Blood Urea Nitrogen 20 mg/dL (9-16); Estimated Glomerular Filt Rate 59; Total Protein 7.8 g/dL (6.5-8.0)
--- OUTSIDE RECORDS SUMMARY | 2025-01-31 20:01 | XMS_ITS | Encounter Summary ---
Author Organization [facility] Address [address] [facility] [address] [place] [address] Phone Care Team Providers Care System Archive Analyst Name Role Phone Marichuy Hager MD Primary Care Provider [phone] Encounter Details Date Type Department Care Team ([facility] st Contact Info) Description 01/11/2025 Procedure Pass [facility] PERIOPERATIVE DEPT [address] [place] [address] Social History Tobacco Use Types [...] AM EST Office [facility] [address] [facility], [address] [place] [address] Macy Francois FNP [address] [facility] [address] [place] [phone] 02/14/2025 10:30 AM EST Office Visit [facility] [address] [facility], 5t Floor, [address] [place] [address] Sylvia Mueller [address] [facility] [address] [place] [address] [email or web address] 03/28/2025 4:00 PM EST Office Visit [facility] [address] [facility] 3rd Floor, [address] [place] [address] Anant Owens MD [address] [place], [place] [address]Z [address] [place] [address] [email or web address] documented as of this encounter Visit Diagnoses Not on filedocumented in this encounter Additional Health Concerns Infection Onset 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 Resolved Time MRSA 01/11/2025 01/11/2025 documented as of this encounter Care Teams System Archive Analyst Relationship Specialty Start Date End Date Marichuy Hager MD [address] [place] [address] Drive [address] [place] [address] PCP - General Internal Medicine 10/01/23 documented as of this encounter Additional Source Comments The information contained in this document represents components of the legal health record. It is not the complete legal health record.[facility]
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
--- OUTSIDE RECORDS SUMMARY | 2025-01-31 20:01 | XMS_ITS | Encounter Summary ---
Author Organization [facility] Address [address] [facility] [address] [place] [phone] Phone Care Team Providers Care General Manager Name Role Phone Marichuy Hager MD Primary Care Provider [phone] Encounter Details Date Type Department Care Team (Late st Contact Info) Description 01/06/2025 Procedure Pass [facility] [address] [place] [address] Social History Tobacco Use Types Packs/Day Years [...] 02/02/2025 9:00 AM EST Office Visit [facility] [address] [facility], [address] [place] [address] Macy Francois FNP [address] [facility] [address] [place] [phone] 02/14/2025 10:30 AM EST Office Visit [facility] [address] [facility], 5t Floor, [address] [place] [address] Sylvia Mueller [address] [facility] [address] [place] [address] [email or web address] 03/28/2025 4:00 PM EST Office Visit [facility] [address] [facility] 3rd Floor, [address] [place] [address] Anant Owens MD [address] [place] [address] [address] [place] [address] [email or web address] documented as of this encounter Visit Diagnoses Not on filedocumented in this encounter Additional Health Concerns Infection Onset 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 Resolved Time MRSA 01/11/2025 01/11/2025 documented as of this encounter Care Teams General Manager Relationship Specialty Start Date End Date Madan, Marichuy Pereira MD [address] [place] [address] Drive [address] [place] [phone] PCP - General Internal Medicine 10/01/23 documented as of this encounter Additional Source Comments The information contained in this document represents components of the legal health record. It is not the complete legal health record.[facility]
--- OUTSIDE RECORDS SUMMARY | 2025-01-31 20:02 | XMS_ITS | Clinical Summary ---
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 ORDERABLES Eulalia l Result Performing Organization Address City/[facility]/ZIP Co de Phone Number [facility] [address] [place] [address] * ECG 12-LEAD (01/05/2025 11:33 PM EST) Systolic Blood Pressure [facility] Diastolic Blood Pressure [facility] Ventricular Rate EKG/MIN 37 BPM [facility] Atrial Rate 37 BPM [facility] DC Interval 200 ms [facility] QRS Duration 86 ms [facility] QT Interval 560 ms [facility] QTC Interval 439 ms [facility] P Purlear [facility] R Wave Purlear -8 degrees [facility] T Wave [place] 23 degrees [facility] 01/05/2025 11:3 3 PM EST 01/15/2025 4:02 PM EST Narrative [facility] - 01/15/2025 4:02 PM EST LOC: [id number] DX: ARRHYTHMIA REF: RANJAN NEWTON SINUS BRADYCARDIA NONSPECIFIC ST SEGMENT AND T WAVE ABNORMALITIES WHEN COMPARED WITH ECG OF 05-Jan-2025 23:32, NO IMPORTANT CHANGE us Ranjan Newton MD ECG ORDERABLES Final Result Performing Organization Address City/[facility] Co de Phone Number [facility] * Microbiology Add On (01/05/2025 3:49 PM EST) Only the most recent of2 resultswithin the time period is included. Specimen Date/Time 01/05 91901/05/2025 3:52 PM EST [facility] Test Requested fungal stain and culture 01/05/2025 3:52 PM EST [facility] Specimen Description left foot swab 01/05/2025 3:52 PM EST [facility] Comments 01/05/2025 3:52 PM EST [facility] Was this request processed? Yes 01/05/2025 3:52 PM EST [facility] Other (Other) 01/05/2025 3:4 9 PM EST 01/05/2025 3:49 PM EST Narrative [facility] - 01/05/2025 3:52 PM EST Add-on test completed us Porsha Gilliam MD, MPH LAB GENERAL ORDERABLES Final Result Performing Organization Address [facility] Co de Phone Number [address] [address] * (ABNORMAL) Wound Culture (01/05/2025 9:19 AM EST) Wound Culture/Test Few (2+) Staphylococcus aureus(A) RAPID SUSCEPTIBILITY TESTING (WILLIAM) 5 9:17 AM EST [facility] Wound Culture/Test Few (2+) RAPID SUSCEPTIBILITY TESTING (WILLIAM) 5 9:17 AM EST [facility] Comment:Mixed organisms rese mbling cutaneous solo. 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, Thursday-Thursday) * Full Code (Latest Code Status on File) Date Activated Date Inactivated Comments 01/05/2025 1:10 PM Question Answer Comments Code Status Confirmed With: Patient Code Status Communicated To: Inpatient Attending Care Teams Nailing Machine Feeder Relationship Specialty Start Date End Date Marichuy Hager MD [address] [place] [address] PCP - General Internal Medicine 10/01/23 Additional Source Comments The information contained in this document represents components of the legal health record. It is not the complete legal health record.[facility]
--- OUTSIDE RECORDS SUMMARY | 2025-01-31 20:02 | XMS_ITS | Encounter Summary ---
Author Organization [facility] Address [address] [place] [address] Phone Care Team Providers Care Overage Shortage And Damage Clerk Name Role Phone Marichuy Hager MD Primary Care Provider [phone] Encounter Details Date Type Department Care Team ([facility] st Contact Info) Description 01/16/2025 Procedure Pass [facility] PERIOPERATIVE DEPT [address] [place] [id number] Social History Tobacco Use Types Packs/Day [...] EST [facility] [address], [address] [place] [address] Macy Francois FNP [address] [facility] [address] [place] [phone] 02/14/2025 10:30 AM EST Office Visit [facility] [address] [facility], 5t Floor, [address] [place] [address] Sylvia Mueller [address] [facility] [address] [place] [address] [email or web address] 03/28/2025 4:00 PM EST Office Visit [facility] [address] [facility] 3rd Floor, [address] [place] [address] Anant Owens MD [address] [place], [place] [address] [address] [place] [address] [email or web address] documented as of this encounter Goals Goal [...] documented as of this encounter Care Teams Overage Shortage And Damage Clerk Relationship Specialty Start Date End Date Madan, Marichuy Pereria MD [address] [place] [address] [address] [place] [address] PCP - General Internal Medicine 10/01/23 documented as of this encounter Additional Source Comments The information contained in this document represents components of the legal health record. It is not the complete legal health record.[facility]
--- OUTSIDE RECORDS SUMMARY | 2025-01-31 20:02 | XMS_ITS | Encounter Summary ---
Author Organization [facility] Address [address] [facility] [facility] [address] [place] [address] Phone Care Team Providers Care Bias Cutter Name Role Phone Marichuy Hager MD Primary Care Provider [phone] Encounter Details Date Type Department Care Team ([facility] Contact Info) Description 01/17/[address] [facility] PERIOPERATIVE DEPT [address] [place] [id number] Social History Tobacco Use Types Packs/Day [...] AM EST [facility] [address], [address] [place] [address] Macy Francois FNP [address] [facility] [address] [place] [phone] 02/14/2025 10:30 AM EST Office Visit [facility] [address] [facility], 5t Floor, [address] [place] [address] Sylvia Mueller [address] [facility] [address] [place] [address] [email or web address] 03/28/2025 4:00 PM EST Office Visit [facility] [address] [facility] 3rd Floor, [address] [place] [address] Anant Owens MD [address] [place], [place] [address] [address] [place] [address] [email or web address] documented as of this encounter Goals Goal [...] documented as of this encounter Care Teams Bias Cutter Relationship Specialty Start Date End Date Madan, Marichuy Pereira MD [address] [place] [address] [address] [place] [address] PCP - General Internal Medicine 10/01/23 documented as of this encounter Additional Source Comments The information contained in this document represents components of the legal health record. It is not the complete legal health record.[facility]
--- OUTSIDE RECORDS SUMMARY | 2025-01-31 20:02 | XMS_ITS | Encounter Summary ---
Author Organization [facility] Address [address] [place] [address] Phone Care Team Providers Care Electrical Assembler Name Role Phone Marichuy Hager MD Primary Care Provider [phone] Encounter Details Date Type Department Care Team ([facility] st Contact Info) Description 01/20/2025 Procedure Pass [facility] Holter Lab [address] [facility], 5th Floor, [address] [place] [address] Social History Tobacco Use Types Packs/Day Years [...] 02/02/2025 9:00 AM EST Office Visit [facility] [address], [address] [place] [address] Macy Francois FNP [address] [facility] [address] [place] [phone] 02/14/2025 10:30 AM EST Office Visit [facility] [address] [facility], 5t Floor, [address] [place] [address] Sylvia Mueller [address] [facility] [address] [place] [address] [email or web address] 03/28/2025 4:00 PM EST Office Visit [facility] [address] [facility] 3rd Floor, [address] [place] [address] Anant Owens MD [address] [facility] [address] [place] [address] [email or web address] documented as of this encounter Goals [...] as of this encounter Care Teams Electrical Assembler Relationship Specialty Start Date End Date Marichuy Hager MD [address] [place] [address] PCP - General Internal Medicine 10/01/23 documented as of this encounter Additional Source Comments The information contained in this document represents components of the legal health record. It is not the complete legal health record.[facility]
== END 2025-01-31 14:02 | disposition home or self-care (01) ==
LOC: HO.HVNA 14:01
PROVIDERS: Visit Provider Internal Medicine
DX: T25.222A Burn of second degree of left foot, initial encounter (principal)
CPT/HCPCS: 36415; 80076; 80202; 82565; 84520; 85025

== ENCOUNTER 2025-02-07 13:00 | Outpatient (REF) | payer BC, SELFPAY ==
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
[2025-02-07 14:03] LABS: MANUAL DIFF FLAG NO
[2025-02-07 14:31] LABS: Hematocrit 37.6 % (42.0-52.0); Hemoglobin 12.5 g/dl (14.0-18.0); Imm Gran Abs Auto 0.03 X10*3/uL (0.00-0.03); Imm Gran Pct Auto 0.5 % (0.0-0.4); Lymphocytes Absolute Auto 1.9 X10*3/uL (1.2-4.9); Mean Corpuscular HGB Conc 33.2 g/dl (31.0-36.0); Mean Corpuscular Hemoglobin 31.5 pg (27.0-33.0); Mean Corpuscular Volume 94.7 fL (80.0-98.0); NRBC Abs Auto 0.000 X10*3/uL (0.0-0.012); NRBC Pct Auto 0.0 /100WBC (0.0-0.2); Platelet Count 284 X10*3/uL (160-400); Red Blood Count 3.97 X10*6/uL (4.60-5.80); White Blood Count 6.6 X10*3/uL (4.8-10.8)
[2025-02-07 15:12] LABS: Alanine Aminotransferase 31 U/L (0-40); Albumin Level 4.1 g/dL (3.5-5.0); Alkaline Phosphatase 96 U/L (39-117); Aspartate Amino Transferase 22 U/L (5-37); Blood Urea Nitrogen 24 mg/dL (9-16); Estimated Glomerular Filt Rate 56; Total Protein 7.4 g/dL (6.5-8.0)
--- OUTSIDE RECORDS SUMMARY | 2025-02-07 18:10 | XMS_ITS | Encounter Summary ---
Author Organization [facility] Address [address] [place] [address] Phone Care Team Providers Care Core Carrier Name Role Phone Marichuy Hager MD Primary Care Provider [phone] Encounter Details Date Type Department Care Team (Late st Contact Info) Description 01/06/2025 Procedure Pass [facility] Cardiac Ultrasound [address] [place] [address] Social History Tobacco Use Types Packs/Day Years [...] Description 02/14/2025 9:00 AM EST Office Visit [facility] [address], [address] [place] [address] Macy Francois FNP [address] [facility] [address] [place] [phone] [email or web address] 02/14/2025 10:30 AM EST Office Visit [facility] [address] [facility], 5t Floor, [address] [place] [address] Sylvia Mueller [address] [facility] [address] [place] [address] [email or web address] 03/28/2025 4:00 PM EST Office Visit [facility] [address] [facility] 3rd Floor, [address] [place] [address] Anant Owens MD [address] [place] [address] [address] [place] [address] [email or web address] documented as of this encounter Visit Diagnoses Not on filedocumented in this encounter Additional Health Concerns Infection Onset 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 Resolved Time MRSA 01/11/2025 01/11/2025 documented as of this encounter Care Teams Core Carrier Relationship Specialty Start Date End Date Marichuy Hager MD [address] [place] [phone] PCP - General Internal Medicine 10/01/23 documented as of this encounter Additional Source Comments The information contained in this document represents components of the legal health record. It is not the complete legal health record.[facility]
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
--- OUTSIDE RECORDS SUMMARY | 2025-02-07 18:10 | XMS_ITS | Encounter Summary ---
Author Organization [facility] Address [address] [facility] [address] [place] [phone] Phone Care Team Providers Care Sourcing Associate Name Role Phone Marichuy Hager MD Primary Care Provider [phone] Encounter Details Date Type Department Care Team ([facility] st Contact Info) Description 01/16/2025 Procedure Pass [facility] PERI[facility]IVE DEPT [address] [place] [address] Social History Tobacco Use Types [...] Description 02/14/2025 9:00 AM EST Office Visit [facility] Dejon Paulson [facility] [address] [facility], [address] [place] [address] Macy Francois FNP [address] [facility] [address] [place] [phone] 02/14/2025 10:30 AM EST Office Visit [facility] [address] [facility], 5t Floor, [address] [place] [address] Sylvia Mueller [address] [facility] [address] [place] [address] [email or web address] 03/28/2025 4:00 PM EST Office Visit [facility] [address] [facility] 3rd Floor, [address] [place] [address] Anant Owens MD [address] [place] [address] [email or web address] documented as of this encounter [...] documented as of this encounter Care Teams Sourcing Associate Relationship Specialty Start Date End Date Marichuy Hager MD [address] [place] [address] Drive [address] [place] [address] PCP - General Internal Medicine 10/01/23 documented as of this encounter Additional Source Comments The information contained in this document represents components of the legal health record. It is not the complete legal health record.[facility]
--- OUTSIDE RECORDS SUMMARY | 2025-02-07 18:10 | XMS_ITS | Encounter Summary ---
Author Organization [facility] Address [address] [place] [address] Phone Care Team Providers Care Weaver Needle Loom Name Role Phone Marichuy Hager MD Primary Care Provider [phone] Encounter Details Date Type Department Care Team (Late st Contact Info) Description 01/20/2025 [facility] [address] [facility] [facility], 5th Floor, [address] [place] [address] Social History Tobacco Use Types Packs/Day Years [...] Description 02/14/2025 9:00 AM EST [facility] [address] [facility], [address] [place] [address] Macy Francois FNP [address] [facility] [address] [place] [phone] 02/14/2025 10:30 AM EST Office Visit [facility] [address] [facility], 5t Floor, [address] [place] [address] Sylvia Mueller [address] [facility] [address] [place] [address] [email or web address] 03/28/2025 4:00 PM EST Office Visit [facility] [address] [facility] 3rd Floor, [address] [place] [address] Anant Owens MD [address] [place] [address] [email or web address] documented as of this encounter [...] documented as of this encounter Care Teams Weaver Needle Loom Relationship Specialty Start Date End Date Marichuy Hager MD [address] [place] [address] [address] [place] [phone] PCP - General Internal Medicine 10/01/23 documented as of this encounter Additional Source Comments The information contained in this document represents components of the legal health record. It is not the complete legal health record.[facility]
--- OUTSIDE RECORDS SUMMARY | 2025-02-07 18:10 | XMS_ITS | Clinical Summary ---
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 Emicizumab (Hemlibra) treatment can result in falsely lowered aPTT test results. Blood (Blood) Catheter/Line / Unknown 01/06/2025 6:12 AM EST 01/06/2025 6:33 AM EST Ranjan Newton MD LAB BLOOD BKR ORDERABLES Eulalia l Result Performing Organization Address City/[facility]/ZIP Co de Phone Number [address] [address] * PT-INR (01/06/2025 6:12 AM EST) PT 12.9 10.0 - 13.0 sec 01/06/2025 7:09 AM EST [facility] INR 1.1 0.9 - 1.1 01/06/2025 7:09 AM EST [facility] Comment:Therapeutic Range 2. 0 - 3.5 Blood (Blood) Catheter/Line / Unknown 01/06/2025 6:12 AM EST 01/06/2025 6:33 AM EST Ranjan Newton MD LAB BLOOD BKR ORDERABLES Eulalia l Result Performing Organization Address [facility] Co de Phone Number [address] [address] * (ABNORMAL) Hemoglobin A1c (01/06/2025 6:12 AM EST) [facility] Hemoglobin A1c 7.1(H) 4.3 - 5.6 % 01/06/2025 10:36 AM EST [facility] Calculated Mean Blood Glucose 157 mg/dL 01/06/2025 10:36 AM EST [facility] Comment:There is no [facility] normal range for the Estimated Average Glucose (EAG). However, a HbA1c of 5.6% (upper limit of normal) represents an EAG of 114 mg/dL. The diagnostic HbA1c level for diabetes is greater than or equal to 6.5%, which represents an EAG greater than or equal to 140 mg/dL. Blood (Blood) Catheter/Line / Unknown 01/06/2025 6:12 AM EST 01/06/2025 6:33 AM EST Ranjan Nweton MD LAB BLOOD BKR ORDERABLES Eulalia l Result Performing Organization Address City/[facility] Co de Phone Number [address] [address] * ECG 12-LEAD (01/05/2025 11:33 PM EST) Systolic Blood Pressure [facility] Diastolic Blood Pressure [facility] Ventricular Rate EKG/MIN 37 BPM [facility] Atrial Rate 37 BPM [facility] NJ Interval 200 ms [facility] QRS Duration 86 ms [facility] QT Interval 560 ms [facility] QTC Interval 439 ms [facility] P [place] [facility] R Wave [place] -8 degrees [facility] T Wave [place] 23 degrees [facility] 01/05/2025 11:3 3 PM EST 01/15/2025 4:02 PM EST Narrative [facility] - 01/15/2025 4:02 PM EST LOC: [id number] DX: ARRHYTHMIA REF: RANJAN NEWTON SINUS BRADYCARDIA NONSPECIFIC ST SEGMENT AND T WAVE ABNORMALITIES WHEN COMPARED WITH ECG OF 05-Jan-2025 23:32, NO IMPORTANT CHANGE us Ranjan Newton MD ECG ORDERABLES Final Result [facility] * Microbiology Add On (01/05/2025 3:49 PM EST) Only the most recent of2 resultswithin the time period is included. Specimen Date/Time 01/05 [address]/05/2025 3:52 PM EST [facility] Test Requested fungal stain and culture 01/05/2025 3:52 PM EST [facility] Specimen Description left foot swab 01/05/2025 3:52 PM EST [facility] Comments 01/05/2025 3:52 PM EST [facility] Was this request processed? Yes 01/05/2025 3:52 PM EST [facility] Other (Other) 01/05/2025 3:4 9 PM EST 01/05/2025 3:49 PM EST Narrative [facility] - 01/05/2025 3:52 PM EST Add-on test completed us Porsha Gilliam MD, MPH LAB GENERAL ORDERABLES Final Result [address] [address] * (ABNORMAL) Wound Culture (01/05/2025 9:19 AM EST) Wound Culture/Test Few (2+) Staphylococcus aureus(A) RAPID SUSCEPTIBILITY TESTING (WILLIAM) 9:17 AM EST [facility] Wound Culture/Test Few (2+) RAPID SUSCEPTIBILITY TESTING (WILLIAM) 9:17 AM EST [facility] Comment:Mixed organisms rese mbling cutaneous solo. [...] SUSCEPTIBILITY TESTING (WILLIAM) <=10: Susceptible Macy Francois EXTRUSION PRESS SUPERVISOR LAB MICROBIOLOGY CULTUR E ORDERABLES Final Result [address] [address] * Fungal Culture (01/05/2025 9:19 AM EST) Fungal Culture/Test No fungus or yeast isolated at 4 weeks 02/02/2025 11:20 AM EST [facility] Swab (Foot, Left) 01/05/2025 9:19 AM EST 01/05/2025 3:58 PM EST Porsha Gilliam MD, MPH LAB MICROBIOLOGY CULTU RE ORDERABLES Final Result Performing Organization Address City/[facility]/ZIP Co de Phone Number [address] [address] from Last 3 Months Additional Health Concerns Active Problems Noted Date Diagnosed Date Autogenerated Problem 01/16/2025 Infection Onset 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 MRSA 01/11/2025 01/11/2025 Insurance [facility] Advance Directives For more information, please contact: [phone] (9AM - 5PM [facility], Thursday-Thursday) * Full Code (Latest Code Status on File) Date Activated Date Inactivated Comments 01/05/2025 1:10 PM Question Answer Comments Code Status Confirmed With: Patient Code Status Communicated To: Inpatient Attending Care Teams Slitter And Rewinder Relationship Specialty Start Date End Date Marichuy Hager MD [address] [place] [address] PCP - General Internal Medicine 10/01/23 Additional Source Comments The information contained in this document represents components of the legal health record. It is not the complete legal health record.[facility]
--- OUTSIDE RECORDS SUMMARY | 2025-02-07 18:10 | XMS_ITS | Encounter Summary ---
Author Organization [facility] Address [address] [place] [address] Phone Care Team Providers Care Electrician Yard Name Role Phone Marichuy Hager MD Primary Care Provider [phone] Encounter Details Date Type Department Care Team ([facility] st Contact Info) Description 01/11/2025 Procedure Pass [facility] PERI[facility]IVE DEPT [address] [place] [address] Social History Tobacco Use Types [...] Description 02/14/2025 9:00 AM EST Office Visit [facility] Dejon Paulson [facility] [address] [facility] [address], [address] [place] [address] Macy Francois FNP [address] [facility] [address] [place] [phone] 02/14/2025 10:30 AM EST Office Visit [facility] [address] [facility], 5t Floor, [address] [place] [address] Sylvia Mueller [address] [facility] [address] [place] [address] [email or web address] 03/28/2025 4:00 PM EST Office Visit [facility] [address] [facility] 3rd Floor, [address] [place] [address] Anant Owens MD [address] [facility] [facility] [address] [place] [address] [email or web address] documented as of this encounter Visit Diagnoses Not on filedocumented in this encounter Additional Health Concerns Infection Onset 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 Resolved Time MRSA 01/11/2025 01/11/2025 documented as of this encounter Care Teams Electrician Yard Relationship Specialty Start Date End Date Marichuy Hager MD [address] [place] [phone] PCP - General Internal Medicine 10/01/23 documented as of this encounter Additional Source Comments The information contained in this document represents components of the legal health record. It is not the complete legal health record.[facility]
--- OUTSIDE RECORDS SUMMARY | 2025-02-07 18:10 | XMS_ITS | Encounter Summary ---
Author Organization [facility] Address [address] [place] [address] Phone Care Team Providers Care Garnett Mechanic Name Role Phone Marichuy Hager MD Primary Care Provider [phone] Encounter Details Date Type Department Care Team ([facility] Contact Info) Description 01/17/2025 Procedure Pass [facility] [address] [place] [address] Social History Tobacco Use Types [...] Description 02/14/2025 9:00 AM EST Office Visit [facility] Dejon Paulson [facility] [address] [facility], [address] [place] [address] Macy Francois FNP [address] [facility] [address] [place] [phone] 02/14/2025 10:30 AM EST Office Visit [facility] [address] [facility], 5t Floor, [address] [place] [address] Sylvia Mueller [address] [facility] [address] [place] [address] [email or web address] 03/28/2025 4:00 PM EST Office Visit [facility] [address] [facility] 3rd Floor, [address] [place] [address] Anant Owens MD [address] [address] [facility] [address] [place] [address] [email or web address] documented as of this encounter [...] documented as of this encounter Care Teams Garnett Mechanic Relationship Specialty Start Date End Date Marichuy Hager MD [address] [place] [address] Drive [address] [place] [address] PCP - General Internal Medicine 10/01/23 documented as of this encounter Additional Source Comments The information contained in this document represents components of the legal health record. It is not the complete legal health record.[facility]
--- OUTSIDE RECORDS SUMMARY | 2025-02-07 18:10 | XMS_ITS | Encounter Summary ---
Author Organization [facility] Address [address] [place] [address] Phone Care Team Providers Care Funeral Car Driver Name Role Phone Marichuy Hager MD Primary Care Provider Reason for Visit * Reason Onset Date Comments COPAT follow-up 02/02/2025 COPAT labs Encounter Details Date Type Department Care Team (Late st Contact Info) Description 02/02/2025 Telephone [facility] [address] [facility], 5t Floor, [address] [place] [address] Alice Mills, RN [address] [place] [phone] [email or web address] COPAT follow-up (COPAT labs) Social History Tobacco Use Types Packs/Day Years [...] as of this encounter Progress Notes * Poli Michaels, [facility] - 02/03/2025 1:55 PM EST 02/03/25 Maninder Stanley 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 We are receivingall surveillance safety labs in follow-up. A/P: All labs were reviewed and are within range. Patient's vancomycin trough is 12, which is therapeutic. Recommend to continue vancomycin 1750mg q24h. The next trough and surveillance labs should be collected next week as schedule permits. Recommendation was relayed to Dr. Vera, Dr. Mueller, and the COPAT team. Charity Michaels, PharmD PGY2 ID Boat Outfitting Supervisor Pager [phone] COPAT labs obtained at an [facility] laboratory for the following dates: 01/25/25 and 01/31/25, received for review and documented below. Phone call to patient to confirm timing of vancomycin infusions prior to blood draw and current vancomycin dose infused at home. Patient reports he has maintained a consistent dosing schedule every 24 hours at ~ 2P daily on Vancomycin 1750 mg q24h; both blood draws were obtained right before his next scheduled Vancomycin infusion. Vanco trough: 12.0 - last infused Vanco prior to blood drawn on 01/30 at ~ 2P; blood was drawn on 01/31 at ~ 12:45P Scr: 1.24 Current Vancomycin dose: 1750 mg every 24 hours. Note forwarded to ID MD and ID pharmacy for review of lab results and further recommendations. Diagnosis: L foot osteomyelitis Medication(s): IV vancomycin 1750 mg IV every 24 hours (trough target 10-20) IV ampicillin-sulbactam 3g IV q6h Antibiotic Start Date: 01/14/25 Planned COPAT [...] 10:[address] Sylvia Mueller VNA: [phone] Infusion Company: [employer] (P: [phone]; F: [phone]) Date 01/20-01/21 01/25 01/31 Baseline labs @[facility] BUN 24 26 20 Scr 1.40 1.35 1.24 01/20/25 ALT 30 38 27 AST 20 32 21 Alk Phos 73 96 98 Total Bili 0.3 0.4 0.4 Direct Bili 0.1 0.1 0.1 01/20/25 WBC 6.00 7.4 7.3 Hgb 11.3 12.8 13.1 HCT 33.8 39.0 40.1 PLT 238 248 265 % Neut 49.4 60.5 50.5 ANC 2.96 4.5 3.7 % Eos 4.3 3.0 4.2 AEC 0.26 0.2 0.3 01/21/25 Vanco dose 1.5g q24h 1.75g q24h 1.75g q24h Vanco trough 9.7 11.7 12.0 Comments Increased to 1.75g q24h Labs are entered manually. Please reference scanned lab results for original documentation * Alice Mills RN - 02/02/2025 1:03 PM EST [facility] labs obtained at an [facility] laboratory for the following dates: 01/25/25 and 01/31/25, received for review and documented below. Phone call to patient to confirm timing of vancomycin infusions prior to blood draw and current vancomycin dose infused at home. Patient reports he has maintained a consistent dosing schedule every 24 hours at ~ 2P daily on Vancomycin 1750 mg q24h; both blood draws were obtained right before his next scheduled Vancomycin infusion. Vanco trough: 12.0 - last infused Vanco prior to blood drawn on 01/30 at ~ 2P; blood was drawn on 01/31 at ~ 12:45P Scr: 1.24 Current Vancomycin dose: 1750 mg every 24 hours. Note forwarded to ID MD and ID pharmacy for review of lab results and further recommendations. Diagnosis: L foot osteomyelitis Medication(s): IV vancomycin 1750 mg IV every 24 hours (trough target 10-20) IV ampicillin-sulbactam 3g IV q6h Antibiotic Start Date: 01/14/25 Planned COPAT [...] 10:[address] Sylvia Mueller VNA: [phone] Infusion Company: [employer] (P: [phone]; F: [phone]) Date 01/20-01/21 01/25 01/31 Baseline labs [facility] BUN 24 26 20 Scr 1.40 1.35 1.24 01/20/25 ALT 30 38 27 AST 20 32 21 Alk Phos 73 96 98 Total Bili 0.3 0.4 0.4 Direct Bili 0.1 0.1 0.1 01/20/25 WBC 6.00 7.4 7.3 Hgb 11.3 12.8 13.1 HCT 33.8 39.0 40.1 PLT 238 248 265 % Neut 49.4 60.5 50.5 ANC 2.96 4.5 3.7 % Eos 4.3 3.0 4.2 AEC 0.26 0.2 0.3 01/21/25 Vanco dose 1.5g q24h 1.75g q24h 1.75g q24h Vanco trough 9.7 11.7 12.0 Comments Increased to 1.75g q24h Labs are entered manually. Please reference scanned lab results for original documentation documented in this encounter Plan of Treatment Upcoming Encounters Date Type Department Care Team (Late st Contact Info) Description 02/14/2025 9:00 AM EST [facility] [address] [facility], [address] [place] [address] Macy Francois FNP [address] [facility] [address] [place] [phone] [email or web address] 02/14/2025 10:30 AM EST Office Visit [facility] [address] [facility], 5t Floor, [address] [place] [address] Sylvia Mueller [address] [place] [address] [email or web address] 03/28/2025 4:00 PM EST Office Visit [facility] [address] [facility] 3rd Floor, [address] [place] [address] Anant Owens MD [address] [place] [address] [email or web address] documented as of this encounter Goals [...] documented as of this encounter Care Teams Funeral Car Driver Relationship Specialty Start Date End Date Marichuy Hager MD [address] [place] [address] Drive [address] [place] [address] PCP - General Internal Medicine 10/01/23 documented as of this encounter Additional Source Comments The information contained in this document represents components of the legal health record. It is not the complete legal health record.[facility]
== END 2025-02-07 13:01 | disposition home or self-care (01) ==
LOC: HO.HVNA 13:00
PROVIDERS: Visit Provider Internal Medicine
DX: T25.222A Burn of second degree of left foot, initial encounter (principal)
CPT/HCPCS: 36415; 80076; 80202; 82565; 84520; 85025

== ENCOUNTER 2025-02-13 13:50 | Outpatient (REF) | payer BC, SELFPAY ==
[2025-02-13 13:55] LABS: MANUAL DIFF FLAG NO
[2025-02-13 14:08] LABS: Hematocrit 38.3 % (42.0-52.0); Hemoglobin 12.5 g/dl (14.0-18.0); Imm Gran Abs Auto 0.03 X10*3/uL (0.00-0.03); Imm Gran Pct Auto 0.4 % (0.0-0.4); Lymphocytes Absolute Auto 2.3 X10*3/uL (1.2-4.9); Mean Corpuscular HGB Conc 32.6 g/dl (31.0-36.0); Mean Corpuscular Hemoglobin 31.1 pg (27.0-33.0); Mean Corpuscular Volume 95.3 fL (80.0-98.0); NRBC Abs Auto 0.000 X10*3/uL (0.0-0.012); NRBC Pct Auto 0.0 /100WBC (0.0-0.2); Platelet Count 255 X10*3/uL (160-400); Red Blood Count 4.02 X10*6/uL (4.60-5.80); White Blood Count 7.2 X10*3/uL (4.8-10.8)
[2025-02-13 15:50] LABS: Alanine Aminotransferase 25 U/L (0-40); Albumin Level 4.1 g/dL (3.5-5.0); Alkaline Phosphatase 97 U/L (39-117); Aspartate Amino Transferase 21 U/L (5-37); Blood Urea Nitrogen 19 mg/dL (9-16); Estimated Glomerular Filt Rate 53; Total Protein 7.3 g/dL (6.5-8.0)
--- OUTSIDE RECORDS SUMMARY | 2025-02-13 17:16 | XMS_ITS | Encounter Summary ---
Author Organization [facility] Address [address] [place] [address] Phone Care Team Providers Care Survival Specialist Name Role Phone Marichuy Hager MD Primary Care Provider [phone] Encounter Details Date Type Department Care Team (Late st Contact Info) Description 01/06/2025 Procedure Pass [facility] Cardiac Ultrasound [address] [place] [address] Social History Tobacco Use Types Packs/Day Years [...] Description 02/14/2025 9:00 AM EST Office Visit [facility] [address] [facility], [address] [place] [address] Macy Francois FNP [address] [facility] [address] [place] [phone] [email or web address] 02/14/2025 10:30 AM EST Office Visit [facility] [address] [facility], 5t Floor, [address] [place] [address] [facility] [facility] [address] [place] [address] [email or web address] 03/28/2025 4:00 PM EST Office Visit [facility] [address] [facility] 3rd Floor, [address] [place] [address] Anant Owens MD [address] [place] [address] [address] [place] [address] [email or web address] documented as of this encounter Visit Diagnoses Not on filedocumented in this encounter Additional Health Concerns Infection Onset 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 Resolved Time MRSA 01/11/2025 01/11/2025 documented as of this encounter Care Teams Survival Specialist Relationship Specialty Start Date End Date Marichuy Hager MD [address] [facility] [place] [phone] PCP - General Internal Medicine 10/01/23 documented as of this encounter Additional Source Comments The information contained in this document represents components of the legal health record. It is not the complete legal health record.[facility]
--- OUTSIDE RECORDS SUMMARY | 2025-02-13 17:16 | XMS_ITS | Encounter Summary ---
Author Organization [facility] Address [address] [facility] [address] [place] [address] Phone Care Team Providers Care Inclined Railway Operator Name Role Phone Marichuy Hager MD Primary Care Provider [phone] Encounter Details Date Type Department Care Team ([facility] Contact Info) Description 01/17/2025 Procedure Pass [facility] PERI[facility]IVE DEPT [address] [place] [address] Social History Tobacco Use Types [...] Description 02/14/2025 9:00 AM EST Office Visit [facility] Dejon [facility] [address] [facility], [address] [place] [address] Macy Francois FNP [address] [facility] [address] [place] [phone] 02/14/2025 10:30 AM EST Office Visit [facility] [address] [facility], 5t Floor, [address] [place] [address] Sylvia Mueller [address] [facility] [address] [place] [address] [email or web address] 03/28/2025 4:00 PM EST Office Visit [facility] [address] [facility] 3rd Floor, [address] [place] [address] Anant Owens MD [address] [facility] [address] [place] [address] [email or web address] documented as of this encounter [...] documented as of this encounter Care Teams Inclined Railway Operator Relationship Specialty Start Date End Date Marichuy Hager MD [address] [place] [address] Drive [address] [place] [address] PCP - General Internal Medicine 10/01/23 documented as of this encounter Additional Source Comments The information contained in this document represents components of the legal health record. It is not the complete legal health record.[facility]
--- OUTSIDE RECORDS SUMMARY | 2025-02-13 17:16 | XMS_ITS | Encounter Summary ---
Author Organization [facility] Address [address] [place] [address] Phone Care Team Providers Care Process Steward Name Role Phone Marichuy Hager MD Primary Care Provider [phone] Reason for Visit * Auth/Cert (Routine) Specialty Diagnoses / Procedures Referred By Contleandro t Referred To Contact Diagnoses Burn BURN Procedures MEDICAL MANAGEMENT Referral ID Status Reason Start Date Expiration Date Visits Re quested Visits Authorized [id number] 1 1 Encounter Details Date Type Department Care Team (Late st Contact Info) Description 01/05/2025 Lab Requisition [facility] Main [address] [place] [address] Porsha Gilliam MD, MPH [address] [address] [email or web address] Social History Tobacco Use Types Packs/Day [...] Description 02/14/2025 9:00 AM EST Office Visit [facility] [address] [facility], [address] [place] [address] Macy Francois FNP [address] [facility] [address] [place] [phone] 02/14/2025 10:30 AM EST Office Visit [facility] [address] [facility], 5t Floor, [address] [place] [address] Sylvia Mueller [address] [facility] [address] [place] [address] [email or web address] 03/28/2025 4:00 PM EST Office Visit [facility] [address] [facility] 3rd Floor, [address] [place] [address] Anant Owens MD [address] [facility] [address] [place] [address] [email or web address] documented as of this encounter Procedures Procedure Name Priority Date/Time Associated Diagnosis Comments FUNGAL CULTURE Today 01/05/2025 9:19 AM EST documented in this encounter Results * Fungal Culture (01/05/2025 9:19 AM EST) Fungal Culture/Test No fungus or yeast isolated at 4 weeks 02/02/2025 11:20 AM EST [facility] Swab (Foot, Left) 01/05/2025 9:19 AM EST 01/05/2025 3:58 PM EST us Porsha Gilliam MD, MPH LAB MICROBIOLOGY CULTU RE ORDERABLES Final Result [facility] 55 [place] [address] documented in this encounter Visit Diagnoses Not on filedocumented in this encounter Additional Health Concerns Infection Onset 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 Resolved Time MRSA 01/11/2025 01/11/2025 documented as of this encounter Care Teams Process Steward Relationship Specialty Start Date End Date Marichuy Hager MD [address] [place] [phone] PCP - General Internal Medicine 10/01/23 documented as of this encounter Additional Source Comments The information contained in this document represents components of the legal health record. It is not the complete legal health record.[facility]
--- OUTSIDE RECORDS SUMMARY | 2025-02-13 17:16 | XMS_ITS | Encounter Summary ---
Author Organization [facility] Address [address] [facility] [address] [place] [address] Phone Care Team Providers Care Timber Appraiser Name Role Phone Marichuy Hager MD Primary Care Provider [phone] Encounter Details Date Type Department Care Team ([facility] st Contact Info) Description 01/11/2025 Procedure Pass [facility] [address] [place] [address] Social History Tobacco Use Types [...] Description 02/14/2025 9:00 AM EST Office Visit [facility] Dejon Paulson [facility] [address] [facility], [address] [place] [address] Macy Francois FNP [address] [facility] [address] [place] [phone] 02/14/2025 10:30 AM EST Office Visit [facility] [address] [facility], 5t Floor, [address] [place] [address] Sylvia Mueller [address] [facility] [address] [place] [address] [email or web address] 03/28/2025 4:00 PM EST Office Visit [facility] [address] [facility] 3rd Floor, [address] [place] [address] Anant Owens MD [address] [facility] [address] [place] [address] [email or web address] documented as of this encounter Visit Diagnoses Not on filedocumented in this encounter Additional Health Concerns Infection Onset 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 Resolved Time MRSA 01/11/2025 01/11/2025 documented as of this encounter Care Teams Timber Appraiser Relationship Specialty Start Date End Date Marichuy Hager MD [address] [place] [address] PCP - General Internal Medicine 10/01/23 documented as of this encounter Additional Source Comments The information contained in this document represents components of the legal health record. It is not the complete legal health record.[facility]
--- OUTSIDE RECORDS SUMMARY | 2025-02-13 17:16 | XMS_ITS | Encounter Summary ---
Author Organization [facility] Address [address] [facility] [address] [place] [address] Phone Care Team Providers Care Tool Design Drafter Name Role Phone Marichuy Hager MD Primary Care Provider [phone] Reason for Visit * Reason Onset Date Comments [facility]AT follow-up 02/08/2025 [facility]AT labs Encounter Details Date Type Department Care Team (Late st Contact Info) Description 02/08/2025 Telephone [facility] [address] [facility], 5t Floor, [address] [place] [address] Alice Mills, RN [address] [place] [phone] [email or web address] COPAT follow-up ([facility]AT labs) Social History Tobacco [...] this encounter Progress Notes * Poli Michaels, [facility] - 02/08/2025 11:32 AM EST 02/08/25 Maninder Stanley 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 We are receivingall surveillance safety labs in follow-up. A/P: All labs were reviewed and are within range. Patient's vancomycin trough is 12.7, which is therapeutic . Recommend to continue vancomycin 1750 mg q24h. The next trough and surveillance labs should be collected next week as schedule permits. Recommendation was relayed to Dr. Vera, Dr. Mueller, and the COPAT team. Charity Michaels, PharmD PGY2 ID Delivery Room Supervisor Pager [phone] [facility]AT labs obtained yesterday 02/07/25, prior to pt's Vancomycin infusion, received from [facility] ([facility]), and documented below. Confirmed with pt he is currently on [id number] mg infused every 24 hours, and labs were drawn before his next scheduled Vancomycin doses. Vanco trough: 12.7 Scr: 1.29 Current Vancomycin dose: 1750 mg every 24 [...] 10:[address] Sylvia Mueller VNA: [phone] [facility] (P: [phone]; F: [phone]) Date 01/20-01/21 01/25 01/31 02/07 Baseline labs @[facility] BUN 24 26 20 24 Scr 1.40 1.35 1.24 1.29 01/20/25 ALT 30 38 27 31 AST 20 32 21 22 Alk Phos 73 96 98 96 Total Bili 0.3 0.4 0.4 0.3 Direct Bili 0.1 0.1 0.1 0.1 01/20/25 WBC 6.00 7.4 7.3 6.6 Hgb 11.3 12.8 13.1 12.5 HCT 33.8 39.0 40.1 37.6 PLT 238 248 265 284 % Neut 49.4 60.5 50.5 55.3 ANC 2.96 4.5 3.7 3.7 % Eos 4.3 3.0 4.2 4.0 AEC 0.26 0.2 0.3 0.3 01/21/25 Vanco dose 1.5g q24h 1.75g q24h 1.75g q24h 1.75g q24h Vanco trough 9.7 11.7 12.0 12.7 Comments Increased to 1.75g q24h Labs are entered manually. Please reference scanned lab results for original documentation * Alice Mills RN - 02/08/2025 10:50 AM EST [facility] labs obtained yesterday 02/07/25, prior to pt's Vancomycin infusion, received from [facility] ([facility]), and documented below. Confirmed with pt he is currently on [id number] mg infused every 24 hours, and labs were drawn before his next scheduled Vancomycin doses. Vanco trough: 12.7 Scr: 1.29 Current Vancomycin dose: 1750 mg every 24 [...] 10:[address] Sylvia Mueller VNA: [phone] Infusion Company: [facility] (P: [phone]; F: [phone]) Date 01/20-01/21 01/25 01/31 02/07 Baseline labs @[facility] BUN 24 26 20 24 Scr 1.40 1.35 1.24 1.29 01/20/25 ALT 30 38 27 31 AST 20 32 21 22 Alk Phos 73 96 98 96 Total Bili 0.3 0.4 0.4 0.3 Direct Bili 0.1 0.1 0.1 0.1 01/20/25 WBC 6.00 7.4 7.3 6.6 Hgb 11.3 12.8 13.1 12.5 HCT 33.8 39.0 40.1 37.6 PLT 238 248 265 284 % Neut 49.4 60.5 50.5 55.3 ANC 2.96 4.5 3.7 3.7 % Eos 4.3 3.0 4.2 4.0 AEC 0.26 0.2 0.3 0.3 01/21/25 Vanco dose 1.5g q24h 1.75g q24h 1.75g q24h 1.75g q24h Vanco trough 9.7 11.7 12.0 12.7 Comments Increased to 1.75g q24h Labs are entered manually. Please reference scanned lab results for original documentation documented in this encounter Plan of Treatment Upcoming Encounters Date Type Department Care Team (Late st Contact Info) Description 02/14/2025 9:00 AM EST Office Visit [facility] [address] [facility], [address] [place] [address] Macy Francois FNP [address] [facility] [address] [place] [phone] [email or web address] 02/14/2025 10:30 AM EST Office Visit [facility] Infect[facility] Disease Clinic [address] [facility], 5t Floor, [address] [place] [address] Sylvia Mueller [address] [facility] [address] [place] [address] [email or web address] 03/28/2025 4:00 PM EST Office Visit [facility] [address] [facility] 3rd Floor, [address] [place] [address] Anant Owens MD [address] [facility] [address] [place] [address] [email or web address] documented as of this encounter [...] documented as of this encounter Care Teams Tool Design Drafter Relationship Specialty Start Date End Date Marichuy Hager MD [address] [place] [address] Drive [address] [place] [phone] PCP - General Internal Medicine 10/01/23 documented as of this encounter Additional Source Comments The information contained in this document represents components of the legal health record. It is not the complete legal health record.[facility]
--- OUTSIDE RECORDS SUMMARY | 2025-02-13 17:16 | XMS_ITS | Encounter Summary ---
Author Organization [facility] Address [address] [facility] [address] [place] [address] Phone Care Team Providers Care Psychological Operations Specialist Name Role Phone Marichuy Hager MD Primary Care Provider Encounter Details Date Type Department Care Team ([facility] st Contact Info) Description 01/16/2025 Procedure Pass [facility] [address] [place] [address] Social History Tobacco Use Types [...] Description 02/14/2025 9:00 AM EST Office Visit [facility] Dejon Paulson [facility] [address] [facility], [address] [place] [address] Macy Francois FNP [address] [facility] [address] [place] [phone] 02/14/2025 10:30 AM EST Office Visit [facility] Infectious Disease Clinic [address] [facility], 5t Floor, [address] [place] [address] Sylvia Mueller [address] [facility] [address] [place] [address] [email or web address] 03/28/2025 4:00 PM EST Office Visit [facility] [address] [facility] 3rd Floor, [address] [place] [address] Anant Owens MD [address] [facility] [address] [place] [address] [email or web address] documented as of this encounter Goals [...] documented as of this encounter Care Teams Psychological Operations Specialist Relationship Specialty Start Date End Date Marichuy Hager MD [address] [place] [address] Drive [address] [place] [address] PCP - General Internal Medicine 10/01/23 documented as of this encounter Additional Source Comments The information contained in this document represents components of the legal health record. It is not the complete legal health record.[facility]
--- OUTSIDE RECORDS SUMMARY | 2025-02-13 17:16 | XMS_ITS | Encounter Summary ---
Author Organization [facility] Address [address] [place] [address] Phone Care Team Providers Care Pre School Teacher Name Role Phone Marichuy Hager MD Primary Care Provider [phone] Encounter Details Date Type Department Care Team (Late st Contact Info) Description 01/20/2025 [facility] [address] [facility], 5th Floor, [address] [place] [address] Social History Tobacco Use Types Packs/Day Years [...] Description 02/14/2025 9:00 AM EST [facility] [address] [facility], [address] [place] [address] Macy Francois FNP [address] [employer] [facility] [address] [place] [phone] 02/14/2025 10:30 AM EST Office Visit [facility] Infectious Disease Clinic [address] [facility], 5t Floor, [address] [place] [address] Sylvia Mueller [address] [employer] [facility] [address] [place] [address] [email or web address] 03/28/2025 4:00 PM EST Office Visit [facility] [address] [facility] 3rd Floor, [address] [place] [address] Anant Owens MD [address] [place] [address] [email or web address] documented as of this encounter Goals [...] documented as of this encounter Care Teams Pre School Teacher Relationship Specialty Start Date End Date Marichuy Hager MD [address] [place] [address] [address] [place] [phone] PCP - General Internal Medicine 10/01/23 documented as of this encounter Additional Source Comments The information contained in this document represents components of the legal health record. It is not the complete legal health record.[facility]
--- OUTSIDE RECORDS SUMMARY | 2025-02-13 17:17 | XMS_ITS | Clinical Summary ---
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 [address] * XR FOOT 3 OR MORE VIEWS [...] IMG XR LOWER EXTREMITY Final Result * ECG 12-LEAD (01/06/2025 9:04 AM EST) Only the most recent of2 resultswithin the time period is included. Systolic Blood Pressure [facility] Diastolic Blood Pressure [facility] Ventricular Rate EKG/MIN 34 BPM [facility] Atrial Rate 34 BPM [facility] IL Interval [facility] QRS Duration 88 ms [facility] QT Interval 600 ms [facility] QTC Interval 451 ms [facility] P [place] 85 degrees [facility] R Wave [place] -12 degrees [facility] T Wave [place] 57 degrees [facility] 01/06/2025 9:04 AM EST 02/09/2025 12:40 PM EST Narrative [facility] - 02/09/2025 12:40 PM EST LOC: EL6 DX: BRADYCARDIA REF: RANJAN NEWTON MARKED SINUS BRADYCARDIA LEFTWARD AXIS NONSPECIFIC ST SEGMENT AND T WAVE ABNORMALITIES WHEN COMPARED WITH ECG OF 05-Jan-2025 23:33, NO SIGNIFICANT CHANGE us Ranjan Newton MD ECG ORDERABLES Final Result [facility] * PTT (01/06/2025 6:12 AM EST) PTT 28.2 24.0 - 37.5 sec 01/06/2025 7:09 AM EST [facility] Comment:See MAR for therapeu tic range. Emicizumab (Hemlibra) treatment can result in falsely lowered aPTT test results. Blood (Blood) Catheter/Line / Unknown 01/06/2025 6:12 AM EST 01/06/2025 6:33 AM EST Ranjan Newton MD LAB BLOOD BKR ORDERABLES Eulalia l Result Performing Organization Address [facility] Co de Phone Number [address] [address] * PT-INR (01/06/2025 6:12 AM EST) PT 12.9 10.0 - 13.0 sec 01/06/2025 7:09 AM [facility] INR 1.1 0.9 - 1.1 01/06/2025 7:09 AM [facility] Comment:Therapeutic Range 2. 0 - 3.5 Blood (Blood) Catheter/Line / Unknown 01/06/2025 6:12 AM EST 01/06/2025 6:33 AM EST Ranjan Newton MD LAB BLOOD BKR ORDERABLES Eulalia l Result Performing Organization Address [facility] Co de Phone Number [address] [address] * (ABNORMAL) Hemoglobin A1c (01/06/2025 6:12 AM EST) Hemoglobin A1c 7.1(H) 4.3 - 5.6 % 01/06/2025 10:36 AM [facility] Calculated Mean Blood Glucose 157 mg/dL 01/06/2025 10:36 AM [facility] Comment:There is no establis hed normal range for the Estimated Average Glucose [...] ORDERABLES Eulalia l Result Performing Organization Address [facility]/ZIP Co de Phone Number [address] [address] * Microbiology Add On (01/05/2025 3:49 PM EST) Only the most recent of2 resultswithin the time period is included. Specimen Date/Time 01/05 [address]/05/2025 3:52 PM EST [facility] Test Requested fungal stain and culture 01/05/2025 3:52 PM EST [facility] Specimen Description left foot swab 01/05/2025 3:52 PM EST [facility] Comments 01/05/2025 3:52 PM EST [facility] Was this request processed? Yes 01/05/2025 3:52 PM EST [facility] Other (Other) 01/05/2025 3:4 9 PM EST 01/05/2025 3:49 PM EST Narrative [facility] - 01/05/2025 3:52 PM EST Add-on test completed us Porsha Gilliam MD, MPH LAB GENERAL ORDERABLES Final Result Performing Organization Address [facility] Co de Phone Number [address] [address] * (ABNORMAL) Wound Culture (01/05/2025 9:19 AM EST) Wound Culture/Test Few (2+) Staphylococcus aureus(A) RAPID SUSCEPTIBILITY TESTING (WILLIAM) 9:17 AM EST [facility] Wound Culture/Test Few (2+) RAPID SUSCEPTIBILITY TESTING (WILLIAM) 9:17 AM EST [facility] Comment:Mixed organisms rese mbling cutaneous solo. [...] SUSCEPTIBILITY TESTING (WILLIAM) <=10: Susceptible Macy Francois [facility] LAB MICROBIOLOGY CULTUR E ORDERABLES Final Result [facility] [address] [place] [address] from Last 3 Months Additional Health Concerns Active Problems Noted Date Diagnosed Date Autogenerated Problem 01/16/2025 Infection Onset 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 MRSA 01/11/2025 01/11/2025 Insurance [facility] Advance Directives For more information, please contact: [phone] (9AM - 5PM [facility], Thursday-Thursday) * Full Code (Latest Code Status on File) Date Activated Date Inactivated Comments 01/05/2025 1:10 PM Question Answer Comments Code Status Confirmed With: Patient Code Status Communicated To: Inpatient Attending Care Teams [employer] Relationship Specialty Start Date End Date Po, Marichuy Pereira MD [address] [place] [address] PCP - General Internal Medicine 10/01/23 Additional Source Comments The information contained in this document represents components of the legal health record. It is not the complete legal health record.[facility]
== END 2025-02-13 13:51 | disposition home or self-care (01) ==
LOC: HO.HVNA 13:50
PROVIDERS: Visit Provider Internal Medicine
DX: T25.222A Burn of second degree of left foot, initial encounter (principal)
CPT/HCPCS: 36415; 80076; 80202; 82565; 84520; 85025

== ENCOUNTER 2025-02-20 11:46 | Outpatient (REF) | payer BC, SELFPAY ==
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
[2025-02-20 11:54] LABS: MANUAL DIFF FLAG NO
[2025-02-20 11:57] LABS: Hematocrit 38.2 % (42.0-52.0); Hemoglobin 12.6 g/dl (14.0-18.0); Imm Gran Abs Auto 0.01 X10*3/uL (0.00-0.03); Imm Gran Pct Auto 0.2 % (0.0-0.4); Lymphocytes Absolute Auto 2.0 X10*3/uL (1.2-4.9); Mean Corpuscular HGB Conc 33.0 g/dl (31.0-36.0); Mean Corpuscular Hemoglobin 30.5 pg (27.0-33.0); Mean Corpuscular Volume 92.5 fL (80.0-98.0); NRBC Abs Auto 0.000 X10*3/uL (0.0-0.012); NRBC Pct Auto 0.0 /100WBC (0.0-0.2); Platelet Count 236 X10*3/uL (160-400); Red Blood Count 4.13 X10*6/uL (4.60-5.80); White Blood Count 5.7 X10*3/uL (4.8-10.8)
[2025-02-20 12:36] LABS: Alanine Aminotransferase 32 U/L (0-40); Albumin Level 4.0 g/dL (3.5-5.0); Alkaline Phosphatase 98 U/L (39-117); Aspartate Amino Transferase 26 U/L (5-37); Blood Urea Nitrogen 25 mg/dL (9-16); Estimated Glomerular Filt Rate 48; Total Protein 7.3 g/dL (6.5-8.0)
--- OUTSIDE RECORDS SUMMARY | 2025-02-20 13:52 | XMS_ITS | Encounter Summary ---
Author Organization [facility] Address [address] [place] [address] Phone Care Team Providers Care Molder Shoulder Pad Name Role Phone Marichuy Hager MD Primary Care Provider [phone] Encounter Details Date Type Department Care Team (Late st Contact Info) Description 01/06/2025 Procedure Pass [facility] Cardiac Ultrasound [address] [place] [address] Social History Tobacco Use Types Packs/Day Years [...] Info) Description 02/27/2025 8:00 AM EST Telemedicine [facility] [address] 4th Floor, [address] [place] [address] Ishan Chacon MD [address] [place] [address] [email or web address] 03/28/2025 4:00 PM EST Office Visit [facility] [address] 3rd [address], [address] [place] [address] Anant Owens MD [address] [place] [address] [email or web address] documented as of this encounter Visit Diagnoses Not on filedocumented in this encounter Additional Health Concerns Infection Onset 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 Resolved Time MRSA 01/11/2025 01/11/2025 documented as of this encounter Care Teams Molder Shoulder Pad Relationship Specialty Start Date End Date Marichuy Hager MD [address] [place] [address] PCP - General Internal Medicine 10/01/23 documented as of this encounter Additional Source Comments The information contained in this document represents components of the legal health record. It is not the complete legal health record.[facility]
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
--- OUTSIDE RECORDS SUMMARY | 2025-02-20 13:53 | XMS_ITS | Encounter Summary ---
Author Organization [facility] Address [address] [place] [address] Phone Care Team Providers Care Meals On Wheels Driver Name Role Phone Marichuy Hager MD Primary Care Provider [phone] Encounter Details Date Type Department Care Team ([facility] st Contact Info) Description 01/16/2025 Procedure Pass [facility] PERI[facility]IVE DEPT [address] [place] [address] Social History Tobacco Use Types [...] is your housing situation today? I have roaxnne sing 01/07/2025 How many times have you [...] Info) Description 02/27/2025 8:00 AM EST Telemedicine [facility] [address] [facility], 4th Floor, [address] [place] [address] Ishan Chacon MD [address] [facility] [place] [address] [email or web address] 03/28/2025 4:00 PM EST Office Visit [facility] [address] 3rd Floor, [address] [place] [address] Anant Owens MD [address] [place] [address] [email or web address] documented as of this [...] documented as of this encounter Care Teams Meals On Wheels Driver Relationship Specialty Start Date End Date Marichuy Hager MD [address] [place] [address] PCP - General Internal Medicine 10/01/23 documented as of this encounter Additional Source Comments The information contained in this document represents components of the legal health record. It is not the complete legal health record.[facility]
--- OUTSIDE RECORDS SUMMARY | 2025-02-20 13:53 | XMS_ITS | Encounter Summary ---
Author Organization [facility] Address [address] [place] [address] Phone Care Team Providers Care Criminalist Name Role Phone Marichuy Hagre MD Primary Care Provider [phone] Encounter Details Date Type Department Care Team ([facility] Contact Info) Description 01/17/2025 Procedure Pass [facility] PERIOPERATIVE DEPT [address] [place] [address] Social History Tobacco Use Types [...] Info) Description 02/27/2025 8:00 AM EST Telemedicine [facility] [address] [facility], 4th Floor, [address] [place] [address] Ishan Chacon MD [address] [facility] [address] [place] [address] [email or web address] 03/28/2025 4:00 PM EST Office Visit [facility] [address] 3rd Floor, [address] [place] [address] Anant Owens MD [address] [facility] [address] [place] [address] [email or web address] documented as of this encounter Goals [...] documented as of this encounter Care Teams Criminalist Relationship Specialty Start Date End Date Marichuy Hager MD [address] [place] [address] PCP - General Internal Medicine 10/01/23 documented as of this encounter Additional Source Comments The information contained in this document represents components of the legal health record. It is not the complete legal health record.[facility]
--- OUTSIDE RECORDS SUMMARY | 2025-02-20 13:53 | XMS_ITS | Encounter Summary ---
Author Organization [facility] Address [address] [facility] [address] [place] [address] Phone Care Team Providers Care Social Work Job Titles Name Role Phone Marichuy Hager MD Primary Care Provider Encounter Details Date Type Department Care Team ([facility] st Contact Info) Description 01/11/[address] [facility] PERIOPERATIVE DEPT [address] [place] [address] Social History Tobacco Use Types [...] Info) Description 02/27/2025 8:00 AM EST Telemedicine [facility] [address] [facility], 4th Floor, [address] [place] [address] Ishan Chacon MD [address] [facility] [address] [place] [address] [email or web address] 03/28/2025 4:00 PM EST Office Visit [facility] [address] 3rd Floor, [address] [place] [address] Anant Owens MD [address] [facility] [address] [place] [address] [email or web address] documented as of this encounter Visit Diagnoses Not on filedocumented in this encounter Additional Health Concerns Infection Onset 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 Resolved Time MRSA 01/11/2025 01/11/2025 documented as of this encounter Care Teams Social Work Job Titles Relationship Specialty Start Date End Date Marichuy Hager MD [address] [place] [address] PCP - General Internal Medicine 10/01/23 documented as of this encounter Additional Source Comments The information contained in this document represents components of the legal health record. It is not the complete legal health record.[facility]
== END 2025-02-20 11:47 | disposition home or self-care (01) ==
LOC: HO.HVNA 11:46
PROVIDERS: Visit Provider Internal Medicine
DX: Z13.0 Encounter for screening for diseases of the blood and blood-forming organs and certain disorders involving the immune mechanism (principal); Z13.220 Encounter for screening for lipoid disorders; Z13.228 Encounter for screening for other metabolic disorders; B95.62 Methicillin resistant Staphylococcus aureus infection as the cause of diseases classified elsewhere
CPT/HCPCS: 36415; 80076; 82565; 84520; 85025